=== PATIENT | female | born 1970 | race Caucasian/White ===

== ENCOUNTER 2023-09-28 05:34 | Observation (INO) ==
--- NOTE | 2023-09-12 11:05 | Anesthesiology Consultation ---
Date of Service September 12, 2023 Assessment & Plan (1) Encounter for pre-operative examination: Chart Review Chart Review: Acceptable Risk for Surgery and Patient NOT seen in Pre Admission Testing - Check test AM DOS -Infectious Disease screening: Per PAT nursing assessment on 09/12/23. No known infectious disease contacts in past 10 days or current infectious disease symptoms. No recent travel outside the country. History Surgery Operation Date: 09/28/23 07:15 Proposed Procedures p Total Laparoscopic Hysterectomy, Bilateral Salpingo-Oophorectomy, Cystoscopy and Possible Laparotomy as Indicated Procedure - Derrick Hernández MD Height/Weight Height: 5 ft 4 in Weight: 61.235 kg Allergies Allergy/AdvReac Type Severity Reaction Status Date / Time No Known Allergies Allergy Verified 07/30/23 10:19 Medications Home Medications Medication Instructions Recorded Confirmed Last Taken albuterol sulfate 90 mcg/actuation 2 puff inhalation Q6H PRN prn 07/11/23 09/12/23 Unknown aerosol inhaler ascorbate calcium (vitamin C) 500 500 mg PO QAM 07/11/23 09/12/23 Unknown mg tablet biotin 1 mg capsule 1 mg PO QAM 07/11/23 09/12/23 Unknown multivitamin 1 tab PO QAM 07/11/23 09/12/23 Unknown triamcinolone acetonide 0.1 % 1 applic topical DAILY PRN prn 07/11/23 09/12/23 Unknown topical cream calcium carbonate 600 mg-vitamin 1 tab PO QAM 08/13/23 09/12/23 Unknown D3 10 mcg (400 unit) tablet (Calcium with Vitamin D) ferrous sulfate 325 mg (65 mg 325 mg PO QAM 08/13/23 09/12/23 Unknown iron) tablet (Iron (ferrous sulfate)) turmeric 400 mg capsule 400 mg PO QAM 08/13/23 09/12/23 Unknown fluocinonide 0.05 % topical cream 1 applic topical QID PRN itching 08/20/23 09/12/23 Unknown #60 grams lactobacillus combination no.4 3 3,000 mmu cells PO QAM 09/12/23 09/12/23 Unknown billion cell capsule (Probiotic) Past Medical History Medical History Asthma controlled with prn inhaler History of anesthesia reaction severe constipation after anesthesia History of breast cancer - 05/2023, s/p partial mastectomy and sentinel LN biopsy - radiation only x 4 weeks, completed 08/23/2023 Menieres disease Past Family History Family History Mother Diabetes Hypertension Father Hypertension Skin cancer Basal and Squamous; Benign colon polyp Grandmother (Paternal) Breast cancer Colon cancer Uncle Bladder cancer Paternal Uncle Brother Hypertension Brother Hypertension Past Surgical History Surgical History H/O tubal ligation History of D&C with uterine polypectomy 2019 S/P breast biopsy, right 04/30/23 S/P partial mastectomy Right breast [facility] 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 Dima Lopes Social History Smoking Status: Never smoker Do You Dip or Chew Tobacco: No Hx Alcohol Use: Yes alcohol intake frequency: holidays/special occasions only Hx Substance Use: No substance use type: does not use Testing Laboratory Results 09/06/23= WBC: 5.84 H/H: 14.5/44.1 PLATELETS: 260 SODIUM: 139 POTASSIUM: 4.3 CHLORIDE: 102 CO2: 27 BUN: 13 CREATININE: 0.8 GLUCOSE: 91 Electrocardiogram Date: 05/28/23 Findings: + NSR @ (71bpm) Normal EKG per cardio
[2023-09-28] MEDS: LR 15ML/HR IV SCH (06:20)
[2023-09-28] MEDS: LACTATED RINGER'S 1,000 ML IV SCH ×2 (06:22→17:18)
[2023-09-28] MEDS ORDERED: MIDAZOLAM HCL 1 MG/ML 2ML VIAL ONE (06:44)
[2023-09-28] MEDS ORDERED: HYDROmorphone INJ 2 MG/ML SYR/VIAL ONE (06:44)
[2023-09-28] MEDS ORDERED: HYDROmorphone INJ 1 MG/ML SYRINGE IV PRN (06:52)
[2023-09-28] MEDS ORDERED: NALOXONE HCL 0.4 MG/1 ML VIAL/CARP IV PRN (06:52)
[2023-09-28] MEDS ORDERED: PROMETHAZINE HCL 6.25 MG in SODIUM CHLORIDE 0.9% 50 ML IV PRN (06:52)
[2023-09-28] MEDS ORDERED: ATROPINE SULFATE 0.1 MG/ML 10ML SYR IV PRN (06:52)
[2023-09-28] MEDS ORDERED: FLUMAZENIL 0.1 MG/1 ML 10 ML VIAL IV PRN (06:52)
[2023-09-28] MEDS ORDERED: ePHEDrine sulfate 50 MG/ML AMP IV PRN (06:52)
[2023-09-28] MEDS ORDERED: ONDANSETRON INJ 2 MG/ML 2 ML VIAL IV PRN ×2 (06:52→10:18)
[2023-09-28] MEDS ORDERED: fentaNYL citrate PF 100 MCG/2 ML VIAL IV PRN (06:52)
--- NOTE | 2023-09-28 06:58 | History & Physical Bridge Note ---
Date of Service September 28, 2023 History & Physical Bridge Note I have examined the patient, reviewed the History & Physical and in the interval since the performance of the History & Physical I have noted the following changes of clinical significance: no changes noted
[2023-09-28] MEDS: ceFAZolin 2000MG 2,000 MG/15 ML SYR IV SCH (07:03)
[2023-09-28] MEDS ORDERED: ONDANSETRON INJ 2 MG/ML 2 ML VIAL ONE (07:26)
[2023-09-28] MEDS ORDERED: ROCURONIUM BROMIDE 10 MG/ML 5 ML VIAL IV ONE ×2 (07:26→08:51)
[2023-09-28] MEDS ORDERED: PROPOFOL IV EMULSION 10 MG/ML 20 ML VIAL IV ONE ×2 (07:26→10:01)
[2023-09-28] MEDS ORDERED: METOCLOPRAMIDE HCL INJ 5 MG/ML 2 ML VIAL ONE (07:26)
[2023-09-28] MEDS ORDERED: DEXAMETHASONE SOD INJ 4 MG/ML VIAL ONE (07:26)
[2023-09-28] MEDS ORDERED: LIDOCAINE 2% 2 ML VIAL/AMP(20MG/ML) INFIL ONE (07:26)
[2023-09-28] MEDS ORDERED: PHENYLEPHRINE 100MCG/ML 10ML SYR IV ONE (07:28)
[2023-09-28] MEDS ORDERED: SUGAMMADEX SODIUM 200 MG/2 ML VIAL IV ONE (08:16)
[2023-09-28] MEDS: METHYLENE BLUE 0.5% 10 ML VIAL ONE (08:33)
[2023-09-28] MEDS: BUPIVACAINE/EPINEPHRINE 0.5% MPF 1:200,000 30 ML VIAL ONE (09:56)
[2023-09-28] MEDS ORDERED: oxyCODONE/ACETAMINOPHEN 5mg/325mg TAB PO PRN ×2 (10:18)
[2023-09-28] MEDS ORDERED: ACETAMINOPHEN 325 MG TAB PO PRN (10:18)
[2023-09-28] MEDS ORDERED: KETOROLAC 30 MG/ML VIAL IV PRN (10:18)
--- NOTE | 2023-09-28 10:33 | Operative Report ---
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 Laparoscopic findings to 11 weeks size uterus with multiple fibroids. Appendix appeared grossly normal both ureters were identified prior to surgery the rest of abdominal pelvic exam is unremarkable. Fluids IVF: 1200Ml Urine 200ml EBL; 20ml Specimens Uterus with cervix. Left and right fallopian tubes and ovaries. Drains none Anesthesia Type General Complications None Disposition Disposition: Recovery Room Indications 54-year-old status post breast cancer with endometrial intraepithelial lesion on biopsy. Description of Procedure FINDINGS: DESCRIPTION OF PROCEDURE: The patient was prepped and draped in normal sterile fashion in the dorsal lithotomy position. Mcintosh catheter was placed without difficulty. An UbimoincNouvola uterine manipulator was placed in the uterus to help with colpotomy. Attention was paid to the abdominal part of the procedure where a supraumbilical incision was made and carried down to the fascia. Kait was used to grab the fascia. Veress needle was introduced into the abdomen at a 45-degree angle while tenting up the abdomen. Intra-abdominal placement was confirmed with a water-filled syringe. A water drop and suction test was performed. The abdomen was insufflated with CO2 gas. The Veress needle was removed and a 5 mm non bladed trocar was attached to a laparoscope was introduced into the abdomen under direct visualization. This was a non bladed trocar. Once inside the abdomen, laparoscope was repositioned. Inspection of the abdomen shows the findings as dictated above. Three more accessory ports were placed, two 5 mm accessory ports were placed in the lower abdomen on the contralateral side, in addition, an 11 mm trocar was placed on the left upper quadrant. General inspection of the abdomen and pelvis was performed as dictated above. There was an adhesion of omentum to the umbilicus. This omentum was examined. There was no bowel in the omentum, so the LigaSure was passed through one of the contralateral port and dissection of the omentum from the abdominal wall was performed. There was good hemostasis. Left and right fallopian tubes, the ureters, uterosacrals, bowels, appendix were examined and identified. LigaSure was passed through the left accessory port. The fallopian tube was identified and grabbed 4 cm from the cornua of the uterus with the LigaSure and transected. This was followed by opening of the left anterior leaf of the broad ligament. This allowed for fenestration of the posterior left broad ligament. The mid-section of the left fallopian tube, utero-ovarian and meso-ovarian pedicles were transected as well. Same procedure was performed on the contralateral side. The anterior broad ligament dissection was carried to the mid-section of the vesicouterine peritoneum over the bladder using the Harmonic scalpel. Same procedure was carried out on the contralateral side. The posterior broad ligament peritoneum was carefully dissected also from both sides over the uterosacral arch in order to displace the ureters laterally. Using traction and countertraction, the [place] retractor and irrigation probe was used to further dissect the bladder off the lower segment of the uterus. Bladder pillars and pubovesical fascia was dissected as well. Harmonic scalpel was used to obtain hemostasis where needed. Uterine manipulator was now palpable over the vaginal tissue. The right uterine pedicles were skeletonized and coagulated with the LigaSure. Good hemostasis was obtained. Same procedure was performed on the contralateral side. Cardinal ligaments were transected on both sides. Once good hemostasis was obtained, colpotomy was performed using the LigaSure hook from both sides. Uterus was removed through the vagina while still attached to the uterine manipulator. The bulb was attached to the uterine manipulator was reinserted into the vagina to establish pneumoperitoneum. With a grasper, the remaining section of the left ovary and tube were positioned anteromedially. Both tube and ovary was removed. Same procedure was performed on both sides. EndoStitch closure device was passed through the 11 mm port on the left. Using the [place] grasper for traction, colpotomy closure was performed. The uterosacral ligaments incorporated into the closure in order to decrease the risk of prolapse. Lapro ties were used with the EndoStitch. The 11-mm trocar site was closed with a Jimbo-Rios under direct visualization. Attention was paid to the cystoscopy part of the procedure where a cystoscope was introduced into the bladder. Suture was seen in the bladder on the left lower part of the bladder incision. Laparoscopic scissors was passed through the cystoscope and the suture cut.. There were no gross blood seen in the bladder as well. The bubble sign is noted showing the bladder was a close cavity. Both ureters were seen and there was efflux from both uterus. Attention was paid back to the abdominal part of the procedure the vaginal cuff incision was reclosed. Once this was done the cystoscopy was repeated. The bladder was now free of any sutures no blood in the bladder both ureters was again was seen to be Timoteo urine. The skin incisions are closed with Dermabond, except for the 11-mm trocar site, which was closed with 4-0 Monocryl. The patient was returned to recovery in stable condition. Inspection of the vagina shows the vaginal cuff was intact. All instruments were removed from the vagina and the bladder and accounted for x2. I attest to the content of the Intraoperative Record and any orders documented therein. Any exceptions are noted below.\ Transport Nurse was necessary for retraction and manipulation of instruments in order to provide for a safe operation
--- NOTE | 2023-09-28 12:15 | Anesthesiology Progress Note ---
Date of Service September 28, 2023 Anesthesia Post Procedure Vital Signs Vital Signs: Temp Pulse Pulse Pulse Resp BP BP 09/28/23 11:10 36.4 C L 63 14 117/71 09/28/23 10:55 72 14 125/74 09/28/23 10:45 36.4 C L 65 14 125/67 09/28/23 10:35 77 16 121/73 09/28/23 10:25 60 12 111/67 09/28/23 10:15 36.3 C L 74 14 106/60 09/28/23 05:55 36.7 C 70 20 116/77 Pulse Ox O2 Del Method O2 Flow Rate 09/28/23 11:10 100 Room Air 09/28/23 10:55 99 Room Air 09/28/23 10:45 96 Room Air 09/28/23 10:35 100 Oxymask 2 09/28/23 10:25 100 Oxymask 4 09/28/23 10:15 97 Oxymask 6 09/28/23 05:55 98 Room Air Transfer of Care Handoff Completed per policy Notes Mental Status: alert / awake / arousable Patient Amnestic to Procedure: Yes Nausea / Vomiting: adequately controlled Pain: adequately controlled Airway Patency, RR, SpO2: stable & adequate BP & HR: stable & adequate Hydration State: stable & adequate Anesthetic Complications: no major complications apparent
[2023-09-28] MEDS: DOCUSATE SODIUM 100 MG CAP PO SCH (21:10)
[2023-09-28] MEDS: IBUPROFEN 600 MG TAB PO PRN (21:19)
--- OUTSIDE RECORDS SUMMARY | 2023-09-29 01:15 | External Medical Summary | Summary of Care ---
Author Name Unknown Organization [facility] Address [address] [place] [address] Phone [phone] Care Team Providers Care Herb Counselor Name Role Phone Lululloyd Vianney Fernandez PA-C Primary Care Provider [phone] Reason for Visit * Reason Comments Medical Nutrition Therapy * Evaluate & Treat - Unlimited Visits (Within 10 days (routine)) - Pending Review Specialty Diagnoses / Procedures Referred By Lorena palomo Referred To Contact Dietitian / Nutrition Services Diagnoses History of breast cancer Heidy Cotton PA-C [address] [place] [address] Referral ID Status Reason Start Date Expiration Date Visits Requested Visits Authorized [id number] Pending Review Specialty Services Required 09/24/[phone] Encounter Details Date Type Department Care Team ([facility] st Contact Info) Description 09/27/2023 3:00 PM EDT Telemedicine Nutrition [address] [address] Sushila Daivs, NICOLAS [address] [place] [address] Dietary counseling and surveillance*; History of breast cancer [Z85.3] Allergies Active Allergy Reactions Criticality Noted Date Comments Pollen 01/26/2021 documented as of this encounter (statuses as of 09/27/2023) Medications Medication Sig Dispensed Refills Start Date End Date Status Calcium Carb-Cholecalciferol 1000-800 MG-UNIT Oral Tablet Take 1 Tablet by mouth in the morning and 1 Tablet before bedtime. Active ferrous sulfate (FEOSOL) 325 (65 FE) MG TabletIndications:Iron deficiency anemia due to chronic blood loss Take 1 Tab by mouth 2 times a day. 60 Tab 6 11/11/2019 Active vitamin c (ASCORBIC ACID) 250 MG Tablet Take 1 Tablet by mouth in the morning. Active Triamcinolone Acetonide 0.1 % External Cream (Aristocort) Apply topically to affected area 2 times a day. To affected area. 60 g 5 02/01/2021 Active Albuterol Sulfate (2.5 MG/3ML) 0.083% Inhalation Nebulization Solution (Proventil) Inhale via nebulizer 1 Vial every 4 hours as needed for Wheezing. 75 mL 1 09/19/2021 Active Albuterol Sulfate HFA 108 (90 Base) MCG/ACT Inhalation Aerosol Solution Inhale by mouth 2 Puffs in the morning AND 2 Puffs at noon AND 2 Puffs in the evening AND 2 Puffs before bedtime. 18 g 1 09/19/2021 Active Multivitamin Adult Oral Tablet Chewable Take by mouth. Active Biotin 5 MG Oral Tablet Disintegrating (Biotin Beauty Extra Strength) Take by mouth. Active Turmeric Curcumin Oral Capsule Take by mouth. Active Probiotic 250 MG Oral Capsule Take by mouth. Active Ibuprofen 600 MG Oral Tablet (Motrin) Take 1 Tablet by mouth in the morning and 1 Tablet at noon and 1 Tablet before bedtime. With meals.. 30 Tablet 08/02/2023 Active Anastrozole 1 MG Oral Tablet (Arimidex)Indications: Malignant neoplasm of upper-outer quadrant of right breast in female, estrogen receptor positive (HCC) Take 1 Tablet by mouth in the morning. 30 Tablet 11 2023 Active Magnesium Citrate Oral SolutionIndications:Pr eop testing Take 296 ml solution 5 PM the night before surgery 300 mL 2023 Active Hospital, Clinic, or Other Facility Administered Medication Ordered Dose Route Frequency Start Date End Date Status Albuterol Sulfate (Proventil) (2.5 MG/3ML) 0.083% inhalation solution 2.5 mgIndications:Screening for respiratory condition 2.5 mg NEBULIZER PRN 08/07/2023 Active documented as of this encounter (statuses as of 09/27/2023) Active Problems Problem Noted Date Diagnosed Date Malignant neoplasm of female breast 06/12/2023 Intermittent asthma with reliever use up to twic e per week 02/01/2021 Mild persistent asthma without complication 01/14 Eczema 07/16/2012 Meniere's disease Asthma, allergic documented as of this encounter (statuses as of 09/27/2023) Resolved Problems Problem Noted Date Diagnosed Date Resolved Date Screening for cardiovascular condition 07/16/2012 01/24/2018 Screening for diabetes mellitus 07/16/2012 01/24/2018 General medical exam 07/16/2012 018 Acute bronchitis, complicated 06/06/2010 07/16/2012 documented as of this encounter (statuses as of 09/27/2023) Immunizations Name Administration Dates Next Due COVID-19 mRNA, LNP-s, No Pre serve, 2-Dose Series (Veodin) 03/05/2021,07/16/2020,06/25/2020 COVID-19, MRNA-LNP, 23-24, P F, 50 MCG/0.5 mL, 12 YRS AND ABOVE, IM (MODERNA-Spikevax) 02/09/2023 Covid-19, Mrna, Lnp-s, Pf, B ivalent, 50 Mcg, IM, 12 yrs and above (Moderna) 02/25/2022 Pneumococcal Conjugate Vacci ne, 20-valent (Cbusszi16) 05/03/2022 Seasonal Influenza, PF, 6 M & above, IM , (FluLaval or Fluzone) 02/25/2022,02/01/2021,02/18/2020 Seasonal Influenza, Quadriva lent Hd (Fluzone Hd) 01/01/2023 Seasonal Influenza, Split, I IV3, With Preserve, Inj 04/26/2012 TDAP (age 10 and older)(Boostrix) 07/16/2012 Zoster Vaccine Recombinant (Shingrix) 07/22/2021 ,05/21/2021 documented as of this encounter Social History Tobacco Use Types Packs/Day Years Used Date Smoking Tobacco: Never Smokeless Tobacco: Never Alcohol Use Standard Drinks/Week Comments Yes 0 (1 standard drink = 0.6 oz pur e alcohol) very rare AUDIT-C Answer Date Recorded Frequency of Alcohol Consumption Monthly or less 11/07/2019 Average Number of Drinks Not on file 07/24/2 020 Frequency of Binge Drinking Not on file 10/15 PHQ-2 Answer Date Recorded PHQ Adult Total Score 0 05/03/2022 Hunger Vital Sign Answer Date Recorded Within the past 12 months, y ou worried that your food would run out before you got the money to buy more. Never true 03/28/20 23 Within the past 12 months, t he food you bought just didn't last and you didn't have money to get more. Never true 03/28/2023 Sex and Gender Information Value Date Recorded Sex Assigned at Female 11/10/2019 5:51 PM EDT Gender Identity Female 11/10/2019 5:51 PM EDT Sexual Orientation Straight 03/28/2023 11 :34 AM EST Job Start Date Occupation Industry Not on file Not on file Not on file documented as of this encounter Progress Notes * Sushila Davis, NICOLAS - 09/27/2023 3:06 PM EDT NUTRITION CONSULT - OUTPATIENT [facility] Name: [facility]: 09[facility]27[facility]2023 Time: 3:06 PM Patient was identified by name and date. Patient location: HOME. I was in a hospital or clinic location. After connecting through Att[employer],patient was verified with two unique identifiers. Patient (or authorized legal statement services representative) was then informed that this was a Telemedicine visit and being conducted confidentially over secure lines. Methods to assure confidentiality were taken. Patient acknowledged consent and understanding of pr ivacy and security of the Telemedicine visit. The patient agreed to participate. Reason for Referral: Breast Cancer NUTRITION ASSESSMENT: Client History Nova states that she is "jumping into a new era for body and nutrition". Notes that this was the first year in her life were she underwent surgery and was prescribed medications. Is scheduled for hysterectomy with removal of ovaries tomorrow due to increased risk of uterine cancer. Is worried about weight maintenance s/p hysterectomy. Is also diagnosed with Meniere's disease and states that controlling weight status helps with management of this disease. Support System: and family Barriers To Learning: None Special Education Needs: None Food/Nutrition-Related History Describes typical diet history/24 hr recall: Breakfast: 9-10 AM: Homemade yogurt with berries, homemade granola (lower sugar) or almond milk smoothies with berries and spinach or avocado toast or overnight oats. Today - chicken and vegetables. Drinks water with this meal. Snacks: None Lunch: Leftovers. Avocado toast (sourdough bread) or grabs fast food burger or sandwich or cheese quesadilla. Snacks: Craves sugar. Ruslan crackers or biscotti or fruit or ice cream. Dinner: Yesterday - chicken, roasted vegetable medley, sourdough bread. Uses Hello Fresh meals 3 times weekly. Snacks: Sometimes - a couple small cookies Drinks: Water Restaurant meals: 1-2 times weekly Alcohol: 1-2 times monthly Tobacco Use: No Food and Nutrient Intake and other pertinent information: Lately, dairy hasn't been agreeing with her. Used Noom 1 1/2 years ago. Food allergies and/or food intolerances: Possible lactose intolerance Pertinent Medications (Current): Current Outpatient Medications Medication Sig Dispense Refill Calcium Carb-Cholecalciferol 1000-800 MG-UNIT Oral Tablet Take 1 Tablet by mouth in the morning and1 Tablet before bedtime. ferrous sulfate (FEOSOL) 325 (65 FE) MG Tablet Take 1 Tab by mouth 2 times a day. 60 Tab 6 vitamin c (ASCORBIC ACID) 250 MG Tablet Take 1 Tablet by mouth in the morning. Triamcinolone Acetonide 0.1 % External Cream (Aristocort) Apply topically to affected area 2 times a day. To affected area. 60 g 5 Albuterol Sulfate (2.5 MG/3ML) 0.083% Inhalation Nebulization Solution (Proventil) Inhale via nebulizer 1 Vial every 4 hours as needed for Wheezing. 75 mL 1 Albuterol Sulfate HFA 108 (90 Base) MCG/ACT Inhalation Aerosol Solution Inhale by mouth 2 Puffs in the morning AND 2 Puffs at noon AND 2 Puffs in the evening AND 2 Puffs before bedtime. 18 g 1 Multivitamin Adult Oral Tablet Chewable Take by mouth. Biotin 5 MG Oral Tablet Disintegrating (Biotin Beauty Extra Strength) Take by mouth. Turmeric Curcumin Oral Capsule Take by mouth. Probiotic 250 MG Oral Capsule Take by mouth. Ibuprofen 600 MG Oral Tablet (Motrin) Take 1 Tablet by mouth in the morning and 1 Tablet at noon and 1 Tablet before bedtime. With meals.. 30 Tablet 0 Anastrozole 1 MG Oral Tablet (Arimidex) Take 1 Tablet by mouth in the morning. 30 Tablet 11 Magnesium Citrate Oral Solution Take 296 ml solution 5 PM the night before surgery 300 mL 0 Current Facility-Administered Medications Medication Dose Route Frequency Provider Last Rate Last Admin Albuterol Sulfate (Proventil) (2.5 MG/3ML) 0.083% inhalation solution 2.5 mg 2.5 mg Nebulizer PRN Vianney Cordova PA-C 2.5 mg at 08/27/23 0901 Supplements: Calcium, Iron, Multivitamin with minerals, Probiotic, Vitamin C, biotin, turmeric Prior Nutrition Counseling: No prior counseling Physical Activity: Moderate - 30 minute walk on most days of the week Anthropometric Measurements There were no vitals taken for this visit. Wt Readings from Last 13 Encounters: 09/06/23 62.2 kg (137 lb 1.6 oz) 08/14/23 63.5 kg (140 lb) 08/02/23 64 kg (141 lb) 07/24/23 64 kg (141 lb) 07/18/23 64 kg (141 lb) 06/12/23 61 kg (134 lb 7.7 oz) 05/18/23 61.7 kg (136 lb) 05/15/23 61.2 kg (134 lb 14.4 oz) 04/26/23 62.1 kg (137 lb) 04/04/23 63 kg (139 lb) 03/07/23 62.1 kg (137 lb) 01/01/23 62.2 kg (137 lb 1.6 oz) 07/12/22 63.6 kg (140 lb 3.2 oz) Usual Body Weight: 134-141 lb for the past year Weight Change: stable Interpretation of weight change: no significant loss Weight Goal: 130-135 lb per patient BMI: BMI Readings from Last 1 Encounters: 09/06/23 23.70 kg/m Nutrition-Focused Physical Findings Overall appearance: WNWD Need for nutrition-focused physical exam not indicated at this time. Fluid accumulation: Fluid Assessment: Normal per patient Fluid Location: N/A Fluid Description: N/A Digestive system: Dairy will cause diarrhea. Nerves and cognition: Awake, alert and Oriented Nutritionally significant wound burden: Surgical wound / incision - intact Biochemical Data, Medical Tests, and Procedures There are no biochemical abnormalities requiring a change in the nutrition plan of care. NUTRITION DIAGNOSIS Food and nutrition-related knowledge deficit related to nutritional management of breast cancer survivorship as evidenced by patient interview. NUTRITION INTERVENTION: NUTRITION EDUCATION Comprehensive nutrition education NUTRITION COUNSELING Strategies Other Education Material: Oncology Dietetic Practice Group: Soy and Breast Cancer, Culinary Medicine: Mediterranean Diet, Academy of Nutrition and Dietetics: Heart Healthy Diet Nutrition Prescription: Diet: Mediterranean Diet Goals: Incorporate aspects of Mediterranean Diet into daily eating habits. Include soy foods in diet. Avoid soy supplements. Dietitian Action: Discussed implementing aspects of Mediterranean Diet into daily diet to decrease risk of chronic disease. Discussed recommendations regarding soy foods intake with breast cancer. Recommended looking at [employer] web site for further information on organic foods. Recommendations to Ordering Provider: Continue current plan of nutrition care. NUTRITION MONITORING AND EVALUATION: The following will be monitored and evaluated at the next visit: Monitor weight. Monitor labs. Monitor goals and progress. Monitor PO intake. Monitor activity level. Plan:Patient elected to not schedule F/U visit at this time; dietitian phone # given for future reference. 75 minutes Medical Nutrition Therapy 15 min (8-22 min) 30 min (23-37 min) 45 min (38-52 min) 60 min (53-67 min) 75 min (68-82 min) 90 min (83-97 min) 105 min (98-113 min) Time In: 1505 (09/27/23 1632) Time Out: 1615 (09/27/23 1633) Sushila DAVIS [facility] Clinical Nutrition [facility]: Radiation Oncology Department [address] [place] [address] [email or web address] Available via [place] Text documented in this encounter Plan of Treatment Upcoming Encounters Date Type Department Care Team (Late st Contact Info) Description 10/08/2023 9:45 AM EDT Office Visit Gynecology/Obstetrics [facility] [address] [place] [address] Derrick Hern[facility]dez MD [address] [facility] [place] [address] 11/21/2023 8:45 AM EDT Office Visit General Surgery, [facility] [address] [place] [address] Dima Lopes MD [address] [place] [address] 01/02/2024 10:20 AM EDT Office Visit Otolaryngology [facility] [address] [facility] [place] [address] Twila Najera PA-C [address] [facility] [place] [address] 02/06/2024 1:15 PM EDT Office Visit Hematology/Oncology [facility] [address] [place] [id number] [facility] [address] [facility] [address] 03/24/2024 10:30 AM EST Imaging Radiology [facility] [address] [facility] [address] [place] [address] Scheduled Procedures Name Priority Associated Diagnoses Date/Ti me COLONOSCOPY FLEXIBLE PROXIMAL DIAGNOSTIC Recall History of colon polyps Scheduled Referrals Name Type Priority Associated Diagnoses Orde r Schedule NUTRITION-CLINICAL DIETITIAN REFERRAL OP Referral Within 10 days (routine) History of breast cancer Ordered: 09/24/2023 Health Maintenance Due Date Last Done Comments Hepatitis C Screening 09/07/1987 Hepatitis B (1 of 3 - 19+ 3-dose series) 1988 Cologuard 2014 Fecal Occult Blood Test 2014 Sigmoidoscopy 2014 DTaP,Tdap,and Td Vaccines (2 - Td or Tdap) 07/16/2022 07/16/2012 Depression Screening 05/03/2023 05/03/2022, 05/05/2016 (Discussed) Mammogram 03/23/2024 03/23/2023, 020 09/2022, 02/28/2021, Additional history exists Colonoscopy 12/07/2024 12/08/2019, 12/08/2019 Colorectal Cancer Screening 12/07/2024 Pap Smear 06/15/2025 06/15/2022, 090 04/2020, 11/07/2019, Additional history exists Lipid Panel 06/01/2027 06/01/2022, 10/15, 07/22/2012 Cervical Cancer Screening 06/16/2027 HPV/Co-Test 06/16/2027 06/15/2022 RETIRED - COLONOSCOPY-EVERY 5 YRS AGES 18-100 Discontinued 12/08/2019, 12/08/2019 Zoster Vaccines Completed 07/22/2021, 05/21/2021 Pneumococcal Vaccine: Pediatrics (0 to 5 Years) and At-Risk Patients (6 to 64 Years) Completed 05/03/2022 Influenza Vaccine (FLU shot) Completed 01/01/2023, 02/25/2022, 02/01/2021, Additional history exists COVID-19 Vaccine Completed 02/09/2023, 03/2022, 03/05/2021, Additional history exists GARDASIL-HPV IMMUNIZATION SERIES Aged Out No longer eligible based on patient's age to complete this topic MENINGOCOCCAL (MENACTRA/MENVEO) Aged Out No longer eligible based on patient's age to complete this topic documented as of this encounter Medical Devices Not on filedocumented as of this encounter Visit Diagnoses Diagnosis Dietary counseling and surveillance- Primary Dietary surveillance and counseling History of breast cancer [Z85.3] Personal history of malignant neoplasm of breast documented in this encounter Advance Directives * Full Code (Latest Code Status on File) Date Activated Date Inactivated Comments 06/12/2023 7:40 AM 06/12/2023 5:02 PM This order r eflects the patients wishes and were consensually agreed upon. Question Answer Comments Discussion of Advance Directives occurred with: Patient Care Teams Herb Counselor Relationship Specialty Start Date End Date Vianney Cordova, HASMUKH [address] [place] [address] PCP - General Physician Catering Truck Driver 05/05/16 documented as of this encounter
--- OUTSIDE RECORDS SUMMARY | 2023-09-29 01:16 | External Medical Summary | Summary of Care ---
Author Name Unknown Organization [facility] Address [address] [facility] [place] [address] Phone [phone] Care Team Providers Care Field Artillery Operations Man Name Role Phone Vianney Cordova PA-C Primary Care Provider [phone] Reason for Visit * Reason Comments Follow Up Encounter Details Date Type Department Care Team (Late st Contact Info) Description 2023 1:15 PM EDT Office Visit Hematology/Oncology [place] [facility] Guo [address] [facility] [place] [id number] Gerard Ferrari MD [address] [facility] [place] [address] Malignant neoplasm of upper-outer quadrant of right breast in female, estrogen receptor positive (HCC)* Allergies Active Allergy Reactions Criticality Noted Date Comments Pollen 01/26/2021 documented as of this encounter (statuses as of 2023) Medications Medication Sig Dispensed Refills Start Date [...] the morning. 30 Tablet 11 2023 Active Hospital, Clinic, or Other Facility Administered Medication Ordered Dose Route Frequency Start Date End Date Status Albuterol Sulfate (Proventil) (2.5 MG/3ML) 0.083% inhalation solution 2.5 mgIndications:Screening for respiratory condition 2.5 mg NEBULIZER PRN 08/07/2023 Active documented as of this encounter (statuses as of 2023) Active Problems Problem Noted Date Diagnosed Date Malignant neoplasm of female breast 06/12/2023 Intermittent asthma with reliever use up to twic e per week 02/01/2021 Mild persistent asthma without complication 01/14 Eczema 07/16/2012 Meniere's disease Asthma, allergic documented as of this encounter (statuses as of 2023) Resolved Problems Problem Noted Date Diagnosed Date Resolved Date Screening for cardiovascular condition 07/16/2012 01/24/2018 Screening for diabetes mellitus 07/16/2012 01/24/2018 General medical exam 07/16/2012 018 Acute bronchitis, complicated 06/06/2010 07/16/2012 documented as of this encounter (statuses as of 2023) Immunizations Name Administration Dates Next Due COVID-19 mRNA, LNP-s, No Pre serve, 2-Dose Series ([email or web address]) 03/05/2021,07/16/2020,06/25/2020 COVID-19, MRNA-LNP, 23-24, P F, 50 MCG/0.5 mL, 12 YRS AND ABOVE, IM (MODERNA-Spikevax) 02/09/2023 Covid-19, Mrna, Lnp-s, Pf, B ivalent, 50 Mcg, IM, 12 yrs and above (Moderna) 02/25/2022 Pneumococcal Conjugate Vacci ne, 20-valent ([email or web address]) 05/03/2022 Seasonal Influenza, PF, 6 M & [...] Average Number of Drinks Not on file 020 Frequency of Binge Drinking Not on [...] on file documented as of this encounter Last Filed Vital Signs Vital Sign Reading Time Taken Comments Blood Pressure 107/73 2023 12:59 PM EDT Pulse 87 2023 12:59 PM EDT Temperature 36.7 C (98.1 F) 2023 12:59 PM E DT Respiratory Rate 17 2023 12:59 PM EDT Oxygen Saturation 96% 2023 12:59 PM EDT Inhaled Oxygen Concentration - - Weight 62.2 kg (137 lb 1.6 oz) 2023 12:59 PM EDT Height - - Body Mass Index 23.7 08/14/2023 9:25 AM EDT documented in this encounter Progress Notes * Gerard Ferrari MD - 2023 1:15 PM EDT Hematology/Oncology Outpatient Consult Note Leonela G[place] [address] [facility] [place] [address] N[place] PRESCOTT MR # [id number] :1970 52-year-old female, Date of consultation:05/15/2023 DIAGNOSIS: - right breast lobular carcinoma, on mammogram It is about 9 mm, hormonal positive HER2 negative. S/P partial mastectomy and sentinel for biopsy (06/12/2023). - Invasive lobular carcinoma, grade 2, negative margin -4 sentinel lymph nodes negative for metastatic disease. -primary tumor measuring 1.1 cm. Focus. -pathological T1c N0. Oncotype DX recurrence score --> 13. Genetic Clinic evaluation --> negative. She completed adjuvant radiation treatment in August of 2023. She is going for bilateral salpingo-oophorectomy in the near future. CURRENT TREATMENT: - Planning start Anastrozole 1 mg once a day once she is done with salpingo-oophorectomy. She will continue vitamin-D and Calcium supplementation on regular basis. If she can not tolerate Anastrozole, will switch over to tamoxifen. DIAGNOSTIC WORKUP: She felt the breast lump in the right breast somewhere in March of 2023, earlier she had bilateral breast mammogram in May 2022, It was unremarkable. She is premenopausal. Bilateral breast diagnostic mammogram and sonogram on 03/23/2023: Right breast --> At 10 o'clock, hypoechoic mass measuring 9 x 4 x 7 mm. Left breast--> Debris-filled cyst measuring 1.9 x 1.2 x 2.1 cm. Right breast 10 o'clock core needle biopsy--> Invasive lobular carcinoma grade 2 (04/30/2023). - ER and OR receptor strongly positive in 100% of malignamt cells, HER2 [place] negative by IHC. Family history: -mom and dad, no cancer diagnosis -paternal grandmother with bilateral breast cancer diagnosis -she has 4 children, no cancer diagnosis. - OTHER IMPORTANT HISTORY: Pelvic sonogram on 03/23/2023 because of abnormal uterine bleeding shows Enlarged leiomyomatous uterus with probable underlying adenomyosis. - she is going for D&C on 06/21/2023. INTERVAL HISTORY: She has come the clinic for the follow-up, she came to clinic by herself. Overall she is doing well, no nausea no vomiting, no new GI symptoms, no cardiac or pulmonary symptoms, no thrombotic complications the past, ambulates well, good ECOG PS 0, stable weight around 137 lb. She is premenopausal, She is frequent bleeding issues, she was seen by data security coordinator, they did endometrial biopsy, It showed benign findings, she is going for salpingo-oophorectomy and hysterectomyin the near future. Past Medical History: Diagnosis Date Anemia Asthma, allergic Meniere's disease Past Surgical History: Procedure Laterality Date BX LYMPH NODE DEEP AXIL Right 06/12/2023 BIOPSY LYMPH NODE DEEP AXILLARY OPEN performed by Dima Lopes MD at OR [facility] COLONOSCOPY, DIAGNOSTIC (RECTUM) 12/08/2019 benign polyp, repeat 5 yrs / COLONOSCOPY FLEXIBLE PROXIMAL DIAGNOSTIC performed by Lopez Bazan MD at ENDOSCOPY [facility] DENTAL SURGERY PROCEDURE NEC EXC BREAST LESION RADMARK Right 06/12/2023 EXCISION OF BREAST LESION RADIOLOGICAL MARKER performed by Dima Lopes MD at OR [facility] HYSTEROSCOPY W/BIOPSY AND/OR POLYPECTOMY W/WO D&C N/A 02/05/2020 HYSTEROSCOPY WITH BIOPSY AND/OR POLYPECTOMY WITH OR WITHOUT D&C performed by Farheen Rust MD at OR [facility] HYSTEROSCOPY W/BIOPSY AND/OR POLYPECTOMY W/WO D&C N/A 08/02/2023 HYSTEROSCOPY WITH BIOPSY AND/OR POLYPECTOMY WITH OR WITHOUT D&C performed by Derrick Hernández MD at OR [facility] IDENTIFY SENTINEL NODE, RADIOACTIVE TRACER Right 06/12/2023 INJECTION PROCEDURE FOR IDENTIFICATION SENTINEL NODE performed by Dima Lopes MD at OR [facility] LIGATE/CUT OVIDUCT(S) MASTECTOMY, PARTIAL Right 06/12/2023 MASTECTOMY PARTIAL performed by Dima Lopes MD at OR [facility] PELVIC EXAM UNDER ANESTHESIA, NOT LOCAL N/A 08/02/2023 PELVIC EXAMINATION UNDER ANESTHESIA performed by Derrick Hernández MD at OR [facility] PUNCTURE DRAINAGE BREAST CYST Left 2000 Benign PUNCTURE DRAINAGE BREAST CYST Left 04/30/2023 REMOVAL OF SKIN TAGS, EA ADDL 10 (AFTER 15) Right 06/12/2023 REMOVAL SKIN TAG EACH ADDITIONAL 10 LESIONS performed by Dima Lopes MD at OR [facility] US GUIDED BREAST BIOPSY RIGHT Right 04/30/2023 Current Outpatient Medications Medication Sig Dispense Refill [...] before bedtime. With meals.. 30 Tablet 0 Current Facility-Administered Medications Medication Dose Route Frequency Provider Last Rate Last Admin Albuterol Sulfate (Proventil) (2.5 MG/3ML) 0.083% inhalation solution 2.5 mg 2.5 mg Nebulizer PRN Vianney Cordova PA-C 2.5 mg at 08/27/23 0901 Family History Problem Relation Name Age of Onset Total abdominal hysterectomy Mother 47 Due to fibroids Heart Disorder Mother MVP Diabetes Mother dx age 60's Other (osteoporosis) Mother Sarcoma Father 83 on skin Skin cancer Father SCC & BCC Exposure - lives in [place] and did not wear sunscreen when younger Hypertension Father Hypertension Brother Colon cancer Grandmother (Paternal) Laya 90 - 99 tx: colectomy Mastectomy Grandmother (Paternal) Laya 53 Unilateral mastectomy at age 53, and then masectomy of other breast age age 54 Breast Cancer Grandmother (Paternal) Laya 53 Brain tumor Other Cluck Other (Benign Tumor) Aunt (Paternal) Near nose/eyes Impairs vision. No surgery and appeared >16 yrs ago. Bladder Cancer Uncle (Paternal) 40 - 49 Colon cancer Other Alan TOB+ Lung cancer Other Pamela TOB+ Mets to brain Colon cancer Other Martha Davison Recurrent 15 yrs later TOB- Cancer Other Geoff >300 tumors on body d. 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 Tobacco Use Smoking status: Never Smokeless tobacco: Never Vaping Use Vaping status: Never Used Substance and Sexual Activity Alcohol use: Yes Comment: very rare Drug use: No Sexual activity: Yes Partners: Male control/protection: Surgical Comment: 4 children/tubal Other Topics Concern Not on file Social History Narrative Not on file Social Determinants of Health Financial Resource Strain: Not on file Food Insecurity: No Food Insecurity (03/28/2023) Hunger Vital Sign Worried About Running Out of Food in the Last Year: Never true Ran Out of Food in the Last Year: Never true Transportation Needs: Not on file Physical Activity: Not on file Stress: Not on file Social Connections: Not on file Intimate Partner Violence: Not on file Housing Stability: Not on file On Exam: .BP 107/73 (BP Site: Left Arm, BP Position: Sitting, BP Cuff Size: Regular) | Pulse 87 | Temp 36.7 C (98.1 F) (Tympanic) | Resp 17 | Wt 62.2 kg (137 lb 1.6 oz) | SpO2 96% | BMI 23.70 kg/m | BSA1.67 m Constitutional: Patient is alert, cooperative and oriented x 3. Well built female, Patient is in noacute distress. HEENT: No icterus, no pallor, Throat and pharynx normal. Sinuses are non-tender. Neck: Supple and without lymphadenopathy or masses. No JVD. No Palpable supraclavicular lymph nodes. Lungs: Clear to auscultation. Bilateral symmetric air entry. No wheezing or rhonchi. Cardiovascular: Normal heart sounds, no murmurs.Regular rate and rhythm. Abdomen: Soft, nontender, no hepatomegaly, no splenomegaly. Bowel sounds are normal. Neurological: No gross focal neurological deficit; walks with a normal gait. Extremities: No finger clubbing, No cyanosis. No leg edema. Skin:: No skin rash. SPINE: No spinal or paraspinal tenderness. LABS: Blood workup done in May 2022: -normal kidney function, serum creatinine around 0.8, Calcium level 9.2. -WBC 4008, H&H of 13/41, MCV 88, Platelet count 740586 -Serum iron: 45, TIBC 313, iron saturation 14%. ( she is on oral iron replacement therapy) Blood workup done on 05/24/2023: -normal kidney And liver function test noted. - Normal blood counts IMAGING: Bilateral breast MRI on 05/19/2023: - biopsy-proven right breast malignancy measuring about 7 mm. No suspicious finding noted in the left breast, no suspicious axillary or internal mammary lymphadenopathy noted. Bone density on 08/28/2023: - T-score at lumbar spine -0.4 and left femoral neck -0.6. ASSESSMENT AND PLAN: 52-year-old female, she felt small lump in the right breast without any local symptoms, she had a mammogram showed about 9 mm hypoechoic mass at 10 o'clock, biopsy showed invasive lobular carcinoma hormonal positive HER2 [place] negative. I reviewed with regarding the bilateral breast MRI findings, lumpectomy, Oncotype DX recurrence score She completed adjuvant radiation treatment. Because of low Oncotype DX score, no benefit of adjuvant chemotherapy Reviewed bone density result. Discussed with the regarding adjuvant hormonal treatment that can be considered in the form tamoxifen versus aromatase inhibitor. She says that she is going for bilateral salpingo-oophorectomy in thenear future. In that case we can start Anastrozole about 2 weeks after surgery and see how she tolerates If she can not tolerate Anastrozole, we can switch over to tamoxifen She will continue vitamin-D and Calcium supplementation on a regular basis I reviewed her blood workup done in May 2023, overall normal blood test noted I am planning to see her back in the clinic in about 6 months. Earlier she was seen in genetic Clinic, [address] Gerard Ferrari Hem/Onc (This note was completed using the dictation program Fluency Direct. As such, there may be misspellings word substitutions, or other variations that should not change the essence of the clinical content of this encounter note. If there is need for further clarification, please direct questions to the provider listed above.) documented in this encounter Nursing Notes * Susan Granado MED ASSIST - 2023 1:04 PM EDT Patient identifed by name and birthdate Do you have any concerns about pain management for today's visit? Yes. Patient instructed to discuss pain concerns with provider during the visit today Living Will or Advance Directive for Health Care as noted on the problem list. [facility] is a way you can talk to your provider on line through e-mail. Would you like to sign up? I can activate it for you? ALREADY ACTIVE Filed Vitals: 09/06/23 1259 BP: 107/73 Pulse: 87 Resp: 17 Temp: 36.7 C (98.1 F) TempSrc: Tympanic SpO2: 96% Weight: 62.2 kg (137 lb 1.6 oz) Patient was instructed to not get up on the exam table/exam chair until directed and assisted by their provider; patient is to remain seated in the chair/ wheelchair/ exam table/ exam chair for fall prevention and safety reasons. Patient is aware to have assistance to step down off exam table/exam chair with personnel. Patient voiced full comprehension of instructions. documented in this encounter Plan of Treatment Upcoming Encounters Date Type Department Care Team (Late st Contact Info) Description 10/08/2023 9:45 AM EDT Office Visit Gynecology/Obstetrics [facility] [address] [place] [address] Derrick Hernández MD [address] [place] [address] 11/21/2023 8:45 AM EDT Office Visit General Surgery, [facility] [address] [place] [address] Dima Lopes MD [address] [place] [address] 01/02/2024 10:20 AM EDT Office Visit Otolaryngology [facility] [address] [place] [address] Twila Najera PA-C [address] [place] [address] 02/06/2024 1:15 PM EDT Office Visit Hematology/Oncology [facility] [address] [facility] [place] [id number] Gerard Ferrari MD [address] [facility] [place] [address] 03/24/2024 10:30 AM EST Imaging Radiology [address] [place] [address] Scheduled Procedures Name Priority Associated Diagnoses Date/Ti me COLONOSCOPY FLEXIBLE PROXIMAL DIAGNOSTIC Recall History of colon polyps Health Maintenance Due Date Last Done Comments Hepatitis C Screening 09/07/1987 Hepatitis B (1 of 3 - 19+ 3-dose series) 1988 Cologuard 2014 Fecal Occult Blood Test 2014 Sigmoidoscopy 2014 DTaP,Tdap,and Td Vaccines (2 - Td or Tdap) 07/16/2022 07/16/2012 Depression Screening 05/03/2023 05/03/2022, 05/05/2016 (Discussed) Mammogram 03/23/2024 03/23/2023, 09/2022, 02/28/2021, Additional history exists Colonoscopy 12/07/2024 12/08/2019, 12/08/2019 Colorectal Cancer Screening 12/07/2024 Pap Smear 06/15/2025 06/15/2022, 09/0 04/2020, 11/07/2019, Additional history exists Lipid Panel [...] as of this encounter Visit Diagnoses Diagnosis Malignant neoplasm of upper-outer quadrant of right breast in female, estrogen receptor positive (HCC)- Primary documented in this encounter Advance Directives * Full Code (Latest Code Status on File) Date Activated Date Inactivated Comments 06/12/2023 7:40 AM 06/12/2023 5:02 PM This order r eflects the patients wishes and were consensually agreed upon. Question Answer Comments Discussion of Advance Directives occurred with: Patient Care Teams Field Artillery Operations Man Relationship Specialty Start Date End Date TashaJuly HASMUKH Fernandez [address] [place] [address] PCP - General Physician Gas Engine Performance Engineer 05/05/16 documented as of this encounter"
--- OUTSIDE RECORDS SUMMARY | 2023-09-29 01:16 | External Medical Summary ---
Author Name Unknown Address Unknown Organization [facility] [place] [address] [place] [address] Laboratory Report Ordering Provider Test Date Status CONRADO JAMA 2023 15:24:15 Final Observation Date Value Abnormality Reference (Units ) Status BUN 2023 15:24:15 13 6-20 (mg/dL) Final Creatinine 2023 15:24:15 0.8 0.5-1.0 (mg/dL) Final Glomerular filtration rate/1.73 sq M.predicted [Volume Rate/Area] in Serum, Plasma or Blood by Creatinine-based formula (CKD-EPI) 2023 15:24:15 >90 >=60 (mL/min) Final eGFR is calculated based on the CKD-EPI 2020 equation Sodium 2023 15:24:15 139 135-146 (m mol/L) Final Potassium 2023 15:24:15 4.3 3.5-5.1 (m mol/L) Final Cl 2023 15:24:15 102 98-107 (mm ol/L) Final CO2 2023 15:24:15 27 22-32 (mmo l/L) Final Anion gap 2023 15:24:15 10 7-15 (mmol /L) Final Glucose 2023 15:24:15 91 70-120 (mg /dL) Final Albumin 2023 15:24:15 4.5 3.8-5.0 (g /dL) Final AST (Aspartate aminotransferase) 2023 15:24:15 19 10-35 (U/L) Fin al Alk Phos 2023 15:24:15 31 Below low normal 35- 130 (U/L) Final Bilirubin, Total 2023 15:24:15 0.3 <=1 .2 (mg/dL) Final Calcium 2023 15:24:15 9.5 8.4-10.2 ( mg/dL) Final Protein 2023 15:24:15 7.1 6.0-8.3 (g /dL) Final ALT (Alanine aminotransferase) 2023 15:24:15 12 10-35 (U/L) Deny abrams Performing Location [facility] [place] [address] [facility] [address]
--- OUTSIDE RECORDS SUMMARY | 2023-09-29 01:16 | External Medical Summary | Summary of Care ---
Author Name Unknown Organization [facility] Address [address] [facility] [place] [address] Phone [phone] Care Team Providers Care Hydroelectric Plant Operator Name Role Phone Vianney Cordova PA-C Primary Care Provider [phone] Reason for Visit * Reason Comments Outpatient Testing Encounter Details Date Type Department Care Team (Late st Contact Info) Description 2023 3:20 PM EDT Laboratory Laboratory, [facility] [address] [facility] [place] [id number] [facility] [address] [facility] [place] [address] Arrived Allergies Active Allergy Reactions Criticality Noted Date [...] mRNA, LNP-s, No Pre serve, 2-Dose Series ([employer]) 03/05/2021,07/16/2020,06/25/2020 COVID-19, MRNA-LNP, 23-24, P F, 50 MCG/0.5 mL, 12 YRS AND ABOVE, IM (MODERNA-Spikevax) 02/09/2023 Covid-19, Mrna, Lnp-s, Pf, B ivalent, 50 Mcg, IM, 12 yrs and above (Moderna) 02/25/2022 Pneumococcal Conjugate Vacci ne, 20-valent ([id number]) 05/03/2022 Seasonal Influenza, PF, 6 M & [...] on file documented as of this encounter Plan of Treatment Upcoming Encounters Date Type Department Care Team (Late st Contact Info) Description 10/08/2023 9:45 AM EDT Office Visit Gynecology/Obstetrics [facility] [address] [place] [address] Derrick Hernández MD [address] [place] [address] 11/21/2023 8:45 AM EDT Office Visit General Surgery, [facility] [address] [place] [address] Dima Lopes MD [address] [facility] [place] [address] 01/02/2024 10:20 AM EDT Office Visit Otolaryngology [facility] [address] [place] [address] Twila Najera PA-C [address] [place] [address] 02/06/2024 1:15 PM EDT Office Visit Hematology/Oncology [facility] [address] [place] [phone] Gerard Ferrari MD [address] [place] [address] 03/24/2024 10:30 AM EST Imaging Radiology [facility] [address] [facility] [address] [place] [address] Scheduled Procedures Name Priority Associated Diagnoses Date/Ti [...] Cancer Screening 12/07/2024 Pap Smear 06/15/2025 06/15/2022, 04/2020, 11/07/2019, Additional history exists Lipid Panel [...] Not on filedocumented as of this encounter Advance Directives * Full Code (Latest Code Status on File) Date Activated Date Inactivated Comments 06/12/2023 7:40 AM 06/12/2023 5:02 PM This order r eflects the patients wishes and were consensually agreed upon. Question Answer Comments Discussion of Advance Directives occurred with: Patient Care Teams Hydroelectric Plant Operator Relationship Specialty Start Date End Date Vianney Cordova PA-C [address] [place] [address] PCP - General Physician Deck Steward 05/05/16 documented as of this encounter
--- OUTSIDE RECORDS SUMMARY | 2023-09-29 01:16 | External Medical Summary | Summary of Care ---
Author Name Unknown Organization [facility] Address [address] [place] [address] Phone [phone] Care Team Providers Care Copy And Print Associate Name Role Phone Tasha Vianney Fernandez PA-C Primary Care Provider [phone] Reason for Visit * Reason Onset Date Comments Test Results 08/29/2023 Encounter Details Date Type Department Care Team (Late st Contact Info) Description 08/29/2023 Telephone Genetics HemOnc, [facility] [address] [place] [address] Kaycee Lazo, MS [address] [place] [address] Test Results Allergies Active Allergy Reactions Criticality Noted Date Comments Pollen 01/26/2021 documented as of this encounter (statuses as of 08/29/2023) Medications Medication Sig Dispensed Refills Start Date End Date Status Calcium Carb-Cholecalciferol 1000-800 MG-UNIT Oral Tablet Take 1 Tablet by mouth in the morning and 1 Tablet before bedtime. 0 Active ferrous sulfate (FEOSOL) 325 (65 FE) MG TabletIndications:Iron deficiency anemia due to chronic blood loss Take 1 Tab by mouth 2 times a day. 60 Tab 6 11/11/2019 Active vitamin c (ASCORBIC ACID) 250 MG Tablet Take 1 Tablet by mouth in the morning. 0 Active Triamcinolone Acetonide 0.1 % External Cream [...] Adult Oral Tablet Chewable Take by mouth. 0 Active Biotin 5 MG Oral Tablet Disintegrating (Biotin Beauty Extra Strength) Take by mouth. 0 Active Turmeric Curcumin Oral Capsule Take by mouth. 0 Active Probiotic 250 MG Oral Capsule Take by mouth. 0 Active Ibuprofen 600 MG Oral Tablet (Motrin) Take 1 Tablet by mouth in the morning and 1 Tablet at noon and 1 Tablet before bedtime. With meals.. 30 Tablet 0 08/02/2023 Active Hospital, Clinic, or Other Facility Administered Medication Ordered Dose Route Frequency Start Date End Date Status Albuterol Sulfate (Proventil) (2.5 MG/3ML) 0.083% inhalation solution 2.5 mgIndications:Screening for respiratory condition 2.5 mg NEBULIZER PRN 08/07/2023 Active documented as of this encounter (statuses as of 08/29/2023) Active Problems Problem Noted Date Diagnosed Date Malignant neoplasm of female breast 06/12/2023 Intermittent asthma with reliever use up to twic e per week 02/01/2021 Mild persistent asthma without complication 01/14 Eczema 07/16/2012 Meniere's disease Asthma, allergic documented as of this encounter (statuses as of 08/29/2023) Resolved Problems Problem Noted Date Diagnosed Date Resolved Date Screening for cardiovascular condition 07/16/2012 01/24/2018 Screening for diabetes mellitus 07/16/2012 01/24/2018 General medical exam 07/16/2012 018 Acute bronchitis, complicated 06/06/2010 07/16/2012 documented as of this encounter (statuses as of 08/29/2023) Immunizations Name Administration Dates Next Due COVID-19 mRNA, LNP-s, No Pre serve, 2-Dose Series ([employer]) 03/05/2021,07/16/2020,06/25/2020 COVID-19, MRNA-LNP, 23-24, P F, 50 MCG/0.5 mL, 12 YRS AND ABOVE, IM (MODERNA-Spikevax) 02/09/2023 Covid-19, Mrna, Lnp-s, Pf, B ivalent, 50 Mcg, IM, 12 yrs and above (Moderna) 02/25/2022 Pneumococcal Conjugate Vacci ne, 20-valent ([id number]) 05/03/2022 Seasonal Influenza, PF, 6 M & [...] on file documented as of this encounter Miscellaneous Notes * Telephone Encounter - Kaycee Lazo, - 08/29/2023 9:44 AM EDT I contacted Nova Mota today to disclose genetic test results by MyG. Sent MyG message with results. Genetic Test Result 08/29/2023: Clinically negative. No significant (pathogenic) variants identified. Test Ordered: Multi-Cancer Panel + Expanded Breast/Stripper And Taper Panel at [facility] (74 genes) Genes Included: AIP, ALK, APC, ONEYDA, AXIN2, BAP1, BARD1, BLM, BMPR1A, BRCA1, BRCA2, BRIP1, CDC73, CDH1, CDK4, CDKN1B, CDKN2A (p14ARF), CDKN2A ([id number]), CHEK2, CTNNA1, DICER1, EGFR, EPCAM, FH, FLCN, GREM1, HOXB13, KIT, LTZR1, MAX, MBD4, MEN1, MET, MITF, MLH1, MSH2, MSH3, MSH6, MUTYH, NF1, NF2, NTHL1, PALB2, PDGFRA, PMS2, POLD1, POLE, POT1, VTDNY4G, PTCH1, PTEN, RAD51C, RAD51D, RB1, RET, SDHA, SDHAF2, SDHB, SDHC, SDHD, SMAD4, SMARCA4, SMARCB1, SMARCE1, STK11, SUFU, CBWX711, TP53, TSC1, TSC2, VHL+ FANCC, FANCM, NBN, RECQL Variant of uncertain significance (VUS) identified: BRIP1, c.[id number]>T ([id number]); ClinVarID: [id number] Summary: No hereditary cancer syndrome identified. No significant genetic variants were identified that are associated with the personal history and family history of cancer. A VUS should not guide treatment decisions or change cancer screening recommendations. Testing relatives for VUS findings is not recommended. Continue to follow physician's screening, management, or treatment recommendations. Given negative result, there is no genetic indication for contralateral mastectomy at this time. No additional genetic testing is recommended at this time; however, the patient will be made aware of the 150-day reflex window, should they wish to purse additional analysis. Familial Implications Relatives with cancer could consider genetic testing to clarify the significance of this result forthe family. Genetic testing is not recommended for Nova's child(oni) or unaffected family members since nosignificant variants were found. Close relatives are encouraged to speak with their doctors about the family history of cancer to develop a personalized cancer screening plan. Kaycee Lazo MS, [facility] Licensed, Certified Genetic Counselor [facility] documented in this encounter Plan of Treatment Upcoming Encounters Date Type Department Care Team (Late st Contact Info) Description 2023 1:15 PM EDT Office Visit Hematology/Oncology [facility] [address] [facility] [place] [address] Gerard Ferrari MD [address] [facility] [place] [address] 11/21/2023 8:45 AM EDT Office Visit General Surgery, Health [facility] [address] [place] [address] Dima Lopes MD [address] [place] [address] 01/02/2024 10:20 AM EDT Office Visit Otolaryngology [facility] [address] [place] [address] Twila Najera PA-C [address] [place] [address] 03/24/2024 10:30 AM EST Imaging Radiology [facility] 1st [facility] [address] [place] [address] Scheduled Procedures Name Priority Associated Diagnoses Date/Ti [...] filedocumented as of this encounter Advance Directives Latest Code Status on File Code Status Date Activated Date Inactivated Comments Full Code 06/12/2023 7:40 AM 06/12/2023 5:02 PM This order reflects the patients wishes and were consensually agreed upon. Question Answer Comments Discussion of Advance Directives occurred with: Patient Care Teams Copy And Print Associate Relationship Specialty Start Date End Date Tasha July HASMUKH Fernandez [address] [place] [address] PCP - General Physician Collision Technician 05/05/16 documented as of this encounter
--- OUTSIDE RECORDS SUMMARY | 2023-09-29 01:16 | External Medical Summary | Summary of Care ---
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 Encounter Details Date Type Department Care Team (Late st Contact Info) Description 2023 2:30 PM EDT Office [facility] [address] [place] [address] Derrick Hernández MD [address] [place] [address] Preop testing* Allergies Active Allergy Reactions Criticality Noted Date [...] mRNA, LNP-s, No Pre serve, 2-Dose Series ([employer]) 03/05/2021,07/16/2020,06/25/2020 COVID-19, MRNA-LNP, 23-24, P F, 50 MCG/0.5 mL, 12 YRS AND ABOVE, IM (MODERNA-Spikevax) 02/09/2023 Covid-19, Mrna, Lnp-s, Pf, B ivalent, 50 Mcg, IM, 12 yrs and above (Moderna) 02/25/2022 Pneumococcal Conjugate Vacci ne, 20-valent ([id number]) 05/03/2022 Seasonal Influenza, PF, 6 M & [...] on file documented as of this encounter H&P Notes * Derrick Hernández MD - 2023 3:14 PM EDT Leonela Handyryan [address] [address] Appt line [phone] Nova Mota is a 52 year old year old year old at Unknown P S/p Breast cancer Pt was seen by AP for menorrhagia. 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 Denies h/o STDs and abnormal Paps. Her past medical/surgical histories and current medications are recorded in the electronic record. Past Surgical History: Procedure Laterality Date BX LYMPH NODE DEEP AXIL Right 06/12/2023 BIOPSY LYMPH NODE DEEP AXILLARY OPEN performed by Dima Lopes MD at OR [facility] COLONOSCOPY, DIAGNOSTIC (RECTUM) 12/08/2019 benign polyp, repeat 5 yrs / COLONOSCOPY FLEXIBLE PROXIMAL DIAGNOSTIC performed by Lopez Bazan MD at ENDOSCOPY [facility] DENTAL SURGERY PROCEDURE NEC EXC BREAST LESION RADMARK Right 06/12/2023 EXCISION OF BREAST LESION RADIOLOGICAL MARKER performed by Dima Lopes MD at OR [facility] HYSTEROSCOPY W/BIOPSY AND/OR POLYPECTOMY W/WO D&C N/A 02/05/2020 HYSTEROSCOPY WITH BIOPSY AND/OR POLYPECTOMY WITH OR WITHOUT D&C performed by Farheen Rust MD at OR [facility] HYSTEROSCOPY W/BIOPSY AND/OR POLYPECTOMY W/WO D&C N/A 08/02/2023 HYSTEROSCOPY WITH BIOPSY AND/OR POLYPECTOMY WITH OR WITHOUT D&C performed by Derrick Hernández MD at OR [facility] IDENTIFY SENTINEL NODE, RADIOACTIVE TRACER Right 06/12/2023 INJECTION PROCEDURE FOR IDENTIFICATION SENTINEL NODE performed by Dima Lopes MD at OR [facility] LIGATE/CUT OVIDUCT(S) MASTECTOMY, PARTIAL Right 06/12/2023 MASTECTOMY PARTIAL performed by Dima Lopes MD at OR [facility] PELVIC EXAM UNDER ANESTHESIA, NOT LOCAL N/A 08/02/2023 PELVIC EXAMINATION UNDER ANESTHESIA performed by Derrick Hernández MD at OR [facility] PUNCTURE DRAINAGE BREAST CYST Left 2000 Benign PUNCTURE DRAINAGE BREAST CYST Left 04/30/2023 REMOVAL OF SKIN TAGS, EA ADDL 10 (AFTER 15) Right 06/12/2023 REMOVAL SKIN TAG EACH ADDITIONAL 10 LESIONS performed by Dima Lopes MD at OR [facility] US GUIDED BREAST BIOPSY RIGHT Right 04/30/2023 Family History Problem Relation Name Age of [...] from chemo Lung cancer Grandmother (Maternal) TOB+ History Social History Socioeconomic History Marital status: Spouse [...] on file Housing Stability: Not on file Pelvic sono EXAM US PELVIS TRANS-VAGINAL NON-OB - 03/23/2023 8:47 am HISTORY abnormal uterine bleeding TECHNIQUE Real-time transvaginal ultrasound of the pelvis was performed. COMPARISON 11/14/2019. FINDINGS The uterus measures 11.1 x 7 x 8.4 cm and is enlarged and heterogeneous in echotexture, likely due to combination of adenomyosis and leiomyomas. Largest fibroids identified measure 4.7 cm and 4 cm. Endometrium measures 14 mm in thickness. The right ovary measures 3.9 x 2.4 x 2 cm and is unremarkable. The left ovary measures 3.2 x 1.2 x 1.7 cm and is unremarkable. There is no adnexal mass. There is no free fluid in the cul-de-sac. IMPRESSION IMPRESSION Enlarged leiomyomatous uterus with probable underlying adenomyosis Physical Exam: There were no vitals taken for this visit. CV: S1, S2. Regular rate and Rhythm Lungs: Clear to auscultation bilaterally. Abdomen: Soft Extremities: Soft non tender calves bilaterally. A/P: 52 year old year old S/p Hx of breast cancer EIN on office bx D&C done We have discussed the risk alternatives and complications of surgery including more surgery to correct complication,risk of anesthesia,infection,damage to internal organs and . We have also discussed the possibility that pt's present situation may not change. Pt is aware and wishes to proceed to surgery. Consent is signed Pt is scheduled for Pt scheduled for the ff procedures 1. Total laparoscopic hysterectomy 3. Bilateral salpingo oopherectomy 4. Possible laparotomy 5. cystoscopy Derrick Hernández MD 2023 3:14 PM documented in this encounter Nursing Notes * Caprice Fowler LPN - 2023 2:16 PM EDT Pt is here for pre-op for hysterectomy and bilateral salpingo-oophorectomy documented in this encounter Plan of Treatment Upcoming Encounters Date Type Department Care Team (Late st Contact Info) Description 10/08/2023 9:45 AM EDT Office Visit Gynecology/Obstetrics [facility] [address] [place] [address] Derrick Hernández MD [address] [place] [address] 11/21/2023 8:45 AM EDT Office Visit General Surgery, [facility] [address] [place] [address] Dima Lopes MD [address] [place] [address] 01/02/2024 10:20 AM EDT Office Visit Otolaryngology [facility] [address] [place] [address] Twila Najera PA-C [address] [place] [address] 02/06/2024 1:15 PM EDT Office Visit Hematology/Oncology [facility] [address] [place] [phone] Gerard Ferrari MD [address] [place] [address] 03/24/2024 10:30 AM EST Imaging Radiology [facility] 1st [facility] [address] [place] [address] Pending Results Name Type Priority Associated Diagnoses Date /Time CBC WITH WBC DIFFERENTIAL Lab Routine Preop testing 2023 3:24 PM EDT COMPREHENSIVE METABOLIC PANEL Lab Routine Preop testing 2023 3:24 PM EDT CBC Lab Routine Preop testing 2023 3:24 PM EDT DIFFERENTIAL, AUTOMATED Lab Routine Preop testing 2023 3:24 PM EDT Scheduled Procedures Name Priority Associated Diagnoses Date/Ti [...] as of this encounter Visit Diagnoses Diagnosis Preop testing- Primary Preoperative examination, unspecified documented in this encounter Advance Directives * Full Code (Latest Code Status on File) Date Activated Date Inactivated Comments 06/12/2023 7:40 AM 06/12/2023 5:02 PM This order r eflects the patients wishes and were consensually agreed upon. Question Answer Comments Discussion of Advance Directives occurred with: Patient Care Teams Business Center Attendant Relationship Specialty Start Date End Date TashaJuly HASMUKH Fernandez [address] [facility] [place] [address] PCP - General Physician Assurance Manager 05/05/16 documented as of this encounter
--- OUTSIDE RECORDS SUMMARY | 2023-09-29 01:16 | External Medical Summary ---
Author Name Unknown Address Unknown Organization [facility] [address] [place] [address] Laboratory Report Ordering Provider Test Date Status CONRADO JAMA 2023 15:24:15 Final Observation Date Value Abnormality Reference (Units ) Status WBC, Total 2023 15:24:15 5.84 4.00-10.8 0 (K/uL) Final RBC 2023 15:24:15 4.73 3.85-5.15 (M/uL) Final Hemoglobin 2023 15:24:15 14.5 12.0-15.3 (g/dL) Final HCT 2023 15:24:15 44.1 36.0-45.2 (%) Final MCV 2023 15:24:15 93.2 81.5-97.5 (fL) Final MCH 2023 15:24:15 30.7 27.0-34.0 (pg) Final MCHC 2023 15:24:15 32.9 32.0-36.0 (g/dL) Final RDW 2023 15:24:15 13.2 11.5-15.5 (%) Final Platelets 2023 15:24:15 260 140-400 (K /uL) Final MPV 2023 15:24:15 10.6 6.6-11.1 ( fL) Final Performing Location [facility]ORY [facility] [address] [place] [address]
--- OUTSIDE RECORDS SUMMARY | 2023-09-29 01:16 | External Medical Summary | Summary of Care ---
Author Name Unknown Organization [facility] Address [address] [place] [address] Phone [phone] Care Team Providers Care Dental Hygiene Instructor Name Role Phone Vianney Cordova PA-C Primary Care Provider [phone] Encounter Details Date Type Department Care Team (Latest Contact Info) Description 08/28/2023 9:49 AM EDT - 08/28/2023 11:59 PM EDT Hospital Encounter Radiology, [address] [id number] Arrived Discharge Disposition: Home - Self Care Allergies Active Allergy Reactions Criticality Noted Date [...] mRNA, LNP-s, No Pre serve, 2-Dose Series ([employer] 03/05/2021,07/16/2020,06/25/2020 COVID-19, MRNA-LNP, 23-24, P F, 50 MCG/0.5 mL, 12 YRS AND ABOVE, IM (MODERNA-Spikevax) 02/09/2023 Covid-19, Mrna, Lnp-s, Pf, B ivalent, 50 Mcg, IM, 12 yrs and above (Moderna) 02/25/2022 Pneumococcal Conjugate Vacci ne, 20-valent ([id number]) 05/03/2022 Seasonal Influenza, PF, 6 M & [...] Office Visit Hematology/Oncology [place] [facility] [address] [place] [phone] Gerard Ferrari MD [address] [place] [address] 11/21/2023 8:45 AM EDT Office Visit General Surgery, [facility] [address] [place] [address] Dima Lopes MD [address] [place] [address] 01/02/2024 10:20 AM EDT Office Visit Otolaryngology [facility] [address] [facility] [place] [address] Twila Najera PA-C [address] [facility] [address] 03/24/2024 10:30 AM EST Imaging Radiology [facility] 1st [facility] 132 [place] [address] Scheduled Procedures Name Priority Associated Diagnoses Date/Ti [...] Not on filedocumented as of this encounter Procedures Procedure Name Priority Date/Time Associated Diagnosis Comments DEXA SCAN/BONE MINERAL AXIAL Routine 08/28/2023 10:14 AM EDT Malignant neoplasm of upper-outer quadrant of right breast in female, estrogen receptor positive (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 documented in this encounter Results * DEXA SCAN/BONE MINERAL AXIAL (08/28/2023 10:14 AM EDT) Anatomical Region Laterality Modality Dexa, Vertebra, Spine, Hip, Pelvis Nuclear Medicine Impressions 08/29/2023 7:32 AM EDT S: Fracture risk is based on current National Osteoporosis Foundation (www.nof.org) Clinicians Guide and [place] Association of Clinical Endocrinology (AACE) Guidelines (www.aace.com) and the application of current WHO FRAX tool (https://www.shelton.ac.uk/FRAX/) as well as the 2017 [place] [employer] Glucocorticoid Induced Osteoporosis (GIOP) Guidelines (rheumatology.org/Practice-Quality/Clinical-Support/Mgcdfpmr-Oopryqvz-Tnhyx lines) using Bone mineral density derived T-scores and clinical risk factors obtained from the patient questionnaire. 1. The fracture risk is LOW/MODERATE (does not meet NOF criteria for treatment) 2. The quality of the examination is GOOD. 3. No previous study for comparison. SUGGESTIONS: Information concerning the evaluation and treatment of osteoporosis can be found at the National Osteoporosis Foundation website (www.nof.org) and [place] Association of Clinical Endocrinology (AACE-www.aace.com). Osteoporosis prevention and treatment begins by modifying risk factors (such as smoking cessation and avoiding alcohol excess) and by participating in weight-bearing activities and exercise. Issues related to fall prevention and home safety should be addressed. Current NOF guidelines suggest 1200 to 1500 mg of calcium from diet and or supplemental sources. It is generally felt best to get calcium from one s diet. Calcium carbonate and calcium citrate are common calcium supplement choices in most local pharmacies. If the patient is taking a proton pump inhibitor, then calcium citrate should be the preferred supplement, if that is necessary. NOF guidelines for vitamin D are 800 to 1000 units of vitamin D3 daily. However, this may best be guided by measurement of 25-OH vitamin-D level, aiming for a level between 30 to 50 units (ng/ml). Additional information can be found at the FRAX website (https://www.shelton.ac.uk/FRAX/), and the [place] [employer]umat[employer] website (https://www.rheumatology.org/Practice-Quality/Clinical-Support/Clinical-Pr actice-Guidelines). 1. No specific prescription therapy is needed at this point in time. 2. A repeat study should be considered in 3 years NICOLE STARK M.D. ISCD Certified Clinical Fine Arts Model Department of Rheumatology [facility] Narrative 08/29/2023 7:32 AM EDT Radiology, [facility] DXA Performed: 08/28/23 DXA Resulted: 08/29/2023 Nova Mota Reason for testing: estrogen deficient woman at clinical risk Osteoporosis treatment (per questionnaire): A. Previous treatment: NONE B. Current treatment: NONE Major risk factors: none Using a Hologic [employer] [facility] images of the lumbar spine, left hip were obtained using DXA.. The bone mineral density and T scores [standard, young, normal, female population] are as follows: RESULTS: Lumbar spine: 1.001 gms/cm2 T-score: -0.4 Left femoral neck: 0.779 gms/cm2 T-score: -0.6 FRAX not indicated. Gerard Ferrari MD RADIOLOGY (RAD GENER AL) documented in this encounter Advance Directives Latest Code Status on File Code Status Date Activated Date Inactivated Comments Full Code 06/12/2023 7:40 AM 06/12/2023 5:02 PM This order reflects the patients wishes and were consensually agreed upon. Question Answer Comments Discussion of Advance Directives occurred with: Patient Care Teams Dental Hygiene Instructor Relationship Specialty Start Date End Date Tasha July HASMUKH Fernandez [address] [place] [address] PCP - General Physician Rural Health Consultant 05/05/16 documented as of this encounter
--- OUTSIDE RECORDS SUMMARY | 2023-09-29 01:16 | External Medical Summary ---
Author Name Unknown Address Unknown Organization K0G:[facility] [place] [address] [place] [address] Laboratory Report Ordering Provider Test Date Status CONRADO JAMA 2023 15:24:15 Final Observation Date Value Abnormality Reference (Units ) Status SYNC LEUKOCYTES IN BLOOD BY AUTOMATED COUNT 2023 15:24:15 5.84 4.00-10.80 (K/uL) Final Segs 2023 15:24:15 70.5 40.0-75.0 (%) Final Lymphs % 2023 15:24:15 13.2 Below low normal 18.0-42.0 (%) Final Monos 2023 15:24:15 12.7 Above high normal 1.0-11.0 (%) Final Eosinophils 2023 15:24:15 2.7 0.0-6.0 (%) Final Basos 2023 15:24:15 0.9 0.0-2.0 (%) Final Absolute Segs 2023 15:24:15 4.12 1.80-7.70 (K/uL) Final Lymphs, absolute 2023 15:24:15 0.77 Below low normal 1.00-4.80 (K/ul) Final Monos, Abs 2023 15:24:15 0.74 0.00-1.10 (K/uL) Final Eos, Abs 2023 15:24:15 0.16 0.00-0.70 (K/uL) Final Basos, Abs 2023 15:24:15 0.05 0.00-0.20 (K/uL) Final Performing Location [facility] [place] [address]
--- OUTSIDE RECORDS SUMMARY | 2023-09-29 01:17 | External Medical Summary | Summary of Care ---
Author Name Unknown Organization [facility] Address [address] [facility] [place] [address] Phone [phone] Care Team Providers Care Business Management Specialist Name Role Phone Vianney Cordova PA-C Primary Care Provider [phone] Reason for Visit * Reason Comments Pulmonary Function Test Encounter Details Date Type Department Care Team (Late st Contact Info) Description 08/27/2023 9:00 AM EDT PulmDiagnostic Pulmonary Function Lab, [facility] [address] [facility] [place] [address] [facility] Function Tech [address] [facility] [place] [address] Screening for respiratory condition* Allergies Active Allergy Reactions Criticality Noted Date Comments Pollen 01/26/2021 documented as of this encounter (statuses as of 08/27/2023) Medications Medication Sig Dispensed Refills Start Date [...] as of this encounter (statuses as of 08/27/2023) Active Problems Problem Noted Date Diagnosed Date Malignant neoplasm of female breast 06/12/2023 Intermittent asthma with reliever use up to twic e per week 02/01/2021 Mild persistent asthma without complication 01/14 Eczema 07/16/2012 Meniere's disease Asthma, allergic documented as of this encounter (statuses as of 08/27/2023) Resolved Problems Problem Noted Date Diagnosed Date Resolved Date Screening for cardiovascular condition 07/16/2012 01/24/2018 Screening for diabetes mellitus 07/16/2012 01/24/2018 General medical exam 07/16/2012 018 Acute bronchitis, complicated 06/06/2010 07/16/2012 documented as of this encounter (statuses as of 08/27/2023) Immunizations Name Administration Dates Next Due COVID-19 mRNA, LNP-s, No Pre serve, 2-Dose Series ([employer]) 03/05/2021,07/16/2020,06/25/2020 COVID-19, MRNA-LNP, 23-24, P F, 50 MCG/0.5 mL, 12 YRS AND ABOVE, IM (MODERNA-Spikevax) 02/09/2023 Covid-19, Mrna, Lnp-s, Pf, B ivalent, 50 Mcg, IM, 12 yrs and above (Moderna) 02/25/2022 Pneumococcal Conjugate Vacci ne, 20-valent (Whewi[employer]) 05/03/2022 Seasonal Influenza, PF, 6 M & [...] Care Team (Late st Contact Info) Description 08/28/2023 10:00 AM EDT Hospital Encounter Radiology, [facility] [address] [facility] [place] [address] 2023 1:15 PM EDT Office Visit Hematology/Oncology [facility] [address] [place] [id number] Gerard Ferrari MD [address] [facility] [place] [address] 11/21/2023 8:45 AM EDT Office Visit General Surgery, [facility] [address] [place] [address] Dima Lopes MD [address] [place] [address] 01/02/2024 10:20 AM EDT Office Visit Otolaryngology [facility] [address] [place] [address] Twila Najera PA-C [address] [place] [address] 03/24/2024 10:30 AM EST Imaging Radiology [facility] [address] [facility] [address] [place] [address] Scheduled Procedures Name Priority Associated Diagnoses Date/Ti me COLONOSCOPY FLEXIBLE PROXIMAL DIAGNOSTIC Recall History of colon polyps Health Maintenance Due Date Last Done Comments Hepatitis C Screening 09/07/1987 Hepatitis B (1 of 3 - 19+ 3-dose series) 1988 Cologuard 2014 Fecal Occult Blood Test 2014 Sigmoidoscopy 2014 *SPIROMETRY ONCE FOR ASTHMA-ADULT 02/04/2021 DTaP,Tdap,and Td Vaccines (2 - Td or [...] as of this encounter Visit Diagnoses Diagnosis Screening for respiratory condition- Primary Screening for other and unspecified respiratory condition documented in this encounter Administered Medications Active Administered Medications - up to 3 most recent administrations Medication Order MAR Action Action Date Dose Rate Site Albuterol Sulfate (Proventil) (2.5 MG/3ML) 0.083% inhalation solution 2.5 mg 2.5 mg, Nebulizer, PRN Other, Starting on Sun08/07/23 at 2055, Until Discontinued Given 08/27/2023 9:01 AM EDT 2.5 mg documented in this encounter Advance Directives Latest Code Status on File Code Status Date Activated Date Inactivated Comments Full Code 06/12/2023 7:40 AM 06/12/2023 5:02 PM This order reflects the patients wishes and were consensually agreed upon. Question Answer Comments Discussion of Advance Directives occurred with: Patient Care Teams Business Management Specialist Relationship Specialty Start Date End Date Tasha July Rebecca, HASMUKH [facility] [place] [address] PCP - General Physician Leather Case Finisher 05/05/16 documented as of this encounter
--- OUTSIDE RECORDS SUMMARY | 2023-09-29 01:17 | External Medical Summary | Summary of Care ---
Author Name Unknown Organization [facility] Address [address] [place] [address] Phone [phone] Care Team Providers Care Laser Engraver Name Role Phone Vianney Cordova PA-C Primary Care Provider [phone] Reason for Visit * Reason Comments Genetic Counseling * Evaluate & Treat - Unlimited Visits (Within 10 days (routine)) - Pending Review Specialty Diagnoses / Procedures Referred By Lorena palomo Referred To Contact Medical Genetics / Hematology Oncology Diagnoses Malignant neoplasm of upper-outer quadrant of right breast in female, estrogen receptor positive (HCC) Gerard Ferrari MD [address] [place] [address] Referral ID Status Reason Start Date Expiration Date Visits Requested Visits Authorized [id number] Pending Review Specialty Services Required 05/15/[phone] Encounter Details Date Type Department Care Team (Latest Contact Info) Description 08/15/2023 2:00 PM EDT Telemedicine Genetics Hem[facility]c, [facility] [address] [place] [address] Kaycee Lazo, MS [address] [place] [address] Malignant neoplasm of upper-outer quadrant of right breast in female, estrogen receptor positive (HCC)*; Family history of breast cancer; Family history of colon cancer; Encounter for nonprocreative genetic counseling Allergies Active Allergy Reactions Criticality Noted Date Comments Pollen 01/26/2021 documented as of this encounter (statuses as of 08/15/2023) Medications Medication Sig Dispensed Refills Start Date [...] as of this encounter (statuses as of 08/15/2023) Active Problems Problem Noted Date Diagnosed Date Malignant neoplasm of female breast 06/12/2023 Intermittent asthma with reliever use up to twic e per week 02/01/2021 Mild persistent asthma without complication 01/14 Eczema 07/16/2012 Meniere's disease Asthma, allergic documented as of this encounter (statuses as of 08/15/2023) Resolved Problems Problem Noted Date Diagnosed Date Resolved Date Screening for cardiovascular condition 07/16/2012 01/24/2018 Screening for diabetes mellitus 07/16/2012 01/24/2018 General medical exam 07/16/2012 018 Acute bronchitis, complicated 06/06/2010 07/16/2012 documented as of this encounter (statuses as of 08/15/2023) Immunizations Name Administration Dates Next Due COVID-19 mRNA, LNP-s, No Pre serve, 2-Dose Series (Ezetap) 03/05/2021,07/16/2020,06/25/2020 COVID-19, MRNA-LNP, 23-24, P F, 50 MCG/0.5 mL, 12 YRS AND ABOVE, IM (MODERNA-Spikevax) 02/09/2023 Covid-19, Mrna, Lnp-s, Pf, B ivalent, 50 Mcg, IM, 12 yrs and above (Moderna) 02/25/2022 Pneumococcal Conjugate Vacci ne, 20-valent ([id number]) 05/03/2022 Seasonal Influenza, PF, 6 M & [...] on file documented as of this encounter Patient Instructions * Patient Instructions* Kaycee Lazo, MS - 08/15/2023 2:32 PM EDT You met with Kaycee Lazo MS, [facility] on 08/15/2023 for a Cancer Genetics Risk Assessment. TODAY'S SUMMARY If you have questions about your risk assessment, evaluation, testing process, or results, contact our clinic at [phone] or send a [facility] message. You agreed to complete genetic testing today. Results are expected in ~3 weeks from sample collection and will appear in the [facility] portal under "Test Results." I will contact you with your results. You can request an electronic copy of your report through [facility]'s secure web-portal: [facility] Patient Registration. Insurance Coverage: The laboratory ([facility]) will complete prior authorization for genetic testing and will notify you via text or email of billing policies. If your estimated out of pocket expense after insurance processing is >$100, [facility] will contact you to discuss options based on your specific financial situation. Visit this link for more information or contact the laboratory billing department at [phone] or [email or web address]. Sample Collection: Your blood draw order has been signed and you can visit any [facility] lab to have this collected. Lab order: Multi Cancer Panel, [facility] Ordering Provider: Bharti Valles MD . For assistance finding [facility] locations and hours, visit: [email or web address] Read more about genetic testing here: Hereditary Cancer Genetic Testing - Patient Guide For any genetic test, there are three types of results. 1. Negative Result: A mutation that causes increased risk for cancer was not found in you. 2. Positive Result: A genetic risk factor for cancer was found. Based on your specific result, thisinformation could change your medical care. If any significant findings are reported on your testing, we may recommend a follow up visit 3. Inconclusive Result (Variant of Uncertain Significance found): An innocent until proven guilty genetic change was detected, but more research is needed to learn if it increases your chances of developing cancer or not. What should I know about genetics and cancer? Cancer is a common disease, and most often happens by chance. In some families, we can see multiplecases of sporadic cancers, because cancer becomes more common as we age and as people are exposed to different environmental risk factors over time. Only 5-10% of cancers happen because of a genetic mutation that runs in the family. Having a mutation does not mean you will get cancer; it just means you have a higher chance to get cancer than other people. Genetic Information Nondiscrimination Act of 2008: This federal law protects you from discrimination based on your genetic information and applies to health insurance. It is illegal for your health insurer to use family health history and/or genetic test results as a reason to deny you health insurance, or decide how much you pay for your health insurance. VENKAT does not apply to life, disability and long-term care insurance. For more information, go to GINAhelp.org Sincerely, Kaycee Lazo MS, [facility] -- Licensed, Certified Genetic Counselor Cancer Genetics Risk Assessment Clinic Department of Genomic Health at [facility] (P) [phone] | (F) [phone] | (E) [email or web address] documented in this encounter Progress Notes * Kaycee Lazo MS - 08/15/2023 2:04 PM EDT Images from the original note were not included. Cancer Genetic Risk Assessment Clinic at [facility] | | Email: [email or web address] Location: [place] [address] Dept. Referring Provider: Gerard Ferrari MD Name: Nova Mota Date: 08/15/2023 - 2:00 PM EDT Present for consult: Nova Elva Tankleesa, Bharti Valles, Kaycee Lazo, , [facility] Visit Type: Phone. The patient is located in the [facility]. The treating clinician is located not in a hospital location. After connecting to the patient via telephone, the patient was identified by name and date of . Patient was then informed that this was a telephone call only visit. The patient agreed to participate. Visit Disposition: Routine follow-up Total call duration was 35 minutes. REASON FOR VISIT: Evaluation for Hereditary Cancer Syndrome HPI: Nova Mota is a 52 year old female assigned at who has been referred to the Cancer Genetics Risk Assessment Clinic due to a personal history and family history of breast cancer. ASSESSMENT: Nova Mota has a personal history and family history of breast cancer that is somewhat concerning for a hereditary predisposition. NCCN criteria for genetic testing for Hereditary Breast and Ovarian Cancer (HBOC) is not met, but testing is appropriate given her personal and family history + desire for future cancer risks and management decisions. Verbal consent for genetic testing obtained. PLAN: Test Ordered: Multi-Cancer Panel + Expanded Breast/Hide Inspector Panel at [facility] (74 genes) Genes Included: AIP, ALK, APC, ONEYDA, AXIN2, BAP1, BARD1, BLM, BMPR1A, BRCA1, BRCA2, BRIP1, CDC73, CDH1, CDK4, CDKN1B, CDKN2A (p14ARF), CDKN2A (q18RPD9i), CHEK2, CTNNA1, DICER1, EGFR, EPCAM, FH, FLCN, GREM1, HOXB13, KIT, LTZR1, MAX, MBD4, MEN1, MET, MITF, MLH1, MSH2, MSH3, MSH6, MUTYH, NF1, NF2, NTHL1, PALB2, PDGFRA, PMS2, POLD1, POLE, POT1, MAUTC0H, PTCH1, PTEN, RAD51C, RAD51D, RB1, RET, SDHA, SDHAF2, SDHB, SDHC, SDHD, SMAD4, SMARCA4, SMARCB1, SMARCE1, STK11, SUFU, FUVU100, TP53, TSC1, TSC2, VHL+ FANCC, FANCM, NBN, RECQL [facility] Core Panel: BRCA1/2 Blood sample to be collected at a later date; results anticipated in 3 weeks from sample collection. Results disclosure preferred by: MyG. PAST MEDICAL HISTORY: Breast Hx: Personal history of breast cancer diagnosed age 52; Invasive Lobular Carcinoma, ER+, VT+, and Her2/terri-; Treatment: Surgery and Radiation. Hide Inspector/ Hx: Uterus/ovaries intact. . LIZBET BSO to be scheduled. Gastro Hx: Most recent colonoscopy 12/08/2019, findings included 1 polyp ; recommended recall: 5 years. No EGD. No pancreatitis or diabetes. Derm Hx: Seen by Dermatology in the past due to benign lesions; no history of skin cancer. Past Medical History: Diagnosis Date Anemia Asthma, allergic Meniere's disease Past Surgical History: Procedure Laterality Date BX LYMPH NODE DEEP AXIL Right 06/12/2023 BIOPSY LYMPH NODE DEEP AXILLARY OPEN performed by Dima Lopes MD at OR [facility] COLONOSCOPY, DIAGNOSTIC (RECTUM) 12/08/2019 benign polyp, repeat 5 yrs / COLONOSCOPY FLEXIBLE PROXIMAL DIAGNOSTIC performed by Lopez Bazan MD at ENDOSCOPY [facility] DENTAL SURGERY PROCEDURE NEC EXC BREAST LESION RADMARK Right 06/12/2023 EXCISION OF BREAST LESION RADIOLOGICAL MARKER performed by Dima Lopes MD at [facility] HYSTEROSCOPY W/BIOPSY AND/OR POLYPECTOMY W/WO D&C N/A 02/05/2020 HYSTEROSCOPY WITH BIOPSY AND/OR POLYPECTOMY WITH OR WITHOUT D&C performed by Farheen Rust MD at [facility] HYSTEROSCOPY W/BIOPSY AND/OR POLYPECTOMY W/WO D&C N/A 08/02/2023 HYSTEROSCOPY WITH BIOPSY AND/OR POLYPECTOMY WITH OR WITHOUT D&C performed by Derrick Hernández MD at OR [facility] IDENTIFY SENTINEL NODE, RADIOACTIVE TRACER Right 06/12/2023 INJECTION PROCEDURE FOR IDENTIFICATION SENTINEL NODE performed by Dima Lopes MD at [facility] LIGATE/CUT OVIDUCT(S) MASTECTOMY, PARTIAL Right 06/12/2023 MASTECTOMY PARTIAL performed by Dima Lopes MD at OR [facility] PELVIC EXAM UNDER ANESTHESIA, NOT LOCAL N/A 08/02/2023 PELVIC EXAMINATION UNDER ANESTHESIA performed by Derrick Hernández MD at OR [facility] PUNCTURE DRAINAGE BREAST CYST Left 2000 Benign PUNCTURE DRAINAGE BREAST CYST Left 04/30/2023 REMOVAL OF SKIN TAGS, EA ADDL 10 (AFTER 15) Right 06/12/2023 REMOVAL SKIN TAG EACH ADDITIONAL 10 LESIONS performed by Dima Lopes MD at OR [facility] US GUIDED BREAST BIOPSY RIGHT Right 04/30/2023 Social History Tobacco Use Smoking status: Never Smokeless tobacco: Never Vaping Use Vaping Use: Never used Substance Use Topics Alcohol use: Yes Comment: very rare Drug use: No FAMILY HISTORY: This self-reported family history was collected in the absence of complete medical records. ?If the family history changes or more information is obtained, the patient was asked to contact our clinic as this may alter the assessment and recommendations.? Per patient report, no relatives have had genetic testing for inherited cancer risk. Family History Problem Relation Age of Onset Total abdominal hysterectomy Mother 47 Due to fibroids Heart Disorder Mother MVP Diabetes Mother dx age 60's Other (osteoporosis) Mother Sarcoma Father 83 on skin Skin cancer Father SCC & BCC Exposure - lives in [place] and did not wear sunscreen when younger Hypertension Father Hypertension Brother Colon cancer Grandmother (Paternal) 90 - 99 tx: colectomy Mastectomy Grandmother (Paternal) 53 Unilateral mastectomy at age 53, and then masectomy of other breast age age 54 Breast Cancer Grandmother (Paternal) 53 Brain tumor Other Other (Benign Tumor) Aunt (Paternal) Near nose/eyes Impairs vision. No surgery and appeared >16 yrs ago. Bladder Cancer Uncle (Paternal) 40 - 49 Colon cancer Other TOB+ Lung cancer Other TOB+ Mets to brain Colon cancer Other Recurrent 15 yrs later TOB- Cancer Other >300 tumors on body d. from damage to lungs from chemo Lung cancer Grandmother (Maternal) TOB+ PEDIGREE: Cancer Genetics Pedigree RISK ASSESSMENT & CONSULT SUMMARY: I recommended genetic testing for Nova Mota based on the personal and family history of breast cancer. We discussed the timing and utility of targeted (ie: guidelines-based panels) versus expansive and whelan-cancer panels. Nova elected a broad, multi-cancer panel. Breast Cancer: 7-10% of breast cancers, regardless of age at diagnosis or family history, are thought to be hereditary (Hu et al., 2021). NCCN recommends genetic testing for individuals with a personal history of 3+ total diagnoses of breast cancer on the same side of the family. Hereditary breast cancer often presents in a family with early onset disease (<45y), bilateral breast cancer, a combination of breast, pancreas, prostate, and/or ovarian on one side of the family,or multiple cases of breast cancer (3 or more) on the same side of the family. The BRCA1 and BRCA2 genes remain the most common findings in hereditary breast cancer risk, accounting for 25-50% of all positive results identified. Additional high and moderate risk genes include: ONEYDA, BARD1, CHEK2, PALB2, RAD51C, and RAD51D. Additional genes included on hereditary breast cancer panels include much less common findings such as: CDH1, NF1, PTEN, STK11, and TP53 as these are typically syndromic in presentation. Colorectal Cancer: Byers syndrome is the most common hereditary GI cancer syndrome accounting for at least 5% of all colorectal cancers diagnosed. Evaluation of Byers syndrome is warranted in families with a combination of GI, , or CHECKER LOADER cancers (colorectal, uterine, ovarian, gastric, pancreas, prostate, urothelial, kidney, bladder, and sebaceous neoplasms). NCCN recommends genetics testing for individuals with a family history of 3+ FDR or SDR with LS-related cancers regardless of age. Less than 1% of colorectal cancer diagnoses are due to polyposis syndromes like FAP, MAP, or other rare syndromes involving PPAP or other tumor suppressor genes. GENETIC TEST EDUCATION: We discussed the risks, benefits, and limitations testing for hereditary cancer syndromes using a multigene panel. Signs of inherited cancer risk: multiple family members with related cancers, cancer in several generations of one side of a family, early-onset cancers (<45y), individuals with >1 cancer diagnosis. Most hereditary cancer conditions are inherited in an autosomal dominant pattern. Cancer riskscan differ between males and females in the same family who share a disease-causing variant. Nature of genetic risk: Individuals with a pathogenic variant in a cancer- related gene may have significantly higher cancer risk. Some cancers may be difficult to detect and/or treat. Identifying those at high risk may warrant additional screening, surveillance, and interventions which could aid inrisk- reduction and early diagnosis, thereby increasing the chances of successful treatment and survival. Nuances of genetic testing: Some genes are well-described with specific screening and management recommendations from national experts (e.g., NCCN). Testing may include newly discovered genes where cancer risk and management guidelines are not well understood or defined. Some cancer types do not have adequate screening available at this time. Genetic Information Non-discrimination Act (VENKAT) detailed in AVS. This 2008 law has provisions against discrimination based on genetic status for employment and health insurance; it does not cover other insurance (e.g. life insurance, long- term disability insurance). Discussed possible results: Positive result: Pathogenic or Likely Pathogenic Variant identified. Medical management dependent upon the gene in which the P/LP variant was identified and will be discussed at the time of result disclosure. Discussed potential surveillance and early-detection options, risk-reducing medications, and surgical risk reduction options. Discussed that there may be risk to close relatives to have the same genetic variant. Negative result (No variants identified): Medical management and cancer screening will be based on family history and physicians recommendations. Variant of Uncertain Significance ("VUS" identified): Medical management would be the same as a negative result as many VUS are eventually reclassified as benign. PSYCHOSOCIAL HISTORY: We discussed the possible psychological implications of genetic testing, issues of family dynamics,and concerns regarding confidentiality, insurance coverage, and genetic discrimination. Motivation for testing: interested in preventative care or early-detection , concerned about risk to family members , and concerned about future cancer risks Family communication: no concerns. Family Sharing: The patient provided verbal consent to share their genetic test result and pedigreewith close relatives, should it be requested to aid in their care. We discussed that this consent will link their medical record to their relative's family history, for the purpose of their relative's genetics provider to obtain relevant family history information and records related to genetic testing and genetic counseling visits. No records from the patient's chart will be directly available in their relative's chart. Consent: I provided an opportunity for the patient to ask questions. We obtained the proper consentand confirmation of the patient's understanding of the information discussed. Kaycee Lazo MS, [facility] Licensed, Certified Genetic Counselor This note is shared with Nova Mota electronically. ICD-10-CM 1. Malignant neoplasm of upper-outer quadrant of right breast in female, estrogen receptor positive(HCC) C50.411 Z17.0 2. Family history of breast cancer Z80.3 3. Family history of colon cancer Z80.0 4. Encounter for nonprocreative genetic counseling Z71.83 documented in this encounter Plan of Treatment Upcoming Encounters Date Type Department Care Team (Late st Contact Info) Description 08/27/2023 9:00 AM EDT PulmDiagnostic Pulmonary Function Lab, [facility] [address] [address] [address], Pulm Function Tech [address] [address] 08/28/2023 10:00 AM EDT Appointment Radiology, [address] [address] 2023 1:15 PM EDT Office Visit Hematology/Oncology [facility] [address] [place] [id number] Gerard Ferrari MD [address] [place] [address] 11/21/2023 8:45 AM EDT Office Visit General Surgery, [facility] [address] [address] Dima Lopes MD [address] [address] 01/02/2024 10:20 AM EDT Office Visit Otolaryngology [facility] [address] [address] Twila Najera PA-C [address] [address] 03/24/2024 10:30 AM EST Imaging Radiology [address] [facility] [address] [place] [address] Scheduled Orders Name Type Priority Associated Diagnoses Orde r Schedule MULTI-CANCER PANEL, [facility] Lab Routine Malignant neoplasm of upper-outer quadrant of right breast in female, estrogen receptor positive (HCC) Family history of breast cancer Family history of colon cancer Expected: 08/15/2023, Expires: 08/14/2024 Scheduled Procedures Name Priority Associated Diagnoses Date/Ti [...] in female, estrogen receptor positive (HCC)- Primary Family history of breast cancer Family history of malignant neoplasm of breast Family history of colon cancer Family history of malignant neoplasm of gastrointestinal tract Encounter for nonprocreative genetic counseling documented in this encounter Advance Directives Latest Code Status on File Code Status Date Activated Date Inactivated Comments Full Code 06/12/2023 7:40 AM 06/12/2023 5:02 PM This order reflects the patients wishes and were consensually agreed upon. Question Answer Comments Discussion of Advance Directives occurred with: Patient Care Teams Laser Engraver Relationship Specialty Start Date End Date Tasha July HASMUKH Fernandez [address] [place] [address] PCP - General Physician Appointment Coordinator 05/05/16 documented as of this encounter
--- OUTSIDE RECORDS SUMMARY | 2023-09-29 01:17 | External Medical Summary | Summary of Care ---
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 Details Date Type Department Care Team (Late st Contact Info) Description 08/14/2023 9:30 AM EDT Office Visit Gynecology/Obstetric s Handyaminah Brantley [address] [place] [address] Derrick Hernández MD [address] [place] [address] Postoperative state* Allergies Active Allergy Reactions Criticality Noted Date Comments Pollen 01/26/2021 documented as of this encounter (statuses as of 08/14/2023) Medications Medication Sig Dispensed Refills Start Date [...] as of this encounter (statuses as of 08/14/2023) Active Problems Problem Noted Date Diagnosed Date Malignant neoplasm of female breast 06/12/2023 Intermittent asthma with reliever use up to twic e per week 02/01/2021 Mild persistent asthma without complication 01/14 Eczema 07/16/2012 Meniere's disease Asthma, allergic documented as of this encounter (statuses as of 08/14/2023) Resolved Problems Problem Noted Date Diagnosed Date Resolved Date Screening for cardiovascular condition 07/16/2012 01/24/2018 Screening for diabetes mellitus 07/16/2012 01/24/2018 General medical exam 07/16/2012 018 Acute bronchitis, complicated 06/06/2010 07/16/2012 documented as of this encounter (statuses as of 08/14/2023) Immunizations Name Administration Dates Next Due COVID-19 mRNA, LNP-s, No Pre serve, 2-Dose Series ([place]) 03/05/2021,07/16/2020,06/25/2020 COVID-19, MRNA-LNP, 23-24, P F, 50 MCG/0.5 mL, 12 YRS AND ABOVE, IM (MODERNA-Spikevax) 02/09/2023 Covid-19, Mrna, Lnp-s, Pf, B ivalent, 50 Mcg, IM, 12 yrs and above (Moderna) 02/25/2022 Pneumococcal Conjugate Vacci ne, 20-valent ([id number]) 05/03/2022 Seasonal Influenza, PF, 6 M & [...] Sign Reading Time Taken Comments Blood Pressure 102/64 08/14/2023 9:25 AM EDT Pulse - - Temperature - - Respiratory Rate - - Oxygen Saturation - - Inhaled Oxygen Concentration - - Weight 63.5 kg (140 lb) 08/14/2023 9:25 AM EDT Height 162 cm (5' 3.78") 08/14/2023 9:25 AM EDT Body Mass Index 24.2 08/14/2023 9:25 AM EDT documented in this encounter Progress Notes * Derrick Hernández MD - 08/14/2023 10:08 AM EDT Patient 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 Discussed and reviewed the pathology findings with patient. A D&C hysteroscopy showed proliferative endometrium and endometrial polyp. No neoplasia was seen from this D&C specimen. I have a discuss the earlier office biopsy which was EIN Patient has history of breast cancer. I have recommended hysterectomy with bilateral salpingo-oophorectomy with patient. We discussed therisks benefits of the surgery. I have made patient aware that EIN caries a risks of 25% endometrialneoplasia Patient has agreed to undergo hysterectomy and bilateral salpingo-oophorectomy she however wants todo this later in the year because she has a trip planned with family. Paperwork is filled out and sent for scheduling. documented in this encounter Nursing Notes * Caprice Fowler LPN - 08/14/2023 9:22 AM EDT Pt is here for fu on D&C hysteroscopy for EIN on EMB documented in this encounter Plan of Treatment Upcoming Encounters Date Type Department Care Team (Late st Contact Info) Description 08/27/2023 9:00 AM EDT PulmDiagnostic Pulmonary Function Lab, [facility] [address] [place] [address] [place], Pulm Function Tech 2 [address] [place] [address] 08/28/2023 10:00 AM EDT Appointment Radiology, [facility] [address] [place] [address] 2023 1:15 PM EDT Office Visit Hematology/Oncology [facility] [address] [place] [phone] Gerard Ferrari MD 200 [facility] [place] [address] 11/05/2023 9:45 AM EDT Telemedicine Genetics HemOnc, [address] [place] [address] Kaycee Lazo, MS [address] [place] [address] 11/21/2023 8:45 AM EDT Office Visit General Surgery, [facility] [address] [place] [address] Dima Lopes MD [address] [place] [address] 01/02/2024 10:20 AM EDT Office Visit Otolaryngology [facility] [address] [place] [address] Twila Najera PA-C [address] [place] [address] 03/24/2024 10:30 AM EST Imaging Radiology [facility] [address] [place] [address] Scheduled Procedures Name Priority Associated Diagnoses Date/Ti [...] as of this encounter Visit Diagnoses Diagnosis Postoperative state- Primary Other postprocedural status documented in this encounter Advance Directives Latest Code Status on File Code Status Date Activated Date Inactivated Comments Full Code 06/12/2023 7:40 AM 06/12/2023 5:02 PM This order reflects the patients wishes and were consensually agreed upon. Question Answer Comments Discussion of Advance Directives occurred with: Patient Care Teams Senior Producer Relationship Specialty Start Date End Date July HASMUKH Fernandez [address] [place] [address] PCP - General Physician Blurb Writer 05/05/16 documented as of this encounter
--- OUTSIDE RECORDS SUMMARY | 2023-09-29 01:17 | External Medical Summary | Summary of Care ---
Author Name Unknown Organization [facility] Address [address] [place] [address] Phone [phone] Care Team Providers Care Dry Cell Sealer Name Role Phone Vianney Cordova PA-C Primary Care Provider [phone] Reason for Visit * Reason Onset Date Comments Referral 08/17/2023 Encounter Details Date Type Department Care Team (Late st Contact Info) Description 08/17/2023 Telephone Gynecology/Oncology, [place] [address] [place] [address] Mino Dwyer MD [address] [place] [address] Referral Allergies Active Allergy Reactions Criticality Noted Date Comments Pollen 01/26/2021 documented as of this encounter (statuses as of 08/17/2023) Medications Medication Sig Dispensed Refills Start Date [...] as of this encounter (statuses as of 08/17/2023) Active Problems Problem Noted Date Diagnosed Date Malignant neoplasm of female breast 06/12/2023 Intermittent asthma with reliever use up to twic e per week 02/01/2021 Mild persistent asthma without complication 01/14 Eczema 07/16/2012 Meniere's disease Asthma, allergic documented as of this encounter (statuses as of 08/17/2023) Resolved Problems Problem Noted Date Diagnosed Date Resolved Date Screening for cardiovascular condition 07/16/2012 01/24/2018 Screening for diabetes mellitus 07/16/2012 01/24/2018 General medical exam 07/16/2012 018 Acute bronchitis, complicated 06/06/2010 07/16/2012 documented as of this encounter (statuses as of 08/17/2023) Immunizations Name Administration Dates Next Due COVID-19 mRNA, LNP-s, No Pre serve, 2-Dose Series ([employer]) 03/05/2021,07/16/2020,06/25/2020 COVID-19, MRNA-LNP, 23-24, P F, 50 MCG/0.5 mL, 12 YRS AND ABOVE, IM (MODERNA-Spikevax) 02/09/2023 Covid-19, Mrna, Lnp-s, Pf, B ivalent, 50 Mcg, IM, 12 yrs and above (Moderna) 02/25/2022 Pneumococcal Conjugate Vacci ne, 20-valent ([id number]) 05/03/2022 Seasonal Influenza, PF, 6 M & [...] encounter Miscellaneous Notes * Telephone Encounter - Roshni Meléndez OSA - 08/17/2023 11:55 AM EDT Patient called in to GynOnc to see what intake process would be for getting a second opinion on theresults and plan of care. Spoke to Liset and patient will need to have a referral sent on her behalf and then the case will be reviewed and then Liset would be in contact with patient. Patient expressed their understanding. documented in this encounter Plan of Treatment Upcoming Encounters Date Type Department Care Team (Late st Contact Info) Description 08/27/2023 9:00 AM EDT PulmDiagnostic Pulmonary Function Lab, [facility] [address] [address] Ibrahima Pedrozam Function Tech 2 [address] [place] [address] 08/28/2023 10:00 AM EDT Appointment Radiology, [address] [place] [address] 2023 1:15 PM EDT Office Visit Hematology/Oncology [facility] [place] [address] [facility] [place] [phone] Gerard Ferrari MD 200 [facility] [place] [address] 11/21/2023 8:45 AM EDT Office Visit General Surgery, [facility] [address] [place] [address] Dima Lopes MD [address] [place] [address] 01/02/2024 10:20 AM EDT Office Visit Otolaryngology [facility] [address] [place] [address] Twila Najera PA-C [address] [place] [address] 03/24/2024 10:30 AM EST Imaging Radiology [facility] 1st [facility], [place] [address] [place] [address] Scheduled Procedures Name Priority Associated Diagnoses Date/Ti [...] Cancer Screening 12/07/2024 Pap Smear 06/15/2025 06/15/2022, 0904/2020, 11/07/2019, Additional history exists Lipid Panel 06/01/2027 [...] Advance Directives occurred with: Patient Care Teams Dry Cell Sealer Relationship Specialty Start Date End Date TashaJuly HASMUKH Fernandez [address] [place] [address] PCP - General Physician Auto Clutch Specialist 05/05/16 documented as of this encounter
--- OUTSIDE RECORDS SUMMARY | 2023-09-29 01:17 | External Medical Summary | Summary of Care ---
Author Name Unknown Organization [facility] Address [address] [facility] [place] [address] Phone [phone] Care Team Providers Care Oven Laborer Name Role Phone Vianney Cordova PA-C Primary Care Provider [phone] Reason for Visit * Reason Comments Outpatient Testing Encounter Details Date Type Department Care Team (Late st Contact Info) Description 08/21/2023 10:20 AM EDT Laboratory Laboratory [facility] [address] [place] [phone] [place], [address] [place] [address] Malignant neoplasm of upper-outer quadrant of right breast in female, estrogen receptor positive (HCC); Family history of breast cancer; Family history of colon cancer Allergies Active Allergy Reactions Criticality Noted Date Comments Pollen 01/26/2021 documented as of this encounter (statuses as of 08/21/2023) Medications Medication Sig Dispensed Refills Start Date [...] as of this encounter (statuses as of 08/21/2023) Active Problems Problem Noted Date Diagnosed Date Malignant neoplasm of female breast 06/12/2023 Intermittent asthma with reliever use up to twic e per week 02/01/2021 Mild persistent asthma without complication 01/14 Eczema 07/16/2012 Meniere's disease Asthma, allergic documented as of this encounter (statuses as of 08/21/2023) Resolved Problems Problem Noted Date Diagnosed Date Resolved Date Screening for cardiovascular condition 07/16/2012 01/24/2018 Screening for diabetes mellitus 07/16/2012 01/24/2018 General medical exam 07/16/2012 018 Acute bronchitis, complicated 06/06/2010 07/16/2012 documented as of this encounter (statuses as of 08/21/2023) Immunizations Name Administration Dates Next Due COVID-19 mRNA, LNP-s, No Pre serve, 2-Dose Series ([employer]) 03/05/2021,07/16/2020,06/25/2020 COVID-19, MRNA-LNP, 23-24, P F, 50 MCG/0.5 mL, 12 YRS AND ABOVE, IM (MODERNA-Spikevax) 02/09/2023 Covid-19, Mrna, Lnp-s, Pf, B ivalent, 50 Mcg, IM, 12 yrs and above (Moderna) 02/25/2022 Pneumococcal Conjugate Vacci ne, 20-valent ([id number]) 05/03/2022 Seasonal Influenza, PF, 6 M & [...] 9:00 AM EDT PulmDiagnostic Pulmonary Function Lab, [facility] [address] [place] [address] [place], Pulm Function Tech 2 [address] [place] [address] 08/28/2023 10:00 AM EDT Appointment Radiology, [address] [place] [address] 2023 1:15 PM EDT Office Visit [facility]ology[facility] [address] [facility] [place] [phone] Gerard Ferrari MD 200 [facility] [place] [address] 11/21/2023 8:45 AM EDT Office Visit General Surgery, [facility] [address] [place] [address] Dima Lopes MD [address] [place] [address] 01/02/2024 10:20 AM EDT Office Visit Otolaryngology [facility] [address] [place] [address] Twila Najera PA-C [address] [place] [address] 03/24/2024 10:30 AM EST Imaging Radiology [facility] [address] [facility] [address] [place] [address] Pending Results Name Type Priority Associated Diagnoses Date /Time MULTI-CANCER PANEL, [facility] Lab Routine Malignant neoplasm of upper-outer quadrant of right breast in female, estrogen receptor positive (HCC) Family history of breast cancer Family history of colon cancer 08/21/2023 9:19 AM EDT Scheduled Procedures Name Priority Associated Diagnoses [...] history of malignant neoplasm of gastrointestinal tract documented in this encounter Advance Directives Latest Code Status on File Code Status Date Activated Date Inactivated Comments Full Code 06/12/2023 7:40 AM 06/12/2023 5:02 PM This order reflects the patients wishes and were consensually agreed upon. Question Answer Comments Discussion of Advance Directives occurred with: Patient Care Teams Oven Laborer Relationship Specialty Start Date End Date Tasha Vianney HASMUKH Fernandez [address] [place] [address] PCP - General Physician Wooden Tank Erector 05/05/16 documented as of this encounter
--- OUTSIDE RECORDS SUMMARY | 2023-09-29 01:17 | External Medical Summary | Summary of Care ---
Author Name Unknown Organization [facility] Address [address] [place] [address] Phone [phone] Care Team Providers Care Shoe Lining Fitter Name Role Phone Vianney Cordova PA-C Primary Care Provider Reason for Visit * Reason Comments Genetic Counseling * Evaluate & Treat - Unlimited Visits (Within 10 days (routine)) - Pending Review Specialty Diagnoses / Procedures Referred By Lorena palomo Referred To Contact Medical Genetics / Hematology Oncology Diagnoses Malignant neoplasm of upper-outer quadrant of right breast in female, estrogen receptor positive (HCC) Gerard Ferrari MD [address] [place] [address] Referral ID Status Reason Start Date Expiration Date Visits Requested Visits Authorized [id number] Pending Review Specialty Services Required 05/15/[phone] Encounter Details Date Type Department Care Team (Latest Contact Info) Description 08/15/2023 2:00 PM EDT Telemedicine Genetics HemOnc, [facility] [address] [place] [address] Kaycee Lazo, MS [address] [place] [address] Malignant neoplasm of upper-outer quadrant of right [...] mRNA, LNP-s, No Pre serve, 2-Dose Series ([employer]) 03/05/2021,07/16/2020,06/25/2020 COVID-19, MRNA-LNP, 23-24, P F, 50 MCG/0.5 mL, 12 YRS AND ABOVE, IM (MODERNA-Spikevax) 02/09/2023 Covid-19, Mrna, Lnp-s, Pf, B ivalent, 50 Mcg, IM, 12 yrs and above (Moderna) 02/25/2022 Pneumococcal Conjugate Vacci ne, 20-valent ([id number]) 05/03/2022 Seasonal Influenza, PF, 6 M & [...] EDT You met with Kaycee Lazo MS, [facility] on 08/15/2023 for a Cancer Genetics Risk Assessment. TODAY'S SUMMARY If you have questions about your risk assessment, evaluation, testing process, or results, contact our clinic at [phone] or send a [employer] message. You agreed to complete genetic testing today. Results are expected in ~3 weeks from sample collection and will appear in the [employer] portal under "Test Results." I will contact you with your results. You can request an electronic copy of your report through [employer]'s secure web-portal: [facility] Patient Registration. Insurance Coverage: The laboratory ([facility]) will complete prior authorization for genetic testing and will notify you via text or email of billing policies. If your estimated out of pocket expense after insurance processing is >$100, [facility] will contact you to discuss options based on your specific financial situation. Visit this link for more information or contact the laboratory billing department at [phone] or [email or web address]. Sample Collection: Your blood draw order has been signed and you can visit any [facility] lab to have this collected. Lab order: Multi Cancer Panel, [facility] Ordering Provider: Bharti Valles MD . For assistance finding [facility] Laboratory locations and hours, visit: [email or web address] Read more about genetic testing here: Hereditary [...] go to [email or web address] Sincerely, Kaycee Lazo MS, [facility] -- Licensed, Certified Genetic Counselor Cancer Genetics Risk Assessment Clinic Department of [facility] at [facility] (P) [phone] | (F) [phone] | (E) [email or web address] documented in this encounter Progress Notes * Kaycee Lazo MS - 08/15/2023 2:04 PM EDT Images from the original note were not included. Cancer Genetic Risk Assessment Clinic at [facility] | | Email: [email or web address] Location: [place] [address] Dept. Referring Provider: Gerard Ferrari MD Name: Nova Mota Date: 08/15/2023 - 2:00 PM EDT Present for consult: Nova Elva Tankleesa, Bharti Valles, Kaycee Lazo, , [facility] Visit Type: Phone. The patient is located in the [facility]. The treating clinician is located not in [...] PLAN: Test Ordered: Multi-Cancer Panel + Expanded Breast/Heel Blacker Panel at [facility] (74 genes) Genes Included: AIP, ALK, APC, ONEYDA, AXIN2, BAP1, BARD1, BLM, BMPR1A, BRCA1, BRCA2, BRIP1, CDC73, CDH1, CDK4, CDKN1B, CDKN2A (p14ARF), CDKN2A (t50SBX8l), CHEK2, CTNNA1, DICER1, EGFR, EPCAM, FH, FLCN, GREM1, HOXB13, KIT, LTZR1, MAX, MBD4, MEN1, MET, MITF, MLH1, MSH2, MSH3, MSH6, MUTYH, NF1, NF2, NTHL1, PALB2, PDGFRA, PMS2, POLD1, POLE, POT1, ZCLZY9Z, PTCH1, PTEN, RAD51C, RAD51D, RB1, RET, SDHA, SDHAF2, SDHB, SDHC, SDHD, SMAD4, SMARCA4, SMARCB1, SMARCE1, STK11, SUFU, TLCI939, TP53, TSC1, TSC2, VHL+ FANCC, FANCM, NBN, RECQL [facility] Core Panel: BRCA1/2 Blood sample to be collected at a later date; results anticipated in 3 weeks from sample collection. Results disclosure preferred by: MyG. PAST MEDICAL HISTORY: Breast Hx: Personal history of breast cancer diagnosed age 52; Invasive Lobular Carcinoma, ER+, OR+, and Her2/terri-; Treatment: Surgery and Radiation. Heel Blacker/ Hx: Uterus/ovaries intact. . LIZBET BSO to [...] performed by Dima Lopes MD at OR [facility] COLONOSCOPY, DIAGNOSTIC (RECTUM) 12/08/2019 benign polyp, repeat 5 yrs / COLONOSCOPY FLEXIBLE PROXIMAL DIAGNOSTIC performed by Lopez Bazan MD at ENDOSCOPY [facility] DENTAL SURGERY PROCEDURE NEC EXC BREAST LESION RADMARK Right 06/12/2023 EXCISION OF BREAST LESION RADIOLOGICAL MARKER performed by Dima Lopes MD at [facility] HYSTEROSCOPY W/BIOPSY AND/OR POLYPECTOMY W/WO D&C N/A 02/05/2020 HYSTEROSCOPY WITH BIOPSY AND/OR POLYPECTOMY WITH OR WITHOUT D&C performed by Farheen Rust MD at [facility] HYSTEROSCOPY W/BIOPSY AND/OR POLYPECTOMY W/WO D&C N/A 08/02/2023 HYSTEROSCOPY WITH BIOPSY AND/OR POLYPECTOMY WITH OR WITHOUT D&C performed by Derrick Hernández MD at OR [facility] IDENTIFY SENTINEL NODE, RADIOACTIVE TRACER Right 06/12/2023 INJECTION PROCEDURE FOR IDENTIFICATION SENTINEL NODE performed by Dima Lopes MD at [facility] LIGATE/CUT OVIDUCT(S) MASTECTOMY, PARTIAL Right 06/12/2023 MASTECTOMY PARTIAL performed by Dima Lopes MD at OR [facility] PELVIC EXAM UNDER ANESTHESIA, NOT LOCAL N/A 08/02/2023 PELVIC EXAMINATION UNDER ANESTHESIA performed by Derrick Hernández MD at OR [facility] PUNCTURE DRAINAGE BREAST CYST Left 2000 Benign PUNCTURE DRAINAGE BREAST CYST Left 04/30/2023 REMOVAL OF SKIN TAGS, EA ADDL 10 (AFTER 15) Right 06/12/2023 REMOVAL SKIN TAG EACH ADDITIONAL 10 LESIONS performed by Dima Lopes MD at OR [facility] US GUIDED BREAST BIOPSY RIGHT Right 04/30/2023 [...] with a combination of GI, , or DESIGN PRINTER BALLOON cancers (colorectal, uterine, ovarian, gastric, pancreas, prostate, [...] of the information discussed. Kaycee Lazo MS, [facility] Licensed, Certified Genetic Counselor This note is [...] 9:00 AM EDT PulmDiagnostic Pulmonary Function Lab, [facility] [address] [place] [address] [place], Pulm Function Tech [address] [place] [address] 08/28/2023 10:00 AM EDT Appointment Radiology, [address] [address] 2023 1:15 PM EDT Office Visit Hematology/Oncology [facility] [address] [place] [phone] Gerard Ferrari MD [address] [facility] [place] [address] 11/21/2023 8:45 AM EDT Office Visit General Surgery, [facility] [address] [address] Dima Lopes MD [address] [place] [address] 01/02/2024 10:20 AM EDT Office Visit Otolaryngology [facility] [address] [place] [address] Twila Najera PA-C [address] [place] [address] 03/24/2024 10:30 AM EST Imaging Radiology [address] [facility] [place] [address] Scheduled Orders Name Type Priority Associated Diagnoses [...] Advance Directives occurred with: Patient Care Teams Shoe Lining Fitter Relationship Specialty Start Date End Date Tasha July HASMUKH Fernandez [address] [place] [address] PCP - General Physician Operating Room Surgical Technician 05/05/16 documented as of this encounter
--- OUTSIDE RECORDS SUMMARY | 2023-09-29 01:17 | External Medical Summary ---
Author Name Unknown Address Unknown Organization : Laboratory Report Ordering Provider Test Date Status JENNIFER OJEDA 08/21/2023 09:19:07 Correction Observation Date Value Abnormality Reference (Units ) Status REFERENCE LAB SCANNED REPORT 08/21/2023 09:19:07 RESULT SCAN Correction Changed result: Previously r eported as RESULT SCAN on 08/30/2023 at 0846 EDT. Performing Location
--- OUTSIDE RECORDS SUMMARY | 2023-09-29 01:18 | External Medical Summary | Summary of Care ---
Author Name Unknown Organization [facility] Address [address] [facility] [place] [address] Phone [phone] Care Team Providers Care Electronic Warfare Technical Name Role Phone Vianney Cordova PA-C Primary Care Provider [phone] Reason for Visit * Reason Onset Date Comments Health Maintenance 07/19/2023 Encounter Details Date Type Department Care Team (Late st Contact Info) Description 07/19/2023 Telephone Family Practice [facility] [address] [facility] [facility] [place] [address] Vianney Cordova PA-C [address] [facility] [place] [address] Health Maintenance Allergies Active Allergy Reactions Criticality Noted Date Comments Pollen 01/26/2021 documented as of this encounter (statuses as of 07/23/2023) Medications Medication Sig Dispensed Refills Start Date [...] Oral Tablet Chewable Take by mouth. 0 Activ e Biotin 5 MG Oral Tablet Disintegrating (Biotin Beauty Extra Strength) Take by mouth. 0 Active Turmeric Curcumin Oral Capsule Take by mouth. 0 Active Probiotic 250 MG Oral Capsule Take by mouth. 0 Active NATURAL SUPPLEMENT Take by mouth daily. 0 Active documented as of this encounter (statuses as of 07/23/2023) Active Problems Problem Noted Date Diagnosed Date Malignant neoplasm of female breast 06/12/2023 Intermittent asthma with reliever use up to twic e per week 02/01/2021 Mild persistent asthma without complication 01/14 Eczema 07/16/2012 Meniere's disease Asthma, allergic documented as of this encounter (statuses as of 07/23/2023) Resolved Problems Problem Noted Date Diagnosed Date Resolved Date Screening for cardiovascular condition 07/16/2012 01/24/2018 Screening for diabetes mellitus 07/16/2012 01/24/2018 General medical exam 07/16/2012 018 Acute bronchitis, complicated 06/06/2010 07/16/2012 documented as of this encounter (statuses as of 07/23/2023) Immunizations Name Administration Dates Next Due COVID-19 mRNA, LNP-s, No Pre serve, 2-Dose Series ([employer]) 03/05/2021,07/16/2020,06/25/2020 COVID-19, MRNA-LNP, 23-24, P F, 50 MCG/0.5 mL, 12 YRS AND ABOVE, IM (MODERNA-Spikevax) 02/09/2023 Covid-19, Mrna, Lnp-s, Pf, B ivalent, 50 Mcg, IM, 12 yrs and above (Moderna) 02/25/2022 Pneumococcal Conjugate Vacci ne, 20-valent ([id number]) 05/03/2022 Seasonal Influenza, PF, 6 M & [...] as of this encounter Miscellaneous Notes * Addendum Note - Jim Reyes LPN - 07/20/2023 8:12 AM EDTAddended by: JIM REYES on: 07/20/2023 08:12 AM Modules accepted: Orders * Telephone Encounter - Jim Reyes LPN - 07/20/2023 8:06 AM EDT Pft ordered for patient. Cam order pended. Please review and sign. Thank you. * Telephone Encounter - Jim Reyes LPN - 07/19/2023 2:43 PM EDT Care Gaps Comprehensive Care Outreach Last Office/Telemedicine Visit: 05/03/2022 (in office), Visit date not found (telemedicine) Next Office Visit: Visit date not found Hemoglobin AIC Results: Lab Results Component Value Date/Time HEMOGLOBIN A1C - ROBERTER 5.5 06/01/2022 10:31 AM BP Readings from Last 1 Encounters: 06/12/23 132/81 Reviewed Health Maintenance below: Health Maintenance Topic Date Due Hepatitis C Screening Never done Hepatitis B (1 of 3 - 19+ 3-dose series) Never done *SPIROMETRY ONCE FOR ASTHMA-ADULT Never done DTaP,Tdap,and Td Vaccines (2 - Td or Tdap) 07/16/2022 Depression Screening 05/03/2023 Mammogram 03/23/2024 Pft my g Mamm already scheduled Care Gap Outreach Action Taken: Healinthart message sent documented in this encounter Plan of Treatment Upcoming Encounters Date Type Department Care Team (Latest Contact Info) Description 07/24/2023 9:45 AM EDT Office Visit Gynecology/Obstetr [facility] [address] [place] [address] Derrick Hernández MD [address] [place] [address] 08/02/2023 9:47 AM EDT Hospital Encounter OR [facility], Operating Room [facility] [address] [place] [phone] Derrick Hernández MD [address] [place] [address] 08/02/2023 9:47 AM EDT - 08/02/2023 10:37 AM EDT Surgery OR [facility], Operating Room [facility] [address] [place] [phone] Derrick Hernández MD [address] [place] [address] HYSTEROSCOPY WITH BIOPSY AND/OR POLYPECTOMY WITH OR WITHOUT D&C 08/14/2023 9:30 AM EDT Office Visit Gynecology/Obstetr ics [facility] [address] [place] [address] Derrick Hernández MD [address] [place] [address] 08/27/2023 9:00 AM EDT PulmDiagnostic Pulmonary Function Lab, [facility] [address] [facility] [facility] [place] [address] [place] Pulm Function Tech 2 [address] [facility] [place] [address] 08/28/2023 10:00 AM EDT Appointment Radiology, [facility] [address] [place] [address] 2023 1:15 PM EDT Office Visit Hematology/Oncolog y [facility] [address] [place] [id number] Gerard Ferrari MD [address] [place] [place] [address] 11/05/2023 9:45 AM EDT Telemedicine [place] [facility] [place] [address] [place] [address] Kaycee Lazo, MS [facility] [place] [address] 11/21/2023 8:45 AM EDT Office Visit General Surgery, [facility] [address] [facility] [place] [address] Dima Lopes MD [address] [address] 01/02/2024 10:20 AM EDT Office Visit Otolaryngology [facility] [address] [place] [address] Twila Najera PA-C [address] [place] [address] 03/24/2024 10:30 AM EST Imaging Radiology [facility] [address] [facility] [address] [place] [address] Scheduled Procedures Name Priority Associated Diagnoses Date/Ti me HYSTEROSCOPY WITH BIOPSY AND/OR POLYPECTOMY WITH OR WITHOUT D&C Endometrial intraepithelial neoplasia (EIN) 08/02/2023 9:47 AM EDT PELVIC EXAMINATION UNDER ANESTHESIA Endometrial intraepithelial neoplasia (EIN) 08/02/2023 9:47 AM EDT COLONOSCOPY FLEXIBLE PROXIMAL DIAGNOSTIC Recall History of colon polyps Health Maintenance Due Date Last Done Comments Hepatitis C Screening 09/07/1987 Hepatitis B (1 of 3 - 19+ 3-dose series) 1988 *SPIROMETRY ONCE FOR ASTHMA-ADULT 02/04/2021 DTaP,Tdap,and Td Vaccines (2 - Td or Tdap) 07/16/2022 07/16/2012 Depression Screening 05/03/2023 05/03/2022, 05/05/2016 (Discussed) Mammogram 03/23/2024 03/23/2023, 0209/2022, 02/28/2021, Additional history exists COLONOSCOPY-EVERY 5 YRS AGES 18-100 12/07/2024 12/08/2019, 12/08/2019 Pap Smear 06/15/2025 06/15/2022, 0904/2020, 11/07/2019, Additional history exists Lipid Panel 06/01/2027 06/01/2022, 10/15, 07/22/2012 Cervical Cancer Screening 06/16/2027 HPV/Co-Test 06/16/2027 06/15/2022 Zoster Vaccines Completed 07/22/2021, 05/21/2021 Pneumococcal Vaccine: Pediatrics (0 to 5 Years) and At-Risk Patients (6 to 64 Years) Completed 05/03/2022 Influenza Vaccine (FLU shot) Completed , 02/25/2022, 02/01/2021, Additional history exists COVID-19 Vaccine [...] Screening for other and unspecified respiratory condition Endometrial intraepithelial neoplasia (EIN) documented in this encounter Advance Directives Latest Code Status on File Code Status Date Activated Date Inactivated Comments Full Code 06/12/2023 7:40 AM 06/12/2023 5:02 PM This order reflects the patients wishes and were consensually agreed upon. Question Answer Comments Discussion of Advance Directives occurred with: Patient Care Teams Electronic Warfare Technical Relationship Specialty Start Date End Date Tasha July HASMUKH Fernandez [address] [facility] [place] [place] [place] [address] PCP - General Physician Metal Grader 05/05/16 documented as of this encounter
--- OUTSIDE RECORDS SUMMARY | 2023-09-29 01:18 | External Medical Summary | Summary of Care ---
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] Procedures HYSTEROSCOPY W/BIOPSY AND/OR POLYPECTOMY W/WO D&C PELVIC EXAM UNDER ANESTHESIA, NOT LOCAL HYSTEROSCOPY WITH BIOPSY AND/OR POLYPECTOMY WITH OR WITHOUT D&C PELVIC EXAMINATION UNDER ANESTHESIA Derrick Howard MD [address] [place] [address] [address] [facility] [address] [place] [address] Referral ID Status Reason Start Date Expiration Date Visits Re quested Visits Authorized [id number] Encounter Details Date Type Department Care Team (Latest Contact Info) Description 08/02/2023 8:45 AM EDT - 08/02/2023 11:55 AM EDT Hospital Encounter [facility], Operating Room [facility] [address] [address] Derrick Howard MD [address] [address] [address] Discharge Disposition: Home - Self Care Allergies Active Allergy Reactions Criticality Noted Date Comments Pollen 01/26/2021 documented as of this encounter (statuses as of 08/02/2023) Medications Medication Sig Dispensed Refills Start Date End Date Status Calcium Carb-Cholecalcifero l 1000-800 MG-UNIT Oral Tablet Take 1 Tablet by mouth in the morning and 1 Tablet before bedtime. 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 0 Activ e Turmeric Curcumin Oral Capsule Take by mouth. 0 Active Probiotic 250 MG Oral Capsule Take by mouth. 0 Active Ibuprofen 600 MG Oral Tablet (Motrin) Take 1 Tablet by mouth in the morning and 1 Tablet at noon and 1 Tablet before bedtime. With meals.. 30 Tablet 0 08/02/2023 Active NATURAL SUPPLEMENT Take by mouth daily. 0 4 Discontinued documented as of this encounter (statuses as of 08/02/2023) Active Problems Problem Noted Date Diagnosed Date Malignant neoplasm of female breast 06/12/2023 Intermittent asthma with reliever use up to twic e per week 02/01/2021 Mild persistent asthma without complication 01/14 Eczema 07/16/2012 Meniere's disease Asthma, allergic documented as of this encounter (statuses as of 08/02/2023) Resolved Problems Problem Noted Date Diagnosed Date Resolved Date Screening for cardiovascular condition 07/16/2012 01/24/2018 Screening for diabetes mellitus 07/16/2012 01/24/2018 General medical exam 07/16/2012 018 Acute bronchitis, complicated 06/06/2010 07/16/2012 documented as of this encounter (statuses as of 08/02/2023) Immunizations Name Administration Dates Next Due COVID-19 mRNA, LNP-s, No Pre serve, 2-Dose Series (BoardBookit) 03/05/2021,07/16/2020,06/25/2020 COVID-19, MRNA-LNP, 23-24, P F, 50 MCG/0.5 mL, 12 YRS AND ABOVE, IM (MODERNA-Spikevax) 02/09/2023 Covid-19, Mrna, Lnp-s, Pf, B ivalent, 50 Mcg, IM, 12 yrs and above (Moderna) 02/25/2022 Pneumococcal Conjugate Vacci ne, 20-valent ([id number]) 05/03/2022 Seasonal Influenza, PF, 6 M & [...] Sign Reading Time Taken Comments Blood Pressure 113/68 08/02/2023 11:34 AM EDT Pulse 79 08/02/2023 11:34 AM EDT Temperature 36.1 C (97 F) 08/02/2023 11:19 AM EDT Respiratory Rate 18 08/02/2023 11:34 AM EDT Oxygen Saturation 99% 08/02/2023 11:34 AM EDT Inhaled Oxygen Concentration - - Weight 64 kg (141 lb) 08/02/2023 9:19 AM EDT Height 162 cm (5' 3.78") 08/02/2023 9:19 AM EDT Body Mass Index 24.37 08/02/2023 9:19 AM EDT documented in this encounter Discharge Summaries * Derrick Howard MD - 08/02/2023 10:49 AM EDT [facility] [address] [address] OUTPATIENT SURGERY DISCHARGE SUMMARY NOTE Name: Nova Mota Location: OR [facility]/OR Date: 08/02/2023 Time: 10:50 AM Surgery Date: 08/02/2023 Procedure: HYSTEROSCOPY WITH BIOPSY AND/OR POLYPECTOMY WITH OR WITHOUT D&C, PELVIC EXAMINATION UNDER ANESTHESIA N/A N/A Surgeon: Derrick Howard MD Discharge Diagnosis: postop After examination of this patient, I have determined she is ready for discharge to home when the patient meets criteria. Discharge instructions were given to the patient. documented in this encounter Discharge Instructions * Discharge Instr - AVS* Derrick Howard MD - 08/02/2023 10:49 AM EDT Discharge Date: 08/02/2023 The information below provides you with the instructions and the list of medications you need to betaking following discharge from the hospital. If you have any questions, please ask before leaving.Please carry this letter with you when you see your doctor in the clinic. If you have questions, you can reach us at the numbers above. Post Anesthesia Instructions: 1. Do not drive today. 2. Resume driving when surgeon permits. 3. Do not make important decisions or sign legal documents today. 4. Call surgeon for: Temperature evaluation greater than 101 degrees Uncontrollable pain Excessive Bleeding Persistent Nausea and vomiting Medication intolerance (nausea, vomiting, or rash) 5. For nausea and vomiting use only clear liquids such as: tea, soda, bouillon until nausea subsides, then gradually increase diet as tolerated. 6. If you have any concerns or questions, call your surgeon's office at [phone] . If the physician is unavailable and it is an emergency, call 911 or go to the nearest emergency room. Preprinted instructions given: None (Form No.) Special Care / Other: DISCOMFORT: Vaginal bleeding (less than a period) for 7 - 10 days is common. Cramping may occur in lower abdomen and may be relieved by pain medication advised by your doctor. Sore throat is common and results from method of administering anesthesia; usually disappears within 24 hours. Menstruation - first menstrual flow may be scanty, may be heavy and contain clots or may stop and start again. The second period should be normal. Sexual activity permitted when bleeding stops. CONTRACEPTION: Check with your doctor for advice if you plan to become within the next 3 - 4 months. Your doctor will discuss your choice, if any, of contraceptives at your follow- up visit. HYGIENE: Bathing - may shower or tub bathe at any time. Douching - do not douche until 2 weeks after surgery or until no further bleeding or cramping. SIGNS OF INFECTION: Elevated temperature - 101oF or above by mouth. Vaginal drainage. Unusual pain or burning. Activity : Rest today. Return to School or Work: No Limitations Diet: Resume previous diet Follow-up Visit with: dr howard When: in 2 weeks Discharged To: Home documented in this encounter H&P Notes * Derrick Howard MD - 08/02/2023 9:47 AM EDT HISTORY & PHYSICAL INTERVAL NOTE [facility] [place] [address] [facility] [id number] History and Physical Update: Name: Nova Mota Location: OR [facility]/OR Date: 08/02/2023 Time: 9:47 AM DATE OF HISTORY AND PHYSICAL: BP: 110 mmHg/47 mmHg (08/02/23918) Pulse: 73 (08/02/23918) Temp: 36.67 C (08/02/23918) Temp Summary: Temp Min: 36.7 C (98 F) Max: 36.7 C (98 F) SpO2: 98 % (08/02/23918) O2 flow rate: Supplemental O2 Delivery: Room Air, None (08/02/23918) Does patient take a beta yaneli? No Did patient stop anticoagulants? No Heart Exam: regular rate and rhythm Lung Exam: clear to auscultation bilaterally Other Pertinent Physical Exam: I have reviewed the H&P previously performed and examined the patient today. There are no new findings noted. Source Note - Derrick Howard MD - 07/24/2023 10:11 AM EDT [facility] [address] [place] [address] Appt line [phone] Nova Mota I 52 year old G2 P for seen by AP for menorrhagia. 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 Denies h/o STDs and abnormal Paps. Her past medical/surgical histories and current medications are recorded in the electronic record. Past Surgical History: Procedure Laterality Date BX LYMPH NODE DEEP AXIL Right 06/12/2023 BIOPSY LYMPH NODE DEEP AXILLARY OPEN performed by Dima Lopse MD at OR [facility] COLONOSCOPY, DIAGNOSTIC (RECTUM) 12/08/2019 benign polyp, repeat 5 yrs / COLONOSCOPY FLEXIBLE PROXIMAL DIAGNOSTIC performed by Lopez Bazan MD at ENDOSCOPY [facility] DENTAL SURGERY PROCEDURE NEC EXC BREAST LESION RADMARK Right 06/12/2023 EXCISION OF BREAST LESION RADIOLOGICAL MARKER performed by Dima Lopes MD at [facility] HYSTEROSCOPY W/BIOPSY AND/OR POLYPECTOMY W/WO D&C N/A 02/05/2020 HYSTEROSCOPY WITH BIOPSY AND/OR POLYPECTOMY WITH OR WITHOUT D&C performed by Farheen Rust MD at OR [facility] IDENTIFY SENTINEL NODE, RADIOACTIVE TRACER Right 06/12/2023 INJECTION PROCEDURE FOR IDENTIFICATION SENTINEL NODE performed by Dima Lopes MD at OR [facility] LIGATE/CUT OVIDUCT(S) MASTECTOMY, PARTIAL Right 06/12/2023 MASTECTOMY PARTIAL performed by Dima Lopes MD at OR [facility] PUNCTURE DRAINAGE BREAST CYST Left 2000 Benign PUNCTURE DRAINAGE BREAST CYST Left 04/30/2023 REMOVAL OF SKIN TAGS, EA ADDL 10 (AFTER ) Right 06/12/2023 REMOVAL SKIN TAG EACH ADDITIONAL 10 LESIONS performed by Dima Lopes MD at OR [facility] US GUIDED BREAST BIOPSY RIGHT Right 04/30/2023 Family History Problem Relation Age of Onset Total abdominal hysterectomy Mother 47 Due to fibroids Heart Disorder Mother MVP Diabetes Mother dx age 60's Other (osteoporosis) Mother Skin cancer Father Exposure - lives in [place] and did not wear sunscreen when younger Hypertension Father Hypertension Brother Colon cancer Grandmother (Paternal) 90 - 99 tx: colectomy Mastectomy Grandmother (Paternal) 53 Unilateral mastectomy at age 53, and then masectomy of other breast age age 54 Breast Cancer Grandmother (Paternal) 50 - 59 Cancer Other "cancerous grwoth around aorta which was inoperable" Brain tumor Other Other (Benign Tumor) Aunt (Paternal) Near nose/eyes Impairs vision. No surgery and appeared >16 yrs ago. Bladder Cancer Uncle (Paternal) Colon cancer Other TOB+ Lung cancer Other TOB+ Mets to brain Colon cancer Other Recurrent 15 yrs later TOB- Cancer Other >300 tumors on body d. 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 Regular rate and Rhythm Lungs: Clear to auscultation bilaterally. Abdomen: Soft Extremities: Soft non tender calves bilaterally. A/P: 52 year old year old S/p breast cancer and lumpectomy Ongoing radiation treatment EIN on office endometrial biopsy Pt is scheduled for D&C with hysteroscopy Hysterectomy and possible BSO after hysteroscopy is discussed and pt is agreeable We have discussed the risk alternatives and complications of surgery including more surgery to correct complication,risk of anesthesia,infection,damage to internal organs and . Derrick Howard MD 07/24/2023 10:11 AM documented in this encounter Nursing Notes * Yesi Perkins RN - 08/02/2023 11:54 AM EDT Patient is alert, pain free, clean shelley pad in place and tolerating po fluids prior to discharge. Patient has been visited by Dr. Howard. Patient has received and demonstrates understanding of discharge instructions. Patient is transported ambulatory to private auto accompanied by and staff. * Yesi Perkins RN - 08/02/2023 11:19 AM EDT Pt received PACU II awake, denies discomfort, shelley pad dry and in place, taking ice chips and retaining. * Rosalia García RN - 08/02/2023 11:17 AM EDT Patient awake and oriented. Tolerating PO ice chips without nausea. Denies pain. Vital signs stable. Ready for discharge from PACU 1. * Rosalia García RN - 08/02/2023 10:57 AM EDT Spontaneously awake. Oral airway removed. Denies complaints. No acute distress noted. * Rosalia García RN - 08/02/2023 10:40 AM EDT Patient received to pacu 1 status post hysteroscopy/D&C. Patient sedate/sleeping. No signs of pain. No signs of nausea. Respirations are even and unlabored on 6lpm via simple face mask. Oral airway intact. NSR on monitor. Abdomen soft and non distended. Shelley pad with scant amount bloody drainage. Vital signs stable. * Libia Degroot RN - 08/02/2023 8:52 AM EDT Surgical consent verified with patient. Patient agrees with listed procedure and verified signature. documented in this encounter OR Notes * OR Surgeon - Derrick Howard MD - 08/02/2023 10:52 AM EDT OPERATIVE RECORD OR [facility], Operating Room [facility] [address] [facility] [address] Nova Mota : 1970 DATE: 08/02/2023 PREOPERATIVE DIAGNOSIS: endometrial intraepithelial neoplasia from office endometrial biopsy. POSTOPERATIVE DIAGNOSIS: Save SURGEON: Derrick Howard MD ASSISTANTS: Heidy Cotton Physician service center assistant. Attestation for service center assistant; service center assistant was necessary to help with retraction and manipulation of instruments in order to provide for safe surgery. ANESTHESIA: General OPERATION: 1. Exam under anesthesia 2. Dilation and curettage 3. Hysteroscopy 4.endometrial resection with MyoSure FINDINGS: atrophic vulva vagina. No abnormal lesions seen in the vagina and cervix. Hysteroscopic findings showed endometrium with what appears to be 2 intramural fibroids pushing into the endometrial cavity and distorting the endometrial cavity. Both ostia seen. No obvious abnormal looking lesionsseen in the cavity. ESTIMATED BLOOD LOSS: 10 milliliters DRAINS: none FLUIDS: 1100 mL Crystalloid URINE OUTPUT: 100 mL SPECIMEN: 1 endometrial resection with MyoSure. 2. Sharp endometrial curettings COMPLICATIONS: none CONDITION: stable in the recovery room INDICATIONS AND HISTORY: 52-year-old with endometrial intraepithelial neoplasia from office biopsy. DESCRIPTION OF OPERATION: The patient was identified, and the procedure was verified. Ok DESCRIPTION OF OPERATION: Patient is taken to the operating room was she was prepped and draped in normal sterile fashion in dorsal lithotomy position. Exam under anesthesia is as dictated above. Bladder is catheterized and 100 cubic centimeters of clear urine is obtained. Single-tooth tenaculum was used to grab the cervix. Weighted speculum was placed in the vagina. Cervix is dilated in series. Operative hysteroscope was placed into the uterine cavity. Findings of the uterus as dictated above.The MyoSure device was passed through the outflow tract of the hysteroscope. Resection of the endometrial polyp and endometrium was performed with the MyoSure device. It was removed and a size 2 sharp curette introduced in the uterine cavity. Curettage was performed in all 4 quadrants until a gritty texture is obtained. Both specimens sent to pathology for pathologic analysis. All instruments removed from the uterus and the vagina and accounted for x2 including sponges needles and retractors. There was good hemostasis. The patient is sent to recovery in stable condition. Derrick Howard MD 08/02/2023 10:52 AM documented in this encounter Plan of Treatment Upcoming Encounters Date Type Department Care Team (Late st Contact Info) Description 08/14/2023 9:30 AM EDT Office Visit Gynecology/Obstetrics [facility] [address] [address] Derrick Howard MD [address] [address] 08/27/2023 9:00 AM EDT PulmDiagnostic Pulmonary Function Lab, [facility] [address] [address] [place], Pulm Function Tech [address] [address] 08/28/2023 10:00 AM EDT Appointment Radiology, [address] [place] [address] 2023 1:15 PM EDT Office Visit Hematology/Oncology [facility] [address] [facility], [place] [address] Gerard Ferrari MD [address] [facility] [place] [address] 11/05/2023 9:45 AM EDT Telemedicine Genetics HemOnc, [facility] [address] [place] [address] Kaycee Lazo, [place] [address] [place] [address] 11/21/2023 8:45 AM EDT Office Visit General Surgery, [facility] [address] [facility] [place] [address] Dima Lopes MD [address] [place] [address] 01/02/2024 10:20 AM EDT Office Visit Otolaryngology [facility] [address] [facility] [place] [address] Twila Najera PA-C [address] [place] [address] 03/24/2024 10:30 AM EST Imaging Radiology [facility] [address] [facility] [place] [address] Pending Results Name Type Priority Associated Diagnoses Date /Time SURGICAL PATHOLOGY Pathology Routine Endometrial intraepithelial neoplasia (EIN) 08/02/2023 10:26 AM EDT Scheduled Orders Name Type Priority Associated Diagnoses Orde r Schedule SURGICAL PATHOLOGY Pathology Routine Endometrial intraepithelial neoplasia (EIN) Release Upon Ordering for 1 Occurrences starting 08/02/2023, 1 completed Scheduled Procedures Name Priority Associated Diagnoses Date/Ti [...] 03/23/2024 03/23/2023, 09/2022, 02/28/2021, Additional history exists COLONOSCOPY-EVERY 5 YRS AGES 18-100 12/07/2024 12/08/2019, 12/08/2019 Pap Smear 06/15/2025 06/15/2022, 090 04/2020, 11/07/2019, [...] Procedure Name Priority Date/Time Associated Diagnosis Comments URINE SCREEN, POINT OF CARE (ENTER/EDIT) STAT 08/02/2023 9:03 AM EDT documented in this encounter Results * URINE SCREEN, POINT OF CARE (ENTER/EDIT) (08/02/2023 9:03 AM EDT) hCG Beta, Urine Negative Negative Procedural Control Valid? Yes Lot Number [id number] Expiration Date 09/02/2024 Urine 08/02/2023 9:03 AM EDT Justin Boogie MD LAB POINT OF CAR E TEST ENTER/EDIT ORDERABLES documented in this encounter Visit Diagnoses Diagnosis Endometrial intraepithelial neoplasia (EIN) documented in this encounter Administered Medications Inactive Administered Medications - up to 3 most recent administrations Medication Order MAR Action Action Date Dose Rate Site Acetaminophen (Tylenol) tab 650 mg 650 mg, Oral, PRN Pain, Mild, Starting on Ainsley 08/02/23 at 1127, Until Ainsley 08/02/23 at 1555, For 1 dose, Maximum of 4 grams (4000 mg) per day., Post-op Acetaminophen (Tylenol) tab 975 mg 975 mg, Oral, ONCE, On Ainsley 08/02/23 at 0930, For 1 dose, Maximum of 4 grams (4000 mg) per day., Pre-Op Given 08/02/2023 9:03 AM EDT 975 mg celecoxib (CeleBREX) cap 400 mg 400 mg, Oral, ONCE, On Ainsley 08/02/23 at 0930, For 1 dose, Do not use in patients with GFR <60 or patients receiving ketorolac., Pre-Op Given 08/02/2023 9:03 AM EDT 400 mg dexAMETHasone Sodium Phosphate (Decadron) 4 MG/ML inj 4 mg 4 mg, IV Push, PRN Nausea, Starting on Ainsley 08/02/23 at 1045, Until Ainsley 08/02/23 at 1555, For 1 dose, PROTECT FROM LIGHT, PACU fentaNYL (PF) inj 25 mcg 25 mcg, IV Push, PRN Pain, Severe, Starting on Ainsley 24 at 1045, Until Ainsley 24 at 1555, For 6 doses, When given IV Push its recommended that the dose be given over 3 to 5 minutes., PACU isolyte-S pH 7.4 infusion Intravenous, Plasma-LYTE 148, isolyte-S, and isolyte-S pH 7.4 are considered equivalent - including for MAR barcode scanning., CONTINUOUS, Starting on Ainsley 4/18/24 at 1015, Until Ainsley 08/02/23 at 1555, Pre-Op ondansetron (Zofran) inj 4 mg 4 mg, IV Push, PRN Nausea, Starting on Ainsley 08/02/23 at 1045, Until Ainsley 08/02/23 at 1555, For 1 dose, PACU documented in this encounter Active and Recently Administered Medications Times are shown in EDT. Scheduled Medication Order 07/31/2023 08/01/2023 08/02/2023 Acetaminophen (Tylenol) tab 975 mg (COMPLETED) 975 mg, Oral, ONCE, On Ainsley 08/02/23 at 0930, For 1 dose, Maximum of 4 grams (4000 mg) per day., Pre-Op 09 (Given - Provid er: Libia Degroot RN) celecoxib (CeleBREX) cap 400 mg (COMPLETED) 400 mg, Oral, ONCE, On Ainsley 08/02/23 at 0930, For 1 dose, Do not use in patients with GFR <60 or patients receiving ketorolac., Pre-Op 09 (Given - Provid er: Libia Degroot RN) Continuous Medication Order 07/31/2023 08/01/2023 08/02/2023 isolyte-S pH 7.4 infusion Intravenous, Plasma-LYTE 148, isolyte-S, and isolyte-S pH 7.4 are considered equivalent - including for MAR barcode scanning., CONTINUOUS, Starting on Ainsley 08/02/23 at 1015, Until Ainsley 08/02/23 at 1555, Pre-Op 1015 (Due)1029 (Anes Intra-Op Fluid - Provider: Shar Garvin CRNA) PRN Medication Order 07/31/2023 08/01/2023 08/02/2023 Acetaminophen (Tylenol) tab 650 mg 650 mg, Oral, PRN Pain, Mild, Starting on Ainsley 08/02/23 at 1127, Until Ainsley 08/02/23 at 1555, For 1 dose, Maximum of 4 grams (4000 mg) per day., Post-op dexAMETHasone Sodium Phosphate (Decadron) 4 MG/ML inj 4 mg 4 mg, IV Push, PRN Nausea, Starting on Ainsley 08/02/23 at 1045, Until Ainsley 08/02/23 at 1555, For 1 dose, PROTECT FROM LIGHT, PACU fentaNYL (PF) inj 25 mcg 25 mcg, IV Push, PRN Pain, Severe, Starting on Ainsley 08/02/23 at 1045, Until Ainsley 08/02/23 at 1555, For 6 doses, When given IV Push its recommended that the dose be given over 3 to 5 minutes., PACU ondansetron (Zofran) inj 4 mg 4 mg, IV Push, PRN Nausea, Starting on Ainsley 08/02/23 at 1045, Until Ainsley 08/02/23 at 1555, For 1 dose, PACU silver nitrate applicator (CANCELED) ONCE PRN INTRA PROCEDURE, Starting on Ainsley 08/02/23 at 1029, Until Ainsley 08/02/23 at 1038, Intra-Op 1029 (Given - Provid er: Derrick Howard MD - Comment: cervix) sodium chloride IR 0.9 % irrigation (CANCELED) ONCE PRN INTRA PROCEDURE, Starting on Ainsley 08/02/23 at 1019, Until Ainsley 08/02/23 at 1038, Intra-Op 1019 (Given - Provid er: Derrick Howard MD - Comment: see pump note - hysteroscopy) documented in this encounter Advance Directives Latest Code Status on File Code Status Date Activated Date Inactivated Comments Full Code 06/12/2023 7:40 AM 06/12/2023 5:02 PM This order reflects the patients wishes and were consensually agreed upon. Question Answer Comments Discussion of Advance Directives occurred with: Patient Care Teams Engineering Group Manager Relationship Specialty Start Date End Date Tasha Vianney HASMUKH Fernandez [facility] Kervin Lanza [facility] [place] [address] PCP - General Physician Scorer Helper 05/05/16 documented as of this encounter
--- OUTSIDE RECORDS SUMMARY | 2023-09-29 01:18 | External Medical Summary | Summary of Care ---
Author Name Unknown Organization [facility] Address [address] [facility] [place] [address] Phone [phone] Care Team Providers Care Radiotelephone Operator Name Role Phone Vianney Cordova PA-C Primary Care Provider [phone] Reason for Visit * Reason Onset Date Comments Pulmonary Function Test 08/06/2023 Please s ign Albuterol order for PFT please Encounter Details Date Type Department Care Team (Late st Contact Info) Description 08/06/2023 Telephone Family Practice [facility] 200 [facility] [place] [address] Vianney Cordova PA-C 200 [facility] [place] [address] Pulmonary Function Test (Please sign Albut... Allergies Active Allergy Reactions Criticality Noted Date Comments Pollen 01/26/2021 documented as of this encounter (statuses as of 08/07/2023) Medications Medication Sig Dispensed Refills Start Date [...] as of this encounter (statuses as of 08/07/2023) Active Problems Problem Noted Date Diagnosed Date Malignant neoplasm of female breast 06/12/2023 Intermittent asthma with reliever use up to twic e per week 02/01/2021 Mild persistent asthma without complication 01/14 Eczema 07/16/2012 Meniere's disease Asthma, allergic documented as of this encounter (statuses as of 08/07/2023) Resolved Problems Problem Noted Date Diagnosed Date Resolved Date Screening for cardiovascular condition 07/16/2012 01/24/2018 Screening for diabetes mellitus 07/16/2012 01/24/2018 General medical exam 07/16/2012 018 Acute bronchitis, complicated 06/06/2010 07/16/2012 documented as of this encounter (statuses as of 08/07/2023) Immunizations Name Administration Dates Next Due COVID-19 mRNA, LNP-s, No Pre serve, 2-Dose Series ([employer]box) 03/05/2021,07/16/2020,06/25/2020 COVID-19, MRNA-LNP, 23-24, P F, 50 MCG/0.5 mL, 12 YRS AND ABOVE, IM (MODERNA-Spikevax) 02/09/2023 Covid-19, Mrna, Lnp-s, Pf, B ivalent, 50 Mcg, IM, 12 yrs and above (Moderna) 02/25/2022 Pneumococcal Conjugate Vacci ne, 20-valent ([id number]) 05/03/2022 Seasonal Influenza, PF, 6 M & [...] 08/14/2023 9:30 AM EDT Office Visit Gynecology/Obstetrics [facility] [address] [place] [address] Derrick Hernández MD [address] [place] [address] 08/27/2023 9:00 AM EDT PulmDiagnostic Pulmonary Function Lab, [facility] [place] [address] [place], Pulm Function Tech 2 132 [facility] [place] [address] 08/28/2023 10:00 AM EDT Appointment Radiology, [address] [address] 2023 1:15 PM EDT Office Visit Hematology/Oncology [facility] [place] 200 [facility] [place] [phone] Gerard Ferrari MD 200 [place] [address] 11/05/2023 9:45 AM EDT Telemedicine Genetics [place], [facility] [place] [address] [place] [address] Kaycee Lazo, [place] [address] [place] [address] 11/21/2023 8:45 AM EDT Office Visit General Surgery, [facility] [address] [place] [address] Dima Lopes MD [address] [place] [address] 01/02/2024 10:20 AM EDT Office Visit Otolaryngology [facility] [address] [place] [address] Twila Najera PA-C [address] [place] [address] 03/24/2024 10:30 AM EST Imaging Radiology [address] [place] [address] Scheduled Procedures Name Priority Associated Diagnoses Date/Ti [...] 12/07/2024 12/08/2019, 12/08/2019 Pap Smear 06/15/2025 06/15/2022, 04/2020, 11/07/2019, Additional [...] unspecified respiratory condition documented in this encounter Advance Directives Latest Code Status on File Code Status Date Activated Date Inactivated Comments Full Code 06/12/2023 7:40 AM 06/12/2023 5:02 PM This order reflects the patients wishes and were consensually agreed upon. Question Answer Comments Discussion of Advance Directives occurred with: Patient Care Teams Radiotelephone Operator Relationship Specialty Start Date End Date Lulujuly HASMUKH Fernandez [address] [place] [address] PCP - General Physician Hydraulic Jack Operator 05/05/16 documented as of this encounter
--- OUTSIDE RECORDS SUMMARY | 2023-09-29 01:18 | External Medical Summary | Summary of Care ---
Author Name Unknown Organization [facility] Address [address] [facility] [place] [address] Phone [phone] Care Team Providers Care Building Services Engineer Name Role Phone Vianney Cordova PA-C Primary Care Provider [phone] Reason for Visit * Reason Onset Date Comments Information 04/30/2023 Encounter Details Date Type Department Care Team (Late st Contact Info) Description 04/30/2023 Telephone Radiology [facility] [address] [place] [address] Heidy Cotton PA-C [address] [place] [address] Information Allergies Active Allergy Reactions Criticality Noted Date Comments Pollen 01/26/2021 documented as of this encounter (statuses as of 07/30/2023) Medications Medication Sig Dispensed Refills Start Date End Date Status Calcium Carb-Cholecalciferol 1000-800 MG-UNIT Oral Tablet Take 1 Tablet by mouth in the morning and 1 Tablet before bedtime. 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 75 mL 1 09/19/2021 Active Additional Information Patient not taking.Reported on 07/26/2023 Albuterol Sulfate HFA 108 (90 Base) MCG/ACT Inhalation Aerosol Solution Inhale by mouth 2 Puffs in the morning AND 2 Puffs at noon AND 2 Puffs in the evening AND 2 Puffs before bedtime. 18 g 1 09/19/2021 Active Additional Information Patient not taking.Reported on 07/26/2023 Multivitamin Adult Oral Tablet Chewable Take by mouth. 0 Active documented as of this encounter (statuses as of 07/30/2023) Active Problems Problem Noted Date Diagnosed Date Malignant neoplasm of female breast 06/12/2023 Intermittent asthma with reliever use up to twic e per week 02/01/2021 Mild persistent asthma without complication 01/14 Eczema 07/16/2012 Meniere's disease Asthma, allergic documented as of this encounter (statuses as of 07/30/2023) Resolved Problems Problem Noted Date Diagnosed Date Resolved Date Screening for cardiovascular condition 07/16/2012 01/24/2018 Screening for diabetes mellitus 07/16/2012 01/24/2018 General medical exam 07/16/2012 018 Acute bronchitis, complicated 06/06/2010 07/16/2012 documented as of this encounter (statuses as of 07/30/2023) Immunizations Name Administration Dates Next Due COVID-19 mRNA, LNP-s, No Pre serve, 2-Dose Series (Sapiens) 03/05/2021,07/16/2020,06/25/2020 COVID-19, MRNA-LNP, 23-24, P F, 50 MCG/0.5 mL, 12 YRS AND ABOVE, IM (MODERNA-Spikevax) 02/09/2023 Covid-19, Mrna, Lnp-s, Pf, B ivalent, 50 Mcg, IM, 12 yrs and above (Moderna) 02/25/2022 Pneumococcal Conjugate Vacci ne, 20-valent ([id number]) 05/03/2022 Seasonal Influenza, PF, 6 M & [...] encounter Miscellaneous Notes * Telephone Encounter - Mercedes Ashton RDMS - 04/30/2023 1:43 PM EST Following completion of right breast ultrasound guided core biopsy and left breast cyst aspiration,discharge instructions were provided and patient expressed understanding. Specimen was delivered to the lab at 1:30PM. documented in this encounter Plan of Treatment Upcoming Encounters Date Type Department Care Team (Latest Contact Info) Description 08/02/2023 9:47 AM EDT [facility] En[facility] [address] Derrick Hernández MD [address] [place] [address] 08/02/2023 9:47 AM EDT - 08/02/2023 10:37 AM EDT Surgery OR [facility], Operating Room [facility] [address] [place] [address] Derrick Hernández MD [address] [place] [address] HYSTEROSCOPY WITH BIOPSY AND/OR POLYPECTOMY WITH OR WITHOUT D&C 08/14/2023 9:30 AM EDT Office Visit Gynecology/Obstetr ics [facility] [address] [place] [address] Derrick Hernández MD [address] [place] [address] 08/27/2023 9:00 AM EDT PulmDiagnostic Pulmonary Function Lab, [facility] 132 [facility] [place] [address] [place], Pulm Function Tech 2 [address] [place] [address] 08/28/2023 10:00 AM EDT [address]ment [address], [address] [address] 2023 1:15 PM EDT Office Visit Hematology/Oncolog y [place]erv[place] Hernandez [place] [address] [place] [phone] Gerard Ferrari MD [address] [place] [address] 11/05/2023 9:45 AM EDT Telemedicine Genetics HemOn, [address] [address] Kaycee Lazo, [place] [address] [place] [address] 11/21/2023 8:45 AM EDT Office Visit General Surgery, [facility] 132 [place] [address] Dima Lopes MD [address] [place] [address] 01/02/2024 10:20 AM EDT Office Visit Otolaryngology [facility] 132 [facility] [address] Twila Najera PA-C 132 [place] [address] 03/24/2024 10:30 AM EST Imaging Radiology [facility] 1st [facility] 132 [place] [address] Scheduled Procedures Name Priority Associated Diagnoses Date/Ti [...] 05/03/2023 05/03/2022, 05/05/2016 (Discussed) Mammogram 03/23/2024 03/23/2023, 02/0 09/2022, 02/28/2021, Additional history exists COLONOSCOPY-EVERY 5 YRS AGES 18-100 12/07/2024 12/08/2019, 12/08/2019 Pap Smear 06/15/2025 06/15/2022, 09/0 04/2020, 11/07/2019, [...] Advance Directives occurred with: Patient Care Teams Building Services Engineer Relationship Specialty Start Date End Date TashaJuly HASMUKH Booth [address] [place] [address] PCP - General Physician Mine Equipment Design Engineer 05/05/16 documented as of this encounter
--- OUTSIDE RECORDS SUMMARY | 2023-09-29 01:18 | External Medical Summary | Summary of Care ---
Author Name Unknown Organization [facility] Address [address] [facility] [place] [address] Phone [phone] Care Team Providers Care Tester Rocket Engine Name Role Phone Vianney Cordova PA-C Primary Care Provider [phone] Reason for Visit * Reason Onset Date Comments Health Maintenance 07/19/2023 Encounter Details Date Type Department Care Team (Late st Contact Info) Description 07/19/2023 Telephone Family Practice [facility] 200 [facility] [place] [address] Vianney Cordova PA-C 200 [facility] [place] [address] Health Maintenance Allergies Active Allergy Reactions Criticality [...] mRNA, LNP-s, No Pre serve, 2-Dose Series ([employer]) 03/05/2021,07/16/2020,06/25/2020 COVID-19, MRNA-LNP, 23-24, P F, 50 MCG/0.5 mL, 12 YRS AND ABOVE, IM (MODERNA-Spikevax) 02/09/2023 Covid-19, Mrna, Lnp-s, Pf, B ivalent, 50 Mcg, IM, 12 yrs and above (Moderna) 02/25/2022 Pneumococcal Conjugate Vacci ne, 20-valent ([id number]) 05/03/2022 Seasonal Influenza, PF, 6 M & [...] sign. Thank you. * Telephone Encounter - iJm Reyes LPN - 07/19/2023 2:43 PM EDT [...] already scheduled Care Gap Outreach Action Taken: Perpetual Technologieshart message sent documented in this encounter Plan of Treatment Upcoming Encounters Date Type Department Care Team (Latest Contact Info) Description 07/24/2023 9:45 AM EDT Office Visit Gynecology/Obstetr [facility] [address] [place] [address] Derrick Hernández MD [address] [place] [address] 08/02/2023 9:47 AM EDT Hospital Encounter OR [facility], Operating Room [facility] [address] [place] [phone] Derrick Hernández MD [address] [place] [address] 08/02/2023 9:47 AM EDT - 08/02/2023 10:37 AM EDT Surgery OR [facility], Operating Room [facility] [address] [place] [address] Derrick Hernández MD [address] [place] [address] HYSTEROSCOPY WITH BIOPSY AND/OR POLYPECTOMY WITH OR WITHOUT D&C 08/14/2023 9:30 AM EDT Office Visit Gynecology/Obstetr ics [facility] [address] [place] [address] Derrick Hernández MD [address] [place] [address] 08/27/2023 9:00 AM EDT PulmDiagnostic Pulmonary Function Lab, [facility] [place] [address] [place] Pulm Function Tech 2 132 [facility] [place] [address] 08/28/2023 10:00 AM EDT Appointment Radiology, [facility] [address] [place] [address] 2023 1:15 PM EDT Office Visit Hematology/Oncolog y [facility] 200 [facility] [place] [phone] Gerard Ferrari MD 200 [facility] [place] [address] 11/05/2023 9:45 AM EDT Telemedicine Genetics HemOnc, [facility] [address] [place] [address] Kaycee Lazo, [place] [facility] [place] [address] 11/21/2023 8:45 AM EDT Office Visit General Surgery, [facility] 132 [facility] [place] [address] Dima Lopes MD [address] [address] 01/02/2024 10:20 AM EDT Office Visit Otolaryngology [facility] [address] [place] [address] Twila Najera PA-C [address] [place] [address] 03/24/2024 10:30 AM EST Imaging Radiology [facility] 1st [facility] [address] [place] [address] Scheduled Procedures Name Priority Associated Diagnoses Date/Ti [...] Advance Directives occurred with: Patient Care Teams Tester Rocket Engine Relationship Specialty Start Date End Date Tasha July HASMUKH Fernandez 200 [facility] [address] [place] [address] PCP - General Physician Ladder Operator 05/05/16 documented as of this encounter
--- OUTSIDE RECORDS SUMMARY | 2023-09-29 01:18 | External Medical Summary | Summary of Care ---
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 Encounter Details Date Type Department Care Team (Latest Contact Info) Description 07/24/2023 9:45 AM EDT Office Visit Gynecology/Obstetri Nikita Brantley [address] [place] [address] Derrick Hernández MD [address] [place] [address] Endometrial intraepithelial neoplasia (EIN)* Allergies Active Allergy Reactions Criticality Noted Date Comments Pollen 01/26/2021 documented as of this encounter (statuses as of 07/24/2023) Medications Medication Sig Dispensed Refills Start Date [...] as of this encounter (statuses as of 07/24/2023) Active Problems Problem Noted Date Diagnosed Date Malignant neoplasm of female breast 06/12/2023 Intermittent asthma with reliever use up to twic e per week 02/01/2021 Mild persistent asthma without complication 01/14 Eczema 07/16/2012 Meniere's disease Asthma, allergic documented as of this encounter (statuses as of 07/24/2023) Resolved Problems Problem Noted Date Diagnosed Date Resolved Date Screening for cardiovascular condition 07/16/2012 01/24/2018 Screening for diabetes mellitus 07/16/2012 01/24/2018 General medical exam 07/16/2012 018 Acute bronchitis, complicated 06/06/2010 07/16/2012 documented as of this encounter (statuses as of 07/24/2023) Immunizations Name Administration Dates Next Due COVID-19 mRNA, LNP-s, No Pre serve, 2-Dose Series (Aras) 03/05/2021,07/16/2020,06/25/2020 COVID-19, MRNA-LNP, 23-24, P F, 50 MCG/0.5 mL, 12 YRS AND ABOVE, IM (MODERNA-Spikevax) 02/09/2023 Covid-19, Mrna, Lnp-s, Pf, B ivalent, 50 Mcg, IM, 12 yrs and above (Moderna) 02/25/2022 Pneumococcal Conjugate Vacci ne, 20-valent ([id number]) 05/03/2022 Seasonal Influenza, PF, 6 M & [...] Sign Reading Time Taken Comments Blood Pressure 120/70 07/24/2023 9:43 AM EDT Pulse - - Temperature - - Respiratory Rate - - Oxygen Saturation - - Inhaled Oxygen Concentration - - Weight 64 kg (141 lb) 07/24/2023 9:43 AM EDT Height 162 cm (5' 3.78") 07/24/2023 9:43 AM EDT Body Mass Index 24.37 07/24/2023 9:43 AM EDT documented in this encounter Progress Notes * Derrick Hernández MD - 07/24/2023 10:11 AM EDT Pt here for preop History and physical examination done Consnet obtained documented in this encounter H&P Notes * Derrick Hernández MD - 07/24/2023 10:11 AM EDT Charge Paymentmichael [facility] 132 [facility] [address] Appt line [phone] Nova Mota I 52 year old G2 [...] Del Comments GA Length Weight Type Site Furnace Firer History: Menstrual Index: / / days. Denies h/o STDs and abnormal Paps. Her past medical/surgical histories and current medications are recorded in the electronic record. Past Surgical History: Procedure Laterality Date BX LYMPH NODE DEEP AXIL Right 06/12/2023 BIOPSY LYMPH NODE DEEP AXILLARY OPEN performed by Dima Lopes MD at OR [facility] COLONOSCOPY, DIAGNOSTIC (RECTUM) 12/08/2019 benign polyp, repeat 5 yrs / COLONOSCOPY FLEXIBLE PROXIMAL DIAGNOSTIC performed by Lopez Bazan MD at ENDOSCOPY [facility] DENTAL SURGERY PROCEDURE NEC EXC BREAST LESION RADMARK Right 06/12/2023 EXCISION OF BREAST LESION RADIOLOGICAL MARKER performed by Dima Lopes MD at OR [facility] HYSTEROSCOPY W/BIOPSY AND/OR POLYPECTOMY W/WO D&C N/A 02/05/2020 HYSTEROSCOPY WITH BIOPSY AND/OR POLYPECTOMY WITH OR WITHOUT D&C performed by Farheen Rust MD at OR [facility] IDENTIFY SENTINEL NODE, RADIOACTIVE TRACER Right 06/12/2023 INJECTION PROCEDURE FOR IDENTIFICATION SENTINEL NODE performed by Dima Lopes MD at OR [facility] LIGATE/CUT OVIDUCT(S) MASTECTOMY, PARTIAL Right 06/12/2023 MASTECTOMY PARTIAL performed by Dima Lopes MD at OR [facility] PUNCTURE DRAINAGE BREAST CYST Left 2000 Benign PUNCTURE DRAINAGE BREAST CYST Left 04/30/2023 REMOVAL OF SKIN TAGS, EA ADDL 10 (AFTER 15) Right 06/12/2023 REMOVAL SKIN TAG EACH ADDITIONAL 10 LESIONS performed by Dima Lopes MD at OR [facility] US GUIDED BREAST BIOPSY RIGHT [...] anesthesia,infection,damage to internal organs and . Derrick Hernández MD 07/24/2023 10:11 AM documented in this encounter Nursing Notes * Caprice Fowler LPN - 07/24/2023 9:39 AM EDT Pt is here for pre-op having D&C hysteroscopy documented in this encounter Plan of Treatment Upcoming Encounters Date Type Department Care Team (Latest Contact Info) Description 08/02/2023 9:47 AM EDT Hospital Encounter OR [facility], Operating Room [facility] [address] [place] [phone] Derrick Hernández MD [address] [place] [address] 08/02/2023 9:47 AM EDT - 08/02/2023 10:37 AM EDT Surgery OR [facility], Operating Room [facility] [address] [place] [phone] Derrick Hernández MD [address] [place] [address] HYSTEROSCOPY WITH BIOPSY AND/OR POLYPECTOMY WITH OR WITHOUT D&C 08/14/2023 9:30 AM EDT Office Visit Gynecology/Obstetr ics [facility] [address] [place] [address] Derrick Hernández MD [address] [place] [address] 08/27/2023 9:00 AM EDT PulmDiagnostic Pulmonary Function Lab, [facility] [address] [place] [address] [place], Pulm Function Tech 2 [address] [place] [address] 08/28/2023 10:00 AM EDT Appointment Radiology, [address] [address] 2023 1:15 PM EDT Office Visit Hematology/Oncolog y [place] 200 [facility] [place] [phone] Gerard Ferrari MD 200 [facility] [place] [address] 11/05/2023 9:45 AM EDT Telemedicine Genetics HemOnc, [facility] [address] [place] [address] Kaycee Lazo, [place] [address] 11/21/2023 8:45 AM EDT Office Visit General Surgery, [facility] [address] [place] [address] Dima Lopes MD [address] [place] [address] 01/02/2024 10:20 AM EDT Office Visit Otol[facility] [address] [place] [address] Twila Najera PA-C [address] [place] [address] 03/24/2024 10:30 AM EST Imaging Radiology [facility] 1st [facility] [address] [place] [address] Scheduled Procedures Name Priority Associated Diagnoses Date/Ti [...] as of this encounter Visit Diagnoses Diagnosis 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 Question Answer Comments Discussion of Advance Directives occurred with: Patient Care Teams Quill Reamer Relationship Specialty Start Date End Date TashaJuly HASMUKH Fernandez [address] [place] [address] PCP - General Physician Garment Patternmaker 05/05/16 documented as of this encounter
--- OUTSIDE RECORDS SUMMARY | 2023-09-29 01:19 | External Medical Summary | Summary of Care ---
Author Name Unknown Organization [facility] Address [address] [facility] [place] [address] Phone [phone] Care Team Providers Care Die Trouble Shooter Name Role Phone Vianney Cordova PA-C Primary Care Provider [phone] Encounter Details Date Type Department Care Team (Late st Contact Info) Description 07/10/2023 Result Scan Unspecified Department Gerard Ferrari MD [address] [facility] [place] [id number] <No scans attached> Allergies Active Allergy Reactions Criticality Noted Date Comments Pollen 01/26/2021 documented as of this encounter (statuses as of 07/12/2023) Medications Medication Sig Dispensed Refills Start Date [...] as of this encounter (statuses as of 07/12/2023) Active Problems Problem Noted Date Diagnosed Date Malignant neoplasm of female breast 06/12/2023 Intermittent asthma with reliever use up to twic e per week 02/01/2021 Mild persistent asthma without complication 01/14 Eczema 07/16/2012 Meniere's disease Asthma, allergic documented as of this encounter (statuses as of 07/12/2023) Resolved Problems Problem Noted Date Diagnosed Date Resolved Date Screening for cardiovascular condition 07/16/2012 01/24/2018 Screening for diabetes mellitus 07/16/2012 01/24/2018 General medical exam 07/16/2012 018 Acute bronchitis, complicated 06/06/2010 07/16/2012 documented as of this encounter (statuses as of 07/12/2023) Immunizations Name Administration Dates Next Due COVID-19 mRNA, LNP-s, No Pre serve, 2-Dose Series (ZeePearl) 03/05/2021,07/16/2020,06/25/2020 COVID-19, MRNA-LNP, 23-24, P F, 50 MCG/0.5 mL, 12 YRS AND ABOVE, IM (MODERNA-Spikevax) 02/09/2023 Covid-19, Mrna, Lnp-s, Pf, B ivalent, 50 Mcg, IM, 12 yrs and above (Moderna) 02/25/2022 Pneumococcal Conjugate Vacci ne, 20-valent ([id number]) 05/03/2022 Seasonal Influenza, PF, 6 M & [...] Department Care Team (Latest Contact Info) Description 07/18/2023 8:45 AM EDT Office Visit General Surgery, [facility] [address] [place] [address] Dima Lopes MD [address] [place] [address] 07/24/2023 9:45 AM EDT Office Visit Gynecology/Obstetr ics [facility] [address] [place] [address] Derrick Hernández MD [address] [place] [address] 08/02/2023 10:06 AM EDT Hospital Encounter OR [facility], Operating Room [facility] [address] [place] [phone] Derrick Hernández MD [address] [place] [address] 08/02/2023 10:06 AM EDT - 08/02/2023 10:56 AM EDT Surgery OR [facility], Operating Room [facility] [address] [place] [phone] Derrick Hernández MD [address] [place] [address] HYSTEROSCOPY WITH BIOPSY AND/OR POLYPECTOMY WITH OR WITHOUT D&C 08/14/2023 9:30 AM EDT Office Visit Gynecology/Obstetr ics [facility] [address] [place] [address] Derrick Hernández MD [address] [place] [address] 08/28/2023 10:00 AM EDT Appointment Radiology, [address] [id number] 2023 1:15 PM EDT Office Visit Hematology/Oncolog y [facility] [place] [address] [place] [phone] Gerard Ferrari MD [address] [place] [address] 11/05/2023 9:45 AM EDT Telemedicine Genetics HemOnc, [facility] [address] [place] [address] Kaycee Lazo, [facility] [place] [address] 01/02/2024 10:20 AM EDT Office Visit Otolaryngology [facility] [address] [place] [address] Twila Najera PA-C [address] [place] [address] 03/24/2024 10:30 AM EST Imaging Radiology [facility] [facility] [address] [place] [address] Scheduled Procedures Name Priority Associated Diagnoses Date/Ti me HYSTEROSCOPY WITH BIOPSY AND/OR POLYPECTOMY WITH OR WITHOUT D&C Endometrial intraepithelial neoplasia (EIN) 08/02/2023 10:06 AM EDT PELVIC EXAMINATION UNDER ANESTHESIA Endometrial intraepithelial neoplasia (EIN) 08/02/2023 10:06 AM EDT COLONOSCOPY FLEXIBLE PROXIMAL DIAGNOSTIC Recall History of colon polyps Health Maintenance Due Date Last Done Comments Hepatitis C Screening 09/07/1987 Hepatitis B (1 of 3 - 19+ 3-dose series) 1988 *SPIROMETRY ONCE FOR ASTHMA-ADULT 02/04/2021 DTaP,Tdap,and Td Vaccines (2 - Td or Tdap) 07/16/2022 07/16/2012 Depression Screening 05/03/2023 05/03/2022, 05/05/2016 (Discussed) Mammogram 03/23/2024 03/23/2023, 020 09/2022, 02/28/2021, Additional history exists COLONOSCOPY-EVERY 5 [...] Procedure Name Priority Date/Time Associated Diagnosis Comments OUTSIDE LAB RESULTS 07/10/2023 documented in this encounter Results * OUTSIDE LAB RESULTS (07/10/2023) 07/10/2023 Gerard Ferrari MD LABORATORY documented in this encounter Advance Directives Latest Code Status on File Code Status Date Activated Date Inactivated Comments Full Code 06/12/2023 7:40 AM 06/12/2023 5:02 PM This order reflects the patients wishes and were consensually agreed upon. Question Answer Comments Discussion of Advance Directives occurred with: Patient Care Teams Die Trouble Shooter Relationship Specialty Start Date End Date Vianney Cordova PA-C [address] [place] [address] PCP - General Physician Software Quality Test Engineer 05/05/16 documented as of this encounter
--- OUTSIDE RECORDS SUMMARY | 2023-09-29 01:19 | External Medical Summary | Summary of Care ---
Author Name Unknown Organization [facility] Address [address] [facility] [place] [address] Phone [phone] Care Team Providers Care Powerhouse Mechanic Name Role Phone Vianney Cordova PA-C Primary Care Provider [phone] Reason for Visit * Reason Comments Follow Up Right breast lumpect aurelia. Encounter Details Date Type Department Care Team (Late st Contact Info) Description 07/18/2023 8:45 AM EDT Office Visit General Surgery, [facility] [address] [place] [address] Dima Lopes MD [address] [place] [address] Post-operative state*; Infiltrating lobular carcinoma of right breast in female (HCC) Allergies Active Allergy Reactions Criticality Noted Date Comments Pollen 01/26/2021 documented as of this encounter (statuses as of 07/18/2023) Medications Medication Sig Dispensed Refills Start Date [...] as of this encounter (statuses as of 07/18/2023) Active Problems Problem Noted Date Diagnosed Date Malignant neoplasm of female breast 06/12/2023 Intermittent asthma with reliever use up to twic e per week 02/01/2021 Mild persistent asthma without complication 01/14 Eczema 07/16/2012 Meniere's disease Asthma, allergic documented as of this encounter (statuses as of 07/18/2023) Resolved Problems Problem Noted Date Diagnosed Date Resolved Date Screening for cardiovascular condition 07/16/2012 01/24/2018 Screening for diabetes mellitus 07/16/2012 01/24/2018 General medical exam 07/16/2012 018 Acute bronchitis, complicated 06/06/2010 07/16/2012 documented as of this encounter (statuses as of 07/18/2023) Immunizations Name Administration Dates Next Due COVID-19 mRNA, LNP-s, No Pre serve, 2-Dose Series (Beep) 03/05/2021,07/16/2020,06/25/2020 COVID-19, MRNA-LNP, 23-24, P F, 50 MCG/0.5 mL, 12 YRS AND ABOVE, IM (MODERNA-Spikevax) 02/09/2023 Covid-19, Mrna, Lnp-s, Pf, B ivalent, 50 Mcg, IM, 12 yrs and above (Moderna) 02/25/2022 Pneumococcal Conjugate Vacci ne, 20-valent ([id number]) 05/03/2022 Seasonal Influenza, PF, 6 M & [...] Sign Reading Time Taken Comments Blood Pressure - - Pulse - - Temperature - - Respiratory Rate - - Oxygen Saturation - - Inhaled Oxygen Concentration - - Weight 64 kg (141 lb) 07/18/2023 8:35 AM EDT Height - - Body Mass Index 24.37 06/12/2023 7:18 AM EST documented in this encounter Progress Notes * Dima Lopes MD - 07/18/2023 10:20 AM EDT [facility] BREAST CLINIC NOTES SUBJECTIVE: Nova Mota is a 52 year old year old female who is now s/p a right partial mastectomy and sentinel lymph node resection for 11mm an intermediate grade invasive lobular carcinoma. Estrogen receptor status is positive. Progesterone receptor status is positive. HER-2/terri receptors negative. The patient is not having any pain. Fever has not been present. She has no wound drainage and has no wound erythema. The patient has no drains in place. She starts radiation therapy this week. Oncotype DX score 13, no need for adjuvant chemotherapy OBJECTIVE: Weight 64 kg (141 lb). Examination today reveals healing right partial mastectomy and sentinel lymph node resection incision(s). There is no significant wound erythema. There is no ecchymosis or hematoma. There is no wounddrainage. Range of motion about the affected shoulder is normal. IMPRESSION: Excellent postoperative course without complications following right partial mastectomyand sentinel lymph node resection PLAN: Return to Breast Clinic in 4 months. Follow-up with medical Oncology as scheduled Radiation therapy as scheduled During symptoms Dima Lopes MD 07/18/2023 * Fina Greenwood LPN - 07/18/2023 8:54 AM EDT Chief Complaint Patient presents with Follow Up Right breast lumpectomy. Disk Recordist Documentation Provider requested assessment rn. Name of assessment rn: Fina Greenwood LPN documented in this encounter Nursing Notes * Oziel Delarosa MED ASSIST - 07/18/2023 8:36 AM EDT Chief Complaint Patient presents with Follow Up Right breast lumpectomy. Verified patient. No pain, but wants to talking something like fluids on breast with doctor today. documented in this encounter Plan of Treatment Upcoming Encounters Date Type Department Care Team (Latest Contact Info) Description 07/24/2023 9:45 AM EDT Office Visit Gynecology/Obstetr ics [facility] [address] [place] [address] Derrick Hernández MD [address] [place] [address] 08/02/2023 10:06 AM EDT Hospital Encounter OR [facility], Operating Room [facility] [address] [place] [phone] Derrick Hernández MD [address] [place] [address] 08/02/2023 10:06 AM EDT - 08/02/2023 10:56 AM EDT Surgery OR [facility], Operating Room [facility] [address] [place] [address] Derrick Hernández MD [address] [place] [address] HYSTEROSCOPY WITH BIOPSY AND/OR POLYPECTOMY WITH OR WITHOUT D&C 08/14/2023 9:30 AM EDT Office Visit Gynecology/Obstetr [facility] [address] [place] [address] Derrick Hernández MD [address] [place] [address] 08/28/2023 10:00 AM EDT Appointment Radiology, [address] [place] [address] 2023 1:15 PM EDT Office Visit Hematology/Oncolog y [employer] [address] [place] [phone] Gerard Ferrari MD [address] [place] [address] 11/05/2023 9:45 AM EDT Telemedicine Genetics [facility], [address] [address] [place], Kaycee Barroso, [place] [address] [place] [address] 11/21/2023 8:45 AM EDT Office Visit General Surgery, [facility] [address] [facility] [place] [address] Dima Lopes MD [address] [place] [address] 01/02/2024 10:20 AM EDT Office Visit Otolaryngology [facility] [address] [facility] [place] [address] Twila Najera PA-C [address] [place] [address] 03/24/2024 10:30 AM EST Imaging Radiology [address] [facility] [address] Scheduled Procedures Name Priority Associated Diagnoses Date/Ti [...] as of this encounter Visit Diagnoses Diagnosis Post-operative state- Primary Other postprocedural status Infiltrating lobular carcinoma of right breast in female (HCC) Endometrial intraepithelial neoplasia (EIN) documented in this encounter Advance Directives Latest Code Status on File Code Status Date Activated Date Inactivated Comments Full Code 06/12/2023 7:40 AM 06/12/2023 5:02 PM This order reflects the patients wishes and were consensually agreed upon. Question Answer Comments Discussion of Advance Directives occurred with: Patient Care Teams Powerhouse Mechanic Relationship Specialty Start Date End Date Lulujuly HASMUKH Booth [address] [place] [address] PCP - General Physician Histopathologist 05/05/16 documented as of this encounter
--- OUTSIDE RECORDS SUMMARY | 2023-09-29 01:19 | External Medical Summary | Summary of Care ---
Author Name Unknown Organization [facility] Address [address] [place] [address] Phone [phone] Care Team Providers Care Pharmacy Intake Technician Name Role Phone Vianney Cordova PA-C Primary Care Provider [phone] Encounter Details Date Type Department Care Team (Late st Contact Info) Description 07/02/2023 Orders Only Outcomes Research Department [address] [place] [address] Pat Ramos CHRA [employer] [facility] Other*[id number] Allergies Active Allergy Reactions Criticality Noted Date Comments Pollen 01/26/2021 documented as of this encounter (statuses as of 07/02/2023) Medications Medication Sig Dispensed Refills Start Date [...] as of this encounter (statuses as of 07/02/2023) Active Problems Problem Noted Date Diagnosed Date Malignant neoplasm of female breast 06/12/2023 Intermittent asthma with reliever use up to twic e per week 02/01/2021 Mild persistent asthma without complication 01/14 Eczema 07/16/2012 Meniere's disease Asthma, allergic documented as of this encounter (statuses as of 07/02/2023) Resolved Problems Problem Noted Date Diagnosed Date Resolved Date Screening for cardiovascular condition 07/16/2012 01/24/2018 Screening for diabetes mellitus 07/16/2012 01/24/2018 General medical exam 07/16/2012 018 Acute bronchitis, complicated 06/06/2010 07/16/2012 documented as of this encounter (statuses as of 07/02/2023) Immunizations Name Administration Dates Next Due COVID-19 mRNA, LNP-s, No Pre serve, 2-Dose Series (Paxata) 03/05/2021,07/16/2020,06/25/2020 COVID-19, MRNA-LNP, 23-24, P F, 50 MCG/0.5 mL, 12 YRS AND ABOVE, IM (MODERNA-Spikevax) 02/09/2023 Covid-19, Mrna, Lnp-s, Pf, B ivalent, 50 Mcg, IM, 12 yrs and above (Moderna) 02/25/2022 Pneumococcal Conjugate Vacci ne, 20-valent ([id number]) 05/03/2022 Seasonal Influenza, PF, 6 M & [...] Department Care Team (Latest Contact Info) Description 07/10/2023 2:15 PM EDT Office Visit Hematology/Oncolog y [place] Derrick Guo [address] [place] [phone] Gerard Ferrari MD [address] [place] [address] 07/24/2023 9:45 AM EDT Office Visit Gynecology/Obstetr ics [facility] [address] [place] [address] Derrick Hernández MD [address] [place] [address] 07/25/2023 1:00 PM EDT Office Visit General Surgery, [facility] [address] [place] [address] Dima Lopes MD [address] [place] [address] 08/02/2023 10:06 AM EDT Hospital Encounter OR [facility], Operating Room [facility] [address] [place] [phone] Derrick Hernández MD [address] [place] [address] 08/02/2023 10:06 AM EDT - 08/02/2023 10:56 AM EDT Surgery OR [facility], Operating Room [facility] [address] [place] [phone] Derrick Hernández MD [address] [place] [address] HYSTEROSCOPY WITH BIOPSY AND/OR POLYPECTOMY WITH OR WITHOUT D&C 08/14/2023 9:30 AM EDT Office Visit Gynecology/Obstetr ics [facility] [address] [place] [address] Derrick Hernández MD [address] [place] [address] 11/05/2023 9:45 AM EDT Telemedicine Genetics HemOnc, [facility] [address] [place] [address] Kaycee Lazo, [place] [facility] [place] [address] 01/02/2024 10:20 AM EDT Office Visit Otolaryngology [facility] [address] [place] [address] Twila Najera PA-C [address] [place] [address] 03/24/2024 10:30 AM EST Imaging Radiology [address] [place] [address] Scheduled Orders Name Type Priority Associated Diagnoses Orde r Schedule MYCODE SUBSEQUENT ADULT Lab Routine [employer] Other*[id number] Every 6 Months for 2 Occurrences starting 07/02/2023 until 07/21/2024 Scheduled Procedures Name Priority Associated Diagnoses Date/Ti [...] as of this encounter Visit Diagnoses Diagnosis [employer] Other*[id number] Endometrial intraepithelial neoplasia (EIN) documented in this encounter Advance Directives Latest Code Status on File Code Status Date Activated Date Inactivated Comments Full Code 06/12/2023 7:40 AM 06/12/2023 5:02 PM This order reflects the patients wishes and were consensually agreed upon. Question Answer Comments Discussion of Advance Directives occurred with: Patient Care Teams Pharmacy Intake Technician Relationship Specialty Start Date End Date Lulujuly HASMUKH Fernandez [address] [place] [address] PCP - General Physician Hotel Clerk 05/05/16 documented as of this encounter
--- OUTSIDE RECORDS SUMMARY | 2023-09-29 01:19 | External Medical Summary | Summary of Care ---
Author Name Unknown Organization [facility] Address [address] [place] [address] Phone [phone] Care Team Providers Care Wholesale Agronomist Name Role Phone Vianney Cordova PA-C Primary Care Provider [phone] Reason for Visit * Reason Onset Date Comments Films 06/29/2023 Encounter Details Date Type Department Care Team (Late st Contact Info) Description 06/29/2023 Telephone Radiology Film File [address] [facility] [place] [address] Dima Lopes MD [address] [place] [address] Films Allergies Active Allergy Reactions Criticality Noted Date Comments Pollen 01/26/2021 documented as of this encounter (statuses as of 06/29/2023) Medications Medication Sig Dispensed Refills Start Date [...] as of this encounter (statuses as of 06/29/2023) Active Problems Problem Noted Date Diagnosed Date Malignant neoplasm of female breast 06/12/2023 Intermittent asthma with reliever use up to twic e per week 02/01/2021 Mild persistent asthma without complication 01/14 Eczema 07/16/2012 Meniere's disease Asthma, allergic documented as of this encounter (statuses as of 06/29/2023) Resolved Problems Problem Noted Date Diagnosed Date Resolved Date Screening for cardiovascular condition 07/16/2012 01/24/2018 Screening for diabetes mellitus 07/16/2012 01/24/2018 General medical exam 07/16/2012 018 Acute bronchitis, complicated 06/06/2010 07/16/2012 documented as of this encounter (statuses as of 06/29/2023) Immunizations Name Administration Dates Next Due COVID-19 mRNA, LNP-s, No Pre serve, 2-Dose Series (Let) 03/05/2021,07/16/2020,06/25/2020 COVID-19, MRNA-LNP, 23-24, P F, 50 MCG/0.5 mL, 12 YRS AND ABOVE, IM (MODERNA-Spikevax) 02/09/2023 Covid-19, Mrna, Lnp-s, Pf, B ivalent, 50 Mcg, IM, 12 yrs and above (Moderna) 02/25/2022 Pneumococcal Conjugate Vacci ne, 20-valent ([id number]) 05/03/2022 Seasonal Influenza, PF, 6 M & [...] encounter Miscellaneous Notes * Telephone Encounter - Susan Horn OSA - 06/29/2023 4:25 PM EDT [facility] Radiation Oncology department requesting all Breast images 05/22/22 through 06/12/23 be pushed through PACS. Moore Authorization to Release on file. Images pushed to [facility] PACS. documented in this encounter Plan of Treatment Upcoming Encounters Date Type Department Care Team (Latest Contact Info) Description 07/10/2023 2:15 PM EDT Office Visit Hematology/Oncolog y [facility] [address] [place], [place] [phone] Gerard Ferrari MD [address] [facility] [place] [address] 07/24/2023 9:45 AM EDT Office Visit Gynecology/Obstetr [facility] [address] [place] [address] Derrick Hernández MD [address] [place] [address] 07/25/2023 1:00 PM EDT Office Visit General Surgery, [facility] [address] [place] [address] Dima Lopes MD [address] [place] [address] 08/02/2023 10:06 AM EDT Hospital Encounter OR [facility], Operating Room [facility] [address] [place] [phone] Derrick Hernández MD [address] [place] [address] 08/02/2023 10:06 AM EDT - 08/02/2023 10:56 AM EDT Surgery OR [facility], Operating Room [facility] [address] [place] [phone] Derrick Hernández MD [address] [place] [address] HYSTEROSCOPY WITH BIOPSY AND/OR POLYPECTOMY WITH OR WITHOUT D&C 08/14/2023 9:30 AM EDT Office Visit Gynecology/Obstetr [facility] [address] [place] [address] Derrick Hernández MD [address] [place] [address] 11/05/2023 9:45 AM EDT Telemedicine Genetics HemOnc, [facility] [address] [place] [address] Kaycee Lazo, [place] [address] [place] [address] 01/02/2024 10:20 AM EDT Office Visit Otolaryngology [facility] 132 [facility] [place] [address] Twila Najera PA-C [address] [facility] [place] [address] 03/24/2024 10:30 AM EST Imaging Radiology [address] [facility] [place] [address] Scheduled Procedures Name Priority Associated Diagnoses Date/Ti [...] Advance Directives occurred with: Patient Care Teams Wholesale Agronomist Relationship Specialty Start Date End Date Tasha July HASMUKH Fernandez [address] [place] [address] PCP - General Physician Friction Saw Operator 05/05/16 documented as of this encounter
--- OUTSIDE RECORDS SUMMARY | 2023-09-29 01:19 | External Medical Summary | Summary of Care ---
Author Name Unknown Organization [facility] Address [address] [facility] [place] [address] Phone [phone] Care Team Providers Care Director Organizational Name Role Phone Vianney Cordova PA-C Primary Care Provider Reason for Visit * Reason Onset Date Comments Health Maintenance 07/19/2023 Encounter Details Date Type Department Care Team (Late st Contact Info) Description 07/19/2023 Telephone Family Practice [facility] [address] [facility] [place] [address] Vianney Cordova PA-C [address] [facility] [place] [address] Health Maintenance Allergies Active Allergy Reactions Criticality Noted Date Comments Pollen 01/26/2021 documented as of this encounter (statuses as of 07/20/2023) Medications Medication Sig Dispensed Refills Start Date [...] as of this encounter (statuses as of 07/20/2023) Active Problems Problem Noted Date Diagnosed Date Malignant neoplasm of female breast 06/12/2023 Intermittent asthma with reliever use up to twic e per week 02/01/2021 Mild persistent asthma without complication 01/14 Eczema 07/16/2012 Meniere's disease Asthma, allergic documented as of this encounter (statuses as of 07/20/2023) Resolved Problems Problem Noted Date Diagnosed Date Resolved Date Screening for cardiovascular condition 07/16/2012 01/24/2018 Screening for diabetes mellitus 07/16/2012 01/24/2018 General medical exam 07/16/2012 018 Acute bronchitis, complicated 06/06/2010 07/16/2012 documented as of this encounter (statuses as of 07/20/2023) Immunizations Name Administration Dates Next Due COVID-19 mRNA, LNP-s, No Pre serve, 2-Dose Series (Corvalius) 03/05/2021,07/16/2020,06/25/2020 COVID-19, MRNA-LNP, 23-24, P F, 50 MCG/0.5 mL, 12 YRS AND ABOVE, IM (MODERNA-Spikevax) 02/09/2023 Covid-19, Mrna, Lnp-s, Pf, B ivalent, 50 Mcg, IM, 12 yrs and above (Moderna) 02/25/2022 Pneumococcal Conjugate Vacci ne, 20-valent ([id number]) 05/03/2022 Seasonal Influenza, PF, 6 M & [...] encounter Miscellaneous Notes * Addendum Note - Liya Reyes LPN - 07/20/2023 8:12 AM EDTAddended by: LIYA REYES on: 07/20/2023 08:12 AM Modules accepted: Orders * Telephone Encounter - Liya Reyes LPN - 07/20/2023 8:06 AM EDT Pft ordered for patient. Cam order pended. Please review and sign. Thank you. * Telephone Encounter - Liya Reyes LPN - 07/19/2023 2:43 PM EDT [...] already scheduled Care Gap Outreach Action Taken: Ecohaushart message sent documented in this encounter Plan of Treatment Upcoming Encounters Date Type Department Care Team (Latest Contact Info) Description 07/24/2023 9:45 AM EDT Office Visit Gynecology/Obstetr [facility] [address] [address] [address] Derrick Hernández MD [address] [place] [address] 08/02/2023 10:06 AM EDT Hospital Encounter [facility], Operating Room [facility] [address] [place] [address] Derrick Hernández MD [address] [place] [address] 08/02/2023 10:06 AM EDT - 08/02/2023 10:56 AM EDT Surgery OR [facility], Operating Room [facility] [address] [place] [address] Derrick Hernández MD [address] [place] [address] HYSTEROSCOPY WITH BIOPSY AND/OR POLYPECTOMY WITH OR WITHOUT D&C 08/14/2023 9:30 AM EDT Office Visit Gynecology/Obstetr ics [facility] [address] [place] [address] Derrick Hernández MD [address] [place] [address] 08/28/2023 10:00 AM EDT Appointment [address]iology, [address] [address] 2023 1:15 PM EDT Office Visit Hematology/Oncolog y [facility] [address] [place] [phone] Gerard Ferrari MD [address] [facility] [place] [address] 11/05/2023 9:45 AM EDT Telemedicine Genetics Hem[facility]c, [facility] [address] [place] [address] Kaycee Lazo, [place] [address] [place] [address] 11/21/2023 8:45 AM EDT Office Visit General Surgery, [facility] [address] [address] [address] Dima Lopes MD [address] [place] [address] 01/02/2024 10:20 AM EDT Office Visit Otolaryngology [facility] [address] [place] [address] Twila Najera PA-C [address] [place] [address] 03/24/2024 10:30 AM EST Imaging Radiology [address] [place] [address] Scheduled Procedures Name Priority Associated Diagnoses Date/Ti [...] Advance Directives occurred with: Patient Care Teams Director Organizational Relationship Specialty Start Date End Date Tasha July HASMUKH Fernandez [address] [facility] [place] [address] PCP - General Physician Hrbp 05/05/16 documented as of this encounter
--- OUTSIDE RECORDS SUMMARY | 2023-09-29 01:19 | External Medical Summary | Summary of Care ---
Author Name Unknown Organization [facility] Address [address] [facility] [place] [address] Phone [phone] Care Team Providers Care Radio Performer Name Role Phone Tasha Vianney Fernandez PA-C Primary Care Provider [phone] Encounter Details Date Type Department Care Team (Late st Contact Info) Description 06/27/2023 Telephone General Surgery, [facility] [address] [place] [address] Dima Lopes MD [address] [place] [address] Allergies Active Allergy Reactions Criticality Noted Date [...] mRNA, LNP-s, No Pre serve, 2-Dose Series (SnipSnap) 03/05/2021,07/16/2020,06/25/2020 COVID-19, MRNA-LNP, 23-24, P F, 50 MCG/0.5 mL, 12 YRS AND ABOVE, IM (MODERNA-Spikevax) 02/09/2023 Covid-19, Mrna, Lnp-s, Pf, B ivalent, 50 Mcg, IM, 12 yrs and above (Moderna) 02/25/2022 Pneumococcal Conjugate Vacci ne, 20-valent ([id number]) 05/03/2022 Seasonal Influenza, PF, 6 M & [...] encounter Miscellaneous Notes * Telephone Encounter - Mavis Kowalski RN - 06/29/2023 2:02 PM EDT OncotypeDx ordered. * Telephone Encounter - Gerard Ferrari MD - 06/28/2023 10:20 AM EDT S/P partial mastectomy and sentinel for biopsy (06/12/2023). - Invasive lobular carcinoma, grade 2, negative margin -4 sentinel lymph nodes negative for metastatic disease. -primary tumor measuring 1.1 cm. Focus. -pathological T1c N0. Would like to proceed with Oncotype DX. * Telephone Encounter - Elaina Sanderson OSA - 06/28/2023 8:42 AM EDT Called again and left message My g sent as well * Telephone Encounter - Elaina Sanderson OSA - 06/27/2023 11:23 AM EDT Scheduled pt 07/09 at 2:15pm Left message for pt to call in to let us know that she is aware * Telephone Encounter - Mavis Kowalski RN - 06/27/2023 10:44 AM EDT Per office note 05/15/23, Dr Ferrari wanted to see patient after surgery. She needs to be seen in 1-2 weeks. * Telephone Encounter - Elaina Sanderson OSA - 06/27/2023 9:11 AM EDT Please advise if this is a follow up that needs squeezed in sooner than first lisa * Telephone Encounter - Filomena Cabral OSA - 06/27/2023 9:06 AM EDT Patient needs a follow up with Dr Ferrari. First available is not until August. documented in this encounter Plan of Treatment Upcoming Encounters Date Type Department Care Team (Latest Contact Info) Description 07/10/2023 2:15 PM EDT Office Visit Hematology/Oncolog y [facility] [address] [place] [phone] Gerard Ferrari MD [address] [place] [address] 07/24/2023 9:45 AM EDT Office Visit Gynecology/Obstetr [facility] [address] [place] [address] Derrick Hernández MD [address] [place] [address] 07/25/2023 1:00 PM EDT Office Visit General Surgery, [facility] [address] [place] [address] Dima Lopes MD [address] [place] [address] 08/02/2023 10:06 AM EDT Hospital Encounter OR [facility], Operating Room [facility] [address] [place] [address] Derrick Hernández MD [address] [place] [address] 08/02/2023 10:06 AM EDT - 08/02/2023 10:56 AM EDT Surgery OR [facility], Operating Room [facility] [address] [place] [address] Derrick Hernández MD [address] [place] [address] HYSTEROSCOPY WITH BIOPSY AND/OR POLYPECTOMY WITH OR WITHOUT D&C 08/14/2023 9:30 AM EDT Office Visit Gynecology/Obstetr [facility] [address] [place] [address] Derrick Hernández MD [address] [place] [address] 11/05/2023 9:45 AM EDT Telemedicine Genetics HemOnc, [facility] [address] [place] [address] Kaycee Lazo, [place] [address] [place] [address] 01/02/2024 10:20 AM EDT Office Visit Otolaryngology [facility] [address] [facility] [place] [address] Twila Najera PA-C [address] [place] [address] 03/24/2024 10:30 AM EST Imaging Radiology [address] [facility] [place] [address] Scheduled Procedures Name Priority Associated Diagnoses Date/Ti [...] Advance Directives occurred with: Patient Care Teams Radio Performer Relationship Specialty Start Date End Date TashaJuly HASMUKH Fernandez [address] [place] [address] PCP - General Physician Scientist/Engineer 05/05/16 documented as of this encounter
--- OUTSIDE RECORDS SUMMARY | 2023-09-29 01:19 | External Medical Summary | Summary of Care ---
Author Name Unknown Organization [facility] Address [address] [facility] [place] [address] Phone [phone] Care Team Providers Care Patient Financial Counselor Name Role Phone Vianney Cordova PA-C Primary Care Provider Reason for Visit * Reason Onset Date Comments Health Maintenance 07/19/2023 Encounter Details Date Type Department Care Team (Late st Contact Info) Description 07/19/2023 Telephone Family Practice [facility] 200 [facility] [place] [address] Vianney Cordova PA-C 200 [facility] [place] [address] Health Maintenance Allergies Active Allergy Reactions Criticality Noted Date Comments Pollen 01/26/2021 documented as of this encounter (statuses as of 07/19/2023) Medications Medication Sig Dispensed Refills Start Date [...] as of this encounter (statuses as of 07/19/2023) Active Problems Problem Noted Date Diagnosed Date Malignant neoplasm of female breast 06/12/2023 Intermittent asthma with reliever use up to twic e per week 02/01/2021 Mild persistent asthma without complication 01/14 Eczema 07/16/2012 Meniere's disease Asthma, allergic documented as of this encounter (statuses as of 07/19/2023) Resolved Problems Problem Noted Date Diagnosed Date Resolved Date Screening for cardiovascular condition 07/16/2012 01/24/2018 Screening for diabetes mellitus 07/16/2012 01/24/2018 General medical exam 07/16/2012 018 Acute bronchitis, complicated 06/06/2010 07/16/2012 documented as of this encounter (statuses as of 07/19/2023) Immunizations Name Administration Dates Next Due COVID-19 mRNA, LNP-s, No Pre serve, 2-Dose Series (UserEvents) 03/05/2021,07/16/2020,06/25/2020 COVID-19, MRNA-LNP, 23-24, P F, 50 MCG/0.5 mL, 12 YRS AND ABOVE, IM (MODERNA-Spikevax) 02/09/2023 Covid-19, Mrna, Lnp-s, Pf, B ivalent, 50 Mcg, IM, 12 yrs and above (Moderna) 02/25/2022 Pneumococcal Conjugate Vacci ne, 20-valent ([id number]) 05/03/2022 Seasonal Influenza, PF, 6 M & [...] encounter Miscellaneous Notes * Telephone Encounter - Liya Hawkins LPN - 07/19/2023 2:43 PM EDT Care Gaps Comprehensive Care Outreach Last Office/Telemedicine Visit: 05/03/2022 (in office), Visit date not found (telemedicine) Next Office Visit: Visit date not found Hemoglobin AIC Results: Lab Results Component Value Date/Time HEMOGLOBIN A1C - [facility] 5.5 06/01/2022 10:31 AM BP Readings from [...] already scheduled Care Gap Outreach Action Taken: Magnolia Broadbandt message sent documented in this encounter Plan of Treatment Upcoming Encounters Date Type Department Care Team (Latest Contact Info) Description 07/24/2023 9:45 AM EDT Office Visit Gynecology/Obstetr [facility] [address] [place] [address] Derrick Hernández MD [address] [place] [address] 08/02/2023 10:06 AM EDT Hospital Encounter OR [facility], Operating Room [facility] [address] [place] [address] Derrick Hernández MD [address] [place] [address] 08/02/2023 10:06 AM EDT - 08/02/2023 10:56 AM EDT Surgery OR [facility], Operating Room [facility] [address] [place] [address] Derrick Hernández MD [address] [place] [address] HYSTEROSCOPY WITH BIOPSY AND/OR POLYPECTOMY WITH OR WITHOUT D&C 08/14/2023 9:30 AM EDT Office Visit [facility]necology/Obstetr [facility] [address] [place] [address] Derrick Hernández MD [address] [place] [address] 08/28/2023 10:00 AM EDT Appointment Radiology, [facility] [address] [facility] [place] [address] 2023 1:15 PM EDT Office Visit Hematology/Oncolog y [facility] [place] [address] [place] [phone] Gerard Ferrari MD 200 [facility] [place] [address] 11/05/2023 9:45 AM EDT Telemedicine Genetics HemOnc, [facility] [place] [address] [place] [address] Kaycee Lazo, [place] [address] [place], [place] [address] 11/21/2023 8:45 AM EDT Office Visit General Surgery, [facility] [address] [address] [address] Dima Lopes MD [address] [place] [address] 01/02/2024 10:20 AM EDT Office Visit Otolaryngology [facility] [address] [address] [address] Twila Najera PA-C [address] [place] [address] 03/24/2024 10:30 AM EST Imaging Radiology [facility] [address] [place] [address] Scheduled Procedures Name Priority Associated Diagnoses Date/Ti [...] Advance Directives occurred with: Patient Care Teams Patient Financial Counselor Relationship Specialty Start Date End Date Vianney Cordova PA-C [address] [place] [address] PCP - General Physician Winder Operator 05/05/16 documented as of this encounter
--- OUTSIDE RECORDS SUMMARY | 2023-09-29 01:20 | External Medical Summary | Summary of Care ---
Author Name Unknown Organization [facility] Address [address] [facility] [place] [address] Phone [phone] Care Team Providers Care Insole Taper Name Role Phone Tasha Vianney Booth PA-C Primary Care Provider Encounter Details Date Type Department Care Team (Late st Contact Info) Description 06/27/2023 Telephone General Surgery, [facility] [address] [place] [address] Dima Lopes MD [address] [place] [address] Allergies Active Allergy Reactions Criticality Noted Date Comments Pollen 01/26/2021 documented as of this encounter (statuses as of 06/28/2023) Medications Medication Sig Dispensed Refills Start Date [...] as of this encounter (statuses as of 06/28/2023) Active Problems Problem Noted Date Diagnosed Date Malignant neoplasm of female breast 06/12/2023 Intermittent asthma with reliever use up to twic e per week 02/01/2021 Mild persistent asthma without complication 01/14 Eczema 07/16/2012 Meniere's disease Asthma, allergic documented as of this encounter (statuses as of 06/28/2023) Resolved Problems Problem Noted Date Diagnosed Date Resolved Date Screening for cardiovascular condition 07/16/2012 01/24/2018 Screening for diabetes mellitus 07/16/2012 01/24/2018 General medical exam 07/16/2012 018 Acute bronchitis, complicated 06/06/2010 07/16/2012 documented as of this encounter (statuses as of 06/28/2023) Immunizations Name Administration Dates Next Due COVID-19 mRNA, LNP-s, No Pre serve, 2-Dose Series (PeopleString) 03/05/2021,07/16/2020,06/25/2020 COVID-19, MRNA-LNP, 23-24, P F, 50 MCG/0.5 mL, 12 YRS AND ABOVE, IM (MODERNA-Spikevax) 02/09/2023 Covid-19, Mrna, Lnp-s, Pf, B ivalent, 50 Mcg, IM, 12 yrs and above (Moderna) 02/25/2022 Pneumococcal Conjugate Vacci ne, 20-valent ([id number]) 05/03/2022 Seasonal Influenza, PF, 6 M & [...] encounter Miscellaneous Notes * Telephone Encounter - Elaina Sanderson OSA [...] 2:15 PM EDT Office Visit Hematology/Oncolog y [facility] [address] [place] [phone] Gerard Ferrari MD 200 [place] [address] 07/24/2023 9:45 AM EDT Office Visit Gynecology/Obstetr ics [facility] [address] [place] [address] Derrick Hernández MD [address] [place] [address] 07/25/2023 1:00 PM EDT [facility] [address] [place] [address] Dima Lopes MD [address] [place] [address] 08/02/2023 10:06 AM EDT Hospital Encounter OR [facility], Operating Room [facility] [address] [place] [address] Derrick Hernández MD [address] [place] [address] 08/02/2023 10:06 AM EDT - 08/02/2023 10:56 AM EDT Surgery OR [facility], Operating Room [facility] [address] [place] [address] Derrick Hernández MD [address] [place] [address] HYSTEROSCOPY WITH BIOPSY AND/OR POLYPECTOMY WITH OR WITHOUT D&C 08/14/2023 9:30 AM EDT Office Visit Gynecology/Obstetr ics [facility] [address] [place] [address] Derrick Hernández MD [address] [place] [address] 11/05/2023 9:45 AM EDT Telemedicine Genetics [facility], [facility] [address] [place] [address] Kaycee Lazo, [place] [address] [place] [address] 01/02/2024 10:20 AM EDT Office Visit Otolaryngology [facility] [address] [place] [address] Twila Najera PA-C [address] [place] [address] 03/24/2024 10:30 AM EST Imaging Radiology [address] [place] [address] Scheduled Procedures Name Priority Associated Diagnoses Date/Ti [...] Advance Directives occurred with: Patient Care Teams Insole Taper Relationship Specialty Start Date End Date Tasha July HASMUKH Booth [address] [place], [place] [address] PCP - General Physician Associate Research Scientist 05/05/16 documented as of this encounter
--- OUTSIDE RECORDS SUMMARY | 2023-09-29 01:20 | External Medical Summary | Summary of Care ---
Author Name Unknown Organization [facility] Address [address] [facility] [place] [address] Phone [phone] Care Team Providers Care Student Services Rep Name Role Phone Tasha Vianney Fernandez PA-C Primary Care Provider [phone] Encounter Details Date Type Department Care Team (Late st Contact Info) Description 06/27/2023 Telephone General Surgery, [facility] [address] [place] [address] Dima Lopes MD [address] [place] [address] Allergies Active Allergy Reactions Criticality Noted Date Comments Pollen 01/26/2021 documented as of this encounter (statuses as of 06/27/2023) Medications Medication Sig Dispensed Refills Start Date [...] as of this encounter (statuses as of 06/27/2023) Active Problems Problem Noted Date Diagnosed Date Malignant neoplasm of female breast 06/12/2023 Intermittent asthma with reliever use up to twic e per week 02/01/2021 Mild persistent asthma without complication 01/14 Eczema 07/16/2012 Meniere's disease Asthma, allergic documented as of this encounter (statuses as of 06/27/2023) Resolved Problems Problem Noted Date Diagnosed Date Resolved Date Screening for cardiovascular condition 07/16/2012 01/24/2018 Screening for diabetes mellitus 07/16/2012 01/24/2018 General medical exam 07/16/2012 018 Acute bronchitis, complicated 06/06/2010 07/16/2012 documented as of this encounter (statuses as of 06/27/2023) Immunizations Name Administration Dates Next Due COVID-19 mRNA, LNP-s, No Pre serve, 2-Dose Series ([employer]) 03/05/2021,07/16/2020,06/25/2020 COVID-19, MRNA-LNP, 23-24, P F, 50 MCG/0.5 mL, 12 YRS AND ABOVE, IM (MODERNA-Spikevax) 02/09/2023 Covid-19, Mrna, Lnp-s, Pf, B ivalent, 50 Mcg, IM, 12 yrs and above (Moderna) 02/25/2022 Pneumococcal Conjugate Vacci ne, 20-valent ([id number]) 05/03/2022 Seasonal Influenza, PF, 6 M & [...] 2:15 PM EDT Office Visit Hematology/Oncolog y [facility] [address] [place] [address] Gerard Ferrari MD 200 [facility] [place] [address] 07/24/2023 9:45 AM EDT Office Visit Gynecology/Obstetr ics [place] [address] [place] [address] Derrick Hernández MD [address] [place] [address] 07/25/2023 1:00 PM EDT Office Visit General Surgery, [facility] [address] [address] Dima Lopes MD [address] [place] [address] 08/02/2023 10:06 AM EDT Hospital Encounter OR [facility], Operating Room [facility] [address] [place] [address] Derrick Hernández MD [address] [place] [address] 08/02/2023 10:06 AM EDT - 08/02/2023 10:56 AM EDT Surgery OR [facility], Operating Room [facility] [address] [place] [address] Derrick Hernández MD [address] [place] [address] HYSTEROSCOPY WITH BIOPSY AND/OR POLYPECTOMY WITH OR WITHOUT D&C 08/14/2023 9:30 AM EDT Office Visit Gynecology/Obstetr ics [place] [address] [place] [address] Derrick Hernández MD [address] [place] [address] 11/05/2023 9:45 AM EDT Telemedicine Genetics HemOn, [facility] [address] [place] [address] Kaycee Lazo, [place] [address] [place] [address] 01/02/2024 10:20 AM EDT Office Visit Otolaryngology [facility] [address] [place] [address] Twila Najera PA-C [address] [place] [address] 03/24/2024 10:30 AM EST Imaging Radiology [address] [place] [address] Scheduled Procedures Name Priority Associated Diagnoses Date/Ti [...] Advance Directives occurred with: Patient Care Teams Student Services Rep Relationship Specialty Start Date End Date Tasha July Rebecca, HASMUKH 200 [facility] [place] [address] PCP - General Physician Comprehensive Advisor 05/05/16 documented as of this encounter
--- OUTSIDE RECORDS SUMMARY | 2023-09-29 01:20 | External Medical Summary | Summary of Care ---
Author Name Unknown Organization [facility] Address [address] [facility] [place] [address] Phone [phone] Care Team Providers Care Housekeeper Child Care Name Role Phone Lululloyd Vianney Fernandez PA-C Primary Care Provider [phone] Reason for Referral * Evaluate & Treat - Unlimited Visits (Within 10 days (routine)) - Pending Review Specialty Diagnoses / Procedures Referred By Contaneudy t Referred To Contact Radiation Oncology Diagnoses Infiltrating lobular carcinoma of right breast in female (HCC) Dima Lopes MD [address] [place] [address] Referral ID Status Reason Start Date Expiration Date Visits Requested Visits Authorized [id number] Pending Review Specialty Services Required 06/27/[phone] Question Answer Referral Priority Within 10 days (routine) Where should this appointment be scheduled? [facility] Comments S/p right breast cancer - breast conservation therapy for infiltrating lobular carcinoma; consideration for radiation therapy Reason for Visit * Reason Comments Post-Op 06/12/2023 partial ri ght mastectomy Encounter Details Date Type Department Care Team (Late st Contact Info) Description 06/27/2023 8:30 AM EDT Office Visit General Surgery, [facility] [address] [place] [address] Dima Lopes MD [address] [place] [address] Infiltrating lobular carcinoma of right breast in female (HCC)*; Post-operative state Allergies Active Allergy Reactions Criticality Noted Date Comments Pollen 01/26/2021 documented as of this encounter (statuses as of 06/27/2023) Medications Medication Sig Dispensed Refills Start Date End Date Status Calcium Carb-Cholecalciferol 1000-800 MG-UNIT Oral Tablet Take 1 Tablet by mouth in the morning and 1 Tablet before bedtime. 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 0 Active oxyCODONE-Acetaminop hen 5-325 MG Oral Tablet (Percocet) Take 1 Tablet by mouth every 4 hours as needed for Pain, Severe for up to 15 doses. 10 Tablet 0 06/12/2023 Discontinue d(Patient preference/ discontinua tion) documented as of this encounter (statuses as [...] mRNA, LNP-s, No Pre serve, 2-Dose Series ([employer]) 03/05/2021,07/16/2020,06/25/2020 COVID-19, MRNA-LNP, 23-24, P F, 50 MCG/0.5 mL, 12 YRS AND ABOVE, IM (MODERNA-Spikevax) 02/09/2023 Covid-19, Mrna, Lnp-s, Pf, B ivalent, 50 Mcg, IM, 12 yrs and above (Moderna) 02/25/2022 Pneumococcal Conjugate Vacci ne, 20-valent ([id number]) 05/03/2022 Seasonal Influenza, PF, 6 M & [...] as of this encounter Progress Notes * Dima Lopes MD - 06/27/2023 12:07 PM EDT [facility] NOTES SUBJECTIVE: Nova Mota is [...] The patient has no drains in place. OBJECTIVE: There were no vitals taken for this visit. Examination today reveals healing right partial mastectomy and sentinel lymph node resection incision(s). There is no significant wound erythema. There is no ecchymosis or hematoma. There is no wounddrainage. Range of motion about the affected shoulder is normal. IMPRESSION: Excellent postoperative course without complications following right partial mastectomyand sentinel lymph node resection PLAN: Return to Breast Clinic in 4 weeks. Refer to Medical Oncology. Refer to Radiation Oncology. Dima Lopes MD 06/27/2023 12:07 PM documented in this encounter Nursing Notes * Nasrin Vickers LPN - 06/27/2023 8:29 AM EDT Chief Complaint Patient presents with Post-Op 06/12/2023 partial right mastectomy Patient is having some soreness and some swelling, no pain. documented in this encounter Plan of Treatment Upcoming Encounters Date Type Department Care Team (Latest Contact Info) Description 07/10/2023 2:15 PM EDT Office Visit Hematology/Oncolog y [facility] [address] [facility] [place], [place] [address] Gerard Ferrari MD [address] [facility] [place], [place] [address] 07/24/2023 9:45 AM EDT Office Visit Gynecology/Obstetr ics [facility] [address] [place] [address] Derrick Hernández MD [address] [place] [address] 07/25/2023 1:00 PM EDT Office Visit General Surgery, [facility] [address] [place] [address] Dima Lopes MD [address] [place] [address] 08/02/2023 10:06 AM EDT Hospital Encounter OR OSS, Operating Room [facility] [address] [place] [address] Drerick Hernández MD [address] [place] [address] 08/02/2023 10:06 AM EDT - 08/02/2023 10:56 AM EDT Surgery OR OSS, Operating Room [facility] [address] [place] [address] Derrick Hernández MD [address] [place] [address] HYSTEROSCOPY WITH BIOPSY AND/OR POLYPECTOMY WITH OR WITHOUT D&C 08/14/2023 9:30 AM EDT Office Visit Gynecology/Obstetr ics [facility] [address] [facility] [place] [address] Derrick Hernández MD [address] [facility] [place] [address] 11/05/2023 9:45 AM EDT Telemedicine Genetics [facility] [address] [place], [place] [id number] Kaycee Lazo, [place] [address] [place], [place] [address] 01/02/2024 10:20 AM EDT Office Visit Otolaryngology [facility] [address] [facility] [place] [address] Twila Najera PA-C [address] [facility] [place] [address] 03/24/2024 10:30 AM EST Imaging Radiology [facility] 1st [facility] [address] [facility] [place] [address] Scheduled Procedures Name Priority Associated Diagnoses Date/Ti me HYSTEROSCOPY WITH BIOPSY AND/OR POLYPECTOMY WITH OR WITHOUT D&C Endometrial intraepithelial neoplasia (EIN) 08/02/2023 10:06 AM EDT PELVIC EXAMINATION UNDER ANESTHESIA Endometrial intraepithelial neoplasia (EIN) 08/02/2023 10:06 AM EDT COLONOSCOPY FLEXIBLE PROXIMAL DIAGNOSTIC Recall History of colon polyps Scheduled Referrals Name Type Priority Associated Diagnoses Orde r Schedule RADIATION/ONCOLOGY REFERRAL OP Referral Within 10 days (routine) Infiltrating lobular carcinoma of right breast in female (HCC) Ordered: 06/27/2023 Health Maintenance Due Date Last Done Comments [...] as of this encounter Visit Diagnoses Diagnosis Infiltrating lobular carcinoma of right breast in female (HCC)- Primary Post-operative state Other postprocedural status Endometrial intraepithelial neoplasia (EIN) documented in this encounter Advance Directives Latest Code Status on File Code Status Date Activated Date Inactivated Comments Full Code 06/12/2023 7:40 AM 06/12/2023 5:02 PM This order reflects the patients wishes and were consensually agreed upon. Question Answer Comments Discussion of Advance Directives occurred with: Patient Care Teams Housekeeper Child Care Relationship Specialty Start Date End Date Tasha Vainney HASMUKH Fernandez [address] [place] [address] PCP - General Physician Dairy Specialist 05/05/16 documented as of this encounter
--- OUTSIDE RECORDS SUMMARY | 2023-09-29 01:20 | External Medical Summary | Summary of Care ---
Author Name Unknown Organization [facility] Address [address] [facility] [place] [address] Phone [phone] Care Team Providers Care Spa Manager/Esthetician Name Role Phone Vianney Cordova PA-C Primary Care Provider Reason for Visit * Reason Onset Date Comments Follow Up 06/14/2023 Post op call Encounter Details Date Type Department Care Team (Late st Contact Info) Description 06/14/2023 9:45 AM EST Scheduled Telephone General Surgery, [facility] 132 [facility] [place] [address] [facility] [address] [facility] [place] [address] Allergies Active Allergy Reactions Criticality Noted Date Comments Pollen 01/26/2021 documented as of this encounter (statuses as of 06/14/2023) Medications Medication Sig Dispensed Refills Start Date [...] affected area. 60 g 5 02/01/2021 Active Additional Information Patient not taking.Reported on 05/18/2023 Albuterol Sulfate (2.5 MG/3ML) 0.083% Inhalation Nebulization [...] Oral Capsule Take by mouth. 0 Active oxyCODONE-Acetaminoph en 5-325 MG Oral Tablet (Percocet) Take 1 Tablet by mouth every 4 hours as needed for Pain, Severe for up to 15 doses. 10 Tablet 0 06/12/2023 Active documented as of this encounter (statuses as of 06/14/2023) Active Problems Problem Noted Date Diagnosed Date Malignant neoplasm of female breast 06/12/2023 Intermittent asthma with reliever use up to twic e per week 02/01/2021 Mild persistent asthma without complication 01/14 Eczema 07/16/2012 Meniere's disease Asthma, allergic documented as of this encounter (statuses as of 06/14/2023) Resolved Problems Problem Noted Date Diagnosed Date Resolved Date Screening for cardiovascular condition 07/16/2012 01/24/2018 Screening for diabetes mellitus 07/16/2012 01/24/2018 General medical exam 07/16/2012 018 Acute bronchitis, complicated 06/06/2010 07/16/2012 documented as of this encounter (statuses as of 06/14/2023) Immunizations Name Administration Dates Next Due COVID-19 mRNA, LNP-s, No Pre serve, 2-Dose Series ([employer]) 03/05/2021,07/16/2020,06/25/2020 COVID-19, MRNA-LNP, 23-24, P F, 50 MCG/0.5 mL, 12 YRS AND ABOVE, IM (MODERNA-Spikevax) 02/09/2023 Covid-19, Mrna, Lnp-s, Pf, B ivalent, 50 Mcg, IM, 12 yrs and above (Moderna) 02/25/2022 Pneumococcal Conjugate Vacci ne, 20-valent ([id number]) 05/03/2022 Seasonal Influenza, PF, 6 M & [...] encounter Miscellaneous Notes * Telephone Encounter - Filomena Cabral OSA - 06/14/2023 10:40 AM EST Patient has a couple questions post surgery. Please return call. * Telephone Encounter - Oziel Delarosa MED ASSIST - 06/14/2023 10:21 AM EST PATIENT IS S/p Right breast MACEY hand compositor localized partial mastectomy, right axillary sentinel lymph node biopsy; right nipple skin tag excision on 06/12/[address] Dima Lopes Called and left message and post op date documented in this encounter Plan of Treatment Upcoming Encounters Date Type Department Care Team (Latest Contact Info) Description 06/27/2023 8:30 AM EDT Office Visit General Surgery, [facility] [address] [place] [address] Dima Lopes MD [address] [place] [address] 07/24/2023 9:45 AM EDT Office Visit Gynecology/Obstetr ics [facility] [address] [place] [address] Derrick Hernández MD [address] [place] [address] 08/02/2023 10:06 AM EDT Hospital Encounter OR [facility]SS[facility], Operating Room [facility] [address] [place] [address] Derrick Hernández MD [address] [place] [address] 08/02/2023 10:06 AM EDT - 08/02/2023 10:56 AM EDT Surgery OR OSS, Operating Room [facility] [address] [place] [address] Derrick Hernández MD [address] [place] [address] HYSTEROSCOPY WITH BIOPSY AND/OR POLYPECTOMY WITH OR WITHOUT D&C 08/14/2023 9:30 AM EDT Office Visit Gynecology/Obstetr ics [facility] 132 [facility] [place] [address] Derrick Hernández MD 132 [facility] [place] [address] 11/05/2023 9:45 AM EDT Telemedicine Genetics [facility] [address] [place] [address] Kaycee Lazo, [place] [address] [place] [address] 01/02/2024 10:20 AM EDT Office Visit Otolaryngology [facility] 132 [facility] [place] [address] Twila Najera PA-C 132 [facility] [place] [address] 03/24/2024 10:30 AM EST Imaging Radiology [facility] 1st [facility] 132 [facility] [place] [address] Scheduled Procedures Name Priority Associated Diagnoses Date/Ti [...] Advance Directives occurred with: Patient Care Teams Spa Manager/Esthetician Relationship Specialty Start Date End Date Tasha July HASMUKH Fernandez [address] [place] [address] PCP - General Physician Rubber Tire Curer 05/05/16 documented as of this encounter
--- OUTSIDE RECORDS SUMMARY | 2023-09-29 01:20 | External Medical Summary | Summary of Care ---
Author Name Unknown Organization [facility] Address [address] [facility] [place] [address] Phone [phone] Care Team Providers Care Superintendent Water [employer] Systems Name Role Phone Tasha Vianney Fernandez PA-C Primary Care Provider [phone] Encounter Details Date Type Department Care Team (Late st Contact Info) Description 06/27/2023 Telephone General Surgery, [facility] [address] [place] [address] Dima Lopes MD [address] [place] [address] Allergies Active Allergy Reactions Criticality Noted Date [...] mRNA, LNP-s, No Pre serve, 2-Dose Series ([employer]) 03/05/2021,07/16/2020,06/25/2020 COVID-19, MRNA-LNP, 23-24, P F, 50 MCG/0.5 mL, 12 YRS AND ABOVE, IM (MODERNA-Spikevax) 02/09/2023 Covid-19, Mrna, Lnp-s, Pf, B ivalent, 50 Mcg, IM, 12 yrs and above (Moderna) 02/25/2022 Pneumococcal Conjugate Vacci ne, 20-valent ([id number]) 05/03/2022 Seasonal Influenza, PF, 6 M & [...] 9:45 AM EDT Office Visit Gynecology/Obstetr ics [facility] [address] [place] [address] Derrick Hernández MD [address] [place] [address] 07/25/2023 1:00 PM EDT Office Visit General Surgery, [facility] [address] [place] [address] Dima Lopes MD [address] [place] [address] 08/02/2023 10:06 AM EDT Hospital Encounter OR OSS, Operating Room [facility] [address] [place] [address] Derrick Hernández MD [address] [place] [address] 08/02/2023 10:06 AM EDT - 08/02/2023 10:56 AM EDT Surgery OR OSS, Operating Room [facility] [address] [place] [address] Derrick Hernández MD [address] [place] [address] HYSTEROSCOPY WITH BIOPSY AND/OR POLYPECTOMY WITH OR WITHOUT D&C 08/14/2023 9:30 AM EDT Office Visit Gynecology/Obstetr ics [facility] 132 [facility] [place] [address] Derrick Hernández MD 132 [facility] [place] [address] 11/05/2023 9:45 AM EDT Telemedicine Genetics HemOnc, C [address] [place] [address] Kaycee Lazo, [place] [address] [place] [address] 01/02/2024 10:20 AM EDT Office Visit Otolaryngology [facility] 132 [facility] [place] [address] wTila Najera PA-C 132 [facility] [place] [address] 03/24/2024 10:30 AM EST Imaging Radiology [facility] [address] [facility] 132 [facility] [place] [address] Scheduled Procedures Name Priority Associated Diagnoses Date/Ti [...] 05/03/2023 05/03/2022, 05/05/2016 (Discussed) Mammogram 03/23/2024 03/23/2023, 02/09/2022, 02/28/2021, Additional history exists COLONOSCOPY-EVERY 5 YRS [...] Advance Directives occurred with: Patient Care Teams Superintendent Water And Sewer Systems Relationship Specialty Start Date End Date Vianney Cordova PA-C [address] [place], [place] [address] PCP - General Physician Slitting Machine Operator Helper 05/05/16 documented as of this encounter
--- OUTSIDE RECORDS SUMMARY | 2023-09-29 01:20 | External Medical Summary | Summary of Care ---
Author Name Unknown Organization [facility] Address [address] [facility] [place] [address] Phone [phone] Care Team Providers Care Delivery Clerk Name Role Phone Tasha Vianney Booth PA-C Primary Care Provider [phone] Encounter Details Date Type Department Care Team (Late st Contact Info) Description 06/27/2023 Telephone General Surgery, [facility] [address] [place] [address] Dima Lopes MD [address] [place] [address] Allergies Active Allergy Reactions Criticality Noted Date [...] mRNA, LNP-s, No Pre serve, 2-Dose Series ([employer]) 03/05/2021,07/16/2020,06/25/2020 COVID-19, MRNA-LNP, 23-24, P F, 50 MCG/0.5 mL, 12 YRS AND ABOVE, IM (MODERNA-Spikevax) 02/09/2023 Covid-19, Mrna, Lnp-s, Pf, B ivalent, 50 Mcg, IM, 12 yrs and above (Moderna) 02/25/2022 Pneumococcal Conjugate Vacci ne, 20-valent ([id number]) 05/03/2022 Seasonal Influenza, PF, 6 M & [...] 2:15 PM EDT Office Visit Hematology/Oncolog y [facility] [place] [address] [facility] [address] [place] [phone] Gerard Ferrari MD 200 [facility] [place] [address] 07/24/2023 9:45 AM EDT Office Visit Gynecology/Obstetr ics [facility] [address] [address] Derrick Hernández MD [address] [place] [address] 07/25/2023 1:00 PM EDT [facility] [address] [place] [address] Dima Lopes MD [address] [place] [address] 08/02/2023 10:06 AM EDT Hospital Encounter OR OSSC, Operating Room [facility] [address] [place] [address] Derrick Hernández MD [address] [place] [address] 08/02/2023 10:06 AM EDT - 08/02/2023 10:56 AM EDT Surgery OR [facility], Operating Room [facility] [address] [place] [address] Derrick Hernández MD [address] [place] [address] HYSTEROSCOPY WITH BIOPSY AND/OR POLYPECTOMY WITH OR WITHOUT D&C 08/14/2023 9:30 AM EDT Office Visit Gynecology/Obstetr ics [facility] [address] [place] [address] Derrick Hernández MD [address] [place] [address] 11/05/2023 9:45 AM EDT Telemedicine Genetics [facility] [address] [place] [address] Kaycee Lazo, [place] [address] [place] [address] 01/02/2024 10:20 AM EDT Office Visit Otolaryngology [facility] [address] [place] [address] Twila Najera PA-C [address] [place] [address] 03/24/2024 10:30 AM EST Imaging Radiology [address] [place] [address] [...] Advance Directives occurred with: Patient Care Teams Delivery Clerk Relationship Specialty Start Date End Date Tasha July HASMUKH Booth [address] [place], [place] [address] PCP - General Physician Armored Machine Operator 05/05/16 documented as of this encounter
--- OUTSIDE RECORDS SUMMARY | 2023-09-29 01:20 | External Medical Summary | Summary of Care ---
Author Name Unknown Organization [facility] Address [address] [facility] [place] [address] Phone [phone] Care Team Providers Care Foreign Collection Clerk Name Role Phone Vianney [place] PA-C Primary Care Provider Reason for Visit * Reason Onset Date Comments Follow Up 06/14/2023 Post op call Encounter Details Date Type Department Care Team (Late st Contact Info) Description 06/14/2023 9:45 AM EST Scheduled Telephone General Surgery, [facility] 132 [facility] [place] [address] [facility] 132 [facility] [place] [address] Allergies Active Allergy Reactions Criticality Noted Date [...] mRNA, LNP-s, No Pre serve, 2-Dose Series ([employer]) 03/05/2021,07/16/2020,06/25/2020 COVID-19, MRNA-LNP, 23-24, P F, 50 MCG/0.5 mL, 12 YRS AND ABOVE, IM (MODERNA-Spikevax) 02/09/2023 Covid-19, Mrna, Lnp-s, Pf, B ivalent, 50 Mcg, IM, 12 yrs and above (Moderna) 02/25/2022 Pneumococcal Conjugate Vacci ne, 20-valent ([id number]) 05/03/2022 Seasonal Influenza, PF, 6 M & [...] EST PATIENT IS S/p Right breast MACEY inspector multifocal lens localized partial mastectomy, right axillary sentinel lymph node biopsy; right nipple skin tag excision on 06/12/[address] Dima Lopes Called and left message and post op date Called patient back after she called over. Her question was: when can she drive? Nasrin said it is best on June 18 next Sunday. documented in this encounter Plan of Treatment Upcoming Encounters Date Type Department Care Team (Latest Contact Info) Description 06/27/2023 8:30 AM EDT Office Visit General Surgery, [facility] [address] [place] [address] Dima Lopes MD [address] [place] [address] 07/24/2023 9:45 AM EDT Office Visit Gynecology/Obstetr ics [place] [address] [place] [address] Derrick Hernández MD [address] [place] [address] 08/02/2023 10:06 AM EDT Hospital Encounter OR [facility], Operating Room [facility] [address] [place] [address] Derrick Hernández MD [address] [place] [address] 08/02/2023 10:06 AM EDT - 08/02/2023 10:56 AM EDT Surgery OR [facility], Operating Room [facility] [address] [place] [address] Derrick Hernández MD [address] [place] [address] HYSTEROSCOPY WITH BIOPSY AND/OR POLYPECTOMY WITH OR WITHOUT D&C 08/14/2023 9:30 AM EDT Office Visit Gynecology/Obstetr ics [place] [address] [place] [address] Derrick Hernández MD [address] [place] [address] 11/05/2023 9:45 AM EDT Telemedicine Genetics HemOnc, C [address] [place] [address] Kaycee Lazo, [place] [address] [place] [address] 01/02/2024 10:20 AM EDT Office Visit Otolaryngology [facility] [address] [place] [address] Twila Najera PA-C [address] [place] [address] 03/24/2024 10:30 AM EST Imaging Radiology [address] [place] [address] Scheduled Procedures Name Priority Associated Diagnoses Date/Ti [...] Advance Directives occurred with: Patient Care Teams Foreign Collection Clerk Relationship Specialty Start Date End Date Vianney [place]ova PA-C [address] [place] [address] PCP - General Physician Motion And Time Study Teacher 05/05/16 documented as of this encounter
--- OUTSIDE RECORDS SUMMARY | 2023-09-29 01:20 | External Medical Summary | Summary of Care ---
Author Name Unknown Organization [facility] Address [address] [facility] [place] [address] Phone [phone] Care Team Providers Care Wet Milling Wheel Operator Name Role Phone Tasha Vianney Fernandez PA-C Primary Care Provider [phone] Encounter Details Date Type Department Care Team (Late st Contact Info) Description 06/27/2023 Telephone General Surgery, [facility] [address] [place] [address] Dima Lopes MD [address] [place] [address] Allergies Active Allergy Reactions Criticality Noted Date [...] mRNA, LNP-s, No Pre serve, 2-Dose Series ([employer])) 03/05/2021,07/16/2020,06/25/2020 COVID-19, MRNA-LNP, 23-24, P F, 50 MCG/0.5 mL, 12 YRS AND ABOVE, IM (MODERNA-Spikevax) 02/09/2023 Covid-19, Mrna, Lnp-s, Pf, B ivalent, 50 Mcg, IM, 12 yrs and above (Moderna) 02/25/2022 Pneumococcal Conjugate Vacci ne, 20-valent ([id number]) 05/03/2022 Seasonal Influenza, PF, 6 M & [...] 07/24/2023 9:45 AM EDT Office Visit Gynecology/Obstetr [facility] [address] [place] [address] Derrick Hernández MD [address] [place] [address] 07/25/2023 1:00 PM EDT Office Visit General Surgery, [facility] [address] [place] [address] Dima Lopes MD [address] [place] [address] 08/02/2023 10:06 AM EDT Hospital Encounter OR [facility], Operating Room [facility] [address] [place] [address] Derrick Hernández MD [address] [place] [address] 08/02/2023 10:06 AM EDT - 08/02/2023 10:56 AM EDT Surgery OR [facility], Operating Room [facility] [address] [place] [address] Derrick Hernández MD [address] [place] [address] HYSTEROSCOPY WITH BIOPSY AND/OR POLYPECTOMY WITH OR WITHOUT D&C 08/14/2023 9:30 AM EDT Office Visit Gynecology/Obstetr [facility] [address] [place] [address] Derrick Hernández MD [address] [place] [address] 11/05/2023 9:45 AM EDT Telemedicine Genetics [facility], [facility] [address] [place], [place] [address] Kaycee Lazo, [place] [address] [place] [address] 01/02/2024 10:20 AM EDT Office Visit [facility] [place] [address] Twila Najera PA-C [address] [place] [address] 03/24/2024 10:30 AM EST Imaging Radiology [facility] 1st [facility] [address] [facility] [place] [address] Scheduled Procedures Name Priority Associated Diagnoses Date/Ti [...] Advance Directives occurred with: Patient Care Teams Wet Milling Wheel Operator Relationship Specialty Start Date End Date Tasha July HASMUKH Fernandez [address] [place] [address] PCP - General Physician Cae Engineer 05/05/16 documented as of this encounter
--- OUTSIDE RECORDS SUMMARY | 2023-09-29 01:20 | External Medical Summary | Summary of Care ---
Author Name Unknown Organization [facility] Address [address] [facility] [place] [address] Phone [phone] Care Team Providers Care Gunner'S Mate G Name Role Phone Tasha Vianney Booth PA-C Primary Care Provider [phone] Encounter Details Date Type Department Care Team (Late st Contact Info) Description 06/27/2023 Telephone General Surgery, [facility] [address] [place] [address] Dima Lopes MD [address] [place] [address] Allergies Active Allergy Reactions Criticality Noted Date [...] mRNA, LNP-s, No Pre serve, 2-Dose Series ([employer]) 03/05/2021,07/16/2020,06/25/2020 COVID-19, MRNA-LNP, 23-24, P F, 50 MCG/0.5 mL, 12 YRS AND ABOVE, IM (MODERNA-Spikevax) 02/09/2023 Covid-19, Mrna, Lnp-s, Pf, B ivalent, 50 Mcg, IM, 12 yrs and above (Moderna) 02/25/2022 Pneumococcal Conjugate Vacci ne, 20-valent ([id number]) 05/03/2022 Seasonal Influenza, PF, 6 M & [...] 2:15 PM EDT Office Visit Hematology/Oncolog y [facility] [place] [address] [facility] [place] [place] [phone] Gerard Ferrari MD [address] [place] [address] 07/24/2023 9:45 AM EDT Office Visit Gynecology/Obstetr ics [facility] [address] [address] Derrick Hernández MD [address] [place] [address] 07/25/2023 1:00 PM EDT [facility] [address] [place] [address] Dima Lopes MD [address] [place] [address] 08/02/2023 10:06 AM EDT Hospital Encounter OR [facility], Operating Room [facility] [address] [place] [address] Derrick Hernández MD [address] [place] [address] 08/02/2023 10:06 AM EDT - 08/02/2023 10:56 AM EDT Surgery OR [facility], Operating Room [facility] [address] [place] [address] Derrick Hernández MD [address] [place] [address] HYSTEROSCOPY WITH BIOPSY AND/OR POLYPECTOMY WITH OR WITHOUT D&C 08/14/2023 9:30 AM EDT Office Visit Gynecology/Obstetr ics [facility] [address] [place] [address] Derrick Hernández MD [address] [place] [address] 11/05/2023 9:45 AM EDT Telemedicine Genetics [facility], [facility] [address] [place] [address] Kaycee Lazo, [place] [address] [place] [address] 01/02/2024 10:20 AM EDT Office Visit Otolaryngology [facility] [address] [place] [address] Twila Najera PA-C [address] [place] [address] 03/24/2024 10:30 AM EST Imaging Radiology [address] [place] [address] [...] Advance Directives occurred with: Patient Care Teams Gunner'S Mate G Relationship Specialty Start Date End Date Tasha July HASMUKH Booth [address] [place], [place] [address] PCP - General Physician Air Shovel Operator 05/05/16 documented as of this encounter
--- OUTSIDE RECORDS SUMMARY | 2023-09-29 01:20 | External Medical Summary | Summary of Care ---
Author Name Unknown Organization [facility] Address [address] [facility] [place] [address] Phone [phone] Care Team Providers Care Power Plant Operator Apprentice Name Role Phone Tasha Vianney Fernandez PA-C Primary Care Provider [phone] Encounter Details Date Type Department Care Team (Late st Contact Info) Description 06/27/2023 Telephone General Surgery, [facility] [address] [place] [address] Dima Lopes MD [address] [place] [address] Allergies Active Allergy Reactions Criticality Noted Date [...] mRNA, LNP-s, No Pre serve, 2-Dose Series ([employer]) 03/05/2021,07/16/2020,06/25/2020 COVID-19, MRNA-LNP, 23-24, P F, 50 MCG/0.5 mL, 12 YRS AND ABOVE, IM (MODERNA-Spikevax) 02/09/2023 Covid-19, Mrna, Lnp-s, Pf, B ivalent, 50 Mcg, IM, 12 yrs and above (Moderna) 02/25/2022 Pneumococcal Conjugate Vacci ne, 20-valent ([id number]) 05/03/2022 Seasonal Influenza, PF, 6 M & [...] 07/24/2023 9:45 AM EDT Office Visit Gynecology/Obstetr [facility] [address] [place] [address] Derrick Hernández MD [address] [place] [address] 07/25/2023 1:00 PM EDT Office Visit General Surgery, [facility] [address] [place] [address] Dima Lopes MD [address] [place] [address] 08/02/2023 10:06 AM EDT Hospital Encounter OR [facility], Operating Room [facility] [address] [place] [address] Derrick Hernández MD [address] [place] [address] 08/02/2023 10:06 AM EDT - 08/02/2023 10:56 AM EDT Surgery OR [facility], Operating Room [facility] [address] [place] [address] Derrick Hernández MD [address] [place] [address] HYSTEROSCOPY WITH BIOPSY AND/OR POLYPECTOMY WITH OR WITHOUT D&C 08/14/2023 9:30 AM EDT Office Visit Gynecology/Obstetr [facility] [address] [place] [address] Derrick Hernández MD [address] [place] [address] 11/05/2023 9:45 AM EDT Telemedicine Genetics [facility], [facility] [address] [place], [place] [id number] Kaycee Lazo, [place] [address] [place] [address] 01/02/2024 10:20 AM EDT Office Visit [facility]ol[facility]ology [facility] [place] [address] Twila Najera PA-C [address] [place] [address] 03/24/2024 10:30 AM EST Imaging Radiology [facility] 1st [facility] [address] [facility] [place] [address] Scheduled Procedures Name Priority Associated Diagnoses Date/Ti [...] Advance Directives occurred with: Patient Care Teams Power Plant Operator Apprentice Relationship Specialty Start Date End Date Tasha July HASMUKH Fernandez [address] [place] [address] PCP - General Physician Millwright Apprentice 05/05/16 documented as of this encounter
--- OUTSIDE RECORDS SUMMARY | 2023-09-29 01:20 | External Medical Summary | Summary of Care ---
Author Name Unknown Organization [facility] Address [address] [facility] [place] [address] Phone [phone] Care Team Providers Care Marine Consultant Name Role Phone Tasha Vianney Fernandez PA-C Primary Care Provider [phone] Encounter Details Date Type Department Care Team (Late st Contact Info) Description 06/27/2023 Telephone General Surgery, [facility] [address] [place] [address] Dima Lopes MD [address] [place] [address] Allergies Active Allergy Reactions Criticality Noted Date [...] mRNA, LNP-s, No Pre serve, 2-Dose Series ([employer]) 03/05/2021,07/16/2020,06/25/2020 COVID-19, MRNA-LNP, 23-24, P F, 50 MCG/0.5 mL, 12 YRS AND ABOVE, IM (MODERNA-Spikevax) 02/09/2023 Covid-19, Mrna, Lnp-s, Pf, B ivalent, 50 Mcg, IM, 12 yrs and above (Moderna) 02/25/2022 Pneumococcal Conjugate Vacci ne, 20-valent ([id number]) 05/03/2022 Seasonal Influenza, PF, 6 M & [...] encounter Miscellaneous Notes * Telephone Encounter - Gerard Ferrari MD [...] Visit Hematology/Oncolog y [facility] Derrick Guo [address] [place] [phone] Gerard Ferrari MD [address] [place] [address] 07/24/2023 9:45 AM EDT Office Visit Gynecology/Obstetr [facility] [address] [place] [address] Derrick Hernández MD [address] [place] [address] 07/25/2023 1:00 PM EDT Office Visit General Surgery, [facility] [address] [place] [address] Dima Lopes MD [address] [place] [address] 08/02/2023 10:06 AM EDT Hospital Encounter OR [facility], Operating Room [facility] [address] [place] [phone] Derrick Hernández MD [address] [place] [address] 08/02/2023 10:06 AM EDT - 08/02/2023 10:56 AM EDT Surgery OR [facility], Operating Room [facility] [address] [place] [phone] Derrick Hernández MD [address] [place] [address] HYSTEROSCOPY WITH BIOPSY AND/OR POLYPECTOMY WITH OR WITHOUT D&C 08/14/2023 9:30 AM EDT Office Visit Gynecology/Obstetr [facility] [address] [place] [address] Derrick Hernández MD [address] [place] [address] 11/05/2023 9:45 AM EDT Telemedicine Genetics [facility], [address] [address] Kaycee Lazo, [place] [address] [place] [address] 01/02/2024 10:20 AM EDT Office Visit Otolaryngology [facility] [address] [place] [address] Twila Najera PA-C [address] [place] [address] 03/24/2024 10:30 AM EST Imaging Radiology [facility]st [facility] [place] [address] Scheduled Procedures Name Priority Associated Diagnoses Date/Ti [...] Advance Directives occurred with: Patient Care Teams Marine Consultant Relationship Specialty Start Date End Date Vianney Cordova PA-C [address] [place] [address] PCP - General Physician Pole Shaver Helper 05/05/16 documented as of this encounter
--- OUTSIDE RECORDS SUMMARY | 2023-09-29 01:21 | External Medical Summary | Summary of Care ---
Author Name Unknown Organization [facility] Address [address] [facility] [place] [address] Phone [phone] Care Team Providers Care Pulp Roller Name Role Phone Lululloyd Vianney Fernandez PA-C Primary Care Provider [phone] Reason for Visit * Reason Onset Date Comments Surgery Procedure Cancelled 05/30/2023 D&C hysteroscopy Encounter Details Date Type Department Care Team (Late st Contact Info) Description 05/30/2023 Telephone OR [facility], Operating Room [facility] [address] [place] [phone] Derrick Hernández MD [address] [place] [address] Surgery Procedure Cancelled (D&C hysterosc... Allergies Active Allergy Reactions Criticality Noted Date Comments Pollen 01/26/2021 documented as of this encounter (statuses as of 05/31/2023) Medications Medication Sig Dispensed Refills Start Date [...] Oral Capsule Take by mouth. 0 Active documented as of this encounter (statuses as of 05/31/2023) Active Problems Problem Noted Date Diagnosed Date Intermittent asthma with reliever use up to twic e per week 02/01/2021 Mild persistent asthma without complication 01/14 Eczema 07/16/2012 Meniere's disease Asthma, allergic documented as of this encounter (statuses as of 05/31/2023) Resolved Problems Problem Noted Date Diagnosed Date Resolved Date Screening for cardiovascular condition 07/16/2012 01/24/2018 Screening for diabetes mellitus 07/16/2012 01/24/2018 General medical exam 07/16/2012 018 Acute bronchitis, complicated 06/06/2010 07/16/2012 documented as of this encounter (statuses as of 05/31/2023) Immunizations Name Administration Dates Next Due COVID-19 mRNA, LNP-s, No Pre serve, 2-Dose Series ([employer]) 03/05/2021,07/16/2020,06/25/2020 COVID-19, MRNA-LNP, 23-24, P F, 50 MCG/0.5 mL, 12 YRS AND ABOVE, IM (MODERNA-Spikevax) 02/09/2023 Covid-19, Mrna, Lnp-s, Pf, B ivalent, 50 Mcg, IM, 12 yrs and above (Moderna) 02/25/2022 Pneumococcal Conjugate Vacci ne, 20-valent ([email or web address]) 05/03/2022 Seasonal Influenza, PF, 6 M & [...] encounter Miscellaneous Notes * Telephone Encounter - Carmela Rendon OSA - 05/31/2023 8:36 AM EST Rescheduled to 08/01 * Telephone Encounter - Rose Mary June RN - 05/30/2023 1:41 PM EST Pt will need to see her GS provider for her first post-op, prior to her sched hysteroscopy. This will need postponed until she finds out what other types of tx she may need for her breast Ca. Carmelois aware and awaits your call -Thank you. documented in this encounter Plan of Treatment Upcoming Encounters Date Type Department Care Team (Latest Contact Info) Description 06/08/2023 1:30 PM EST Imaging Radiology [facility] 1st [facility], [place] [address] [place] [address] 06/08/2023 2:00 PM EST Imaging Radiology [facility] [address] [place] [address] 06/12/2023 10:30 AM EST Imaging [facility] 2nd Floor Cardiology, [place] [address] [place] [address] 06/12/2023 12:27 PM EST Hospital Encounter OR [facility], Operating Room [facility] [address] [place] [address] Dima Lopes MD [address] [place] [address] 06/12/2023 12:27 PM EST - 06/12/2023 2:45 PM EST Surgery OR [facility], Operating Room [facility] [address] [place] [address] Dima Lopes MD [address] [place] [address] MASTECTOMY PARTIAL 06/12/2023 3:10 PM EST Imaging Radiology [address], [place] [address] [place] [address] 06/27/2023 8:30 AM EDT Office Visit General Surgery, [facility] [address] [place] [address] Dima Atkinson MD [address] [place] [address] 07/24/2023 9:45 AM EDT Office Visit Gynecology/Obstetr [facility] [address] [place] [address] Derrick Hernández MD [address] [place] [address] 08/02/2023 7:45 AM EDT Hospital Encounter OR [facility], Operating Room [facility] [address] [place] [address] Derrick Hernández MD [address] [place] [address] 08/02/2023 7:45 AM EDT - 08/02/2023 8:35 AM EDT Surgery OR [facility], Operating Room [facility] [address] [place] [address] Derrick Hernández MD [address] [place] [address] HYSTEROSCOPY WITH BIOPSY AND/OR POLYPECTOMY WITH OR WITHOUT D&C 08/14/2023 9:30 AM EDT Office Visit Gynecology/Obstetr [facility] [address] [place] [address] Derrick Hernández MD [address] [place] [address] 11/05/2023 9:45 AM EDT Telemedicine Genetics HemOnc, [facility] [address] [place] [address] Kaycee Lazo, [place] [address] [place] [address] 01/02/2024 10:20 AM EDT Office Visit Otolaryngology [facility] 132 [facility] [place] [address] Twila Najera PA-C [address] [place] [address] 03/24/2024 10:30 AM EST Imaging Radiology [facility] 1st [facility] 132 [facility] [place] [address] Scheduled Procedures Name Priority Associated Diagnoses Date/Ti me MASTECTOMY PARTIAL Malignant neoplasm of female breast, unspecified estrogen receptor status, unspecified laterality, unspecified site of breast (HCC) 06/12/2023 12:27 PM EST EXCISION OF BREAST LESION RADIOLOGICAL MARKER Malignant neoplasm of female breast, unspecified estrogen receptor status, unspecified laterality, unspecified site of breast (HCC) 06/12/2023 12:27 PM EST BIOPSY LYMPH NODE DEEP AXILLARY OPEN Malignant neoplasm of female breast, unspecified estrogen receptor status, unspecified laterality, unspecified site of breast (HCC) 06/12/2023 12:27 PM EST INJECTION PROCEDURE FOR IDENTIFICATION SENTINEL NODE Malignant neoplasm of female breast, unspecified estrogen receptor status, unspecified laterality, unspecified site of breast (HCC) 06/12/2023 12:27 PM EST REMOVAL SKIN TAG EACH ADDITIONAL 10 LESIONS Malignant neoplasm of female breast, unspecified estrogen receptor status, unspecified laterality, unspecified site of breast (HCC) 06/12/2023 12:27 PM EST HYSTEROSCOPY WITH BIOPSY AND/OR POLYPECTOMY WITH OR WITHOUT D&C Endometrial intraepithelial neoplasia (EIN) 08/02/2023 7:45 AM EDT PELVIC EXAMINATION UNDER ANESTHESIA Endometrial intraepithelial neoplasia (EIN) 08/02/2023 7:45 AM EDT COLONOSCOPY FLEXIBLE PROXIMAL DIAGNOSTIC Recall History of colon polyps Health Maintenance Due Date Last Done Comments Hepatitis B (1 of 3 - 3-dose series) 1970 Hepatitis C Screening 09/07/1987 *SPIROMETRY ONCE FOR ASTHMA-ADULT 02/04/2021 DTaP,Tdap,and Td [...] Not on filedocumented as of this encounter Care Teams Pulp Roller Relationship Specialty Start Date End Date Lulujuly HASMUKH Fernandez [address] [place] [address] PCP - General Physician Track Inspector 05/05/16 documented as of this encounter
--- OUTSIDE RECORDS SUMMARY | 2023-09-29 01:21 | External Medical Summary ---
Author Name Unknown Address Unknown Organization K0G:[facility] [place] [address] [place] [address] Laboratory Report Ordering Provider Test Date Status LOREN GORMAN 05/24/2023 09:35:26 Final Observation Date Value Abnormality Reference (Units ) Status WBC, Total 05/24/2023 09:35:26 4.58 4.00-10.8 0 (K/uL) Final RBC 05/24/2023 09:35:26 5.07 3.85-5.15 (M/uL) Final Hemoglobin 05/24/2023 09:35:26 14.3 12.0-15.3 (g/dL) Final HCT 05/24/2023 09:35:26 45.1 36.0-45.2 (%) Final MCV 05/24/2023 09:35:26 89.0 81.5-97.5 (fL) Final MCH 05/24/2023 09:35:26 28.2 27.0-34.0 (pg) Final MCHC 05/24/2023 09:35:26 31.7 32.0-36.0 (g/dL) Final RDW 05/24/2023 09:35:26 17.2 11.5-15.5 (%) Final Platelets 05/24/2023 09:35:26 322 140-400 (K /uL) Final MPV 05/24/2023 09:35:26 10.7 6.6-11.1 ( fL) Final Performing Location [facility] [place] [address] [place] [address]
--- OUTSIDE RECORDS SUMMARY | 2023-09-29 01:21 | External Medical Summary | Summary of Care ---
Author Name Unknown Organization [facility] Address [address] [facility] [place] [address] Phone [phone] Care Team Providers Care Certified Respiratory Therapist Name Role Phone Tasha Vianney Fernandez PA-C Primary Care Provider [phone] Reason for Visit * Reason Onset Date Comments Pre Op Discussion 05/30/2023 Encounter Details Date Type Department Care Team (Late st Contact Info) Description 05/30/2023 Telephone OR [facility], Operating Room [facility] [address] [place] [phone] Dima Lopes MD [address] [place] [address] Pre Op Discussion Allergies Active Allergy Reactions Criticality Noted Date Comments Pollen 01/26/2021 documented as of this encounter (statuses as of 05/30/2023) Medications Medication Sig Dispensed Refills Start Date [...] as of this encounter (statuses as of 05/30/2023) Active Problems Problem Noted Date Diagnosed Date Intermittent asthma with reliever use up to twic e per week 02/01/2021 Mild persistent asthma without complication 01/14 Eczema 07/16/2012 Meniere's disease Asthma, allergic documented as of this encounter (statuses as of 05/30/2023) Resolved Problems Problem Noted Date Diagnosed Date Resolved Date Screening for cardiovascular condition 07/16/2012 01/24/2018 Screening for diabetes mellitus 07/16/2012 01/24/2018 General medical exam 07/16/2012 018 Acute bronchitis, complicated 06/06/2010 07/16/2012 documented as of this encounter (statuses as of 05/30/2023) Immunizations Name Administration Dates Next Due COVID-19 mRNA, LNP-s, No Pre serve, 2-Dose Series ([employer]) 03/05/2021,07/16/2020,06/25/2020 COVID-19, MRNA-LNP, 23-24, P F, 50 MCG/0.5 mL, 12 YRS AND ABOVE, IM (MODERNA-Spikevax) 02/09/2023 Covid-19, Mrna, Lnp-s, Pf, B ivalent, 50 Mcg, IM, 12 yrs and above (Moderna) 02/25/2022 Pneumococcal Conjugate Vacci ne, 20-valent ([email or web address]) 05/03/2022 Seasonal Influenza, PF, 6 M & [...] Department Care Team (Latest Contact Info) Description 06/04/2023 9:30 AM EST Office Visit Gynecology/Obstetr ics [facility] [address] [place] [address] Derrick Hernández MD [address] [place] [address] 06/08/2023 1:30 PM EST Imaging Radiology [facility] 1st [facility] [address] [place] [address] 06/08/2023 2:00 PM EST Imaging Radiology [facility] [address] [place] [address] 06/12/2023 10:30 AM EST Imaging [facility] [address] [place] [address] 06/12/2023 12:27 PM EST Hospital Encounter OR [facility], Operating Room [facility] [address] [place] [address] Dima Lopes MD [address] [place] [address] 06/12/2023 12:27 PM EST - 06/12/2023 2:45 PM EST Surgery OR [facility], Operating Room [facility] [address] [place] [address] Dima Lopes MD [address] [place] [address] MASTECTOMY PARTIAL 06/12/2023 3:10 PM EST Imaging Radiology [facility] [address] [facility] [address] [place] [address] 06/21/2023 9:38 AM EST Hospital Encounter OR [facility], Operating Room [facility] [address] [place] [address] Derrick Hernández MD [address] [place] [address] 06/21/2023 9:38 AM EST - 06/21/2023 10:28 AM EST Surgery OR [facility], Operating Room [facility] [address] [place] [address] Derrick Hernández MD [address] [place] [address] HYSTEROSCOPY WITH BIOPSY AND/OR POLYPECTOMY WITH OR WITHOUT D&C 06/27/2023 8:30 AM EDT Office Visit General Surgery, [facility] 132 [facility] [place] [address] Dima Lopes MD 132 [facility] [place] [address] 07/24/2023 9:45 AM EDT Office Visit Gynecology/Obstetr ics [facility] 132 [facility] [place] [address] Derrick Hernández MD 132 [place] [address] 11/05/2023 9:45 AM EDT Telemedicine Genetics HemOnc, [facility] [address] [place] [address] Kaycee Lazo, [place] [address] [place], [place] [address] 01/02/2024 10:20 AM EDT Office Visit Otolaryngology [facility] 132 [facility] [place] [address] Twila Najera PA-C [facility] [address] 03/24/2024 10:30 AM EST Imaging Radiology [facility] 1st [facility] 132 [facility] [place] [address] Scheduled Procedures Name Priority Associated Diagnoses Date/Ti [...] OR WITHOUT D&C Endometrial intraepithelial neoplasia (EIN) 06/21/2023 9:38 AM EST PELVIC EXAMINATION UNDER ANESTHESIA Endometrial intraepithelial neoplasia (EIN) 06/21/2023 9:38 AM EST COLONOSCOPY FLEXIBLE PROXIMAL DIAGNOSTIC Recall History of [...] filedocumented as of this encounter Care Teams Certified Respiratory Therapist Relationship Specialty Start Date End Date Tasha July Rebecca, HASMUKH [address] [place] [address] PCP - General Physician Life Care Planner 05/05/16 documented as of this encounter
--- OUTSIDE RECORDS SUMMARY | 2023-09-29 01:21 | External Medical Summary | Summary of Care ---
Author Name Unknown Organization [facility] Address [address] [facility] [place] [address] Phone [phone] Care Team Providers Care Supervisor Color Making Name Role Phone Vianney Cordova PA-C Primary Care Provider [phone] Reason for Visit * Reason Comments Outpatient Testing Encounter Details Date Type Department Care Team (Late st Contact Info) Description 05/24/2023 10:10 AM EST Laboratory Laboratory, [facility] [address] [address] [facility] [address] [address] [employer] Other*[id number]; Pre-op examination Allergies Active Allergy Reactions Criticality Noted Date Comments Pollen 01/26/2021 documented as of this encounter (statuses as of 05/24/2023) Medications Medication Sig Dispensed Refills Start Date [...] as of this encounter (statuses as of 05/24/2023) Active Problems Problem Noted Date Diagnosed Date Intermittent asthma with reliever use up to twic e per week 02/01/2021 Mild persistent asthma without complication 01/14 Eczema 07/16/2012 Meniere's disease Asthma, allergic documented as of this encounter (statuses as of 05/24/2023) Resolved Problems Problem Noted Date Diagnosed Date Resolved Date Screening for cardiovascular condition 07/16/2012 01/24/2018 Screening for diabetes mellitus 07/16/2012 01/24/2018 General medical exam 07/16/2012 018 Acute bronchitis, complicated 06/06/2010 07/16/2012 documented as of this encounter (statuses as of 05/24/2023) Immunizations Name Administration Dates Next Due COVID-19 mRNA, LNP-s, No Pre serve, 2-Dose Series ([employer] 03/05/2021,07/16/2020,06/25/2020 COVID-19, MRNA-LNP, 23-24, P F, 50 MCG/0.5 mL, 12 YRS AND ABOVE, IM (MODERNA-Spikevax) 02/09/2023 Covid-19, Mrna, Lnp-s, Pf, B ivalent, 50 Mcg, IM, 12 yrs and above (Moderna) 02/25/2022 Pneumococcal Conjugate Vacci ne, 20-valent ([id number]) 05/03/2022 Seasonal Influenza, PF, 6 M & [...] Department Care Team (Latest Contact Info) Description 05/28/2023 9:15 AM EST [facility] [address] [place] [address] 06/04/2023 9:30 AM EST Office Visit Gynecology/Obstetr ics Nikita Brantley [address] [place] [id number] Derrick Hernández MD [address] [place] [address] 06/08/2023 1:30 PM EST Imaging Radiology [address], [place] [address] [place] [address] 06/08/2023 2:00 PM EST Imaging Radiology [facility] [address] [place] [address] 06/12/2023 Hospital Encounter OR [facility], Operating Room [facility] [address] [place] [address] Dima Lopes MD [address] [place] [address] 06/12/2023 10:30 AM EST Imaging [facility] [address] [place] [address] 06/12/2023 3:10 PM EST Imaging Radiology [address], [place] [address] [place] [address] 06/21/2023 9:38 AM EST Hospital Encounter OR [facility], Operating Room [facility] [address] [place] [phone] Derrick Hernández MD [address] [place] [address] 06/21/2023 9:38 AM EST - 06/21/2023 10:28 AM EST Surgery OR [facility], Operating Room [facility] [address] [place] [address] Derrick Hernández MD [address] [place] [address] HYSTEROSCOPY WITH BIOPSY AND/OR POLYPECTOMY WITH OR WITHOUT D&C 06/27/2023 8:30 AM EDT Office Visit General Surgery, [facility] [address] [place] [address] Dima Lopes MD [address] [place] [address] 07/24/2023 9:45 AM EDT Office Visit Gynecology/Obstetr ics [facility] [address] [facility] [place] [address] Derrick Hernández MD [address] [place] [address] 11/05/2023 9:45 AM EDT Telemedicine Genetics [facility], [address] [place] [address] Kaycee Lazo, [place] [address] [place], [place] [id number] 12/31/2023 10:40 AM EDT Office Visit Otolaryngology [facility] [address] [facility] [place] [address] Twila Najera PA-C [address] [facility] [place] [address] 03/24/2024 10:30 AM EST Imaging Radiology [address] [facility] [place] [address] Pending Results Name Type Priority Associated Diagnoses Date /Time MYCODE SUBSEQUENT ADULT Lab Routine [employer] Other*[id number] 05/24/2023 9:35 AM EST CBC Lab Routine Pre-op examination 05/24/2023 9:35 AM EST COMPREHENSIVE METABOLIC PANEL Lab Routine Pre-op examination 05/24/2023 9:35 AM EST MYCODE SST1 Lab Routine [employer] Other*[id number] 05/24/2023 9:35 AM EST MYCODE SST2 Lab Routine [employer] Other*[id number] 05/24/2023 9:35 AM EST Scheduled Procedures Name Priority Associated Diagnoses Date/Ti me MASTECTOMY PARTIAL Malignant neoplasm of female breast, unspecified estrogen receptor status, unspecified laterality, unspecified site of breast (HCC) EXCISION OF BREAST LESION RADIOLOGICAL MARKER Malignant neoplasm of female breast, unspecified estrogen receptor status, unspecified laterality, unspecified site of breast (HCC) BIOPSY LYMPH NODE DEEP AXILLARY OPEN Malignant neoplasm of female breast, unspecified estrogen receptor status, unspecified laterality, unspecified site of breast (HCC) INJECTION PROCEDURE FOR IDENTIFICATION SENTINEL NODE Malignant neoplasm of female breast, unspecified estrogen receptor status, unspecified laterality, unspecified site of breast (HCC) REMOVAL SKIN TAG EACH ADDITIONAL 10 LESIONS Malignant neoplasm of female breast, unspecified estrogen receptor status, unspecified laterality, unspecified site of breast (HCC) HYSTEROSCOPY WITH BIOPSY AND/OR POLYPECTOMY WITH OR [...] this encounter Visit Diagnoses Diagnosis [employer] Other*[id number] Pre-op examination Preoperative examination, unspecified Endometrial intraepithelial neoplasia (EIN) documented in this encounter Care Teams Supervisor Color Making Relationship Specialty Start Date End Date TashaJuly HASMUKH Fernandez [facility] [place] [address] PCP - General Physician Milk Pickup Driver 05/05/16 documented as of this encounter
--- OUTSIDE RECORDS SUMMARY | 2023-09-29 01:21 | External Medical Summary ---
Author Name Unknown Address Unknown Organization : Laboratory Report Ordering Provider Test Date Status LOREN GORMAN 06/12/2023 11:01:00 Final Count: 2200 Observation Date Value Abnormality Reference (Units ) Status REFERENCE LAB SCANNED REPORT 06/12/2023 11:01:00 RESULT SCAN Final Performing Location
--- OUTSIDE RECORDS SUMMARY | 2023-09-29 01:21 | External Medical Summary | Summary of Care ---
Author Name Unknown Organization [facility] Address [address] [facility] [place] [address] Phone [phone] Care Team Providers Care Public Relations Counselor Name Role Phone Tasha Vianney Fernandez PA-C Primary Care Provider [phone] Reason for Visit * Auth/Cert Specialty Diagnoses / Procedures Referred By Lorena t Referred To Contact Diagnoses Malignant neoplasm of female breast, unspecified estrogen receptor status, unspecified laterality, unspecified site of breast (HCC) Malignant neoplasm of female breast, unspecified estrogen receptor status, unspecified laterality, unspecified site of breast (HCC) [C50.919] Procedures MASTECTOMY, PARTIAL EXC BREAST LESION RADMARK BX LYMPH NODE DEEP AXIL IDENTIFY SENTINEL NODE, RADIOACTIVE TRACER REMOVAL OF SKIN TAGS, EA ADDL 10 (AFTER 15) MASTECTOMY PARTIAL EXCISION OF BREAST LESION RADIOLOGICAL MARKER BIOPSY LYMPH NODE DEEP AXILLARY OPEN INJECTION PROCEDURE FOR IDENTIFICATION SENTINEL NODE REMOVAL SKIN TAG EACH ADDITIONAL 10 LESIONS Referral ID Status Reason Start Date Expiration Date Visits Re quested Visits Authorized [id number] Encounter Details Date Type Department Care Team (Latest Contact Info) Description 06/12/2023 7:04 AM EST - 06/12/2023 1:02 PM EST Hospital Encounter OR [facility], Operating Room [facility] [address] [phone] Dima Lopes MD [address] [id number] Discharge Disposition: Home - Self Care Allergies Active Allergy Reactions Criticality Noted Date Comments Pollen 01/26/2021 documented as of this encounter (statuses as of 06/13/2023) Medications Medication Sig Dispensed Refills Start Date [...] as of this encounter (statuses as of 06/13/2023) Active Problems Problem Noted Date Diagnosed Date Malignant neoplasm of female breast 06/12/2023 Intermittent asthma with reliever use up to twic e per week 02/01/2021 Mild persistent asthma without complication 01/14 Eczema 07/16/2012 Meniere's disease Asthma, allergic documented as of this encounter (statuses as of 06/13/2023) Resolved Problems Problem Noted Date Diagnosed Date Resolved Date Screening for cardiovascular condition 07/16/2012 01/24/2018 Screening for diabetes mellitus 07/16/2012 01/24/2018 General medical exam 07/16/2012 018 Acute bronchitis, complicated 06/06/2010 07/16/2012 documented as of this encounter (statuses as of 06/13/2023) Immunizations Name Administration Dates Next Due COVID-19 mRNA, LNP-s, No Pre serve, 2-Dose Series ([employer]) 03/05/2021,07/16/2020,06/25/2020 COVID-19, MRNA-LNP, 23-24, P F, 50 MCG/0.5 mL, 12 YRS AND ABOVE, IM (MODERNA-Spikevax) 02/09/2023 Covid-19, Mrna, Lnp-s, Pf, B ivalent, 50 Mcg, IM, 12 yrs and above (Moderna) 02/25/2022 Pneumococcal Conjugate Vacci ne, 20-valent ([id number]) 05/03/2022 Seasonal Influenza, PF, 6 M & [...] Sign Reading Time Taken Comments Blood Pressure 132/81 06/12/2023 12:25 PM EST Pulse 86 06/12/2023 12:25 PM EST Temperature 36.3 C (97.3 F) 06/12/2023 11:[address] Respiratory Rate 14 06/12/2023 12:25 PM EST Oxygen Saturation 99% 06/12/2023 12:25 PM EST Inhaled Oxygen Concentration - - Weight 61 kg (134 lb 7.7 oz) 06/12/2023 7:18 AM EST Height 162 cm (5' 3.78") 06/12/2023 7:18 AM EST Body Mass Index 23.24 06/12/2023 7:18 AM EST documented in this encounter Discharge Instructions * Discharge Instr - AVS* Dima Lopes MD - 06/12/2023 11:36 AM EST Discharge Date: 06/12/2023 The information below provides you with the [...] or questions, call your surgeon's office at [phone] . If the physician is unavailable and it is an emergency, call 911 or go to the nearest emergency room. Preprinted instructions given: None (Form No.) Special Care / Other: Instructions for: Excisional Breast Biopsy INCISION CARE: If present, remove any outer dressing(s) in 24 hours. The incision(s) may be sealed with a skin adhesive (Dermabond) or covered with white adhesive tapes known as steri-strips. Either way there is noneed to cover up the incisions again with gauze. BRA: Wear a support bra (morning and evening) for at least 1 week and then as you normally do thereafter. SHOWER: You may shower 24 hours after surgery and get the incision(s) or steri-strips wet with soapy water and gently pat them dry. If the steri-strips come off in the shower, do not become concerned. If they are still in place 10 days after surgery, you may remove them. PAIN MEDICATION: You will be given a prescription for a narcotic pain medication (usually Vicodin or Percocet). Options for non-constipating pain medications include products that include ibuprofen or Tylenol. To combat constipation, you may take over the counter laxatives, fiber therapy, or prune juice. Apply an ice pack to the incision (20 min on, 20 min off) for the first 24-48 hours to help with pain and swelling. BIOPSY RESULTS: It normally takes 4-5 working days for the pathology lab to process the biopsy. This usually works out well, so we can review your pathology with you on your follow-up visit. Activity : Do not do any heavy lifting (more than 20 pounds) or any vigorous exercise for 2 weeks. Return to School or Work: Limitations see the activity restrictions listed above Diet: Resume previous diet Follow-up Visit with: Dr. Lopes When: in 2 weeks Discharged To: Home documented in this encounter Progress Notes * Dima Lopes MD - 06/12/2023 11:31 AM EST [facility] [address] [address] OUTPATIENT SURGERY DISCHARGE SUMMARY NOTE Name: Nova Mota Location: OR [facility]/OR Date: 06/12/2023 Time: 11:31 AM Surgery Date: 06/12/2023 Procedure: Procedure(s): MASTECTOMY PARTIAL EXCISION OF BREAST LESION RADIOLOGICAL MARKER BIOPSY LYMPH NODE DEEP AXILLARY OPEN INJECTION PROCEDURE FOR IDENTIFICATION SENTINEL NODE REMOVAL SKIN TAG EACH ADDITIONAL 10 LESIONS Right Right Right Right Right Surgeon: Surgeon(s): Dima Lopes MD Updyke, Jessica Ann, PA-C Discharge Diagnosis: Right breast infiltrating lobular carcinoma After examination of this patient, I have determined she is ready for discharge to home when the patient meets criteria. Discharge instructions were given to the patient. documented in this encounter H&P Notes * Dima Lopes MD - 06/12/2023 7:39 AM EST [facility] BRE[facility]IC NOTES INDICATION: Right Breast Cancer Clinical Stage 1 HISTORY OF PRESENT ILLNESS: Nova Mota is a 52 year old year old female who was referred by Heidy Cotton PA-C for evaluation and discussion of treatment options for carcinoma of the right upper outer quadrant. She is s/p core biopsy, right ultrasound guided demonstrating an intermediate grade invasive lobular carcinoma. Estrogen receptor status is positive. Progesterone receptor status is positive. HER-2/terri receptors positive. This was found on self examination. She returns following her breast MRI as well as the appointment with Plastic surgery. The breast MRI demonstrates a 0.7 x 0.6 x 0.6 cm mass of the right breast corresponding to the known cancer. There is no non-mass enhancement surrounding the area. There were no other findings. No axillary or intramammary lymphadenopathy. BREAST HISTORY: Mass: Yes; right upper outer, duration 1 month Breast Pain: no Nipple discharge: Yes; BILATERAL, elicited, milky Previous problems/surgeries: aspiration, LEFT Breast Cancer: no Other Cancers: no GYNECOLOGIC HISTORY: Menarche at age: 12 Menopause at age: Perimenopause Number of children: 4 Patient's age at first live : 27 Ever take oral contraceptives? Yes, history of use for 7 year(s) Ever take estrogen? No RADIOLOGIC INTERPRETATION: Result MRI BREAST BILATERAL W WO CONTRAST History Infiltrating lobular carcinoma of right breast in female (hcc) Family medical history includes breast cancer in grandmother (paternal) (age of onset: 50 - 59) andcolon cancer in 3 relatives (grandmother (paternal) (age of onset: 90 - 99 - tx: colectomy), other (comments: TOB+), other (comments: Recurrent 15 yrs later TOB-)). Technique MR (magnetic resonance) imaging was performed utilizing multiple sequences. Following the intravenous administration of gadolinium, dynamic scanning was performed. Kinetic analysis was evaluated withOmnikles software. Films Compared Mammogram dated 05/22/2022, as well as mammogram and ultrasound dated 03/23/2023. Findings Left. The left breast has heterogeneous fibroglandular tissue. There is mild background parenchymal enhancement. A 0.9 cm nonenhancing mass with T2 and intrinsic T1 hyperintensity in the 12:00 retroareolar left breast is below threshold for kinetic analysis and represents the previously aspirated cyst with debris. No suspicious enhancing mass or nonmass enhancement is seen. There is no axillary or internal mammary lymphadenopathy. Right. The right breast has heterogeneous fibroglandular tissue. There is mild background parenchymal enhancement. Susceptibility artifact related to biopsy clip beltran the site of biopsy-proven malignancy in the upper-outer right breast approximately 9.5 cm deep to the nipple. A 0.7 x 0.6 x 0.6 cm enhancing mass with persistent enhancement kinetics (series 8, image 38 and series 18, image 47) at the site of biopsy corresponds to the biopsy-proven carcinoma. There is no axillary or internal mammary lymphadenopathy. Impression Biopsy-proven unifocal right breast carcinoma measures 0.7 cm. No MRI evidence of malignancy in the left breast. No suspicious axillary or internal mammary lymphadenopathy. BI-RADS Category: 6 - Known Biopsy-Proven Malignancy. Recommendation Continued surgical follow-up regarding biopsy proved right breast carcinoma. Result US BREAST LIMITED RIGHT US BREAST LIMITED LEFT MAMMOGRAM DIAGNOSTIC EWA BILATERAL History Breast lump on right side at 10 o'clock position. She initially felt a lump in the right breast 6 weeks ago. Yesterday, she also felt a lump in her left breast. Both lumps are tender to palpation. Family medical history includes breast cancer in grandmother (paternal). Films Compared Multiple prior studies most recent dated 05/22/2022. Findings The breasts are heterogeneously dense, which may obscure small masses. Left A triangular marker is placed over the area of palpable concern in the periareolar left breast. It corresponds to a circumscribed mass measuring 1.8 x 2.1 x 1.7 cm. This will be further evaluated with ultrasound. No associated distortion or calcifications identified. Right A triangular marker is placed over the area of palpable concern in the upper- outer right breast. Noconvincing correlate of the palpable concern is found on mammogram. Stable appearance of tubular area in the upper-outer right breast posterior depth posterosuperior to the region of palpable concern. This will be further evaluated with ultrasound. Ultrasound Targeted ultrasound evaluation of both breasts is performed. Right In the 10 o'clock position, 6 cm from the nipple, a hypoechoic mass with slightly irregular marginsand no significant demonstrable internal vascularity measures 0.9 x 0.4 x 0.7 cm. This is in the area of palpable concern. Ultrasound evaluation of the right axilla reveals morphologically normal lymph nodes with cortical thickness measuring up to 1.8 mm. Left In the 12:00 retroareolar region, a cyst with debris measures 1.9 x 1.2 x 2.1 cm. This corresponds to the palpable concern. Impression Bilateral MAMMOGRAM DIAGNOSTIC EWA BILATERAL Palpable concern in the upper-outer right breast with no convincing mammographic correlate. Palpable mass in the retroareolar left breast corresponds to a cyst with debris on ultrasound. Right US BREAST LIMITED RIGHT Low suspicion mass in the 10:00 right breast. Left US BREAST LIMITED LEFT No sonographic evidence of malignancy. Debris-filled cyst in the retroareolar left breast corresponds to the palpable concern. Patient expresses desire to have fine-needle aspiration for symptomatic relief. BI-RADS Category: 4 - Suspicious. Recommendation Ultrasound-guided core biopsy of the mass in the 10 o'clock position of the right breast. Fine-needle aspiration of the cyst with debris in the retroareolar left breast. ADDENDUM: Final pathology: A. Breast, right, 10:00, 6 cm from the nipple, core needle biopsy: Invasive lobular carcinoma, histologic grade 2 out of 3. Imaging and pathology are concordant. Oncologic and surgical consultation recommended at this time.Results were relayed to the patient by Heidy Cotton on May 04, 2023. Signed by Selene Negron MD on 05/07/2023 12:15 Narrative & Impression EXAM US GUIDED BREAST BIOPSY RIGHT; MAMMOGRAM POST BIOPSY CLIP PLACEMENT- 04/30/2023 1:10 pm; 04/30/2023 1:16 pm HISTORY Ultrasound-guided core biopsy of the mass in the 10 o'clock position of the right breast.; abn mammo COMPARISON Prior examination March 23, [address] Negron was present for and performed the entire procedure. FINDINGS After a discussion of risks, benefits and alternative to the procedure as well as a detailed explanation of the procedure, the patient was given the opportunity to ask questions. After her questions were answered to her satisfaction, informed consent with agreement of procedure, site and position wa s obtained. A timeout procedure was performed by Dr. Selene Negron in the presence of Mercedes Ashton and it was confirmed that procedure matches verbalized consent. All necessary equipment was available prior to procedure. The site of the intended procedure was marked on the skin. Patient denies allergies to medications. She has no known blood dyscrasias and is not taking anticoagulant medication. Preliminary ultrasound demonstrates hypoechoic mass right breast 10 o'clock 6 cm from the nipple measuring 10 x 4 x 6 mm. Using aseptic technique, local anesthesia with 1% buffered lidocaine, and ultrasound guidance, core biopsy was performed. Passes through the target were documented. A marker wasplaced in the nodule. Post procedural mammogram verified clip placement. The patient tolerated the procedure well and there were no complications. Specimens were sent to surgical pathology and results are pending. Written discharge instructions were given to the patient and also reviewed verbally with her. The patient expressed understanding of the instructions and was discharged from the department in stable condition. IMPRESSION IMPRESSION Ultrasound-guided core biopsy of right breast 10 o'clock mass performed. MY INTERPRETATION: I reviewed the films personally and concur with the read. PATHOLOGY Component Final Diagnosis A. Breast, right, 10:00, 6 cm from the nipple, core needle biopsy: Invasive lobular carcinoma, histologic grade 2 out of 3. at 1426 Order Comments Ultrasound guided core biopsy of right breast 10:00 hypoechoic mass. Fibroadenoma vs normal parenchyma vs malignancy Gross Description A. Breast, Right. Received in formalin with a container labeled with "Nova S Nakul", "[id number]", "1970" and " right breast ten o'clock 6 cm from nipple". Received are multiple cores of harden-yellow fibroadipose tissue ranging from less than 0.1 cm to 1.1 cm in length, each approximately 0.2 cm in diameter. The specimen is entirely submitted, wrapped in lens paper in cassettes A1. Collection/ischemic time:time 1247, date 04/30/2023, time in formalin: time not provided, date 04/30/2023. Gross By: MR Microscopic Description A: Microscopic examination is performed. Reviewed slides show infiltrating dyscohesive malignant epithelial cells with single file architecture. The tumor cells show loss of the glandular luminal architecture. The tumor cells show moderately enlarged nuclei. Mitotic figures are rare. (G3 N2 M1). The invasive tumor measures 7 mm in greatest dimension on core biopsy. BNC5 immunostain highlights clonal epithelial cell proliferation with loss of the myoepithelial cell layer. E-cadherin immunostain shows loss of staining. P120 immunostain shows cytoplasmic staining.D2-40 immunostain is negative for lymph-vascular invasion. Sign Out Location Pathologist sign out performed at [facility] ([facility]), [address] [place] [address]. FAMILY HISTORY: Family history of breast or ovarian cancer: Grandmother at 65 Family History Problem Relation Age of Onset [...] d. from damage to lungs from chemo Past Medical History Past Medical History Past Medical History: Diagnosis Date Anemia Asthma, allergic Meniere's disease Past Surgical History Past Surgical History Past Surgical History: Procedure Laterality Date COLONOSCOPY, DIAGNOSTIC (RECTUM) 12/08/2019 benign polyp, repeat 5 yrs / COLONOSCOPY FLEXIBLE PROXIMAL DIAGNOSTIC performed by Lopez Bazan MD at ENDOSCOPY [facility] DENTAL SURGERY PROCEDURE NEC HYSTEROSCOPY W/BIOPSY AND/OR POLYPECTOMY W/WO D&C N/A 02/05/2020 HYSTEROSCOPY WITH BIOPSY AND/OR POLYPECTOMY WITH OR WITHOUT D&C performed by Farheen Rust MD at OR [facility] LIGATE/CUT OVIDUCT(S) PUNCTURE DRAINAGE BREAST CYST Left 2000 Benign PUNCTURE DRAINAGE BREAST CYST Left 04/30/2023 US GUIDED BREAST BIOPSY RIGHT Right 04/30/2023 Current outpatient prescriptions Current Medications Current Outpatient Medications Medication Sig Dispense Refill Calcium Carb-Cholecalciferol 1000-800 MG-UNIT Oral Tablet Take 1 Tablet by mouth in the morning and1 Tablet before bedtime. ferrous sulfate (FEOSOL) 325 (65 FE) MG Tablet Take 1 Tab by mouth 2 times a day. 60 Tab 6 vitamin c (ASCORBIC ACID) 250 MG Tablet Take 1 Tablet by mouth in the morning. Albuterol Sulfate (2.5 MG/3ML) 0.083% Inhalation Nebulization [...] 250 MG Oral Capsule Take by mouth. Triamcinolone Acetonide 0.1 % External Cream (Aristocort) Apply topically to affected area 2 times a day. To affected area. (Patient not taking: Reported on 05/18/2023) 60 g 5 No current facility-administered medications for this visit. Allergies: Allergies as of 05/24/2023 - Reviewed 05/24/2023 Allergen Reaction Noted Environmental [pollen] 01/26/2021 REVIEW OF SYSTEMS - ROS EXAM: As per HPI, otherwise negative EXAMINATION Last menstrual period 04/04/2023. Constitutional: alert, healthy, well nourished Head: normocephalic, atraumatic Eyes: conjunctiva non-injected, sclera white Back: normal curvature, normal ROM, no CVA tenderness Extremities: no edema, no skin discoloration Neuro: alert, gait normal, motor normal Skin: no obvious rashes or significant lesions IMPRESSION: Clinical Stage 1 carcinoma of the right upper outer breast. Options for management werediscussed with the patient and her family. I reviewed the existing data noting the equivalency of breast conserving surgery with radiation therapy vs. mastectomy. We also reviewed the guidelines of the National Comprehensive Cancer Network for Stage 1 breast carcinoma. She understands that she is agood candidate for a lumpectomy and sentinel node biopsy. Risks of lumpectomy to include bleeding, infection, cosmetic deformity of the breast, and the need for additional procedures should the margins be positive were discussed. We reviewed the recent [facility] article discussing the use of radiation therapy to treat 1-3 positive sentinel lymph nodes with equivalent survival. For this reason, she understands that a full axillary lymph node dissection would only be performed in the presence of significant gross disease at the time of surgery. Risks of sentinel node biopsy including bleeding, infection, and a small rate of lymphedema were discussed. Should she require a full lymph node dissection,she understands there is a 20% chance of lymphedema, possibility of areas of permanent numbness, chance of nerve injury causing difficulty moving her arm, the need for physical therapy, and the use of a drain. We reviewed the use of radiation therapy following lumpectomy and options including whole breast and partial breast radiation were discussed. In addition, the role of the medical oncologist and possible chemotherapy and adjuvant hormonal therapy based on final pathology were reviewed. She will be referred on to radiation and medical oncology. We reviewed the findings on the MRI, specifically the fact that there is not a larger area of cancer surrounding the known lesion on mammogram and ultrasound. Due to this finding, she has made her decision to proceed with breast conservation therapy. We again had a lengthy discussion concerning the surgery, MACEY supervisor refining localized partial mastectomy and technique for sentinel lymph node biopsy. All her questions were answered extensively to the bestof my ability. She is agreeable with the plan and has signed consent. We will proceed with right breast MACEY supervisor refining localized partial mastectomy, right breast sentinel lymph node biopsy, and excision of right nipple skin tag at the surgery center at the earliest convenience. I spent a total of 40-54 minutes (exact time 45 mins) on the date of service in preparation, delivery, and documentation of the care provided to Nova Mota excluding any time spent in the performance of separately billed services. Dima Lopes MD 05/24/2023 documented in this encounter Nursing Notes * Cathy Brown RN - 06/12/2023 1:00 PM EST Vs stable. Reports pain at 4/10 on pain scale, tolerable. Denies nausea and tolerating PO intake. Dressing dry and intact. Patient and Verbalized understanding of all discharge directions. Ambualted to restroom and able to void. Patient stable for discharge to home. Assisted to private vehicle via wheelchair to care of * Cathy Brown RN - 06/12/2023 12:14 PM EST received bedside * Cathy Brown RN - 06/12/2023 12:10 PM EST Patient awake and oriented. Tolerating PO ice chips without nausea. Pain level is tolerable for patient 10, to right breast but declined need for pain medication . Vital signs stable. Ready for discharge from PACU 1. * Cathy Brown RN - 06/12/2023 11:33 AM EST Patient received to pacu 1 status post right breast procedure. Patient awakened easily. Denies pain. Denies nausea. Respirations are even and unlabored on simple mask. NSR on monitor. Abdomen soft and non distended. Dressing to right axilla and right nipple is clean, dry and intact, ice pack applied. Vital signs stable. * Dariela Sanchez RN - 06/12/2023 7:18 AM EST Surgical consent verified with patient. Patient agrees with listed procedure and verified signature. documented in this encounter OR Notes * OR Surgeon - Dima Lopes MD - 06/12/2023 11:24 AM EST [facility] [address] [place] [address] OPERATIVE REPORT Name: Nova Mota Date: 06/12/2023 Time: 11:25 AM Location: OR [facility] Service: General Surgery Date of Operation: 06/12/2023 Pre-op Diagnosis: Right breast infiltrating lobular carcinoma Post-op Diagnosis: Same Surgeon: Dima Lopes MD Assistants: HASMUKH Perez; assisted with tissue retraction and closure Anesthesia: General LMA anesthesia Operation: Right breast MACEY supervisor refining localized partial mastectomy, right axillary sentinel lymph nodebiopsy; right nipple skin tag excision Pathology: Yes Specimens: 1. Right axillary sentinel lymph node x1, hot and blue, 2200 count 2. Right axillary sentinel lymph node 2., hot and blue, 1200 count 3. Right axillary sentinel lymph node 3, hot and blue,2000 count 4. Right breast partial mastectomy specimen 5. Right breast additional medial, inferior,superior, lateral margins 6. Right nipple skin tag Complications: None Drains: None Indications and History: The patient is a 52 year old female with right breast infiltrating lobular carcinoma. The risks, benefits, complications, treatment options, and expected outcomes were discussed with the patient and/or family in detail. The possibilities of reaction to medication, pulmonary aspiration, bleeding, rec urrent infection, the need for additional procedures, failure to diagnose a condition, and creatinga complication requiring transfusion or operation were discussed with the patient who freely signedthe consent. The patient concurred with the proposed plan, giving informed consent. Description of Operation: The patient was seen in the Holding Room and the site of surgery properly noted/marked. The patientwas taken to Operating Room [facility] OR , identified as [place] and the procedure verified as right breast MACEY supervisor refining localized partial mastectomy with right axillary sentinel lymph node biopsy and right nipple skin tag removal. A Time Out was held and the above information confirmed. After the induction of anesthesia, the patient was sterilely prepped and draped in the usual fashion. Procedure: The patient underwent placement of SCD's and received 2 g of Ancef preoperatively. Afterthe induction of LMA anesthesia her right breast and axilla were prepped and draped under sterile conditions. The lesion had been preoperatively marked with needle placement in radiology. The pt had undergone preoperative injection of sulfur colloid for SLN mapping by radiology. She underwent injection of 5 cc of lymphazurin blue dye subareolar in the operating room under sterile conditions. The breast was massaged for 5 min. Attention was first turned to the right axilla. A standard sentinel node biopsy incision was made and carried down into the deep axillary tissue. Using the gamma probe, a hot and blue lymph node was identified. This was excised with the cautery. Counts of sln #1 were 2200. The axilla was further explored and to further sentinel lymph nodes, hot and blue, were noted and removed. The background cts were 52. The wound was irrigated and noted to be hemostatic. Local anesthesia was injected and the wound was then closed with a deep layer of interrupted 3-0 vicryl suture and a running subcuticular 4-0 monocryl suture. Attention was then turned to the breast. The MACEY supervisor refining device was utilized to identify the lesion.The incision was then marked based on this. The area of the partial mastectomy in the upper outer quadrant was anesthetized with 1% lidocaine with epinephrine mixed with 0.5% marcaine (total of 40 ccwas used). An incision was made and carried into the subcutaneous tissue. The tissue around the MACEY supervisor refining marker was carefully excised with a 1 cm margin of normal breast tissue. The specimen was marked using the margin marker ink kit. This was sent to radiology for a specimen radiograph and notedto contain the clip/ wire/ margin. Shave biopsies were taken of the cavity superiorly, medially, laterally, inferiorly, and posteriorly. The anterior margin was the skin and the posterior margin was the chest wall. Each of these was marked with the appropriate ink marking the new margin. The wound was irrigated and noted to be hemostatic. The wound was closed with a subdermal 3-0 vicryl suture layer and a running subcuticular 4-0 monocryl suture. Steristrips and a sterile dressing were applied.We then turned our attention to the right nipple. The skin tag was excised with a 15 blade scalpel.The resulting skin defect was closed with Dermabond. She was awakened from anesthesia and taken to recovery in stable condition. All needle, sharps, sponge and lap pad counts were correct. Estimated blood loss was 5 mL. The patient tolerated the procedure well. The patient was taken to the recovery area in stable condition. Attestation: I understand that section 1842 (b)(7)(D) of the Social Security Act generally prohibits Medicare physician fee schedule payment for the services of [id number] in teaching hospitals when qualified residents are available to furnish such services. I certify that the services for which payment is claimed were medically necessary, and that no qualified resident was available to perform the services. I further understand that these services are subject to post-payment review by the Medicare carrier. cc: Professional Reimbursement and Compliance Vianney Cordova PA-C documented in this encounter Plan of Treatment Upcoming Encounters Date Type Department Care Team (Latest Contact Info) Description 06/14/2023 9:45 AM EST Scheduled Telephone General Surgery, [facility] [address] [place] [address] Nurse Fercho Gen Surg [facility] [address] [place] [address] 06/27/2023 8:30 AM EDT Office Visit General Surgery, [facility] [address] [place] [address] Dima Lopes MD [address] [place] [address] 07/24/2023 9:45 AM EDT Office Visit Gynecology/Obstetr ics [facility] [address] [place] [address] Derrick Hernández MD [address] [place] [address] 08/02/2023 10:06 AM EDT Hospital Encounter [facility], Operating Room [facility] [address] [place] [address] Derrick Hernández MD [address] [place] [address] 08/02/2023 10:06 AM EDT - 08/02/2023 10:56 AM EDT Surgery OR [facility], Operating Room [facility] [address] [place] [address] Derrick Hernández MD [address] [place] [address] HYSTEROSCOPY WITH BIOPSY AND/OR POLYPECTOMY WITH OR WITHOUT D&C 08/14/2023 9:30 AM EDT Office Visit Gynecology/Obstetr ics [facility] [address] [place] [address] Derrick Hernández MD 132 [facility] [place] [address] 11/05/2023 9:45 AM EDT Telemedicine Genetics [facility], [address] [place] [address] Kaycee Lazo, [place] [address] [place] [address] 01/02/2024 10:20 AM EDT Office Visit Otolaryngology [facility] 132 [facility] [place] [address] Twila Najera PA-C [address] [facility] [place] [address] 03/24/2024 10:30 AM EST Imaging Radiology [address] 132 [facility] [place] [address] Pending Results Name Type Priority Associated Diagnoses Date /Time SURGICAL PATHOLOGY Pathology Routine Malignant neoplasm of female breast, unspecified estrogen receptor status, unspecified laterality, unspecified site of breast (HCC) 06/12/2023 10:24 AM EST Scheduled Orders Name Type Priority Associated Diagnoses Orde r Schedule SURGICAL PATHOLOGY Pathology Routine Malignant neoplasm of female breast, unspecified estrogen receptor status, unspecified laterality, unspecified site of breast (HCC) Release Upon Ordering for 1 Occurrences starting 06/12/2023 Scheduled Procedures Name Priority Associated Diagnoses Date/Ti [...] Procedure Name Priority Date/Time Associated Diagnosis Comments MAMMOGRAM BREAST SURGICAL SPECIMEN RIGHT Routine 06/12/2023 11:08 AM EST Status post excisional biopsy documented in this encounter Results * MAMMOGRAM BREAST SURGICAL SPECIMEN RIGHT (06/12/2023 11:08 AM EST) Anatomical Region Laterality Modality Breast Right Mammography 06/12/2023 1:13 PM EST Impressions 06/12/2023 1:11 PM EST IMPRESSION Heart shaped biopsy marker and Saviscout reflector are in the specimen. Narrative 06/12/2023 1:11 PM EST EXAM MAMMOGRAM BREAST SURGICAL SPECIMEN RIGHT- 06/12/2023 11:08 am HISTORY OR breast specimen COMPARISON Ultrasound and mammogram dated 04/30/2023 TECHNIQUE Specimen radiograph FINDINGS The heart shaped biopsy marker and the Saviscout reflector are in the specimen. The OR was contacted with this result. Procedure Note Mayco Alex DO - 06/12/2023 EXAM MAMMOGRAM BREAST SURGICAL SPECIMEN RIGHT- 06/12/2023 11:08 am HISTORY OR breast specimen COMPARISON Ultrasound and mammogram dated 04/30/2023 TECHNIQUE Specimen radiograph FINDINGS The heart shaped biopsy marker and the Saviscout reflector are in thespecimen. The OR was contacted with this result. IMPRESSION IMPRESSION Heart shaped biopsy marker and Saviscout reflector are in the specimen. Dima Lopes MD RAD MAMMOGRAPHY documented in this encounter Visit Diagnoses Diagnosis Status post excisional biopsy Other postprocedural status Malignant neoplasm of female breast, unspecified estrogen receptor status, unspecified laterality, unspecified site of breast (HCC) Endometrial intraepithelial neoplasia (EIN) documented in this encounter Administered Medications Inactive Administered Medications - up to 3 most recent administrations Medication Order MAR Action Action Date Dose Rate Site Acetaminophen (Tylenol) tab 975 mg 975 mg, Oral, PREOP, First dose on Sun06/12/23 at 0815, Last dose on Sun06/12/23 at 0815, For 1 dose, Maximum 4 g acetaminophen/day. Avoid in patients with severe hepatic impairment or severe active liver disease. Administer 60 minutes prior to OR., Pre-Op Given 06/12/2023 7:58 AM EST 975 mg ceFAZolin in dextrose (Ancef) ivpb 2 g 2 g, IV Piggyback, PREOP, 1 dose, First dose on Sun06/12/23 at 0815, Administer 60 minutes prior to skin incision, Pre-Op New Bag 06/12/2023 9:45 AM EST 2 g 100 mL/hr dexAMETHasone Sodium Phosphate (Decadron) 4 MG/ML inj 4 mg 4 mg, IV Push, PRN Nausea, Starting on Sun06/12/23 at 1142, Until Sun06/12/23 at 1702, For 1 dose, PROTECT FROM LIGHT, PACU fentaNYL (PF) inj 25 mcg 25 mcg, IV Push, PRN Pain, Severe, Starting on Sun06/12/23 at 1142, Until Sun06/12/23 at 1702, For 6 doses, When given IV Push its recommended that the dose be given over 3 to 5 minutes., PACU isolyte-S pH 7.4 infusion Intravenous, at 100 mL/hr, Plasma-LYTE 148, isolyte-S, and isolyte-S pH 7.4 are considered equivalent - including for MAR barcode scanning., CONTINUOUS, Starting on Sun06/12/23 at 0745, Until Sun06/12/23 at 1702, Pre-Op Restarted 06/12/2023 11:31 AM EST Continue from Pre-Op 06/12/2023 9:46 AM EST 100 mL/hr New Bag 06/12/2023 7:55 AM EST 100 mL/hr ondansetron (Zofran) inj 4 mg 4 mg, IV Push, PRN Nausea, Starting on Sun06/12/23 at 1142, Until Sun06/12/23 at 1702, For 1 dose, PACU oxygen GAS Inhalation, OXYGEN, First dose on Sun06/12/23 at 1600, Until Discontinued, Device/Managed by: Low Flow Device, Goal SPO2 (%): 94 or greater, Starting Device: Simple Mask, Initial Flow Rate (LPM): 6, Lowest Support: Nasal Cannula: Flow 0-6 LPM. Titrate up/down by 1 LPM., Titration Interval: Q2 minutes and as needed., Notify Provider: For sudden DECREASE in resting SPO2 to less than 85% and when escalating delivery device., PACU I - Oxygen for saturation below 95% as indicated per anesthesia. PACU I - Discontinue oxygen when patient is responsive and oxygen saturation is maintained above 94% on room air or same as preanesthetic level. documented in this encounter Active and Recently Administered Medications Times are shown in EST. Scheduled Medication Order 06/10/2023 06/11/2023 06/12/2023 Acetaminophen (Tylenol) tab 975 mg (COMPLETED) 975 mg, Oral, PREOP, First dose on Sun06/12/23 at 0815, Last dose on Sun06/12/23 at 0815, For 1 dose, Maximum 4 g acetaminophen/day. Avoid in patients with severe hepatic impairment or severe active liver disease. Administer 60 minutes prior to OR., Pre-Op 0758 (Given - Provid er: Dariela Sanchez RN) ceFAZolin in dextrose (Ancef) ivpb 2 g (COMPLETED) 2 g, IV Piggyback, PREOP, 1 dose, First dose on Sun06/12/23 at 0815, Administer 60 minutes prior to skin incision, Pre-Op 0945 (New Bag - Prov ider: Yesi Perkins RN) oxygen GAS Inhalation, OXYGEN, First dose on Sun06/12/23 at 1600, Until Discontinued, Device/Managed by: Low Flow Device, Goal SPO2 (%): 94 or greater, Starting Device: Simple Mask, Initial Flow Rate (LPM): 6, Lowest Support: Nasal Cannula: Flow 0-6 LPM. Titrate up/down by 1 LPM., Titration Interval: Q2 minutes and as needed., Notify Provider: For sudden DECREASE in resting SPO2 to less than 85% and when escalating delivery device., PACU I - Oxygen for saturation below 95% as indicated per anesthesia. PACU I - Discontinue oxygen when patient is responsive and oxygen saturation is maintained above 94% on room air or same as preanesthetic level. Continuous Medication Order 06/10/2023 06/11/2023 06/12/2023 isolyte-S pH 7.4 infusion Intravenous, at 100 mL/hr, Plasma-LYTE 148, isolyte-S, and isolyte-S pH 7.4 are considered equivalent - including for MAR barcode scanning., CONTINUOUS, Starting on Sun06/12/23 at 0745, Until Sun06/12/23 at 1702, Pre-Op 0755 (New Bag - Prov ider: Dariela Sanchez RN)0946 (Continue from Pre-Op - Provider: Michelle Schultz CRNA)1130 (Paused - Provider: Michelle Schultz CRNA - Comment: Switch to gravity)1131 (Restarted - Provider: Michelle Schultz CRNA) isolyte-S pH 7.4 infusion Intravenous, Plasma-LYTE 148, isolyte-S, and isolyte-S pH 7.4 are considered equivalent - including for MAR barcode scanning., CONTINUOUS, Starting on Sun06/12/23 at 0815, Until Sun06/12/23 at 1702, Pre-Op 0815 (Due) PRN Medication Order 06/10/2023 06/11/2023 06/12/2023 BUPivacaine-EPINEPHrine (Sensorcaine W/ Epi) 0.5% -1:[id number] inj (CANCELED) ONCE PRN INTRA PROCEDURE, Starting on Sun06/12/23 at 1023, Until Sun06/12/23 at 1123, Intra-Op 1115 (Given - Provid er: Dima Lopes MD) dexAMETHasone Sodium Phosphate (Decadron) 4 MG/ML inj 4 mg 4 mg, IV Push, PRN Nausea, Starting on Sun06/12/23 at 1142, Until Sun06/12/23 at 1702, For 1 dose, PROTECT FROM LIGHT, PACU fentaNYL (PF) inj 25 mcg 25 mcg, IV Push, PRN Pain, Severe, Starting on Sun06/12/23 at 1142, Until Sun06/12/23 at 1702, For 6 doses, When given IV Push its recommended that the dose be given over 3 to 5 minutes., PACU Isosulfan Blue (Lymphazurin) 1 % inj (CANCELED) ONCE PRN INTRA PROCEDURE, Starting on Sun06/12/23 at 1000, Until Sun06/12/23 at 1123, Intra-Op 1001 (Given - Provid er: Dima Lopes MD) ondansetron (Zofran) inj 4 mg 4 mg, IV Push, PRN Nausea, Starting on Sun06/12/23 at 1142, Until Sun06/12/23 at 1702, For 1 dose, PACU sodium chloride IR 0.9 % irrigation (CANCELED) ONCE PRN INTRA PROCEDURE, Starting on Sun06/12/23 at 1024, Until Sun06/12/23 at 1123, Intra-Op 1110 (Given - Provid er: Dima Lopes MD) documented in this encounter Advance Directives Latest Code Status on File Code Status Date Activated Date Inactivated Comments Full Code 06/12/2023 7:40 AM 06/12/2023 5:02 PM This order reflects the patients wishes and were consensually agreed upon. Question Answer Comments Discussion of Advance Directives occurred with: Patient Care Teams Public Relations Counselor Relationship Specialty Start Date End Date TashaJuly Rebecca, HASMUKH [address] [place] [address] PCP - General Physician Music Cataloguer 05/05/16 documented as of this encounter
--- OUTSIDE RECORDS SUMMARY | 2023-09-29 01:21 | External Medical Summary ---
Author Name Unknown Address Unknown Organization [id number]:[facility] [place] - [address] [place] [address] Laboratory Report Ordering Provider Test Date Status ANSHUL HUMPHRIES 05/24/2023 09:35:26 Final Observation Date Value Abnormality Reference (Units ) Status MYCODE SPECIMEN-SST 05/24/2023 09:35:26 Freezing of extracted DNA, whole blood and/or serum. Final Performing Location [facility] [place] - [address] [place] [address]
--- OUTSIDE RECORDS SUMMARY | 2023-09-29 01:21 | External Medical Summary ---
Author Name Unknown Address Unknown Organization [id number]:[facility] [place] [facility] - [address] [place] [address] Laboratory Report Ordering Provider Test Date Status LOREN GORMAN 05/24/2023 09:35:26 Final Observation Date Value Abnormality Reference (Units ) Status BUN 05/24/2023 09:35:26 14 6-20 (mg/dL) Final Creatinine 05/24/2023 09:35:26 0.8 0.5-1.0 (mg/dL) Final Glomerular filtration rate/1.73 sq M.predicted [Volume Rate/Area] in Serum, Plasma or Blood by Creatinine-based formula (CKD-EPI) 05/24/2023 09:35:26 >90 >=60 (mL/min) Final eGFR is calculated based on the CKD-EPI 2020 equation SODIUM 05/24/2023 09:35:26 139 135-146 (m mol/L) Final Potassium 05/24/2023 09:35:26 4.4 3.5-5.1 (m mol/L) Final Cl 05/24/2023 09:35:26 101 98-107 (mm ol/L) Final CO2 05/24/2023 09:35:26 24 22-32 (mmo l/L) Final Anion gap 05/24/2023 09:35:26 14 7-15 (mmol /L) Final Glucose 05/24/2023 09:35:26 89 70-120 (mg /dL) Final Albumin 05/24/2023 09:35:26 4.7 3.8-5.0 (g /dL) Final AST (Aspartate aminotransferase) 05/24/2023 09:35:26 16 10-35 (U/L) Fin al Alk Phos 05/24/2023 09:35:26 30 Below low normal 35- 130 (U/L) Final Bilirubin, Total 05/24/2023 09:35:26 0.4 <=1 .2 (mg/dL) Final Calcium 05/24/2023 09:35:26 9.6 8.4-10.2 ( mg/dL) Final Protein 05/24/2023 09:35:26 7.5 6.0-8.3 (g /dL) Final ALT (Alanine aminotransferase) 05/24/2023 09:35:26 14 10-35 (U/L) Deny abrams Performing Location [facility] [place] [facility] - [address] [facility] [address]
--- OUTSIDE RECORDS SUMMARY | 2023-09-29 01:21 | External Medical Summary ---
Author Name Unknown Address Unknown Organization [id number]:[facility] [place] - [address] [place] [id number] Laboratory Report Ordering Provider Test Date Status ANSHUL HUMPHRIES 05/24/2023 09:35:26 Final Observation Date Value Abnormality Reference (Units ) Status MYCODE SPECIMEN-SST 05/24/2023 09:35:26 Freezing of extracted DNA, whole blood and/or serum. Final Performing Location [facility] [place] - [address] [place] [id number]
--- OUTSIDE RECORDS SUMMARY | 2023-09-29 01:21 | External Medical Summary | Summary of Care ---
Author Name Unknown Organization [facility] Address [address] [facility] [place] [address] Phone [phone] Care Team Providers Care Sales Correspondent Name Role Phone Vianney Cordova Rebecca NOE Primary Care Provider [phone] Reason for Referral * Precert (Within 10 days (routine)) - Pending Review Specialty Diagnoses / Procedures Referred By Contac t Referred To Contact Radiology Diagnoses Pre-op examination Procedures NM BREAST LYMPH GLAND RADIOLOGIST INJECTION Dima Lopes MD [address] [place] [address] Referral ID Status Reason Start Date Expiration Date V isits Requested Visits Authorized [id number] Pending Review 05/31/2023 999 999 Reason for Visit * Reason Comments Follow Up evaluation and discu ssion of treatment options for carcinoma of the right upper outer quadrant. She is s/p core biopsy, right ultrasound guided demonstrating an intermediate grade invasive lobular carcinoma, Encounter Details Date Type Department Care Team (Late st Contact Info) Description 05/24/2023 8:30 AM EST Office Visit General Surgery, [facility] [address] [place] [address] Dima Lopes MD [address] [place] [address] Pre-op examination*; Infiltrating lobular carcinoma of right breast in [...] mRNA, LNP-s, No Pre serve, 2-Dose Series (Urban Compass) 03/05/2021,07/16/2020,06/25/2020 COVID-19, MRNA-LNP, 23-24, P F, 50 MCG/0.5 mL, 12 YRS AND ABOVE, IM (MODERNA-Spikevax) 02/09/2023 Covid-19, Mrna, Lnp-s, Pf, B ivalent, 50 Mcg, IM, 12 yrs and above (Moderna) 02/25/2022 Pneumococcal Conjugate Vacci ne, 20-valent ([id number]) 05/03/2022 Seasonal Influenza, PF, 6 M & [...] Progress Notes * Dima Lopes MD - 05/24/2023 10:24 AM EST [facility] BREAST [facility] NOTES INDICATION: Right Breast Cancer [...] scanning was performed. Kinetic analysis was evaluated withPhonethics Mobile Media software. Films Compared Mammogram dated 05/22/2022, as [...] formalin with a container labeled with "Nova Mota", "[id number]", "1970" and " right breast ten o'clock [...] Out Location Pathologist sign out performed at [facility] ([facility] [address] [place] [id number]. FAMILY HISTORY: Family history of breast or [...] from chemo Past Medical History Past Medical History: Diagnosis Date Anemia Asthma, allergic Meniere's disease Past Surgical History Past Surgical History: Procedure Laterality Date COLONOSCOPY, DIAGNOSTIC (RECTUM) 12/08/2019 benign polyp, repeat 5 yrs / COLONOSCOPY FLEXIBLE PROXIMAL DIAGNOSTIC performed by Lopez Bazan MD at ENDOSCOPY [facility] DENTAL SURGERY PROCEDURE NEC HYSTEROSCOPY W/BIOPSY AND/OR POLYPECTOMY W/WO D&C N/A 02/05/2020 HYSTEROSCOPY WITH BIOPSY AND/OR POLYPECTOMY WITH OR WITHOUT D&C performed by Farheen Rust MD at OR [facility] LIGATE/CUT OVIDUCT(S) PUNCTURE DRAINAGE BREAST CYST Left 2000 Benign PUNCTURE DRAINAGE BREAST CYST Left 04/30/2023 US GUIDED BREAST BIOPSY RIGHT Right 04/30/2023 Current outpatient prescriptions Current Outpatient Medications Medication Sig Dispense Refill [...] a lengthy discussion concerning the surgery, MACEY dominatrix localized partial mastectomy and technique for sentinel lymph node biopsy. All her questions were answered extensively to the bestof my ability. She is agreeable with the plan and has signed consent. We will proceed with right breast MACEY dominatrix localized partial mastectomy, right breast sentinel lymph [...] Nursing Notes * Nasrin Vickers LPN - 05/24/2023 9:19 AM EST Patient scheduled at [facility] for Right Breast mastectomy with Dr Dima Lopes. Date of Test: TBS Medications reviewed. EKG obtained Labs: obtained Permit signed. Patient verbalizes understanding of pre- and post op instructions. Written instructions given for review at later date. Nasrin Vickers LPN 05/24/2023 * Fina Greenwood LPN - 05/24/2023 8:14 AM EST Patient identified by name and date of . Chief Complaint Patient presents with Follow Up evaluation and discussion of treatment options for carcinoma of the right upper outer quadrant. Sheis s/p core biopsy, right ultrasound guided demonstrating an intermediate grade invasive lobular carcinoma, documented in this encounter Plan of Treatment Upcoming Encounters Date Type Department Care Team (Latest Contact Info) Description 05/28/2023 9:15 AM EST Cardiac Studies Cardiac Studies, [address] [place] [address] 06/04/2023 9:30 AM EST Office Visit Gynecology/Obstetr ics [facility] [address] [place] [address] Derrick Hernández MD [address] [place] [address] 06/08/2023 1:30 PM EST Imaging Radiology [facility] 1st [facility] [place] [address] [place] [address] 06/08/2023 2:00 PM EST Imaging Radiology [facility] [address] [place] [address] 06/12/2023 Hospital Encounter OR [facility], Operating Room [facility] [address] [place] [address] Dima Lopes MD [address] [place] [address] 06/12/2023 10:30 AM EST Imaging [facility] 2nd Floor Cardiology, [place] [address] [place] [address] 06/12/2023 3:10 PM EST Imaging Radiology [facility] 1st [facility] [place] [address] [place] [address] 06/21/2023 9:38 AM EST Hospital Encounter OR [facility], Operating Room [facility] [address] [place] [address] Derrick Hernández MD [address] [place] [address] 06/21/2023 9:38 AM EST - 06/21/2023 10:28 AM EST Surgery OR [facility], Operating Room [facility] [address] [place] [address] Derrick Hernández MD [address] [place] [address] HYSTEROSCOPY WITH BIOPSY AND/OR POLYPECTOMY WITH OR WITHOUT D&C 06/27/2023 8:30 AM EDT Office Visit General Surgery, [facility] [address] [facility] [place] [address] Dima Lopes MD [address] [facility] [place] [address] 07/24/2023 9:45 AM EDT Office Visit Gynecology/Obstetr ics [facility] [address] [facility] [place] [address] Derrick Hernández MD [address] [facility] [place] [address] 11/05/2023 9:45 AM EDT Telemedicine Genetics [facility]c, C [address] [place] [address] Kaycee Lazo, [place] [address] [place] [address] 12/31/2023 10:40 AM EDT Office Visit Otolaryngology [facility] [address] [facility] [place] [address] Twila Najera PA-C [address] [facility] [place] [address] 03/24/2024 10:30 AM EST Imaging Radiology [facility] 1st [facility] [address] [facility] [place] [address] Pending Results Name Type Priority Associated Diagnoses Date /Time COMPREHENSIVE METABOLIC PANEL Lab Routine Pre-op examination 05/24/2023 9:35 AM EST Scheduled Orders Name Type Priority Associated Diagnoses Orde r Schedule COMPREHENSIVE METABOLIC PANEL Lab Routine Pre-op examination Expected: 05/24/2023, Expires: 05/24/2024 EKG EKG Routine Pre-op examination Expected: 05/24/2023 (Approximate), Expires: 06/21/2024 NM BREAST LYMPH GLAND RADIOLOGIST INJECTION Medical Imaging Routine Pre-op examination Expected: 05/31/2023, Expires: 06/21/2024 MAMMOGRAM NEEDLE LOCALIZATION RIGHT Medical Imaging Routine Pre-op examination Expected: 05/31/2023, Expires: 06/21/2024 Scheduled Procedures Name Priority Associated Diagnoses Date/Ti [...] Not on filedocumented as of this encounter Results * CBC (05/24/2023 9:35 AM EST) WBC 4.58 4.00 - 10.80 K/uL 05/24/2023 10:14 AM EST LABORATORY [facility] 57-10 RBC 5.07 3.85 - 5.15 M/uL 05/24/2023 10:14 AM EST [facility] 57-10 HGB 14.3 12.0 - 15.3 g/dL 05/24/2023 10:14 AM EST [facility] 57-10 HCT 45.1 36.0 - 45.2 % 05/24/2023 10:14 AM EST [facility] 57-10 MCV 89.0 81.5 - 97.5 fL 05/24/2023 10:14 AM EST [facility] 57-10 MCH 28.2 27.0 - 34.0 pg 05/24/2023 10:14 AM EST LABORATORY [place] 57-10 MCHC 31.7 32.0 - 36.0 g/dL 05/24/2023 10:14 AM EST [facility]ORY [facility] 57-10 RDW 17.2 11.5 - 15.5 % 05/24/2023 10:14 AM EST [facility] 57-10 PLT 322 140 - 400 K/uL 05/24/2023 10:14 AM EST LABORATORY [place] 57-10 MPV 10.7 6.6 - 11.1 fL 05/24/2023 10:14 AM EST LABORATORY [place] 57-10 Blood Venous blood specimen / Unknown Venipuncture / Unknown 05/24/2023 9:35 AM EST 05/24/2023 9:35 AM EST Dima Lopes MD LAB BLOOD ORDER [facility] LABORATORY [facility] [place] 57-10 [address] [facility] [place] [address] documented in this encounter Visit Diagnoses Diagnosis Pre-op examination- Primary Preoperative examination, unspecified Infiltrating lobular carcinoma of right breast in female (HCC) Endometrial intraepithelial neoplasia (EIN) documented in this encounter Care Teams Sales Correspondent Relationship Specialty Start Date End Date Lulujuly Rebecca, HASMUKH [address] [place] [address] PCP - General Physician Film Mounter 05/05/16 documented as of this encounter
--- OUTSIDE RECORDS SUMMARY | 2023-09-29 01:21 | External Medical Summary | Summary of Care ---
Author Name Unknown Organization [facility] Address [address] [facility] [place] [address] Phone [phone] Care Team Providers Care Escalator Installer Name Role Phone Vianney Cordova PA-C Primary Care Provider [phone] Reason for Visit * Reason Onset Date Comments Follow Up 06/14/2023 Post op call Encounter Details Date Type Department Care Team (Late st Contact Info) Description 06/14/2023 9:45 AM EST Scheduled Telephone General Surgery, [facility] [address] [facility] [place] [address] [facility] [address] [facility] [place] [address] Allergies Active Allergy Reactions Criticality Noted Date [...] mRNA, LNP-s, No Pre serve, 2-Dose Series (Motostrano) 03/05/2021,07/16/2020,06/25/2020 COVID-19, MRNA-LNP, 23-24, P F, 50 MCG/0.5 mL, 12 YRS AND ABOVE, IM (MODERNA-Spikevax) 02/09/2023 Covid-19, Mrna, Lnp-s, Pf, B ivalent, 50 Mcg, IM, 12 yrs and above (Moderna) 02/25/2022 Pneumococcal Conjugate Vacci ne, 20-valent ([id number]) 05/03/2022 Seasonal Influenza, PF, 6 M & [...] encounter Miscellaneous Notes * Telephone Encounter - Oziel Delarosa MED ASSIST - 06/14/2023 10:21 AM EST PATIENT IS S/p Right breast MACEY disease control inspector localized partial mastectomy, right axillary sentinel lymph node biopsy; right nipple skin tag excision on 06/12/[address] Dima Lopes Called and left message and post op date documented in this encounter Plan of Treatment Upcoming Encounters Date Type Department Care Team (Latest Contact Info) Description 06/27/2023 8:30 AM EDT Office Visit General Surgery, [facility] [address] [place] [address] Dima Lopes MD [address] [place] [address] 07/24/2023 9:45 AM EDT Office Visit Gynecology/Obstetr ics [facility] [address] [place] [address] Derrick Hernández MD [address] [place] [address] 08/02/2023 10:06 AM EDT Hospital Encounter OR [facility], Operating Room [facility] [address] [place] [address] Derrick Hernández MD [address] [place] [address] 08/02/2023 10:06 AM EDT - 08/02/2023 10:56 AM EDT Surgery OR [facility], Operating Room [facility] [address] [place] [address] Derrick Hernández MD [address] [place] [address] HYSTEROSCOPY WITH BIOPSY AND/OR POLYPECTOMY WITH OR WITHOUT D&C 08/14/2023 9:30 AM EDT Office Visit Gynecology/Obstetr ics [facility] [address] [place] [address] Derrick Hernández MD [address] [place] [address] 11/05/2023 9:45 AM EDT Telemedicine Genetics [facility], [facility] [address] [place] [address] Kaycee Lazo Chio, [place] [address] [place] [address] 01/02/2024 10:20 AM EDT Office Visit Otolaryngology [facility] [address] [place] [address] Twila Najera PA-C [address] [place] [address] 03/24/2024 10:30 AM EST Imaging Radiology [address] [facility] [place] [address] Scheduled Procedures Name Priority Associated Diagnoses Date/Ti [...] Additional history exists Lipid Panel 06/01/2027 06/01/2022, 07/2 05/2019, 07/22/2012 Cervical Cancer Screening 06/16/2027 HPV/Co-Test 06/16/2027 [...] Advance Directives occurred with: Patient Care Teams Escalator Installer Relationship Specialty Start Date End Date Tasha Vianney HASMUKH Fernandez [address] [place] [address] PCP - General Physician Knot Picker Cloth 05/05/16 documented as of this encounter
--- OUTSIDE RECORDS SUMMARY | 2023-09-29 01:22 | External Medical Summary | Summary of Care ---
Author Name Unknown Organization [facility] Address [address] [place] [address] Phone [phone] Care Team Providers Care Vba Developer Name Role Phone Lululloyd Vianney Fernandez PA-C Primary Care Provider [phone] Reason for Visit * Reason Onset Date Comments Genetic Counseling 05/15/2023 Referral Encounter Details Date Type Department Care Team (Late st Contact Info) Description 05/15/2023 Telephone Genetics HemOnc, [facility] [address] [place] [address] Elaina Nguyen CHRA Genetic Counseling (Referral) Allergies Active Allergy Reactions Criticality Noted Date Comments Pollen 01/26/2021 documented as of this encounter (statuses as of 05/17/2023) Medications Medication Sig Dispensed Refills Start Date [...] as of this encounter (statuses as of 05/17/2023) Active Problems Problem Noted Date Diagnosed Date Intermittent asthma with reliever use up to twic e per week 02/01/2021 Mild persistent asthma without complication 01/14 Eczema 07/16/2012 Meniere's disease Asthma, allergic documented as of this encounter (statuses as of 05/17/2023) Resolved Problems Problem Noted Date Diagnosed Date Resolved Date Screening for cardiovascular condition 07/16/2012 01/24/2018 Screening for diabetes mellitus 07/16/2012 01/24/2018 General medical exam 07/16/2012 018 Acute bronchitis, complicated 06/06/2010 07/16/2012 documented as of this encounter (statuses as of 05/17/2023) Immunizations Name Administration Dates Next Due COVID-19 mRNA, LNP-s, No Pre serve, 2-Dose Series (XMS Penvision) 03/05/2021,07/16/2020,06/25/2020 COVID-19, MRNA-LNP, 23-24, P F, 50 MCG/0.5 mL, 12 YRS AND ABOVE, IM (MODERNA-Spikevax) 02/09/2023 Covid-19, Mrna, Lnp-s, Pf, B ivalent, 50 Mcg, IM, 12 yrs and above (Moderna) 02/25/2022 Pneumococcal Conjugate Vacci ne, 20-valent ([id number]) 05/03/2022 Seasonal Influenza, PF, 6 M & [...] Miscellaneous Notes * Telephone Encounter - Elaina Nguyen CHRA - 05/17/2023 10:20 AM EST Images from the original note were not included. Family history updated per MyG messages. KEYON Crockett 05/17/2023 10:21 AM * Telephone Encounter - Elaina Nguyen CHRA - 05/16/2023 5:18 PM EST Images from the original note were not included. Family history documented per MyG message. KEYON Crockett 05/16/2023 5:18 PM documented in this encounter Plan of Treatment Upcoming Encounters Date Type Department Care Team (Late st Contact Info) Description 05/18/2023 8:00 AM EST Office Visit Plastic Surgery, [place] [address] [place] [address] Russel Galindo MD [address] [place] [facility] [address] 05/19/2023 2:45 PM EST Imaging [facility] [address] [place] [address] 06/04/2023 9:30 AM EST Office Visit Gynecology/Obstetr ics [facility] [address] [place] [address] Derrick Hernández MD [address] [place] [address] 06/21/2023 9:38 AM EST Hospital Encounter OR [facility], Operating Room [facility] [address] [place] [address] Derrick Hernández MD [address] [place] [address] 06/21/2023 9:38 AM EST - 06/21/2023 10:28 AM EST Surgery OR [facility], Operating Room [facility] [address] [place] [address] Derrick Hernández MD [address] [place] [address] HYSTEROSCOPY WITH BIOPSY AND/OR POLYPECTOMY WITH OR WITHOUT D&C 07/24/2023 9:45 AM EDT Office Visit Gynecology/Obstetr [facility] [address] [place] [address] Derrick Hernández MD [address] [place] [address] 11/05/2023 9:45 AM EDT Telemedicine Genetics [facility], [facility] [address] [place], [place] [address] Kaycee Lazo, [place] [address] [place] [address] 12/31/2023 10:40 AM EDT Office Visit Otolaryngology [facility] 132 [facility] [place] [address] Twila Najera PA-C [facility] [place] [address] 03/24/2024 10:30 AM EST Imaging Radiology [address] [facility] [place] [address] Scheduled Procedures Name Priority Associated Diagnoses Date/Ti [...] filedocumented as of this encounter Care Teams Vba Developer Relationship Specialty Start Date End Date Tasha July HASMUKH Fernandez [address] [place] [address] PCP - General Physician Instrumentation And Controls Designer 05/05/16 documented as of this encounter
--- OUTSIDE RECORDS SUMMARY | 2023-09-29 01:22 | External Medical Summary | Summary of Care ---
Author Name Unknown Organization [facility] Address [address] [facility] [place] [address] Phone [phone] Care Team Providers Care Hair Specialist Name Role Phone Lululloyd Vianney Fernandez PA-C Primary Care Provider [phone] Reason for Visit * Reason Comments NEW PATIENT * Evaluate & Treat - Unlimited Visits (Within 3 days (urgent)) - Authorized Specialty Diagnoses / Procedures Referred By Contac t Referred To Contact Plastic Surgery Diagnoses Infiltrating lobular carcinoma of right breast in female (HCC) Dima Lopes MD [address] [facility] [place] [address] Referral ID Status Reason Start Date Expiration Date Visits Requested Visits Authorized [id number] Authorized Specialty Services Required 05/10/2023 05/10/[id number] Encounter Details Date Type Department Care Team (Late st Contact Info) Description 05/18/2023 1:00 PM EST Office Visit Plastic Surgery, [place] [address] [place] [address] Russel Galindo MD [address] [place] [address] Malignant neoplasm of female breast, unspecified estrogen receptor status, unspecified laterality, unspecified site of breast (HCC)* Allergies Active Allergy Reactions Criticality Noted Date Comments Pollen 01/26/2021 documented as of this encounter (statuses as of 05/18/2023) Medications Medication Sig Dispensed Refills Start Date [...] as of this encounter (statuses as of 05/18/2023) Active Problems Problem Noted Date Diagnosed Date Intermittent asthma with reliever use up to twic e per week 02/01/2021 Mild persistent asthma without complication 01/14 Eczema 07/16/2012 Meniere's disease Asthma, allergic documented as of this encounter (statuses as of 05/18/2023) Resolved Problems Problem Noted Date Diagnosed Date Resolved Date Screening for cardiovascular condition 07/16/2012 01/24/2018 Screening for diabetes mellitus 07/16/2012 01/24/2018 General medical exam 07/16/2012 018 Acute bronchitis, complicated 06/06/2010 07/16/2012 documented as of this encounter (statuses as of 05/18/2023) Immunizations Name Administration Dates Next Due COVID-19 mRNA, LNP-s, No Pre serve, 2-Dose Series (Slip Stoppers) 03/05/2021,07/16/2020,06/25/2020 COVID-19, MRNA-LNP, 23-24, P F, 50 MCG/0.5 mL, 12 YRS AND ABOVE, IM (MODERNA-Spikevax) 02/09/2023 Covid-19, Mrna, Lnp-s, Pf, B ivalent, 50 Mcg, IM, 12 yrs and above (Moderna) 02/25/2022 Pneumococcal Conjugate Vacci ne, 20-valent ([id number]) 05/03/2022 Seasonal Influenza, PF, 6 M & [...] Sign Reading Time Taken Comments Blood Pressure 125/78 05/18/2023 1:08 PM EST Pulse 81 05/18/2023 1:08 PM EST Temperature 36.7 C (98 F) 05/18/2023 1:08 PM EST Respiratory Rate 18 05/18/2023 1:08 PM EST Oxygen Saturation - - Inhaled Oxygen Concentration - - Weight 61.7 kg (136 lb) 05/18/2023 1:08 PM EST Height 162.6 cm (5' 4") 05/18/2023 1:08 PM EST Body Mass Index 23.34 05/18/2023 1:08 PM EST documented in this encounter Progress Notes * Russel Galindo MD - 05/18/2023 3:[address] [facility] PLASTIC SURGERY[address] [address] PLASTIC SURGERY CLINIC New Patient Visit Date of Visit: 05/18/23 Patient Name: Nova Mota Date of : 1970 Age: [age] year old CHIEF COMPLAINT: breast reconstruction evaluation Referred by: Dima Lopes MD (breast surgery) HISTORY OF PRESENT ILLNESS: Nova Mota is a 52 year old female who presents to the plastic and reconstructive surgery clinic for evaluation for breast reconstruction after mastectomy. She was diagnosed with right breast cancer: invasive lobular cancer (ER+/DC+/HER2+). She has a bilateral breast MRI scheduled for tomorrow to see if there is any evidence of other suspicious lesions. At this point, she would prefer to undergo lumpectomy with radiation if the MRI does not show any further findings. However, depending on the MRI results she is open to mastectomy if recommended; if she chooses mastectomy, she would prefer bilateral rather than unilateral. Current Bra Size: 36B Desired Size After Reconstruction: Similar Family history of breast cancer: grandmother Previous breast surgeries: None She is a Non-smoker, is not using any nicotine products, and is not currently taking steroids. The patient likely will not need chemotherapy (pending further evaluation) The patient's surgery is currently not scheduled (pending breast MRI results). Past Medical History: Diagnosis Date Anemia Asthma, allergic Meniere's disease Past Surgical History: Procedure Laterality Date COLONOSCOPY, DIAGNOSTIC (RECTUM) 12/08/2019 benign polyp, repeat 5 yrs / COLONOSCOPY FLEXIBLE PROXIMAL DIAGNOSTIC performed by Lopez Bazan MD at ENDOSCOPY [facility] DENTAL SURGERY PROCEDURE NEC HYSTEROSCOPY W/BIOPSY AND/OR POLYPECTOMY W/WO D&C N/A 02/05/2020 HYSTEROSCOPY WITH BIOPSY AND/OR POLYPECTOMY WITH OR WITHOUT D&C performed by Farheen Rust MD at OR [facility] LIGATE/CUT OVIDUCT(S) PUNCTURE DRAINAGE BREAST CYST [...] Turmeric Curcumin Oral Capsule Take by mouth. Triamcinolone Acetonide 0.1 % External Cream (Aristocort) Apply topically to affected area 2 times a day. To affected area. (Patient not taking: Reported on 05/18/2023) 60 g 5 No current facility-administered medications for this visit. Review of patient's allergies indicates: Allergen Reactions Environmental [Pollen] Social History Socioeconomic History Marital status: Spouse [...] on file Housing Stability: Not on file Family History Problem Relation Age of Onset [...] d. from damage to lungs from chemo PHYSICAL EXAMINATION: (Performed with pipe finisher, Provider requested pipe finisher. Name of pipe finisher: Amie Franco RN) Filed Vitals: 05/18/23 1308 BP: 125/78 Pulse: 81 Resp: 18 Temp: 36.7 C (98 F) Weight: 61.7 kg (136 lb) Height: 1.626 m (5' 4") Body mass index is 23.34 kg/m. body surface area is 1.67 meters squared. General: Awake, alert, no acute distress Breasts: no breast masses appreciated and breasts overall symmetric. Right breast with additional nipple appendage. SN-N BW N-IMF Ptosis Grade R 23 cm 12-13 cm 7 cm 2 L 23 cm 12-13 cm 7 cm 2 Abdomen: Sufficient adiposity with moderate skin laxity. No hernias or masses appreciated. ASSESSMENT AND PLAN: Nova Mota is a 52 year old female with recently diagnosed right breast cancer who presents to the Plastic and Reconstructive Clinic for evaluation for breast reconstruction after potential mastectomy. We had an extensive discussion with the patient regarding breast reconstruction options. We discussed the option of no reconstruction and use of a prosthesis. I discussed immediate versus delayed reconstruction including the risks and benefits of each. We discussed the use of autologous tissue versus tissue machine baster/implant reconstruction. We explained that a reconstructed breast will not look orfeel like her natural breast. We discussed reconstruction with tissue machine baster/implant, including the need for general anesthesia, typical postoperative course, postoperative drains and dressing, typical time back to normal activities, and postoperative restrictions. We discussed the risk of bleeding, infection, hematoma, seroma, poor scarring, wound dehiscence, mastectomy skin flap necrosis, pain, numbness, tissue machine baster failure, tissue machine baster exposure, capsular contracture, asymmetry, contour deformities, and need forfurther surgeries. We discussed that the implant will create a breast mound that sits higher on herchest than autologous tissue. We also discussed that implants have a 1% chance of rupture per year and therefore we would recommend MRI surveillance. We informed her that silicone implants feel more natural than saline implants. We discussed the two stages of the procedure and the weekly visits to the office for filling of the machine baster. We also discussed that the risks of complications increases if she requires post-operative radiation. We also discussed the use of acellular dermis. I explainedthat acellular dermis for breast reconstruction is currently an off-label use. We discussed the advantages and disadvantages to using acellular dermis. We also discussed the warning concerning anaplastic large cell lymphoma occurring around the capsule of implants. We explained the number of cases and the risk with textured vs smooth implants. Patient states that at this time she would prefer to not undergo implant-based reconstruction. If this is the case, we would plan to not use ADM. We discussed the option of placing the machine baster in the pre-pectoralis plane. We discussed the main advantages include less pain and no animation deformity. We discussed that there is an increased risk of rippling or wrinkling which may require fat grafting the future. We discussed the overall advantages and disadvantages of placing the machine baster in the pre-pectoralis plane vs submuscular plane. We also discussed autologous flap reconstruction. We explained that this is typically performed as a LEONCIO free flap. We explained that the abdominal tissue is utilized for the breast reconstruction and that the skin paddles appear paler in color than the surrounding breast skin. Dissection goes through the abdominal muscles to isolate the blood vessel that supplies the tissue. We discussed the typical postoperative course, postoperative drains and dressings, typical time back to normal activities, and postoperative restrictions. We discussed the risk of bleeding, infection, hematoma, seroma, poor scarring, partial or total loss of the flap, abdominal healing problems, abdominal weakness, hernia, postoperative asymmetries, need for revisions, and wound healing problems. We explained that the tissue can provide a more natural ptotic breast shape compared to the tissue machine baster/implant reconstruction. Patient states that she would prefer to undergo autologous reconstruction with LEONCIO flap s at this time, potentially at the time of her mastectomy. We also discussed the latissimus dorsi myocutaneous flap reconstruction. I explained that this flapusually requires using an implant and possibly a tissue machine baster as well. We discussed the risks ofbleeding, infection, hematoma, seroma, poor scarring, partial or total loss of the flap, postoperative asymmetries, need for revisions, and wound healing problems. We also discussed nipple-sparing mastectomy vs skin-sparing mastectomy in relation to reconstruction. We explained that a nipple-sparing mastectomy has the aesthetic advantage of keeping her nipples,but will likely lead to insensate nipples. Skin-sparing mastectomies would resect the nipples but allow for more superior pole fullness given her degree of breast ptosis. At this time patient would prefer skin-sparing mastectomies with nipple tattooing at a later time. Lastly, we discussed that if she elects to undergo a lumpectomy and is left with a large resulting soft tissue defect, we would be available to assist with local tissue rearrangement. However, the soft tissue deformity is generally not large enough to necessitate our involvement. Photos were taken in office today. Overall, patient prefers lumpectomy rather than mastectomy at this time. This is pending breast MRIresults. If she does undergo mastectomy, she would rather bilateral mastectomies with reconstruction. At this time, she would prefer to undergo reconstruction with tissue expanders followed by LEONCIO flap reconstruction (rather than implants), although immediate reconstruction with LEONCIO flaps remainsan option. Patient was seen and examined with Dr. Galindo who formulation the plan of care. Babatunde Bruce MD PGY2 Plastic and Reconstructive Surgery I have discussed the patient's management with the medical trainee and agree with the note. Please refer to the documented findings and plan of care. This patient's visit today consisted of an evaluation. I was present and confirmed the findings of the history and exam. See above for details of thehistory, exam, and discussion. Breast MRI scheduled for tomorrow. Decision regarding lumpectomy vs mastectomy will be determined after MRI. She is most interested in autologous reconstruction. Discussed delayed vs immediate LEONCIO reconstruction. She is a good candidate overall. Recommend skin sparing mastectomy over nipple sparing mastectomy. Consent obtained for placement of tissue expanders with possible ADM. Discussed the risks, benefits, and alternatives of the procedure. Risks included, but were not limited to, bleeding, infection, hematoma, seroma, delayed wound healing, dehiscence, poor scarring, skin flap necrosis, pain, numbness, tissue machine baster failure, tissue machine baster exposure, capsular contracture, asymmetry, contour deformity, blood clots, and need for additional procedures. She verbalized understanding. Written informed consent was obtained. Will coordinate surgery after final decision is made. I spent a total of 40-54 minutes (exact time 50 mins) on the date of service in preparation, delivery, and documentation of the care provided to Nova Mota excluding any time spent in the performance of separately billed services. Russel Galindo MD documented in this encounter Plan of Treatment Upcoming Encounters Date Type Department Care Team (Latest Contact Info) Description 05/19/2023 2:45 PM EST Imaging Radiology [facility] 1st [facility] [address] [place] [address] 06/04/2023 9:30 AM EST Office Visit Gynecology/Obstetr ics [facility] [address] [place] [address] Derrick Hernández MD [address] [place] [address] 06/21/2023 9:38 AM EST Hospital Encounter OR [facility], Operating Room [facility] [address] [place] [address] Derrick Hernández MD [address] [place] [address] 06/21/2023 9:38 AM EST - 06/21/2023 10:28 AM EST Surgery OR [facility], Operating Room [facility] [address] [place] [address] Derrick Hernández MD [address] [place] [address] HYSTEROSCOPY WITH BIOPSY AND/OR POLYPECTOMY WITH OR WITHOUT D&C 07/24/2023 9:45 AM EDT Office Visit Gynecology/Obstetr ics [facility] [address] [place] [place] [address] Derrick Hernández MD [address] [place] [address] 11/05/2023 9:45 AM EDT Telemedicine Genetics HemOnc, [facility] [address] [place] [address] Kaycee Lazo, [place] [address] [place] [address] 12/31/2023 10:40 AM EDT Office Visit Otolaryngology [facility] [address] [place] [address] Twila Najera PA-C [address] [place] [address] 03/24/2024 10:30 AM EST Imaging Radiology [address] [place] [address] Scheduled Procedures Name Priority Associated Diagnoses Date/Ti me HYSTEROSCOPY WITH BIOPSY AND/OR POLYPECTOMY WITH OR WITHOUT D&C Endometrial intraepithelial neoplasia (EIN) 06/21/2023 9:38 AM EST PELVIC EXAMINATION UNDER ANESTHESIA Endometrial intraepithelial neoplasia (EIN) 06/21/2023 9:38 AM EST COLONOSCOPY FLEXIBLE PROXIMAL DIAGNOSTIC Recall History of colon polyps Scheduled Referrals Name Type Priority Associated Diagnoses Orde r Schedule PLASTIC SURGERY REFERRAL OP Referral Within 3 days (urgent) Infiltrating lobular carcinoma of right breast in female (HCC) Ordered: 05/10/2023 Health Maintenance Due Date Last Done Comments [...] encounter Visit Diagnoses Diagnosis Malignant neoplasm of female breast, unspecified estrogen receptor status, unspecified laterality, unspecified site of breast (HCC)- Primary Endometrial intraepithelial neoplasia (EIN) documented in this encounter Care Teams Hair Specialist Relationship Specialty Start Date End Date Tasha July HASMUKH Fernandez [facility] [address] [place] [address] PCP - General Physician Senior Drafter 05/05/16 documented as of this encounter
--- OUTSIDE RECORDS SUMMARY | 2023-09-29 01:22 | External Medical Summary | Summary of Care ---
Author Name Unknown Organization [facility] Address [address] [facility] [place] [address] Phone [phone] Care Team Providers Care Cross Enterprise Integrator Name Role Phone Tasha Vianney Fernandez PA-C Primary Care Provider [phone] Reason for Visit * Reason Onset Date Comments Appointment 05/18/2023 Encounter Details Date Type Department Care Team (Late st Contact Info) Description 05/18/2023 Telephone Radiology [address] [place] [address] Yesi Becerril TECH Appointment Allergies Active Allergy Reactions Criticality Noted Date [...] mRNA, LNP-s, No Pre serve, 2-Dose Series (Achievers) 03/05/2021,07/16/2020,06/25/2020 COVID-19, MRNA-LNP, 23-24, P F, 50 MCG/0.5 mL, 12 YRS AND ABOVE, IM (MODERNA-Spikevax) 02/09/2023 Covid-19, Mrna, Lnp-s, Pf, B ivalent, 50 Mcg, IM, 12 yrs and above (Moderna) 02/25/2022 Pneumococcal Conjugate Vacci ne, 20-valent ([id number]) 05/03/2022 Seasonal Influenza, PF, 6 M & [...] encounter Miscellaneous Notes * Telephone Encounter - Yesi Becerril TECH - 05/18/2023 4:50 PM EST Name: Nova Mota Do you have any of the following: Pacemaker, stents, heart valves, aneurysm clips? No Have you ever worked with metal or have you ever gotten metal in your eyes? No Have you had a colonoscopy in the last 30 days? No On dialysis? No Do you have any dermals or body piercing's? No or ? no Do you wear an insulin pump or diabetic monitor? No No new tattoos MANNY Oliver documented in this encounter Plan of Treatment Upcoming Encounters Date Type Department Care Team (Latest Contact Info) Description 05/19/2023 2:45 PM EST Imaging Radiology [facility] 1st Floor, [place] [address] [place] [address] 06/04/2023 9:30 AM EST Office Visit Gynecology/Obstetr [facility] [address] [place] [address] Derrick Hernández MD [address] [place] [address] 06/21/2023 9:38 AM EST Hospital Encounter [facility], Operating Room [facility] [address] [place] [address] Derrick Hernández MD [address] [place] [address] 06/21/2023 9:38 AM EST - 06/21/2023 10:28 AM EST Surgery OR [facility], Operating Room [facility] [address] [place] [address] Derrick Hernández MD [address] [place] [address] HYSTEROSCOPY WITH BIOPSY AND/OR POLYPECTOMY WITH OR WITHOUT D&C 07/24/2023 9:45 AM EDT Office Visit Gynecology/Obstetr [facility] [address] [place] [address] Derrick Hernández MD [address] [place] [address] 11/05/2023 9:45 AM EDT Telemedicine Genetics HemOnc, [facility] [address] [place] [address] Kaycee Lazo, [place] [address] [place] [address] 12/31/2023 10:40 AM EDT Office Visit Otolaryngology [facility] [address] [place] [address] Twila Najera PA-C [address] [place] [address] 03/24/2024 10:30 AM EST Imaging Radiology [address] [place] [address] Scheduled Procedures Name Priority Associated Diagnoses Date/Ti [...] filedocumented as of this encounter Care Teams Cross Enterprise Integrator Relationship Specialty Start Date End Date Tasha July HASMUKH Fernandez [address] [place] [address] PCP - General Physician Forest Fire Prevention Manager 05/05/16 documented as of this encounter
--- OUTSIDE RECORDS SUMMARY | 2023-09-29 01:22 | External Medical Summary | Summary of Care ---
Author Name Unknown Organization [facility] Address [address] [place] [address] Phone [phone] Care Team Providers Care Zinc Skimmer Name Role Phone Tasha Vianney Fernandez PA-C Primary Care Provider [phone] Reason for Visit * Reason Onset Date Comments Genetic Counseling 05/15/2023 Referral Encounter Details Date Type Department Care Team (Late st Contact Info) Description 05/15/2023 Telephone Genetics HemOnc, [facility] [address] [place] [address] Elaina Nguyen CHRA Genetic Counseling (Referral) Allergies Active Allergy Reactions Criticality Noted Date Comments Pollen 01/26/2021 documented as of this encounter (statuses as of 05/15/2023) Medications Medication Sig Dispensed Refills Start Date [...] as of this encounter (statuses as of 05/15/2023) Active Problems Problem Noted Date Diagnosed Date Intermittent asthma with reliever use up to twic e per week 02/01/2021 Mild persistent asthma without complication 01/14 Eczema 07/16/2012 Meniere's disease Asthma, allergic documented as of this encounter (statuses as of 05/15/2023) Resolved Problems Problem Noted Date Diagnosed Date Resolved Date Screening for cardiovascular condition 07/16/2012 01/24/2018 Screening for diabetes mellitus 07/16/2012 01/24/2018 General medical exam 07/16/2012 018 Acute bronchitis, complicated 06/06/2010 07/16/2012 documented as of this encounter (statuses as of 05/15/2023) Immunizations Name Administration Dates Next Due COVID-19 mRNA, LNP-s, No Pre serve, 2-Dose Series (Progression) 03/05/2021,07/16/2020,06/25/2020 COVID-19, MRNA-LNP, 23-24, P F, 50 MCG/0.5 mL, 12 YRS AND ABOVE, IM (MODERNA-Spikevax) 02/09/2023 Covid-19, Mrna, Lnp-s, Pf, B ivalent, 50 Mcg, IM, 12 yrs and above (Moderna) 02/25/2022 Pneumococcal Conjugate Vacci ne, 20-valent ([id number]) 05/03/2022 Seasonal Influenza, PF, 6 M & [...] 8:00 AM EST [facility] [place] [address] [facility] [address] [facility] [address] [facility] [address] 05/19/2023 2:45 PM EST Imaging Radiology [facility] 1st [facility] [place] [address] [facility] [place] [address] 06/04/2023 9:30 AM EST Office Visit Gynecology/Obstetr ics [facility] [address] [facility] [place] [address] Derrick Hernández MD [address] [place] [address] 06/21/2023 9:38 AM EST Hospital Encounter OR [facility], Operating Room [facility] [address] [place] [address] Derrick Hernández MD [address] [place] [address] 06/21/2023 9:38 AM EST - 06/21/2023 10:28 AM EST Surgery OR [facility], Operating Room [facility] [address] [place] [address] Derrick Hernández MD [address] [place] [address] HYSTEROSCOPY WITH BIOPSY AND/OR POLYPECTOMY WITH OR WITHOUT D&C 07/24/2023 9:45 AM EDT Office Visit Gynecology/Obstetr ics [facility] [address] [place] [address] Derrick Hernández MD [address] [place] [address] 12/31/2023 10:40 AM EDT Office Visit Otolaryngology [facility] [address] [place] [address] Twila Najera PA-C [address] [place] [address] 03/24/2024 10:30 AM EST Imaging Radiology [facility] 1st [facility] [address] [place] [address] Scheduled Procedures Name Priority Associated Diagnoses Date/Ti [...] filedocumented as of this encounter Care Teams Zinc Skimmer Relationship Specialty Start Date End Date Tasha Vianney HASMUKH Fernandez [address] [place] [address] PCP - General Physician Marketing Representative 05/05/16 documented as of this encounter
--- OUTSIDE RECORDS SUMMARY | 2023-09-29 01:22 | External Medical Summary | Summary of Care ---
Author Name Unknown Organization [facility] Address [address] [facility] [place] [address] Phone [phone] Care Team Providers Care Clinical Research Nurse Name Role Phone Vianeny Cordova PA-C Primary Care Provider [phone] Reason for Referral * Evaluate & Treat - Unlimited Visits (Within 10 days (routine)) - Pending Review Specialty Diagnoses / Procedures Referred By Contac t Referred To Contact Medical Genetics / Hematology Oncology Diagnoses Malignant neoplasm of upper-outer quadrant of right breast in female, estrogen receptor positive (HCC) Gerard Ferrari MD [address] [place] [address] Referral ID Status Reason Start Date Expiration Date Visits Requested Visits Authorized [id number] Pending Review Specialty Services Required 05/15/[phone] Question Answer Referral Priority Within 10 days (routine) Where should this appointment be scheduled? [facility] Is this referral request related to one of the following genetics sub-specialties? If unsure of category, use Medical Genetics Ask-A-Doc. Cancer Personal history of cancer? Yes Type of cancer and age at diagnosis: Breast cancer at the age of 52, Family history of cancer? Yes Describe family history of cancer: Paternal grandmother with breast cancer. Reason for Visit * Reason Comments NEW PATIENT New oncology * Evaluate & Treat - Unlimited Visits (Within 10 days (routine)) - Pending Review Specialty Diagnoses / Procedures Referred By Contac t Referred To Contact Hematology/Oncology / Hematology Oncology Diagnoses Invasive lobular carcinoma of breast, stage 3, right (HCC) Heidy Cotton PA-C [address] [place] [address] Referral ID Status Reason Start Date Expiration Date Visits Requested Visits Authorized [id number] Pending Review Specialty Services Required 05/07/[phone] Encounter Details Date Type Department Care Team (Late st Contact Info) Description 05/15/2023 12:15 PM EST Office Visit Hematology/Oncology [place]ervin Hernandez [place] [address] [facility] [place] [address] Gerard Ferrari MD 200 [facility] [place] [address] Malignant neoplasm of upper-outer quadrant of right [...] mRNA, LNP-s, No Pre serve, 2-Dose Series (Impres[employer]) 03/05/2021,07/16/2020,06/25/2020 COVID-19, MRNA-LNP, 23-24, P F, 50 MCG/0.5 mL, 12 YRS AND ABOVE, IM (MODERNA-Spikevax) 02/09/2023 Covid-19, Mrna, Lnp-s, Pf, B ivalent, 50 Mcg, IM, 12 yrs and above (Moderna) 02/25/2022 Pneumococcal Conjugate Vacci ne, 20-valent ([id number]) 05/03/2022 Seasonal Influenza, PF, 6 M & [...] Sign Reading Time Taken Comments Blood Pressure 125/80 05/15/2023 12:01 PM EST Pulse 77 05/15/2023 12:01 PM EST Temperature 36.4 C (97.6 F) 05/15/2023 1 2:01 PM EST Respiratory Rate 18 05/15/2023 12:0 1 PM EST Oxygen Saturation 99% 05/15/2023 12: 01 PM EST Inhaled Oxygen Concentration - - Weight 61.2 kg (134 lb 14.4 oz) 024 12:01 PM EST Height 162.6 cm (5' 4") 05/15/2023 12:0 1 PM EST Body Mass Index 23.16 05/15/2023 12:01 PM EST documented in this encounter Progress Notes * Gerard Ferrari MD - 05/15/2023 12:15 PM EST Hematology/Oncology Outpatient Consult Note Leonela Hernandez [address] [place] [address] NOVA PRESCOTT MR # [id number] :1970 52-year-old female, REASON FOR CONSULTATION: Consultation for Nova Prescott requested by Heidy Cotton PA-C for evaluation and discussion of treatment options for right breast lobular carcinoma. Date of consultation:05/15/2023 DIAGNOSIS: - right breast lobular carcinoma, on mammogram It is about 9 mm, hormonal positive HER2 negative. She is having bilateral breast MRI and then surgical intervention. CURRENT TREATMENT: Will decide about adjuvant hormonal treatment and chemotherapy treatment after surgical intervention and Oncotype DX recurrence score. DIAGNOSTIC WORKUP: She felt the breast lump [...] carcinoma grade 2 (04/30/2023). - ER and CT receptor strongly positive in 100% of malignamt [...] She has come the clinic for the initial evaluation, accompanied by her in the office Overall she is doing well, no nausea no vomiting, no new GI symptoms, no cardiac or pulmonary symptoms, no thrombotic complications the past, ambulates well, good ECOG PS 0, stable weight around 134 lb. She is premenopausal REVIEW OF SYSTEMS: GENERAL: No change in weight, no weakness, no fatigue, no fever, sweats or chills. SKIN: No skin rash, no bruising. HEAD: No new headache, no dizziness. EYES: No recent change in the vision, no diplopia, EARS: No earache no tinnitus, NOSE: No epistaxis, No nasal discharge or stuffiness, MOUTH: No sores, no dysphagia, no hoarseness of voice, NECK: No lumps, No swelling in thyroid area. No stiffness. PULMONARY: No cough, No shortness of breath, no hemoptysis, no chest pain, No wheezing. CARDIOVASCULAR: No anginal chest pain, no PND, no orthopnea. No palpitation, no leg edema. No syncope. GASTROINTESTINAL: No abdominal pain, no nausea or vomiting. No diarrhea, No constipation. No blood in stool or black tarry stools. No abdominal distention. UROLOGIC: No burning urination. No hematuria. MUSCULOSKELETAL: No joint pain, No joint swelling, no muscle weakness. HEMATOLOGIC: No anemia, no bleeding disorder, No bruising. NEUROLOGIC: No seizures, no focal weakness, no speech difficulty, No memory disturbances. No tingling or numbness of the extremities. PSYCHIATRIC: No depression. No anxiety. No psychosis. Past Medical History: Diagnosis Date Anemia Asthma, allergic Meniere's disease Past Surgical History: Procedure Laterality Date COLONOSCOPY, DIAGNOSTIC (RECTUM) 12/08/2019 benign polyp, repeat 5 yrs / COLONOSCOPY FLEXIBLE PROXIMAL DIAGNOSTIC performed by Lopez Bazan MD at ENDOSCOPY [facility] DENTAL SURGERY PROCEDURE NEC HYSTEROSCOPY W/BIOPSY AND/OR POLYPECTOMY W/WO D&C N/A 02/05/2020 HYSTEROSCOPY WITH BIOPSY AND/OR POLYPECTOMY WITH OR WITHOUT D&C performed by Farheen Rust MD at OR [facility] LIGATE/CUT OVIDUCT(S) PUNCTURE DRAINAGE BREAST CYST [...] Adult Oral Tablet Chewable Take by mouth. No current facility-administered medications for this visit. Family History Problem Relation Age of Onset Heart Disorder Mother MVP Diabetes Mother dx age 60's Hypertension Father Cancer Grandmother (Paternal) breast Breast Cancer Grandmother (Paternal) Hypertension Brother Other (osteoporosis) Mother Social History Socioeconomic History Marital status: Spouse [...] Housing Stability: Not on file On Exam: .LMP 04/04/2023 Constitutional: Patient is alert, cooperative and oriented [...] H&H of 13/41, MCV 88, Platelet count 560111 -Serum iron: 45, TIBC 313, iron saturation 14%. ( she is on oral iron replacement therapy) IMAGING: She is having bilateral breast MRI on 05/19/2023. ASSESSMENT AND PLAN: 52-year-old female, she felt small lump in the right breast without any local symptoms, she had a mammogram showed about 9 mm hypoechoic mass at 10 o'clock, biopsy showed invasive lobular carcinoma hormonal positive HER2 [place] negative. She is having bilateral breast MRI this weekend. Reviewed with her and her regarding diagnostic workup, hormonal positive breast cancer treatment option, adjuvant hormonal treatment in the form tamoxifen versus aromatase inhibitor, role of ovarian suppression, also talked to her about role of Oncotype DX that would be helpful to decide about chemotherapy options in her case. Family history of breast cancer noted in paternal grandmother, would like to have genetic Clinic evaluation. I am planning to see her back in the clinic after surgical intervention and genetic Clinic checkup. Thanks. Dr. Gerard Ferrari Hem/Onc documented in this encounter Nursing Notes * Susan Alcantar LPN - 05/15/2023 12:03 PM EST Patient identifed by name and birthdate Do you have any concerns about pain management for today's visit? No Living Will or Advance Directive for Health Care as noted on the problem list. [facility] is a way you can talk to your provider on line through e-mail. Would you like to sign up? I can activate it for you? NO Filed Vitals: 05/15/23 1201 BP: 125/80 Pulse: 77 Resp: 18 Temp: 36.4 C (97.6 F) TempSrc: Tympanic SpO2: 99% Weight: 61.2 kg (134 lb 14.4 oz) Height: 1.626 m (5' 4") Patient was instructed to not get up [...] Description 05/19/2023 2:45 PM EST Imaging Radiology [address] [place] [address] 06/04/2023 9:30 AM EST Office Visit Gynecology/Obstetr ics [facility] [address] [place] [address] Derrick Hernández MD [address] [place] [address] 06/21/2023 9:38 AM EST Hospital Encounter [facility], Operating Room [facility] [address] [place] [address] Derrick Hernández MD [address] [place] [address] 06/21/2023 9:38 AM EST - 06/21/2023 10:28 AM EST Surgery OR [facility], Operating Room [facility] [address] [place] [address] Derrick Hernández MD [address] [place] [address] HYSTEROSCOPY WITH BIOPSY AND/OR POLYPECTOMY WITH OR WITHOUT D&C 07/24/2023 9:45 AM EDT Office Visit Gynecology/Obstetr ics [facility] [address] [place] [address] Derrick Hernández MD [address] [place] [address] 11/05/2023 9:45 AM EDT Telemedicine Genetics HemOnc, [address] [place] [address] Kaycee Lazo, [place] [address] [place], [place] [id number] 12/31/2023 10:40 AM EDT Office Visit Otolaryngology [facility] 132 [facility] [place] [address] Twila Najera PA-C 132 [facility] [place] [address] 03/24/2024 10:30 AM EST Imaging Radiology [address] 132 [facility] [place] [address] Scheduled Procedures Name Priority Associated Diagnoses Date/Ti me HYSTEROSCOPY WITH BIOPSY AND/OR POLYPECTOMY WITH OR WITHOUT D&C Endometrial intraepithelial neoplasia (EIN) 06/21/2023 9:38 AM EST PELVIC EXAMINATION UNDER ANESTHESIA Endometrial intraepithelial neoplasia (EIN) 06/21/2023 9:38 AM EST COLONOSCOPY FLEXIBLE PROXIMAL DIAGNOSTIC Recall History of colon polyps Scheduled Referrals Name Type Priority Associated Diagnoses Orde r Schedule GENETICS REFERRAL OP Referral Within 10 days (routine) Malignant neoplasm of upper-outer quadrant of right breast in female, estrogen receptor positive (HCC) Ordered: 05/15/2023 Health Maintenance Due Date Last Done Comments [...] in female, estrogen receptor positive (HCC)- Primary Endometrial intraepithelial neoplasia (EIN) documented in this encounter Care Teams Clinical Research Nurse Relationship Specialty Start Date End Date Tasha July HASMUKH Fernandez [address] [place] [address] PCP - General Physician Nanoelectronics Engineer 05/05/16 documented as of this encounter
--- OUTSIDE RECORDS SUMMARY | 2023-09-29 01:22 | External Medical Summary | Summary of Care ---
Author Name Unknown Organization [facility] Address [address] [place] [address] Phone [phone] Care Team Providers Care Pump Installation And Servicer Name Role Phone Tasha Vianney Fernandez PA-C Primary Care Provider [phone] Reason for Visit * Reason Onset Date Comments Genetic Counseling 05/15/2023 Referral Encounter Details Date Type Department Care Team (Late st Contact Info) Description 05/15/2023 Telephone Genetics HemOnc, [facility] [place] [address] [place] [address] Elaina Nguyen CHRA Genetic Counseling (Referral) Allergies Active Allergy Reactions Criticality Noted Date Comments Pollen 01/26/2021 documented as of this encounter (statuses as of 05/16/2023) Medications Medication Sig Dispensed Refills Start Date [...] as of this encounter (statuses as of 05/16/2023) Active Problems Problem Noted Date Diagnosed Date Intermittent asthma with reliever use up to twic e per week 02/01/2021 Mild persistent asthma without complication 01/14 Eczema 07/16/2012 Meniere's disease Asthma, allergic documented as of this encounter (statuses as of 05/16/2023) Resolved Problems Problem Noted Date Diagnosed Date Resolved Date Screening for cardiovascular condition 07/16/2012 01/24/2018 Screening for diabetes mellitus 07/16/2012 01/24/2018 General medical exam 07/16/2012 018 Acute bronchitis, complicated 06/06/2010 07/16/2012 documented as of this encounter (statuses as of 05/16/2023) Immunizations Name Administration Dates Next Due COVID-19 mRNA, LNP-s, No Pre serve, 2-Dose Series ([employer]) 03/05/2021,07/16/2020,06/25/2020 COVID-19, MRNA-LNP, 23-24, P F, 50 MCG/0.5 mL, 12 YRS AND ABOVE, IM (MODERNA-Spikevax) 02/09/2023 Covid-19, Mrna, Lnp-s, Pf, B ivalent, 50 Mcg, IM, 12 yrs and above (Moderna) 02/25/2022 Pneumococcal Conjugate Vacci ne, 20-valent ([id number]) 05/03/2022 Seasonal Influenza, PF, 6 M & [...] were not included. Family history documented per [employer] message. KEYON Crockett 05/16/2023 5:18 PM documented in this encounter Plan of Treatment Upcoming Encounters Date Type Department Care Team (Late st Contact Info) Description 05/18/2023 8:00 AM EST [facility] [address] [place] [address] Russel Galindo MD [address] [place] [address] 05/19/2023 2:45 PM EST Imaging Radiology [facility] 1st Floor, [place] [address] [place] [address] 06/04/2023 9:30 AM EST Office Visit Gynecology/Obstetr ics [facility] [address] [place] [address] Derrick Hernández MD [address] [place] [address] 06/21/2023 9:38 AM EST Hospital Encounter [facility], Operating Room [facility] [address] [place] [phone] Derrick Hernández MD [address] [place] [address] 06/21/2023 9:38 AM EST - 06/21/2023 10:28 AM EST Surgery OR [facility], Operating Room [facility] [address] [place] [address] Derrick Hernández MD [address] [place] [address] HYSTEROSCOPY WITH BIOPSY AND/OR POLYPECTOMY WITH OR WITHOUT D&C 07/24/2023 9:45 AM EDT Office Visit Gynecology/Obstetr [facility] [address] [place] [address] Derrick Hernández MD [address] [place] [address] 11/05/2023 9:45 AM EDT Telemedicine Genetics Natal[place], [facility] [place] [address] [place] [address] Kaycee Lazo, [place] [address] [place] [address] 12/31/2023 10:40 AM EDT Office Visit Otolaryngology [facility] [address] [place] [address] Twila Najera PA-C [address] [place] [address] 03/24/2024 10:30 AM EST Imaging Radiology [facility] 1st [facility] [address] [place] [address] Scheduled Procedures Name Priority Associated Diagnoses Date/Ti [...] filedocumented as of this encounter Care Teams Pump Installation And Servicer Relationship Specialty Start Date End Date Vianney Cordova, HASMUKH [address] [place] [address] PCP - General Physician Medical Apparatus Model Maker 05/05/16 documented as of this encounter
--- OUTSIDE RECORDS SUMMARY | 2023-09-29 01:23 | External Medical Summary | Summary of Care ---
Author Name Unknown Organization [facility] Address [address] [facility] [place] [address] Phone [phone] Care Team Providers Care Game Programmer Name Role Phone Lululloyd Vianney Fernandez PA-C Primary Care Provider [phone] Reason for Referral * Evaluate & Treat - Unlimited Visits (Within 10 days (routine)) - Pending Review Specialty Diagnoses / Procedures Referred By Contac t Referred To Contact Hematology/Oncology / Hematology Oncology Diagnoses Invasive lobular carcinoma of breast, stage 3, right (HCC) Teresa Cotton PA-C [address] [place] [address] Referral ID Status Reason Start Date Expiration Date Visits Requested Visits Authorized [id number] Pending Review Specialty Services Required 05/07/[phone] Question Answer Referral Priority Within 10 days (routine) Where should this appointment be scheduled? [facility] Reason for Referral Malignant Oncology (Solid Organ Cancer) Comments Invasive lobular carcinoma, histologic grade 2 out of 3. * Evaluate & Treat - Unlimited Visits (Within 3 days (urgent)) - Pending Review Specialty Diagnoses / Procedures Referred By Contac t Referred To Contact Breast Clinic Multi Specialty / Surgical Oncology Diagnoses Invasive lobular carcinoma of breast, stage 3, right (HCC) Teresa Cotton PA-C [address] [place] [address] Referral ID Status Reason Start Date Expiration Date Visits Requested Visits Authorized [id number] Pending Review Specialty Services Required 05/04/[phone] Question Answer Referral Priority Within 3 days (urgent) Where should this appointment be scheduled? [facility] What is the reason to be seen? Breast Cancer Is there suspicion of Breast Cancer? Yes Comments Invasive lobular carcinoma, histologic grade 2 out of 3 by breast biopsy Estrogen and Progesterone receptor positive, HER2 negative Reason for Visit * Reason Onset Date Comments Breast Cancer 05/04/[address] Mindy gage Encounter Details Date Type Department Care Team (Late st Contact Info) Description 05/04/2023 [facility] [address] [place] [address] Teresa Cotton PA-C [address] [place] [address] Breast Cancer (Rev with Dr. Hernández) Allergies Active Allergy Reactions Criticality Noted Date Comments Pollen 01/26/2021 documented as of this encounter (statuses as of 05/08/2023) Medications Medication Sig Dispensed Refills Start Date [...] as of this encounter (statuses as of 05/08/2023) Active Problems Problem Noted Date Diagnosed Date Intermittent asthma with reliever use up to twic e per week 02/01/2021 Mild persistent asthma without complication 01/14 Eczema 07/16/2012 Meniere's disease Asthma, allergic documented as of this encounter (statuses as of 05/08/2023) Resolved Problems Problem Noted Date Diagnosed Date Resolved Date Screening for cardiovascular condition 07/16/2012 01/24/2018 Screening for diabetes mellitus 07/16/2012 01/24/2018 General medical exam 07/16/2012 018 Acute bronchitis, complicated 06/06/2010 07/16/2012 documented as of this encounter (statuses as of 05/08/2023) Immunizations Name Administration Dates Next Due COVID-19 mRNA, LNP-s, No Pre serve, 2-Dose Series ([employer]) 03/05/2021,07/16/2020,06/25/2020 COVID-19, MRNA-LNP, 23-24, P F, 50 MCG/0.5 mL, 12 YRS AND ABOVE, IM (MODERNA-Spikevax) 02/09/2023 Covid-19, Mrna, Lnp-s, Pf, B ivalent, 50 Mcg, IM, 12 yrs and above (Moderna) 02/25/2022 Pneumococcal Conjugate Vacci ne, 20-valent ([id number]) 05/03/2022 Seasonal Influenza, PF, 6 M & [...] Miscellaneous Notes * Telephone Encounter - Susan Hernandez RN - 05/08/2023 2:53 PM EST See other encounter. * Telephone Encounter - Susan Hernandez RN - 05/08/2023 8:27 AM EST Message to Caprice. * Addendum Note - Treesa Cotton PA-C - 05/07/2023 5:50 PM ESTAddended by: TERESA COTTON on: 05/07/2023 05:50 PM Modules accepted: Orders * Telephone Encounter - Teresa Cotton PA-C - 05/07/2023 5:47 PM EST Caprice was going to touch base with Dr. Hernández per message below when he is back in office. Can you let her know when you call her back regarding this that pathology also recommended oncologyappointment be set up along with breast clinic/surgery appointment. So I placed separate referral for this. * Telephone Encounter - Teresa Cotton PA-C - 05/04/2023 12:22 PM EST Can you review this patient with Dr. Hernández when he is back in office next week? She just was diagnosed with invasive lobular breast cancer. She scheduled with Dr. Hernández for hysteroscopy and D&C d/t EIN on office EMB. She was asking if we should move up surgery in light of all of this. * Telephone Encounter - Teresa Cotton PA-C - 05/04/2023 12:06 PM EST Patient called back, had a few additional questions. She is scheduled for hysteroscopy and D&C with Dr. Hernández in early June secondary to EIN on recent EMB. Patient asking if breast cancer diagnosis and this could be related. Advised that I am uncertain atthis time. She was asking if I could review with Dr. Hernández and scheduling whether moving up her procedure could be done. Will review with Dr. Hernández when is back in office as he is currently not in office today and reach out in follow up once I can. Discussed with her may not be to early next week until can be reviewed with him. She understands, all questions answered. * Telephone Encounter - Teresa Cotton PA-C - 05/04/2023 10:25 AM EST Patient identified by name and . Reviewed breast biopsy results with her indicating breast cancer: Invasive lobular carcinoma, histologic grade 2 out of 3 Discussed ER/MO positive HER2 negative Reviewed current Up To Date information on diagnosis. Answered questions to the best of my knowledged and deferred some questions to breast clinic. She stated understanding. Urgent referral to Breast Clinic placed. Given [facility] triage number, advised to followup if any further questions or if she does not hear from breast clinic regarding scheduling in nextfew days. Teresa Cotton PA-C documented in this encounter Plan of Treatment Upcoming Encounters Date Type Department Care Team (Latest Contact Info) Description 05/10/2023 3:00 PM EST Office Visit General Surgery, [facility] [address] [place] [address] Dima Lopes MD [address] [place] [address] 05/15/2023 12:15 PM EST Office Visit Hematology/Oncology [facility] [address] [facility] [place] [address] [facility] [address] 06/04/2023 9:30 AM EST Office Visit Gynecology/Obstetri [facility] [address] [place] [address] Derrick Hernández MD [address] [place] [address] 06/21/2023 9:38 AM EST Hospital Encounter [facility], Operating Room [facility] [address] [place] [address] Derrick Hernández MD [address] [place] [address] 06/21/2023 9:38 AM EST - 06/21/2023 10:28 AM EST Surgery [facility], Operating Room [facility] [address] [place] [address] Derrick Hernández MD [address] [place] [address] HYSTEROSCOPY WITH BIOPSY AND/OR POLYPECTOMY WITH OR WITHOUT D&C 07/24/2023 9:45 AM EDT Office Visit Gynecology/Obstetri [facility] [address] [place] [address] Derrick Hernández MD [address] [place] [address] 09/21/2023 7:15 AM EDT Office Visit Gynecology/Obstetri [facility] [address] [place] [address] Teresa Cotton PA-C [address] [place] [address] 12/31/2023 10:40 AM EDT Office Visit Otolaryngology [facility] [address] [place] [address] Twila Najera PA-C [address] [place] [address] 03/24/2024 10:30 AM EST Imaging Radiology [facility]st [facility] [address] [place] [address] Scheduled Procedures Name Priority Associated Diagnoses Date/Ti me HYSTEROSCOPY WITH BIOPSY AND/OR POLYPECTOMY WITH OR WITHOUT D&C Endometrial intraepithelial neoplasia (EIN) 06/21/2023 9:38 AM EST PELVIC EXAMINATION UNDER ANESTHESIA Endometrial intraepithelial neoplasia (EIN) 06/21/2023 9:38 AM EST COLONOSCOPY FLEXIBLE PROXIMAL DIAGNOSTIC Recall History of colon polyps Scheduled Referrals Name Type Priority Associated Diagnoses Orde r Schedule BREAST CLINIC REFERRAL OP Referral Within 3 days (urgent) Invasive lobular carcinoma of breast, stage 3, right (HCC) Ordered: 05/04/2023 HEMATOLOGY/ONCOLOGY REFERRAL OP Referral Within 10 days (routine) Invasive lobular carcinoma of breast, stage 3, right (HCC) Ordered: 05/07/2023 Health Maintenance Due Date Last Done Comments [...] as of this encounter Visit Diagnoses Diagnosis Invasive lobular carcinoma of breast, stage 3, right (HCC)- Primary Endometrial intraepithelial neoplasia (EIN) documented in this encounter Care Teams Game Programmer Relationship Specialty Start Date End Date Tasha Vianney HASMUKH Fernandez [address] [place] [address] PCP - General Physician Promotions Assistant Sales Marketing 05/05/16 documented as of this encounter
--- OUTSIDE RECORDS SUMMARY | 2023-09-29 01:23 | External Medical Summary | Summary of Care ---
Author Name Unknown Organization [facility] Address [address] [facility] [place] [address] Phone [phone] Care Team Providers Care Spray Painter Helper Name Role Phone Lululloyd Vianney Fernandez PA-C Primary Care Provider [phone] Reason for Referral * Evaluate & Treat - Unlimited Visits (Within 10 days (routine)) - Pending Review Specialty Diagnoses / Procedures Referred By Contac t Referred To Contact Hematology/Oncology / Hematology Oncology Diagnoses Invasive lobular carcinoma of breast, stage 3, right (HCC) Teresa Cotton PA-C [address] [place] [address] Referral ID Status Reason Start Date Expiration Date Visits Requested Visits Authorized [id number] Pending Review Specialty Services Required 05/07/2023 999 [...] stage 3, right (HCC) Teresa Cotton PA-C [address] [place] [address] Referral ID Status Reason Start Date Expiration Date Visits Requested Visits Authorized [id number] Pending Review Specialty Services Required 05/04/2023 999 [...] st Contact Info) Description 05/04/2023 Telephone Gynecology/Obstetrics [facility] [address] [place] [address] Teresa Cotton PA-C [address] [place] [address] Breast Cancer (Rev with Dr. Hernández) Allergies [...] mRNA, LNP-s, No Pre serve, 2-Dose Series ([employer]) 03/05/2021,07/16/2020,06/25/2020 COVID-19, MRNA-LNP, 23-24, P F, 50 MCG/0.5 mL, 12 YRS AND ABOVE, IM (MODERNA-Spikevax) 02/09/2023 Covid-19, Mrna, Lnp-s, Pf, B ivalent, 50 Mcg, IM, 12 yrs and above (Moderna) 02/25/2022 Pneumococcal Conjugate Vacci ne, 20-valent (Hksperp51) 05/03/2022 Seasonal Influenza, PF, 6 M & [...] Message to Caprice. * Addendum Note - Teresa Cotton PA-C - 05/07/2023 5:50 PM ESTAddended [...] histologic grade 2 out of 3 Discussed ER/NM positive HER2 negative Reviewed current Up To Date information on diagnosis. Answered questions to the best of my knowledged and deferred some questions to breast clinic. She stated understanding. Urgent referral to Breast Clinic placed. Given [facility] triage number, advised to followup if any further questions or if she does not hear from breast clinic regarding scheduling in nextfew days. Teresa Cotton PA-C documented in this encounter Plan of Treatment Upcoming Encounters Date Type Department Care Team (Latest Contact Info) Description 05/10/2023 3:00 PM EST Office Visit General Surgery, [facility] [address] [place] [address] Dima Lopes MD [address] [place] [address] 06/04/2023 9:30 AM EST Office Visit Gynecology/Obstetri [facility] [address] [place] [address] Derrick Hernández MD [address] [place] [address] 06/21/2023 9:38 AM EST Hospital Encounter [facility], Operating Room [facility] [address] [place] [phone] Derrick Hernández MD [address] [place] [address] 06/21/2023 9:38 AM EST - 06/21/2023 10:28 AM EST Surgery OR [facility], Operating Room [facility] [address] [place] [address] Derrick Hernández MD [address] [place] [address] HYSTEROSCOPY WITH BIOPSY AND/OR POLYPECTOMY WITH OR WITHOUT D&C 09/21/2023 7:15 AM EDT Office Visit Gynecology/Obstetri [facility] [address] [place] [address] Teresa Cotton PAYenny [address] [place] [address] 12/31/2023 10:40 AM EDT Office Visit Otolaryngology [facility] [address] [place] [address] Twila Najera PA-C [address] [place] [address] 03/24/2024 10:30 AM EST Imaging Radiology [address] [place] [address] Scheduled Procedures Name Priority Associated Diagnoses Date/Ti [...] (EIN) documented in this encounter Care Teams Spray Painter Helper Relationship Specialty Start Date End Date TashaJuly HASMUKH Fernandez [facility] [address] [place] [address] PCP - General Physician Rheologist 05/05/16 documented as of this encounter
--- OUTSIDE RECORDS SUMMARY | 2023-09-29 01:23 | External Medical Summary | Summary of Care ---
Author Name Unknown Organization [facility] Address [address] [facility] [place] [address] Phone [phone] Care Team Providers Care Stock Broker Supervisor Name Role Phone Lululloyd Vianney Fernandez PA-C Primary Care Provider [phone] Reason for Referral * Evaluate & Treat - Unlimited Visits (Within 10 days (routine)) - Pending Review Specialty Diagnoses / Procedures Referred By Contac t Referred To Contact Hematology/Oncology / Hematology Oncology Diagnoses Invasive lobular carcinoma of breast, stage 3, right (HCC) Teresa Cotton PA-C [address] [place] [address] Referral ID Status Reason Start Date Expiration Date Visits Requested Visits Authorized [id number] Pending Review Specialty Services Required 05/07/2023 999 [...] stage 3, right (HCC) Teresa Cotton PA-C [address] [place] [address] Referral ID Status Reason Start Date Expiration Date Visits Requested Visits Authorized [id number] Pending Review Specialty Services Required 05/04/2023 999 [...] st Contact Info) Description 05/04/2023 Telephone [facility] [address] [place] [address] Teresa Cotton PA-C [address] [place] [address] Breast Cancer (Rev with Dr. Hernández) Allergies Active Allergy Reactions Criticality Noted Date Comments Pollen 01/26/2021 documented as of this encounter (statuses as of 05/10/2023) Medications Medication Sig Dispensed Refills Start Date [...] as of this encounter (statuses as of 05/10/2023) Active Problems Problem Noted Date Diagnosed Date Intermittent asthma with reliever use up to twic e per week 02/01/2021 Mild persistent asthma without complication 01/14 Eczema 07/16/2012 Meniere's disease Asthma, allergic documented as of this encounter (statuses as of 05/10/2023) Resolved Problems Problem Noted Date Diagnosed Date Resolved Date Screening for cardiovascular condition 07/16/2012 01/24/2018 Screening for diabetes mellitus 07/16/2012 01/24/2018 General medical exam 07/16/2012 018 Acute bronchitis, complicated 06/06/2010 07/16/2012 documented as of this encounter (statuses as of 05/10/2023) Immunizations Name Administration Dates Next Due COVID-19 mRNA, LNP-s, No Pre serve, 2-Dose Series ([employer] ([employer])) 03/05/2021,07/16/2020,06/25/2020 COVID-19, MRNA-LNP, 23-24, P F, 50 MCG/0.5 mL, 12 YRS AND ABOVE, IM (MODERNA-Spikevax) 02/09/2023 Covid-19, Mrna, Lnp-s, Pf, B ivalent, 50 Mcg, IM, 12 yrs and above (Moderna) 02/25/2022 Pneumococcal Conjugate Vacci ne, 20-valent ([id number]) 05/03/2022 Seasonal Influenza, PF, 6 M & [...] encounter Miscellaneous Notes * Telephone Encounter - Caprice Fowler LPN - 05/10/2023 9:11 AM EST Message sent to pt the other day * Telephone Encounter - Susan Hernandez RN [...] histologic grade 2 out of 3 Discussed ER/NC positive HER2 negative Reviewed current Up To Date information on diagnosis. Answered questions to the best of my knowledged and deferred some questions to breast clinic. She stated understanding. Urgent referral to Breast Clinic placed. Given [facility] triage number, advised to followup if any further questions or if she does not hear from breast clinic regarding scheduling in nextfew days. Teresa Cotton PA-C documented in this encounter Plan of Treatment Upcoming Encounters Date Type Department Care Team (Latest Contact Info) Description 05/10/2023 3:00 PM EST Office Visit General Surgery, [facility] [address] [address] Dima Lopes MD [address] [place] [address] 05/15/2023 12:15 PM EST Office Visit Hematology/Oncology [facility] [address] [facility] [place] [address] [facility] [address] 06/04/2023 9:30 AM EST Office Visit Gynecology/Obstetri [facility] [address] [place] [address] Derrick Hernández MD [address] [place] [address] 06/21/2023 9:38 AM EST Hospital Encounter OR [facility], Operating Room [facility] [address] [place] [phone] Derrick Hernández MD [address] [place] [address] 06/21/2023 9:38 AM EST - 06/21/2023 10:28 AM EST Surgery OR [facility], Operating Room [facility] [address] [place] [phone] Derrick Hernández MD [address] [place] [address] HYSTEROSCOPY WITH BIOPSY AND/OR POLYPECTOMY WITH OR WITHOUT D&C 07/24/2023 9:45 AM EDT Office Visit Gynecology/Obstetri cs [facility] [address] [place] [address] Derrick Hernández MD [address] [place] [address] 12/31/2023 10:40 AM EDT Office Visit Otolaryngology [facility] [address] [place] [address] Twila Najera PA-C [address] [place] [address] 03/24/2024 10:30 AM EST Imaging Radiology [facility] 1st [facility] [address] [place] [address] Scheduled Procedures Name Priority Associated Diagnoses Date/Ti [...] (EIN) documented in this encounter Care Teams Stock Broker Supervisor Relationship Specialty Start Date End Date Tasha July HASMUKH Fernandez [address] [place] [address] PCP - General Physician Personnel Security Specialist 05/05/16 documented as of this encounter
--- OUTSIDE RECORDS SUMMARY | 2023-09-29 01:23 | External Medical Summary | Summary of Care ---
Author Name Unknown Organization [facility] Address [address] [facility] [place] [address] Phone [phone] Care Team Providers Care Family Nurse Practitioner Name Role Phone Vianney Cordova PA-C Primary Care Provider [phone] Reason for Visit * Reason Onset Date Comments Test Results 05/03/2023 Breast BX Result s Encounter Details Date Type Department Care Team (Late st Contact Info) Description 05/03/2023 Telephone Family Practice [facility] [address] [facility] [place] [address] Vianney Cordova PA-C [address] [facility] [place] [address] Test Results (Breast BX Results) Allergies Active Allergy Reactions Criticality Noted Date Comments Pollen 01/26/2021 documented as of this encounter (statuses as of 05/05/2023) Medications Medication Sig Dispensed Refills Start Date [...] as of this encounter (statuses as of 05/05/2023) Active Problems Problem Noted Date Diagnosed Date Intermittent asthma with reliever use up to twic e per week 02/01/2021 Mild persistent asthma without complication 01/14 Eczema 07/16/2012 Meniere's disease Asthma, allergic documented as of this encounter (statuses as of 05/05/2023) Resolved Problems Problem Noted Date Diagnosed Date Resolved Date Screening for cardiovascular condition 07/16/2012 01/24/2018 Screening for diabetes mellitus 07/16/2012 01/24/2018 General medical exam 07/16/2012 018 Acute bronchitis, complicated 06/06/2010 07/16/2012 documented as of this encounter (statuses as of 05/05/2023) Immunizations Name Administration Dates Next Due COVID-19 mRNA, LNP-s, No Pre serve, 2-Dose Series ([employer]) 03/05/2021,07/16/2020,06/25/2020 COVID-19, MRNA-LNP, 23-24, P F, 50 MCG/0.5 mL, 12 YRS AND ABOVE, IM (MODERNA-Spikevax) 02/09/2023 Covid-19, Mrna, Lnp-s, Pf, B ivalent, 50 Mcg, IM, 12 yrs and above (Moderna) 02/25/2022 Pneumococcal Conjugate Vacci ne, 20-valent ([id number]) 05/03/2022 Seasonal Influenza, PF, 6 M & [...] encounter Miscellaneous Notes * Telephone Encounter - Jessica Byrd OSA - 05/03/2023 2:29 PM EST Please be aware patient's 04/30 ultrasound guided breast biopsy results are in. An adddendum will be done to the imaging report of the same date to reflect recommendation. See pathology report for details. documented in this encounter Plan of Treatment Upcoming Encounters Date Type Department Care Team (Latest Contact Info) Description 05/10/2023 3:00 PM EST Office Visit General Surgery, [facility] [address] [place] [address] Dima Lopes MD [address] [place] [address] 06/04/2023 9:30 AM EST Office Visit Gynecology/Obstetri [facility] [address] [place] [address] Derrick Hernández MD [address] [place] [address] 06/21/2023 7:45 AM EST Hospital Encounter OR [facility], Operating Room [facility] [address] [place] [phone] Derrick Hernández MD [address] [place] [address] 06/21/2023 7:45 AM EST - 06/21/2023 8:35 AM EST Surgery OR [facility], Operating Room [facility] [address] [place] [phone] Derrick Hernández MD [address] [place] [address] HYSTEROSCOPY WITH BIOPSY AND/OR POLYPECTOMY WITH OR WITHOUT D&C 09/21/2023 7:15 AM EDT Office Visit Gynecology/Obstetri [facility] [address] [place] [address] Heidy Cotton PA-C [address] [place] [address] 12/31/2023 10:40 AM EDT Office Visit Otolaryngology [facility] [address] [place] [address] Twila Najera PA-C [address] [place] [address] 03/24/2024 10:30 AM EST Imaging Radiology [address] [place] [address] Scheduled Procedures Name Priority Associated Diagnoses Date/Ti me HYSTEROSCOPY WITH BIOPSY AND/OR POLYPECTOMY WITH OR WITHOUT D&C Endometrial intraepithelial neoplasia (EIN) 06/21/2023 7:45 AM EST PELVIC EXAMINATION UNDER ANESTHESIA Endometrial intraepithelial neoplasia (EIN) 06/21/2023 7:45 AM EST COLONOSCOPY FLEXIBLE PROXIMAL DIAGNOSTIC Recall [...] filedocumented as of this encounter Care Teams Family Nurse Practitioner Relationship Specialty Start Date End Date Tasha Vianney Rebecca, HASMUKH [address] [place] [address] PCP - General Physician Photo Finisher 05/05/16 documented as of this encounter
--- OUTSIDE RECORDS SUMMARY | 2023-09-29 01:23 | External Medical Summary | Summary of Care ---
Author Name Unknown Organization [facility] Address [address] [facility] [place] [address] Phone [phone] Care Team Providers Care Traffic Signal Repairer Name Role Phone Lululloyd Vianney Fernandez PA-C Primary Care Provider [phone] Reason for Referral * Evaluate & Treat - Unlimited Visits (Within 10 days (routine)) - Pending Review Specialty Diagnoses / Procedures Referred By Contac t Referred To Contact Hematology/Oncology / Hematology Oncology Diagnoses Invasive lobular carcinoma of breast, stage 3, right (HCC) Teresa Cotton PA-C [address] [place] [address] Referral ID Status Reason Start Date Expiration Date Visits Requested Visits Authorized [id number] Pending Review Specialty Services Required 05/07/2023 999 [...] stage 3, right (HCC) Teresa Cotton PA-C [address] [place] [address] Referral ID Status Reason Start Date Expiration Date Visits Requested Visits Authorized [id number] Pending Review Specialty Services Required 05/04/2023 999 [...] Reason Onset Date Comments Breast Cancer 05/04/2023 Encounter Details Date Type Department Care Team (Late st Contact Info) Description 05/04/2023 Telephone Gynecology/Obstetrics Nikita Brantley [address] [place] [address] Teresa Cotton PA-C [address] [place] [address] Breast Cancer Allergies Active Allergy Reactions Criticality Noted Date Comments Pollen 01/26/2021 documented as of this encounter (statuses as of 05/07/2023) Medications Medication Sig Dispensed Refills Start Date [...] as of this encounter (statuses as of 05/07/2023) Active Problems Problem Noted Date Diagnosed Date Intermittent asthma with reliever use up to twic e per week 02/01/2021 Mild persistent asthma without complication 01/14 Eczema 07/16/2012 Meniere's disease Asthma, allergic documented as of this encounter (statuses as of 05/07/2023) Resolved Problems Problem Noted Date Diagnosed Date Resolved Date Screening for cardiovascular condition 07/16/2012 01/24/2018 Screening for diabetes mellitus 07/16/2012 01/24/2018 General medical exam 07/16/2012 018 Acute bronchitis, complicated 06/06/2010 07/16/2012 documented as of this encounter (statuses as of 05/07/2023) Immunizations Name Administration Dates Next Due COVID-19 mRNA, LNP-s, No Pre serve, 2-Dose Series ([employer]) 03/05/2021,07/16/2020,06/25/2020 COVID-19, MRNA-LNP, 23-24, P F, 50 MCG/0.5 mL, 12 YRS AND ABOVE, IM (MODERNA-Spikevax) 02/09/2023 Covid-19, Mrna, Lnp-s, Pf, B ivalent, 50 Mcg, IM, 12 yrs and above (Moderna) 02/25/2022 Pneumococcal Conjugate Vacci ne, 20-valent ([id number]) 05/03/2022 Seasonal Influenza, PF, 6 M & [...] encounter Miscellaneous Notes * Addendum Note - Teresa Cotton PA-C [...] referral to Breast Clinic placed. Given [facility] triage number, advised to followup if any further questions or if she does not hear from breast clinic regarding scheduling in nextfew days. Teresa Cotton PA-C documented in this encounter Plan of Treatment Upcoming Encounters Date Type Department Care Team (Latest Contact Info) Description 05/10/2023 3:00 PM EST Office Visit General Surgery, [facility] [address] [place] [address] Dima Lopes MD [address] [place] [address] 06/04/2023 9:30 AM EST Office Visit Gynecology/Obstetri [facility] [address] [place] [address] Derrick Hernández MD [address] [place] [address] 06/21/2023 9:38 AM EST Hospital Encounter OR [facility], Operating Room [facility] [address] [place] [address] Derrick Hernández MD [address] [place] [address] 06/21/2023 9:38 AM EST - 06/21/2023 10:28 AM EST Surgery OR [facility], Operating Room [facility] [address] [place] [address] Derrick Hernández MD [address] [place] [address] HYSTEROSCOPY WITH BIOPSY AND/OR POLYPECTOMY WITH OR WITHOUT D&C 09/21/2023 7:15 AM EDT Office Visit Gynecology/Obstetri [facility] [address] [place] [address] Teresa Cotton PA-C [address] [place] [address] 12/31/2023 10:40 AM EDT Office Visit Otolaryngology [facility] [address] [place] [address] Twila Najera PA-C [address] [place] [address] 03/24/2024 10:30 AM EST Imaging Radiology [address] [place] [address] Scheduled Procedures Name Priority Associated Diagnoses Date/Ti [...] (EIN) documented in this encounter Care Teams Traffic Signal Repairer Relationship Specialty Start Date End Date TashaJuly HASMUKH Fernandez [address] [place] [address] PCP - General Physician Parts Counter Salesperson 05/05/16 documented as of this encounter
--- OUTSIDE RECORDS SUMMARY | 2023-09-29 01:23 | External Medical Summary | Summary of Care ---
Author Name Unknown Organization [facility] Address [address] [facility] [place] [address] Phone [phone] Care Team Providers Care Ironer Or Presser Name Role Phone Vianney Cordova PA-C Primary Care Provider [phone] Reason for Visit * Reason Onset Date Comments Appointment 05/15/2023 Encounter Details Date Type Department Care Team (Late st Contact Info) Description 05/15/2023 Telephone Hematology/Oncology [address] [place] [address] [facility] [place] [address] Gerard Ferrari MD [address] [place] [address] Appointment Allergies Active Allergy Reactions Criticality Noted [...] mRNA, LNP-s, No Pre serve, 2-Dose Series ([employer]) 03/05/2021,07/16/2020,06/25/2020 COVID-19, MRNA-LNP, 23-24, P F, 50 MCG/0.5 mL, 12 YRS AND ABOVE, IM (MODERNA-Spikevax) 02/09/2023 Covid-19, Mrna, Lnp-s, Pf, B ivalent, 50 Mcg, IM, 12 yrs and above (Moderna) 02/25/2022 Pneumococcal Conjugate Vacci ne, 20-valent ([id number]) 05/03/2022 Seasonal Influenza, PF, 6 M & [...] Telephone Encounter - Elaina Sanderson OSA - 05/15/2023 1:37 PM EST Genetics Within 10 days (routine) Where should this appointment be scheduled? [facility] Is this referral request related to one of the following genetics sub- specialties? If unsure of category, use Medical Genetics Ask-A-Doc. Cancer Personal history of cancer? Yes Type of cancer and age at diagnosis: Breast cancer at the age of 52, Family history of cancer? Yes Describe family history of cancer: Paternal grandmother with breast cancer. Referral (Pending Review) ID: [id number] Created on: 05/15/2023 Referred by Referred to Gerard Ferrari MD Medical Genetics documented in this encounter Plan of Treatment Upcoming Encounters Date Type Department Care Team (Late st Contact Info) Description 05/18/2023 8:00 AM EST Office Visit Plastic Surgery, [place] [address] [place] [address] Russel Galindo MD [address] [place] [address] 05/19/2023 2:45 PM EST Imaging [facility] [address] [place] [address] 06/04/2023 9:30 AM EST Office Visit Gynecology/Obstetr ics [facility] [address] [place] [address] Derrick Hernández MD [address] [place] [address] 06/21/2023 9:38 AM EST Hospital Encounter OR [facility], Operating Room [facility] [address] [place] [address] Derrick Hernández MD [address] [place] [address] 06/21/2023 9:38 AM EST - 06/21/2023 10:28 AM EST Surgery OR [facility], Operating Room [facility] [address] [place] [address] Derrick Hernández MD [address] [place] [address] HYSTEROSCOPY WITH BIOPSY AND/OR POLYPECTOMY WITH OR WITHOUT D&C 07/24/2023 9:45 AM EDT Office Visit Gynecology/Obstetr [facility] [address] [place] [address] Derrick Hernández MD [address] [place] [address] 12/31/2023 10:40 AM EDT Office Visit Otolaryngology [facility] [address] [place] [address] Twila Najera PA-C [address] [place] [address] 03/24/2024 10:30 AM EST Imaging Radiology [facility] 1st [facility] [address] [address] Scheduled Procedures Name Priority Associated Diagnoses Date/Ti [...] filedocumented as of this encounter Care Teams Ironer Or Presser Relationship Specialty Start Date End Date Tasha July HASMUKH Fernandez [address] [place] [address] PCP - General Physician Wealth Management Director 05/05/16 documented as of this encounter
--- OUTSIDE RECORDS SUMMARY | 2023-09-29 01:23 | External Medical Summary | Summary of Care ---
Author Name Unknown Organization [facility] Address [address] [facility] [place] [address] Phone [phone] Care Team Providers Care Health Care Legal Assistant Name Role Phone Lululloyd Vianney Fernandez PA-C Primary Care Provider [phone] Reason for Referral * Evaluate & Treat - Unlimited Visits (Within 3 days (urgent)) - Pending Review Specialty Diagnoses / Procedures Referred By Contac t Referred To Contact Plastic Surgery Diagnoses Infiltrating lobular carcinoma of right breast in female (HCC) Dima Lopes MD [address] [place] [address] Referral ID Status Reason Start Date Expiration Date Visits Requested Visits Authorized [id number] Pending Review Specialty Services Required 05/10/2023 999 999 Question Answer Referral Priority Within 3 days (urgent) Where should this appointment be scheduled? [facility] What condition is the patient being seen for? Breast Reconstruction Comments Current Patient BMI: 24 Newly diagnosed right infiltrating lobular breast cancer. Wants to discuss breast reconstruction if she chooses mastectomy * Precert (Within 10 days (routine)) - Pending Review Specialty Diagnoses / Procedures Referred By Contac t Referred To Contact Radiology Diagnoses Infiltrating lobular carcinoma of right breast in female (HCC) Procedures MRI BREAST BILATERAL W WO CONTRAST Dima Lopes MD [address] [place] [address] Referral ID Status Reason Start Date Expiration Date V isits Requested Visits Authorized [id number] Pending Review 05/10/2023 999 999 Reason for Visit * Reason Comments NEW PATIENT Right breast ILC * Evaluate & Treat - Unlimited Visits (Within 3 days (urgent)) - Pending Review Specialty Diagnoses / Procedures Referred By Lorena palomo Referred To Contact Breast Clinic Multi Specialty / Surgical Oncology Diagnoses Invasive lobular carcinoma of breast, stage 3, right (HCC) Heidy Cotton PA-C [address] [place] [address] Referral ID Status Reason Start Date Expiration Date Visits Requested Visits Authorized [id number] Pending Review Specialty Services Required 05/04/2023 999 [id number] Encounter Details Date Type Department Care Team (Late st Contact Info) Description 05/10/2023 3:00 PM EST Office Visit General Surgery, [facility] [address] [place] [address] Dima Lopes MD [address] [place] [address] Infiltrating lobular carcinoma of right breast in female (HCC)* Allergies Active Allergy Reactions Criticality Noted [...] mRNA, LNP-s, No Pre serve, 2-Dose Series (directworx) 03/05/2021,07/16/2020,06/25/2020 COVID-19, MRNA-LNP, 23-24, P F, 50 MCG/0.5 mL, 12 YRS AND ABOVE, IM (MODERNA-Spikevax) 02/09/2023 Covid-19, Mrna, Lnp-s, Pf, B ivalent, 50 Mcg, IM, 12 yrs and above (Moderna) 02/25/2022 Pneumococcal Conjugate Vacci ne, 20-valent ([id number]) 05/03/2022 Seasonal Influenza, PF, 6 M & [...] Progress Notes * Dima Lopes MD - 05/10/2023 4:27 PM EST [facility] BREAST CLINIC NOTES INDICATION: Right Breast [...] positive. This was found on self examination. BREAST HISTORY: Mass: Yes; right upper outer, [...] Ever take estrogen? No RADIOLOGIC INTERPRETATION: Result US BREAST LIMITED RIGHT US BREAST [...] with a container labeled with "Nova Mota", "[id number]", "1970" and " right breast ten o'clock [...] Out Location Pathologist sign out performed at [facility] ([facility]), [address] [place] [id number]. FAMILY HISTORY: Family history of breast or ovarian cancer: Grandmother at 65 Family History Problem Relation Age of Onset Heart Disorder Mother MVP Diabetes Mother dx age 60's Hypertension Father Cancer Grandmother (Paternal) breast Breast Cancer Grandmother (Paternal) Hypertension Brother Other (osteoporosis) Mother Past Medical History Past Medical History: Diagnosis Date Anemia Asthma, allergic Meniere's disease Past Surgical History Past Surgical History: Procedure Laterality Date COLONOSCOPY, DIAGNOSTIC (RECTUM) 12/08/2019 benign polyp, repeat 5 yrs / COLONOSCOPY FLEXIBLE PROXIMAL DIAGNOSTIC performed by Lopez Bazan MD at ENDOSCOPY [facility] DENTAL SURGERY PROCEDURE NEC HYSTEROSCOPY W/BIOPSY AND/OR POLYPECTOMY W/WO D&C N/A 02/05/2020 HYSTEROSCOPY WITH BIOPSY AND/OR POLYPECTOMY WITH OR WITHOUT D&C performed by Farheen Rust MD at OR [facility] LIGATE/CUT OVIDUCT(S) PUNCTURE DRAINAGE BREAST CYST Left [...] for this visit. Allergies: Allergies as of 05/10/2023 - Reviewed 05/10/2023 Allergen Reaction Noted Environmental [pollen] 01/26/2021 REVIEW OF SYSTEMS - ROS EXAM: As per HPI, otherwise negative EXAMINATION Last menstrual period 04/04/2023. Constitutional: alert, healthy, well nourished Head: normocephalic, atraumatic Eyes: conjunctiva non-injected, sclera white Neck: supple, no adenopathy Lungs: clear to auscultation, breath sounds are equal and symmetric Heart: regular rate & rhythm and no murmur, gallops or rubs Abdomen: soft, non-tender Back: normal curvature, normal ROM, no CVA tenderness Extremities: no edema, no skin discoloration Neuro: alert, gait normal, motor normal Skin: no obvious rashes or significant lesions BREAST EXAMINATION Right Breast: No evidence of skin retraction, nipple inversion, Pagets, peau d'orange, arm edema, nipple discharge, palpable axillary adenopathy, or palpable supraclavicular adenopathy. Small palpable mass 10:00 a.m. 6 cm from the nipple, soft There are no surgical scars. Left Breast: No evidence of mass, skin retraction, nipple inversion, Pagets, peau d'orange, arm edema, nipple discharge, palpable axillary adenopathy, or palpable supraclavicular adenopathy. There are no surgical scars. IMPRESSION: Clinical Stage 1 carcinoma of the [...] referred on to radiation and medical oncology. She understands that I do recommend a preoperative MRI scan based on the density of her breasts andthe lobular nature of the cancer. After lengthy discussion, she would like to explore options further of mastectomy with reconstruction versus lumpectomy. We will set her up with an appointment with Plastic surgery to discuss reconstructive options. We will have her return to clinic as soon as the MRI is complete for further discussion of surgical treatment plan. All her questions were answered to the best of my ability. She willcall with any new or concerning symptoms in the meantime. I spent a total of Greater than 55 mins (exact time 65 mins) on the date of service in preparation,delivery, and documentation of the care provided to [facility] excluding any time spent inthe performance of separately billed services. Dima Lopes MD 05/10/2023 4:28 PM documented in this encounter Nursing Notes * Nasrin Vickers LPN - 05/10/2023 2:55 PM EST Chief Complaint Patient presents with NEW PATIENT Right breast ILC She has irregular cycles she is having a D and C Patient presents today for evaluation of patient found a lump, then called . [facility]. BREAST HISTORY: Mass: cysts that go away Breast Pain: no Nipple discharge: Yes; BILATERAL, elicited, milky Previous problems/surgeries: fine needle aspiration thinking left but not sure Breast Cancer: no Other Cancers: no GYNECOLOGIC HISTORY: LMP: Patient's last menstrual period was 04/04/2023. Patient is perimenopausal. Menarche at age: 12 Menopause at age: she is pre=menopause Number of children: 4 Patient's age at first live : 27 Did you breast feed any of your children: Yes Ever take oral contraceptives? Yes, history of use for 7 year(s) Ever take estrogen? No Family History of Breast Cancer: Yes parternal grandmother documented in this encounter Plan of Treatment Upcoming Encounters Date Type Department Care Team (Latest Contact Info) Description 05/15/2023 12:15 PM EST Office Visit Hematology/Oncology [facility] [address] [facility] [place] [address] Gerard Ferrari MD 200 [facility] [place] [address] 05/19/2023 2:45 PM EST Imaging Radiology [facility] 1st [facility] [address] [place] [address] 06/04/2023 9:30 AM EST Office Visit Gynecology/Obstetri [facility] [address] [place] [address] Derrick Hernández MD [address] [place] [address] 06/21/2023 9:38 AM EST Hospital Encounter OR [facility], Operating Room [facility] [address] [place] [phone] Derrick Hernández MD [address] [place] [address] 06/21/2023 9:38 AM EST - 06/21/2023 10:28 AM EST Surgery OR [facility], Operating Room [facility] [address] [place] [phone] Derrick Hernández MD [address] [place] [address] HYSTEROSCOPY WITH BIOPSY AND/OR POLYPECTOMY WITH OR WITHOUT D&C 07/24/2023 9:45 AM EDT Office Visit Gynecology/Obstetri [facility] [address] [place] [address] Derrick Hernández MD [address] [place] [address] 12/31/2023 10:40 AM EDT Office Visit [facility] [place] [address] Twila Najera PA-C [address] [place] [address] 03/24/2024 10:30 AM EST Imaging Radiology [facility] 1st [facility] [address] [place] [address] Scheduled Orders Name Type Priority Associated Diagnoses Orde r Schedule MRI BREAST BILATERAL W WO CONTRAST Medical Imaging Routine Infiltrating lobular carcinoma of right breast in female (HCC) Expected: 05/10/2023, Expires: 06/10/2024 Scheduled Procedures Name Priority Associated Diagnoses Date/Ti [...] of right breast in female (HCC)- Primary Endometrial intraepithelial neoplasia (EIN) documented in this encounter Care Teams Health Care Legal Assistant Relationship Specialty Start Date End Date Lulujuly HASMUKH Fernandez [address] [place] [address] PCP - General Physician Neuroradiologist 05/05/16 documented as of this encounter
--- OUTSIDE RECORDS SUMMARY | 2023-09-29 01:24 | External Medical Summary | Summary of Care ---
Author Name Unknown Organization [facility] Address [address] [facility] [place] [address] Phone [phone] Care Team Providers Care Calculus Teacher Name Role Phone Tasha Vianney Fernandez PA-C Primary Care Provider [phone] Reason for Visit * Reason Comments Pin Setter Return EMB Encounter Details Date Type Department Care Team (Late st Contact Info) Description 04/04/2023 1:00 PM EST Office Visit Gynecology/Obstetric [facility] [address] [place] [address] BackJerilyn arthur CRNP [address] [place] [address] Abnormal uterine bleeding* Allergies Active Allergy Reactions Criticality Noted Date Comments Pollen 01/26/2021 documented as of this encounter (statuses as of 04/04/2023) Medications Medication Sig Dispensed Refills Start Date [...] as of this encounter (statuses as of 04/04/2023) Active Problems Problem Noted Date Diagnosed Date Intermittent asthma with reliever use up to twic e per week 02/01/2021 Mild persistent asthma without complication 01/14 Eczema 07/16/2012 Meniere's disease Asthma, allergic documented as of this encounter (statuses as of 04/04/2023) Resolved Problems Problem Noted Date Diagnosed Date Resolved Date Screening for cardiovascular condition 07/16/2012 01/24/2018 Screening for diabetes mellitus 07/16/2012 01/24/2018 General medical exam 07/16/2012 018 Acute bronchitis, complicated 06/06/2010 07/16/2012 documented as of this encounter (statuses as of 04/04/2023) Immunizations Name Administration Dates Next Due COVID-19 mRNA, LNP-s, No Pre serve, 2-Dose Series (Reveal) 03/05/2021,07/16/2020,06/25/2020 COVID-19, MRNA-LNP, 23-24, P F, 50 MCG/0.5 mL, 12 YRS AND ABOVE, IM (MODERNA-Spikevax) 02/09/2023 Covid-19, Mrna, Lnp-s, Pf, B ivalent, 50 Mcg, IM, 12 yrs and above (Moderna) 02/25/2022 Pneumococcal Conjugate Vacci ne, 20-valent ([id number]) 05/03/2022 Seasonal Influenza, PF, 6 M & [...] Sign Reading Time Taken Comments Blood Pressure 104/62 04/04/2023 12:54 PM EST Pulse - - Temperature - - Respiratory Rate - - Oxygen Saturation - - Inhaled Oxygen Concentration - - Weight 63 kg (139 lb) 04/04/2023 12:54 PM EST Height 160 cm (5' 3") 04/04/2023 12:54 PM EST Body Mass Index 24.62 04/04/2023 12:54 PM EST documented in this encounter Patient Instructions * Patient Instructions* Jerilyn De Anda CRNP - 04/04/2023 12:54 PM EST Endometrial Biopsy: After the Procedure For a few hours, you may feel some mild cramping. This can usually be relieved with [id number] pain medications. Nothing in the vagina for 1 week - no tampons, douching, vaginal medications, or sex. Follow-Up It will take about a week for the biopsy results to come back from the lab. Then you and your healthcare provider can discuss the results. These may show that no treatment is required. Or, you may bescheduled for a follow-up appointment and further tests. Call your healthcare provider if you have: Heavy bleeding (more than a pad an hour for 2 hours). Severe cramping, or increasing pain. Fever over 101F. Foul-smelling or unusual vaginal discharge. documented in this encounter Progress Notes * Jerilyn De Anda CRNP - 04/04/2023 12:53 PM EST CC: Here for endometrial biopsy HPI: The patient is a 52 year old female with a history of heavy prolonged menstrual bleeding who presents today for an endometrial biopsy. Her control method is tubal. The procedure was described to her, including the information obtained from this test as well as the risks of bleeding and in fection and she gave verbal and written consent. BP 104/62 | Ht 1.6 m (5' 3") | Wt 63 kg (139 lb) | LMP 01/23/2023 | BMI 24.62 kg/m | BSA 1.67 mPatient's last menstrual period was 01/23/2023. A ''time out'' was initiated by JOHN Ramirez prior to procedure. The procedure was verified using the consent. The patient was identified by name and date of . The correct procedure, and correct site identified. Correct positioning (as applicable). There is availability of necessaryequipment. Pt states she is not allergic to latex. The cervix was cleansed with betadine x 3, a tenaculum was placed on the anterior lip of the cervix, and a pipelle was inserted with ease to the fundus. The uterus sounded to just over 10 cm. A moderate amount of tissue was obtained. The patient tolerated the procedure well. Assessment/Plan: Abnormal uterine bleeding (Primary) Follow up pending biopsy results. Post-procedure instructions reviewed. JOHN Ramirez 04/04/2023 documented in this encounter Nursing Notes * Lydia Stewart LPN - 04/04/2023 12:57 PM EST Chief Complaint Patient presents with Pin Setter Return EMB documented in this encounter Plan of Treatment Upcoming Encounters Date Type Department Care Team (Late st Contact Info) Description 04/13/2023 11:30 AM EST Imaging Radiology [facility] 1st Floor, [place] [address] [place] [address] 04/13/2023 12:00 PM EST Imaging Radiology [facility] [address] [place] [address] 04/13/2023 1:00 PM EST Imaging Radiology [facility] 132 [facility] [place] [address] 05/07/2023 11:00 AM EST Office Visit Family Practice [facility] 200 [facility] [place] [address] Vianney Cordova PA-C [facility] [address] 09/21/2023 7:15 AM EDT Office Visit Gynecology/Obstetrics [facility] [address] [place] [address] Heidy Cotton PA-C [address] [place] [address] 12/31/2023 10:40 AM EDT Office Visit Otolaryngology [facility] [address] [place] [address] Twila Najera PA-C [address] [place] [address] 03/24/2024 10:30 AM EST Imaging Radiology [address], [address] [place] [address] Pending Results Name Type Priority Associated Diagnoses Date /Time SURGICAL PATHOLOGY Pathology Routine Abnormal uterine bleeding 04/04/2023 1:10 PM EST Scheduled Procedures Name Priority Associated Diagnoses [...] Comments URINE SCREEN, POINT OF CARE (ENTER/EDIT) Routine 04/04/2023 Abnormal uterine bleeding documented in this encounter Results * URINE SCREEN, POINT OF CARE (ENTER/EDIT) (04/04/2023) hCG Beta, Urine Negative Negative Procedural Control Valid? Yes Lot Number [id number] Expiration Date Urine 04/04/2023 Jerilyn Benedict Backer JOHN LAB POINT O F CARE TEST ENTER/EDIT ORDERABLES documented in this encounter Visit Diagnoses Diagnosis Abnormal uterine bleeding- Primary Unspecified disorder of menstruation and other abnormal bleeding from female genital tract documented in this encounter Care Teams Calculus Teacher Relationship Specialty Start Date End Date TashaJuly HASMUKH Fernandez [address] [place] [address] PCP - General Physician User Experience Developer 05/05/16 documented as of this encounter
--- OUTSIDE RECORDS SUMMARY | 2023-09-29 01:24 | External Medical Summary | Summary of Care ---
Author Name Unknown Organization [facility] Address [address] [facility] [place] [address] Phone [phone] Care Team Providers Care Terrazzo Polisher Name Role Phone Tasha Vianney Fernandez PA-C Primary Care Provider [phone] Reason for Referral * Evaluate & Treat - Unlimited Visits (Within 3 days (urgent)) - Pending Review Specialty Diagnoses / Procedures Referred By Lorena palomo Referred To Contact Breast Clinic Multi Specialty / Surgical Oncology Diagnoses Invasive lobular carcinoma of breast, stage 3, right (HCC) Heidy Cotton PA-C [address] [place] [address] Referral ID Status Reason Start Date Expiration Date Visits Requested Visits Authorized [id number] Pending Review Specialty Services Required 05/04/2023 999 [...] Nikita Brantley [address] [place] [address] Heidy Cotton PA-C [address] [employer] [place] [address] Breast Cancer Allergies Active Allergy Reactions Criticality Noted Date Comments Pollen 01/26/2021 documented as of this encounter (statuses as of 05/04/2023) Medications Medication Sig Dispensed Refills Start Date [...] as of this encounter (statuses as of 05/04/2023) Active Problems Problem Noted Date Diagnosed Date Intermittent asthma with reliever use up to twic e per week 02/01/2021 Mild persistent asthma without complication 01/14 Eczema 07/16/2012 Meniere's disease Asthma, allergic documented as of this encounter (statuses as of 05/04/2023) Resolved Problems Problem Noted Date Diagnosed Date Resolved Date Screening for cardiovascular condition 07/16/2012 01/24/2018 Screening for diabetes mellitus 07/16/2012 01/24/2018 General medical exam 07/16/2012 018 Acute bronchitis, complicated 06/06/2010 07/16/2012 documented as of this encounter (statuses as of 05/04/2023) Immunizations Name Administration Dates Next Due COVID-19 mRNA, LNP-s, No Pre serve, 2-Dose Series (Connecture) 03/05/2021,07/16/2020,06/25/2020 COVID-19, MRNA-LNP, 23-24, P F, 50 MCG/0.5 mL, 12 YRS AND ABOVE, IM (MODERNA-Spikevax) 02/09/2023 Covid-19, Mrna, Lnp-s, Pf, B ivalent, 50 Mcg, IM, 12 yrs and above (Moderna) 02/25/2022 Pneumococcal Conjugate Vacci ne, 20-valent ([id number]) 05/03/2022 Seasonal Influenza, PF, 6 M & [...] encounter Miscellaneous Notes * Telephone Encounter - Heidy Cotton PA-C - 05/04/2023 12:22 PM EST [...] all of this. * Telephone Encounter - Heidy Cotton PA-C - 05/04/2023 12:06 PM EST [...] out in follow up once I can. * Telephone Encounter - Heidy Cotton PA-C - 05/04/2023 10:25 AM EST Patient identified by name and . Reviewed breast biopsy results with her indicating breast cancer: Invasive lobular carcinoma, histologic grade 2 out of 3 Discussed ER/AK positive HER2 negative Reviewed current Up To Date information on diagnosis. Answered questions to the best of my knowledged and deferred some questions to breast clinic. She stated understanding. Urgent referral to Breast Clinic placed. Given [facility] triage number, advised to followup if any further questions or if she does not hear from breast clinic regarding scheduling in nextfew days. Heidy Cotton PA-C documented in this encounter Plan of Treatment Upcoming Encounters Date Type Department Care Team (Latest Contact Info) Description 05/07/2023 11:00 AM EST Office Visit [facility] [address] [facility] [place] [address] Vianney Cordova PA-C [address] [facility] [place] [address] 05/10/2023 3:00 PM EST Office Visit General Surgery, [facility] [address] [place] [address] Dima Lopes MD [address] [place] [address] 06/04/2023 9:30 AM EST Office Visit Gynecology/Obstetri [facility] [address] [place] [address] Derrick Hernández MD [address] [place] [address] 06/21/2023 7:45 AM EST Hospital Encounter OR [facility], Operating Room [facility] [address] [place] [address] Derrick Hernández MD [address] [place] [address] 06/21/2023 7:45 AM EST - 06/21/2023 8:35 AM EST Surgery OR [facility], Operating Room [facility] [address] [place] [address] Derrick Hernández MD [address] [place] [address] HYSTEROSCOPY WITH BIOPSY AND/OR POLYPECTOMY WITH OR WITHOUT D&C 07/17/2023 9:30 AM EDT Office Visit Gynecology/Obstetri [facility] [address] [place] [address] Derrick Hernández MD [address] [place] [address] 09/21/2023 7:15 AM EDT Office Visit Gynecology/Obstetri [facility] [address] [place] [address] Heidy Cotton PA-C [address] [place] [address] 12/31/2023 10:40 AM EDT Office Visit Otolaryngology [facility] [address] [place] [address] Twila Najera PA-C [address] [place] [address] 03/24/2024 10:30 AM EST Imaging Radiology [facility] 1st Floor, [place] [address] [facility] [place] [address] Scheduled Procedures Name Priority Associated Diagnoses Date/Ti [...] breast, stage 3, right (HCC) Ordered: 05/04/2023 Health Maintenance Due Date Last Done Comments [...] (EIN) documented in this encounter Care Teams Terrazzo Polisher Relationship Specialty Start Date End Date TashaJuly HASMUKH Fernandez [address] [place] [address] PCP - General Physician Chief Of Pediatric Urology 05/05/16 documented as of this encounter
--- OUTSIDE RECORDS SUMMARY | 2023-09-29 01:24 | External Medical Summary | Summary of Care ---
Author Name Unknown Organization [facility] Address [address] [facility] [place] [address] Phone [phone] Care Team Providers Care Transit Planning Director Name Role Phone Vianney Cordova PA-C Primary Care Provider [phone] Reason for Visit * Reason Onset Date Comments Test Results 05/03/2023 Breast BX Result s Encounter Details Date Type Department Care Team (Late st Contact Info) Description 05/03/2023 Telephone Family Practice [facility] [place] [address] [facility] [place] [address] Vianney Cordova PA-C 200 [facility] [place] [address] Test Results (Breast BX Results) Allergies Active Allergy Reactions Criticality Noted Date Comments Pollen 01/26/2021 documented as of this encounter (statuses as of 05/03/2023) Medications Medication Sig Dispensed Refills Start Date [...] as of this encounter (statuses as of 05/03/2023) Active Problems Problem Noted Date Diagnosed Date Intermittent asthma with reliever use up to twic e per week 02/01/2021 Mild persistent asthma without complication 01/14 Eczema 07/16/2012 Meniere's disease Asthma, allergic documented as of this encounter (statuses as of 05/03/2023) Resolved Problems Problem Noted Date Diagnosed Date Resolved Date Screening for cardiovascular condition 07/16/2012 01/24/2018 Screening for diabetes mellitus 07/16/2012 01/24/2018 General medical exam 07/16/2012 018 Acute bronchitis, complicated 06/06/2010 07/16/2012 documented as of this encounter (statuses as of 05/03/2023) Immunizations Name Administration Dates Next Due COVID-19 mRNA, LNP-s, No Pre serve, 2-Dose Series (Boosket) 03/05/2021,07/16/2020,06/25/2020 COVID-19, MRNA-LNP, 23-24, P F, 50 MCG/0.5 mL, 12 YRS AND ABOVE, IM (MODERNA-Spikevax) 02/09/2023 Covid-19, Mrna, Lnp-s, Pf, B ivalent, 50 Mcg, IM, 12 yrs and above (Moderna) 02/25/2022 Pneumococcal Conjugate Vacci ne, 20-valent ([email or web address]) 05/03/2022 Seasonal Influenza, PF, 6 M & [...] Description 05/07/2023 11:00 AM EST Office Visit Family Practice [facility] Gu[facility] [address] [place] [address] Vianney Cordova PA-C [address] [place] [address] 06/04/2023 9:30 AM EST Office Visit Gynecology/Obstetri [facility] [address] [place] [address] Derrick Hernández MD [address] [place] [address] 06/21/2023 7:45 AM EST Hospital Encounter [facility] Operating [facility] [address] [place] [address] Derrick Hernández MD [address] [place] [address] 06/21/2023 7:45 AM EST - 06/21/2023 8:35 AM EST Surgery [facility], [facility] [address] [place] [address] Derrick Hernández MD [address] [place] [address] HYSTEROSCOPY WITH BIOPSY AND/OR POLYPECTOMY WITH OR WITHOUT D&C 07/17/2023 9:30 AM EDT Office Visit Gynecology/Obstetri [facility] [address] [place] [address] Derrick Hernández MD [address] [place] [address] 09/21/2023 7:15 AM EDT Office Visit Gynecology/Obstetri [facility] [address] [place] [address] Heidy Cotton PA-C [address] [place] [address] 12/31/2023 10:40 AM EDT Office Visit Otolaryngology [facility] [address] [place] [address] Twila Najera PA-C [address] [place] [address] 03/24/2024 10:30 AM EST Imaging Radiology [address] [place] [address] Scheduled Procedures Name Priority Associated Diagnoses Date/Ti [...] filedocumented as of this encounter Care Teams Transit Planning Director Relationship Specialty Start Date End Date Tasha July Rebecca, HASMUKH [address] [place] [address] PCP - General Physician Graphic Art Designer 05/05/16 documented as of this encounter
--- OUTSIDE RECORDS SUMMARY | 2023-09-29 01:24 | External Medical Summary | Summary of Care ---
Author Name Unknown Organization [facility] Address [address] [facility] [address] Phone [phone] Care Team Providers Care Shoe Dresser Name Role Phone Tasha Vianney Fernandez PA-C Primary Care Provider [phone] Reason for Referral * Evaluate & Treat - Unlimited Visits (Within 3 days (urgent)) - Pending Review Specialty Diagnoses / Procedures Referred By Lorena palomo Referred To Contact Breast Clinic Multi Specialty / Surgical Oncology Diagnoses Invasive lobular carcinoma of breast, stage 3, right (HCC) Heidy Cotton PA-C [address] [place] [address] Referral ID Status Reason Start Date Expiration Date Visits Requested Visits Authorized [id number] Pending Review Specialty Services Required 05/04/2023 999 [...] Nikita Brantley [address] [place] [address] Heidy Cotton PA-C [address] [place] [address] Breast Cancer Allergies Active Allergy Reactions Criticality [...] mRNA, LNP-s, No Pre serve, 2-Dose Series (Pocket Video) 03/05/2021,07/16/2020,06/25/2020 COVID-19, MRNA-LNP, 23-24, P F, 50 MCG/0.5 mL, 12 YRS AND ABOVE, IM (MODERNA-Spikevax) 02/09/2023 Covid-19, Mrna, Lnp-s, Pf, B ivalent, 50 Mcg, IM, 12 yrs and above (Moderna) 02/25/2022 Pneumococcal Conjugate Vacci ne, 20-valent ([id number]) 05/03/2022 Seasonal Influenza, PF, 6 M & [...] histologic grade 2 out of 3 Discussed ER/ME positive HER2 negative Reviewed current Up To Date information on diagnosis. Answered questions to the best of my knowledged and deferred some questions to breast clinic. She stated understanding. Urgent referral to Breast Clinic placed. Given [facility] triage number, advised to followup if any further questions or if she does not hear from breast clinic regarding scheduling in nextfew days. Heidy Cotton PA-C documented in this encounter Plan of Treatment Upcoming Encounters Date Type Department Care Team (Latest Contact Info) Description 05/07/2023 11:00 AM EST Office Visit [facility] [address] [facility] [place] [address] Vianney Cordova PA-C [address] [facility] [place] [address] 06/04/2023 9:30 AM EST Office Visit Gynecology/Obstetri [facility] [address] [place] [address] Derrick Hernández MD [address] [place] [address] 06/21/2023 7:45 AM EST Hospital Encounter [facility], Operating Room [facility] [address] [place] [address] Derrick Hernández MD [address] [place] [address] 06/21/2023 7:45 AM EST - 06/21/2023 8:35 AM EST Surgery [facility], Operating Room [facility] [address] [place] [address] Derrick Hernández MD [address] [place] [address] HYSTEROSCOPY WITH BIOPSY AND/OR POLYPECTOMY WITH OR WITHOUT D&C 07/17/2023 9:30 AM EDT Office Visit Gynecology/Obstetri [facility] [address] [place] [address] Derrick Hernández MD [address] [place] [address] 09/21/2023 7:15 AM EDT Office Visit Gynecology/Obstetri [facility] [address] [place] [address] Heidy Cotton PA-C [address] [place] [address] 12/31/2023 10:40 AM EDT Office Visit Otolaryngology [facility] [address] [place] [address] Twila Najera PA-C [address] [place] [address] 03/24/2024 10:30 AM EST Imaging Radiology [facility] 1st [facility] [address] [place] [address] Scheduled Procedures Name Priority Associated Diagnoses Date/Ti [...] (EIN) documented in this encounter Care Teams Shoe Dresser Relationship Specialty Start Date End Date TashaJuly HASMUKH Fernandez [address] [place] [address] PCP - General Physician Clam Digger 05/05/16 documented as of this encounter
--- OUTSIDE RECORDS SUMMARY | 2023-09-29 01:24 | External Medical Summary | Summary of Care ---
Author Name Unknown Organization [facility] Address [address] [place] [address] Phone [phone] Care Team Providers Care Timber Management Specialist Name Role Phone Tasha Vianney Fernandez PA-C Primary Care Provider [phone] Reason for Referral * Evaluate & Treat - Unlimited Visits (Within 3 days (urgent)) - Pending Review Specialty Diagnoses / Procedures Referred By Lorena palomo Referred To Contact Breast Clinic Multi Specialty / Surgical Oncology Diagnoses Invasive lobular carcinoma of breast, stage 3, right (HCC) Heidy Cotton PA-C [address] [place] [address] Referral ID Status Reason Start Date Expiration Date Visits Requested Visits Authorized [id number] Pending Review Specialty Services Required 05/04/2023 999 [...] Contact Info) Description 05/04/2023 Telephone Gynecology/Obstetrics Nikita Brantely [address] [place] [address] Heidy Cotton PA-C [address] [place] [address] Breast Cancer Allergies Active Allergy Reactions Criticality [...] mRNA, LNP-s, No Pre serve, 2-Dose Series (My eStore App) 03/05/2021,07/16/2020,06/25/2020 COVID-19, MRNA-LNP, 23-24, P F, 50 MCG/0.5 mL, 12 YRS AND ABOVE, IM (MODERNA-Spikevax) 02/09/2023 Covid-19, Mrna, Lnp-s, Pf, B ivalent, 50 Mcg, IM, 12 yrs and above (Moderna) 02/25/2022 Pneumococcal Conjugate Vacci ne, 20-valent ([email or web address]) 05/03/2022 Seasonal Influenza, PF, 6 M & [...] all questions answered. * Telephone Encounter - Heidy Cotton PA-C - 05/04/2023 10:25 AM EST Patient identified by name and . Reviewed breast biopsy results with her indicating breast cancer: Invasive lobular carcinoma, histologic grade 2 out of 3 Discussed ER/SD positive HER2 negative Reviewed current Up To Date information on diagnosis. Answered questions to the best of my knowledged and deferred some questions to breast clinic. She stated understanding. Urgent referral to Breast Clinic placed. Given [facility] triage number, advised to followup if any further questions or if she does not hear from breast clinic regarding scheduling in nextfew days. Heidy Cotton PA-C documented in this encounter Plan of Treatment Upcoming Encounters Date Type Department Care Team (Latest Contact Info) Description 05/07/2023 11:00 AM EST Office Visit [facility] [address] [facility] [place] [address] Vianney Cordova PA-C [address] [facility] [place] [address] 05/10/2023 3:00 PM EST Office Visit General Surgery, [facility] [address] [place] [address] Dima Lopes MD [address] [place] [address] 06/04/2023 9:30 AM EST Office Visit Gynecology/Obstetri [facility] [address] [place] [address] Derrick Hernández MD [address] [place] [address] 06/21/2023 7:45 AM EST Hospital Encounter [facility] Room [facility] [address] [place] [address] Derrick Hernández MD [address] [place] [address] 06/21/2023 7:45 AM EST - 06/21/2023 8:35 AM EST Surgery [facility], Operating Room [facility] [address] [place] [address] Derrick Hernández MD [address] [place] [address] HYSTEROSCOPY WITH BIOPSY AND/OR POLYPECTOMY WITH OR WITHOUT D&C 09/21/2023 7:15 AM EDT Office Visit Gynecology/Obstetri cs [facility] [address] [place] [address] Heidy Cotton PA-C [address] [place] [address] 12/31/2023 10:40 AM EDT Office Visit Otolaryngology [facility] [address] [place] [address] Twila Najera PA-C [address] [place] [address] 03/24/2024 10:30 AM EST Imaging Radiology [facility] 1st [facility] [place] [address] [place] [address] Scheduled Procedures Name Priority Associated Diagnoses Date/Ti [...] (EIN) documented in this encounter Care Teams Timber Management Specialist Relationship Specialty Start Date End Date Tasha July HASMUKH Fernandez [address] [place] [address] PCP - General Physician Block Trader 05/05/16 documented as of this encounter
--- OUTSIDE RECORDS SUMMARY | 2023-09-29 01:24 | External Medical Summary | Summary of Care ---
Author Name Unknown Organization [facility] Address [address] [facility] [place] [address] Phone [phone] Care Team Providers Care Research Archaeologist Name Role Phone Vianney Cordova PA-C Primary Care Provider [phone] Reason for Visit * Reason Onset Date Comments Test Results 05/03/2023 Breast BX Result s Encounter Details Date Type Department Care Team (Late st Contact Info) Description 05/03/2023 Telephone Family Practice [facility] [place] [address] [facility] [place] [address] Vianney Cordova PA-C [address] [facility] [place] [address] Test Results (Breast BX Results) Allergies Active [...] mRNA, LNP-s, No Pre serve, 2-Dose Series (Soneter) 03/05/2021,07/16/2020,06/25/2020 COVID-19, MRNA-LNP, 23-24, P F, 50 MCG/0.5 mL, 12 YRS AND ABOVE, IM (MODERNA-Spikevax) 02/09/2023 Covid-19, Mrna, Lnp-s, Pf, B ivalent, 50 Mcg, IM, 12 yrs and above (Moderna) 02/25/2022 Pneumococcal Conjugate Vacci ne, 20-valent ([id number]) 05/03/2022 Seasonal Influenza, PF, 6 M & [...] State Derrick Guo [address] [place] [address] Vianney Cordova PA-C [address] [place] [address] 06/04/2023 9:30 AM EST Office Visit Gynecology/Obstetri [facility] [address] [place] [address] Derrick Hernández MD [address] [place] [address] 06/21/2023 7:45 AM EST Hospital Encounter [facility], Operating Room [facility] [address] [place] [address] Derrick Hernández MD [address] [place] [address] 06/21/2023 7:45 AM EST - 06/21/2023 8:35 AM EST Surgery OR [facility], Operating Room [facility] [address] [place] [address] Derrick Hernández MD [address] [place] [address] HYSTEROSCOPY WITH BIOPSY AND/OR POLYPECTOMY WITH OR WITHOUT D&C 07/17/2023 9:30 AM EDT Office Visit Gynecology/Obstetri [facility] [address] [place] [address] Derrick Hernández MD [address] [place] [address] 09/21/2023 7:15 AM EDT Office Visit Gynecology/Obstetri [facility] [address] [place] [address] Heidy Cotton PA-C [address] [place] [address] 12/31/2023 10:40 AM EDT Office Visit Otolaryngology [facility] [address] [place] [address] Twila Najera PA-C [address] [place] [address] 03/24/2024 10:30 AM EST Imaging Radiology [address] [place] [address] Scheduled Procedures Name Priority Associated Diagnoses Date/Ti [...] filedocumented as of this encounter Care Teams Research Archaeologist Relationship Specialty Start Date End Date Tasha July Rebecca, HASMUKH [address] [place] [address] PCP - General Physician Steam Turbine Operator 05/05/16 documented as of this encounter
--- OUTSIDE RECORDS SUMMARY | 2023-09-29 01:24 | External Medical Summary | Summary of Care ---
Author Name Unknown Organization [facility] Address [address] [facility] [place] [address] Phone [phone] Care Team Providers Care Bed Manager Name Role Phone Tasha Vianney Fernandez PA-C Primary Care Provider [phone] Reason for Visit * Reason Comments Novelty Twister Tender Return Encounter Details Date Type Department Care Team (Latest Contact Info) Description 04/26/2023 9:15 AM EST Office Visit Gynecology/Obstetri [facility] [address] [place] [address] Derrick Hernández MD [address] [place] [address] Endometrial intraepithelial neoplasia (EIN)* Allergies Active Allergy Reactions Criticality Noted Date Comments Pollen 01/26/2021 documented as of this encounter (statuses as of 04/26/2023) Medications Medication Sig Dispensed Refills Start Date [...] as of this encounter (statuses as of 04/26/2023) Active Problems Problem Noted Date Diagnosed Date Intermittent asthma with reliever use up to twic e per week 02/01/2021 Mild persistent asthma without complication 01/14 Eczema 07/16/2012 Meniere's disease Asthma, allergic documented as of this encounter (statuses as of 04/26/2023) Resolved Problems Problem Noted Date Diagnosed Date Resolved Date Screening for cardiovascular condition 07/16/2012 01/24/2018 Screening for diabetes mellitus 07/16/2012 01/24/2018 General medical exam 07/16/2012 018 Acute bronchitis, complicated 06/06/2010 07/16/2012 documented as of this encounter (statuses as of 04/26/2023) Immunizations Name Administration Dates Next Due COVID-19 mRNA, LNP-s, No Pre serve, 2-Dose Series (DNAdigest) 03/05/2021,07/16/2020,06/25/2020 COVID-19, MRNA-LNP, 23-24, P F, 50 MCG/0.5 mL, 12 YRS AND ABOVE, IM (MODERNA-Spikevax) 02/09/2023 Covid-19, Mrna, Lnp-s, Pf, B ivalent, 50 Mcg, IM, 12 yrs and above (Moderna) 02/25/2022 Pneumococcal Conjugate Vacci ne, 20-valent ([email or web address]) 05/03/2022 Seasonal Influenza, PF, 6 M & [...] - Inhaled Oxygen Concentration - - Weight 62.1 kg (137 lb) 04/26/2023 9:11 AM EST Height 160 cm (5' 3") 04/26/2023 9:11 AM EST Body Mass Index 24.27 04/26/2023 9:11 AM EST documented in this encounter Progress Notes * Derrick Hernández MD - 04/26/2023 9:32 AM EST Patient Name: Nova Mota Patient CC: f/u EIN Context: (HPI) 52 year old G2 P for seen by AP for menorrhagia. Pelvic ultrasound was unremarkable the office endometrial biopsy showed AIN pathology recommend hysteroscopy. Patient reports she has had heavy menses for over a year. Location: Quality: Severity: Duration: Worsening/improving sympt: Pain level/ Scale: Timing: Associated symptoms: Past Medical Hx: Past Medical History: Diagnosis Date Anemia Asthma, allergic Meniere's disease Past Surgical Hx: Past Surgical History: Procedure Laterality Date COLONOSCOPY, DIAGNOSTIC (RECTUM) 12/08/2019 benign polyp, repeat 5 yrs / COLONOSCOPY FLEXIBLE PROXIMAL DIAGNOSTIC performed by Lopez Bazan MD at ENDOSCOPY [facility] DENTAL SURGERY PROCEDURE NEC HYSTEROSCOPY W/BIOPSY AND/OR POLYPECTOMY W/WO D&C N/A 02/05/2020 HYSTEROSCOPY WITH BIOPSY AND/OR POLYPECTOMY WITH OR WITHOUT D&C performed by Farheen Rust MD at OR [facility] LIGATE/CUT OVIDUCT(S) PUNCTURE DRAINAGE BREAST CYST Left 2000 Benign Social Hx: Social History Socioeconomic History Marital status: 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 Tobacco Use Smoking status: Never Smokeless tobacco: Never Vaping Use Vaping Use: Never used Substance and Sexual Activity Alcohol use: Yes Comment: very rare Drug use: No Sexual activity: Yes Partners: Male control/protection: Surgical Comment: 4 children/tubal Social Determinants of Health Food Insecurity: No Food Insecurity (03/28/2023) Hunger Vital Sign Worried About Running Out of Food in the Last Year: Never true Ran Out of Food in the Last Year: Never true Allergy: Review of patient's allergies indicates: Allergen Reactions Environmental [Pollen] Family HX: Family History Problem Relation Age of Onset Heart Disorder Mother MVP Diabetes Mother dx age 60's Hypertension Father Cancer Grandmother (Paternal) breast Breast Cancer Grandmother (Paternal) Hypertension Brother Other (osteoporosis) Mother ROS: REVIEW OF SYSTEMS CONSTITUTIONAL ROS: No change in weight, No weakness, No fatigue and No fevers, sweats, or chills PULMONARY ROS: No cough, sputum, or hemoptysis, No wheezing, No shortness or breath and No recent change in breathing CARDIOVASCULAR ROS: No chest pain, No shortness of breath, No dyspnea on exertion, No orthopnea, Noparoxysmal nocturnal dyspnea, No edema, No palpitations and No syncope BREAST ROS: No new breast lumps or masses, No severe breast pain, No nipple discharge, No recent change in shape/color and Performs self breast exam ENDOCRINE ROS; No change in wt gain, hair loss or bowel habits, malaise or fatigue. No polyuria, polyphagia polydipsia GASTROINTESTINAL ROS: No abdominal pain, No change in bowel habits, No significant heartburn, No significant change in appetite, No nausea, vomiting, diarrhea, or constipation, No hematemesis, No blood in stools or black tarry stools, No abdominal bloating or early satiety and No dysphagia GENITO-URINARY FEMALE ROS: No STDs, No dysuria, No frequency, No incontinence, No urgency and No vaginal discharge and + for irreg menses. ALL OTHERS REVIEWED AND ALL OTHERS NEGATIVE LABS: Pelvic Sonogram; PHYSICAL EXAMINATION Well developed. Well nourishes white female in no acute distress Vital signs Ht 1.6 m (5' 3") | Wt 62.1 kg (137 lb) | LMP 04/04/2023 | BMI 24.27 kg/m | BSA 1.66 m t A/P 1. Menorrhagia x1 year. Pelvic ultrasound is reviewed and is unremarkable. Office endometrial biopsies shows E IN. Biopsy and ultrasound is reviewed with patient. Patient is offered D and C with hysteroscopy. Paperwork sent to Francis for scheduling. documented in this encounter Nursing Notes * Omayra Fine LPN - 04/26/2023 9:13 AM EST Here to discuss D&C documented in this encounter Plan of Treatment Upcoming Encounters Date Type Department Care Team (Late st Contact Info) Description 04/30/2023 10:30 AM EST Imaging Radiology [facility] 1st Floor, [place] [address] [facility] [place] [address] 04/30/2023 11:00 AM EST Imaging Radiology [facility] [address] [facility] [place] [address] 05/07/2023 11:00 AM EST Office Visit [facility] [address] [place] [address] Vianney Cordova, PA-C [address] [place] [address] 09/21/2023 7:15 AM EDT Office Visit Gynecology/Obstetrics [facility] [address] [place] [address] Heidy Cotton PA-C [address] [place] [address] 12/31/2023 10:40 AM EDT Office Visit Otolaryngology [facility] [address] [place] [address] Twila Najera PA-C [address] [place] [address] 03/24/2024 10:30 AM EST Imaging Radiology [facility] 1st [facility] [place] [address] [place] [address] Scheduled Procedures Name Priority Associated Diagnoses Date/Ti [...] Diagnoses Diagnosis Endometrial intraepithelial neoplasia (EIN)- Primary documented in this encounter Care Teams Bed Manager Relationship Specialty Start Date End Date TashaJuly HASMUKH Fernandez [address] [place] [address] PCP - General Physician Shingle Shearing Machine Operator 05/05/16 documented as of this encounter
[2023-09-29 07:30] LABS: Basophils # (auto) 0.03 K/uL (0.00-0.20); Basophils % (auto) 0.4 %; Eosinophils # (auto) 0.07 K/uL (0.00-0.50); Hematocrit (blood only) 37.4 % (37.0-47.0); Hemoglobin 12.3 g/dl (12.0-16.0); Immature Granulocytes # (auto) 0.02 K/uL (0.01-0.20); Immature Granulocytes % (auto) 0.3 %; Lymphocytes # (auto) 0.66 K/uL (1.20-3.40); Lymphocytes % (auto) 9.2 %; Mean Corpuscular Hemoglobin 30.3 pg (25.0-34.0); Mean Corpuscular Hgb Conc 32.9 g/dL (32.0-36.0); Mean Corpuscular Volume 92.1 fL (80.0-100.0); Mean Platelet Volume 10.8 fL (9.4-12.4); Monocytes # (auto) 1.05 K/uL (0.11-0.59); Monocytes % (auto) 14.7 %; Neutrophils # (auto) 5.33 K/uL (1.40-6.50); Neutrophils % (auto) 74.4 %; Platelet Count 225 K/uL (130-400); RDW Coefficient of Variation 13.2 % (11.5-14.5); RDW Standard Deviation 44.9 fL (36.4-46.3); Red Blood Count 4.06 M/uL (4.20-5.40); White Blood Count 7.16 K/ul (4.8-10.8)
[2023-09-29 07:56] LABS: BUN Creatinine Ratio 12.7 (10-20); Calcium 8.6 mg/dl (8.6-10.3); Creatinine Clr Calc Pharmacy 88.2 ml/min; Est GFR (African American) 117.9 ml/min; Est GFR (Non-African American) 101.7 ml/min; Potassium 3.6 mmol/L (3.5-5.1)
[2023-09-29] MEDS: SIMETHICONE 80 MG CHEW PO PRN (08:39)
--- NOTE | 2023-09-29 10:05 | Progress Note ---
Date of Service September 29, 2023 Assessment & Plan (1) Postop check: Plan: pt doing well wishes to be discharged home Admission and Anticipated Discharge Date Admission Date: September 28, 2023 Results & Data Vital Signs (Past 12 Hours) Vital Signs Temp Pulse Resp BP Pulse Ox O2 Del Method 09/29/23 08:30 37 C 75 16 135/80 98 Room Air 09/29/23 03:09 37 C 70 18 106/69 96 Room Air 09/28/23 22:54 37.1 C 75 16 111/64 98 Room Air
--- NOTE | 2023-09-29 10:06 | Discharge Summary ---
Date of Service September 29, 2023 Admission HPI Per Admitting Provider As per HPI Discharge Data Procedures Performed Operation Date: 09/28/23 07:00 Actual Procedures p Total Laparoscopic Hysterectomy, Bilateral Salpingo-Oophorectomy, and (Not Applicable) - Derrick Hernández MD s Cystoscopy(Not Applicable) - Derrick Hernández MD Hospital Course (1) Postop check: (2) EIN (endometrial intraepithelial neoplasia): Post op course was unremarkable and pt is discharges home in stable condition. Discharge instructions including medications,diet, activity and follow up appointments are reviewed with pt.
--- OUTSIDE RECORDS SUMMARY | 2023-09-29 17:06 | External Medical Summary | Summary of Care ---
Author Name Unknown Organization [facility] Address [address] [place] [address] Phone [phone] Care Team Providers Care Licensed Psychiatric Technician Name Role Phone Tasha Vianney Fernandez PA-C Primary Care Provider [phone] Encounter Details Date Type Department Care Team (Late st Contact Info) Description 09/28/2023 Result Scan Unspecified Department <No scans attached> Allergies Active Allergy Reactions Criticality Noted Date Comments Pollen 01/26/2021 documented as of this encounter (statuses as of 09/28/2023) Medications Medication Sig Dispensed Refills Start Date [...] as of this encounter (statuses as of 09/28/2023) Active Problems Problem Noted Date Diagnosed Date Malignant neoplasm of female breast 06/12/2023 Intermittent asthma with reliever use up to twic e per week 02/01/2021 Mild persistent asthma without complication 01/14 Eczema 07/16/2012 Meniere's disease Asthma, allergic documented as of this encounter (statuses as of 09/28/2023) Resolved Problems Problem Noted Date Diagnosed Date Resolved Date Screening for cardiovascular condition 07/16/2012 01/24/2018 Screening for diabetes mellitus 07/16/2012 01/24/2018 General medical exam 07/16/2012 018 Acute bronchitis, complicated 06/06/2010 07/16/2012 documented as of this encounter (statuses as of 09/28/2023) Immunizations Name Administration Dates Next Due COVID-19 mRNA, LNP-s, No Pre serve, 2-Dose Series ([employer]) 03/05/2021,07/16/2020,06/25/2020 COVID-19, MRNA-LNP, 23-24, P F, 50 MCG/0.5 mL, 12 YRS AND ABOVE, IM (MODERNA-Spikevax) 02/09/2023 Covid-19, Mrna, Lnp-s, Pf, B ivalent, 50 Mcg, IM, 12 yrs and above (Moderna) 02/25/2022 Pneumococcal Conjugate Vacci ne, 20-valent ([id number]) 05/03/2022 Seasonal Influenza, PF, 6 M & [...] 10/08/2023 9:45 AM EDT Office Visit Gynecology/Obstetrics [facility] [address] [facility] [place] [address] Derrick Hernández MD [address] [facility] [place] [address] 11/21/2023 8:45 AM EDT Office Visit General Surgery, [facility] [address] [facility] [place] [address] Dima Lopes MD [address] [place] [address] 01/02/2024 10:20 AM EDT Office Visit Otolaryngology [facility] [address] [facility] [place] [address] Twila Najera PA-C [address] [facility] [place] [address] 02/06/2024 1:15 PM EDT Office Visit Hematology/Oncology [facility] [address] [place] [id number] [facility] [address] [facility] [address] 03/24/2024 10:30 AM EST Imaging Radiology [facility] [address] [facility] [address] [facility] [place] [address] Scheduled Procedures Name Priority Associated Diagnoses Date/Ti [...] 03/23/2023, 02/0 09/2022, 02/28/2021, Additional history exists Colonoscopy 12/07/2024 [...] Date/Time Associated Diagnosis Comments OUTSIDE LAB RESULTS 09/28/2023 documented in this encounter Results * OUTSIDE LAB RESULTS (09/28/2023) 09/28/2023 No Physician Data Unknown LABORATORY documented in this encounter Advance Directives * Full Code (Latest Code Status on File) Date Activated Date Inactivated Comments 06/12/2023 7:40 AM 06/12/2023 5:02 PM This order r eflects the patients wishes and were consensually agreed upon. Question Answer Comments Discussion of Advance Directives occurred with: Patient Care Teams Licensed Psychiatric Technician Relationship Specialty Start Date End Date Tasha July Rebecca, HASMUKH [address] [place] [address] PCP - General Physician Customer Response Representative 05/05/16 documented as of this encounter
== END 2023-09-29 11:45 | disposition home or self-care (01) ==
LOC: ASU 05:34 → 4E1 05:34